=== PATIENT | female | born 1965 | race Two or more races ===

== ENCOUNTER 2019-12-28 08:59 | Outpatient (REF) | payer MEDICAID, SELFPAY | END 2019-12-28 09:00 | disposition home or self-care (01) | LOC: HO.HAP 08:59 | PROVIDERS: Visit Provider Family Medicine | DX: Z46.1 Encounter for fitting and adjustment of hearing aid (principal); I83.12 Varicose veins of left lower extremity with inflammation | CPT/HCPCS: 92593; 99213 ==

== ENCOUNTER 2020-01-10 08:35 | Outpatient (REF) | payer MEDICAID, SELFPAY ==
[2020-01-17 18:17] LABS: HPV mRNA E6/E7 rflx Not Detected (Not Detected)
== END 2020-01-10 08:36 | disposition home or self-care (01) ==
LOC: HO.LAB 08:35
PROVIDERS: PCP Family Medicine; Visit Provider Obstetrics & Gynecology
DX: Z01.419 Encounter for gynecological examination (general) (routine) without abnormal findings (principal)
CPT/HCPCS: 87624; 87625; 88142

== ENCOUNTER 2020-01-19 15:15 | Outpatient (REF) | payer MEDICAID, SELFPAY | END 2020-01-19 15:16 | disposition home or self-care (01) | LOC: HO.HAP 15:15 | PROVIDERS: PCP Family Medicine; Visit Provider Family Medicine | DX: Z46.1 Encounter for fitting and adjustment of hearing aid (principal) | CPT/HCPCS: 92700 ==

== ENCOUNTER → 2020-03-01 07:34 | Outpatient (BNVA) | payer MEDICAID, SELFPAY | PROVIDERS: PCP Family Medicine; Referring Provider Family Medicine; Visit Provider Surgery Vascular Surgery | DX: I83.12 Varicose veins of left lower extremity with inflammation (principal) | CPT/HCPCS: 37765 ==

== ENCOUNTER → 2020-03-19 11:02 | Outpatient (BNVA) | payer MEDICAID, SELFPAY | PROVIDERS: PCP Family Medicine; Visit Provider Surgery Vascular Surgery | DX: I83.12 Varicose veins of left lower extremity with inflammation (principal) | CPT/HCPCS: 99212 ==

== ENCOUNTER → 2020-03-21 08:28 | Outpatient (BNVA) | payer MEDICAID, SELFPAY | PROVIDERS: PCP Family Medicine; Referring Provider Family Medicine; Visit Provider Internal Medicine Cardiovascular Disease | DX: Z45.02 Encounter for adjustment and management of automatic implantable cardiac defibrillator (principal); I50.810 Right heart failure, unspecified; I48.0 Paroxysmal atrial fibrillation; I45.10 Unspecified right bundle-branch block; Q21.3 Tetralogy of Fallot | CPT/HCPCS: 93005; 99212 ==

== ENCOUNTER 2020-04-01 08:55 | Outpatient (REF) | payer MEDICAID, SELFPAY ==
--- NOTE | 2020-04-01 08:58 | MM_ITS ---
EXAMINATION: MM SCREENING DIGITAL BREAST TOMOSYNTHESIS, BILATERAL CLINICAL INFORMATION: Screening. Asymptomatic. Family history breast cancer, sister, age 32. The lifetime risk of breast cancer based on the Tyrer-Cuzick Model is 19%. COMPARISON: Mammography: 03/30/2019, 01/03/2018, 12/30/2016 TECHNIQUE: Digital breast tomosynthesis is performed in both the craniocaudal and mediolateral oblique views along with computer-aided detection (CAD). Synthesized 2D images are generated from the tomosynthesis. Additional left CC and left MLO views are provided. FINDINGS: The breasts are heterogeneously dense, which may obscure small masses (ACR BI-RADS breast composition Category c). There are no significant masses, abnormal calcifications, or other abnormalities. There is fine fibronodular parenchymal pattern is similar to prior studies. Pacemaker generator overlies and partly obscures left axilla on MLO view. There are some calcifications bilateral posterior medial breasts again seen. No significant changes. MM/MM tomosynthesis screening BI IMPRESSION: No mammographic evidence of malignancy. ASSESSMENT: BI-RADS 2: Benign RECOMMENDATION: Routine annual mammography screening. This patient's information was entered into a reminder system with a target due date for their next mammogram.
== END 2020-04-01 08:56 | disposition home or self-care (01) ==
LOC: HO.MAMMO 08:55
PROVIDERS: PCP Family Medicine; Visit Provider Family Medicine
DX: Z12.31 Encounter for screening mammogram for malignant neoplasm of breast (principal)
CPT/HCPCS: 77063; 77067

== ENCOUNTER → 2020-08-27 08:40 | Outpatient (BNVA) | payer MEDICAID, SELFPAY | PROVIDERS: PCP Family Medicine; Visit Provider Surgery Vascular Surgery | DX: I83.11 Varicose veins of right lower extremity with inflammation (principal) | CPT/HCPCS: 99212 ==

== ENCOUNTER → 2020-09-19 08:09 | Outpatient (BNVA) | payer MEDICAID, SELFPAY | PROVIDERS: PCP Family Medicine; Referring Provider Family Medicine; Visit Provider Internal Medicine Cardiovascular Disease | DX: Z45.02 Encounter for adjustment and management of automatic implantable cardiac defibrillator (principal); I48.0 Paroxysmal atrial fibrillation; I50.810 Right heart failure, unspecified; Z95.2 Presence of prosthetic heart valve | CPT/HCPCS: 93005; 99212 ==

== ENCOUNTER → 2020-09-27 07:23 | Outpatient (BNVA) | payer MEDICAID, SELFPAY | PROVIDERS: PCP Family Medicine; Visit Provider Surgery Vascular Surgery | DX: I83.11 Varicose veins of right lower extremity with inflammation (principal) | CPT/HCPCS: 37765 ==

== ENCOUNTER → 2020-10-17 08:52 | Outpatient (BNVA) | payer MEDICAID, SELFPAY | PROVIDERS: PCP Family Medicine; Visit Provider Surgery Vascular Surgery | DX: I83.11 Varicose veins of right lower extremity with inflammation (principal) | CPT/HCPCS: 99212 ==

== ENCOUNTER → 2020-11-19 19:17 | Outpatient (REF) | payer MEDICAID, SELFPAY | LOC: HO.SL 19:17 | PROVIDERS: PCP Family Medicine; Visit Provider Family Medicine | DX: Z13.89 Encounter for screening for other disorder (principal) ==

== ENCOUNTER → 2020-11-26 13:32 | Outpatient (REF) | payer MEDICAID, SELFPAY ==
--- NOTE | 2020-11-26 13:35 | CA_ITS ---
Transthoracic Echocardiogram Patient (Last, First, Middle): Jasmina Yi, Gender: Female Date of : 1965 Age: 55 Procedure Date: 11/26/2020 Procedure Type: Transthoracic Echocardiogram Location: OP Height: 152.4 cm Weight: 68.95 kg BSA: 1.66 m2 Heart Rate: bpm BP: 100 / 60 mmHg Thread Marker: MANUELITO Referring MD: Christoph Marin MD Distribution District Supervisor: Christoph Marin MD Symptoms: I50.810 - Right heart failure, unspecified Study Quality: Fair ECG Rhythm: Sinus Conclusions: - 1. Low normal LV systolic function with LVEF of 50-55% 2. Moderately dilated right ventricle with borderline systolic function 3. Normally functioning bioprosthetic pulmonic valve with peak gradient of 12 mm of mercury 4. Normal RV systolic pressure 5. Trivial pericardial effusion Findings Left Ventricle Normal left ventricular cavity size. There is normal left ventricular wall thickness. The left ventricular systolic function is low normal. The visually estimated ejection fraction is between 50-55%. The calculated ejection fraction is 55% by biplane method. There is no evidence of regional wall motion abnormalities. There is paradoxical septal motion consistent with post-operative status. Spectral Doppler is indicative of a normal filling pattern. Right Ventricle Moderately increased right ventricular cavity size. There is low normal right ventricular systolic function. There is an ICD wire seen in the right ventricle. RV basal diameter 4.7-4.8cm. TAPSE 1.66cm. Atria Both atria are normal in size. Aortic Valve The aortic valve was not well visualized. There is mild calcification of the aortic valve. There is no aortic valve stenosis. The peak aortic gradient is 8 mmHg.There is no aortic valve regurgitation. Mitral Valve There is mild anterior mitral leaflet thickening. There is no mitral valve regurgitation. There is no mitral valve stenosis. Pulmonic Valve A bioprosthetic pulmonic valve is present. The prosthetic pulmonic valve appears to be functioning normally. The pulmonic valve was not well visualized. Peak PV gradient is calculated at 12 mmHg. Peak gradient 12mmHg. Tricuspid Valve There is mild tricuspid valve regurgitation. The right ventricular systolic pressure is normal. The right ventricular systolic pressure is 38 mmHg. There is no evidence of pulmonary hypertension. Great Vessels All visible segments of the aorta are normal in size. The pulmonary artery was not well visualized. The aortic arch is normal in size. Venous The inferior vena cava was not well visualized. Pericardium/Pleural There is a trivial pericardial effusion. Measurements 2D Linear Measurements IVSd: 0.92 0.6-0.9/0.6-1.0 cm LVIDd: 4.15 3.9-5.3/4.2-5.9 cm LVIDd Index: 2.50 2.4-3.2/2.2-3.1 cm/m2 LVIDs: 2.90 2.0-3.6 cm LVPWd: 1.03 0.7-1.1 cm Ao Root: 2.80 2.1-3.5 cm LA Diam: 2.60 2.7-3.8/3.0-4.0 cm LAIDs Index: 1.57 1.5-2.3 cm/m2 LV Mass: 162.19 67-162/88-224 g LV Mass Index: 97.71 43-95/49-115 g/m2 LVOT Diam: 1.90 3.0+(-)1.3 cm 2D Systolic Function EF 4C: 57.00 >55% EF 2C: 50.40 >55% EF BiP: 54.60 >55% Mitral Valve MV Pk E: 0.47 MV PK A: 0.46 MV Decel Time: 243.00 E/A: 1.00 E'Lateral: 6.96 E'Medial: 3.92 E/E' Med: 12.00 E/E' Lat: 6.80 PHT: 71.00 MVA PHT: 3.10 Decel Andrew: 1.94 Aortic Valve AoV Pk Darwin: 1.44 AoV Pk Grad: 8.00 LVOT LVOT Pk Darwin: 0.81 LVOT Mn Darwin: 0.51 LVOT VTI: 0.16 LVOT Pk Grad: 3.00 LVOT Mn Grad: 1.00 LVOT Diam: 1.90 LVOT Area: 2.84 Diastolic Function MV Pk E: 0.47 MV Pk A: 0.46 E/A: 1.00 E'Medial: 3.92 E/E' Med: 12.00 E' Laterial: 6.96 E/E' Lat: 6.80 Right Ventricle TAPSE (mm): 1.66 Tricuspid Valve TR Pk Darwin: 295.00 TR Pk Grad: 35.00 RA Press: 3.00 RVSP: 38.00 Great Vessels Aorta Ao Root-2D: 2.80 2.0-3.7 cm Pulmonary Valve PV Pk Darwin: 1.76 Peak PV Grad: 12.00 Updated in Other Vendor System with Status of Final Christoph Marin MD electronically signed on 11/27/2020 11:54:08 AM with status of Final
== END ==
LOC: HO.CARD 13:32
PROVIDERS: PCP Family Medicine; Visit Provider Internal Medicine Cardiovascular Disease
DX: I50.810 Right heart failure, unspecified (principal); I48.0 Paroxysmal atrial fibrillation; R06.83 Snoring; F51.3 Sleepwalking [somnambulism]; F51.4 Sleep terrors [night terrors]; Z95.2 Presence of prosthetic heart valve
CPT/HCPCS: 93306

== ENCOUNTER → 2021-01-23 09:29 | Outpatient (BNVA) | payer MEDICAID, SELFPAY | PROVIDERS: PCP Family Medicine; Visit Provider Surgery Vascular Surgery | DX: I83.11 Varicose veins of right lower extremity with inflammation (principal) | CPT/HCPCS: 99212 ==

== ENCOUNTER 2021-03-27 08:23 | Outpatient (REF) | payer MEDICAID, SELFPAY ==
--- NOTE | ~2021-03-27 | XR_ITS ---
EXAMINATION: XR CHEST CLINICAL INFORMATION: Paroxysmal atrial fibrillation COMPARISON: None TECHNIQUE: 2 views of the chest were obtained. FINDINGS: The lungs are well-expanded and clear acute pneumonic process. The heart size is enlarged. Bilateral pulmonary vascularity is slightly increased with There are pacer electrodes in right ventricle. There are median sternotomy sutures from previous intervention. No gross bony abnormality. XR/XR chest 2V IMPRESSION: Mild cardiomegaly. Slight increased bilateral pulmonary vascularity question mild congestion
[2021-03-27 10:05] LABS: Alanine Aminotransferase 19 U/L (0-31); Albumin Level 3.6 g/dL (3.5-5.0); Alkaline Phosphatase 70 U/L (39-117); Anion Gap 10 (12-20); Aspartate Amino Transferase 28 U/L (5-31); Bilirubin Direct 0.2 mg/dL (0.0-0.5); Bilirubin Total 0.5 mg/dL (0.0-1.0); Blood Urea Nitrogen 12 mg/dL (9-16); Calcium 9.6 mg/dL (8.4-10.2); Carbon Dioxide 30 mmol/L (22-29); Chloride 106 mmol/L (96-108); Estimated Glomerular Filt Rate > 60; Glucose Random 90 mg/dL (60-115); Potassium 4.1 mmol/L (3.3-5.1); Sodium 142 mmol/L (135-145); Total Protein 7.6 g/dL (6.5-8.0)
[2021-03-27 10:25] LABS: Thyroid Stimulating Hormone < 0.01 uIU/mL (0.32-4.0)
== END 2021-03-27 08:24 | disposition home or self-care (01) ==
LOC: HO.XRAY 08:23
PROVIDERS: PCP Family Medicine; Referring Provider Family Medicine; Visit Provider Internal Medicine Cardiovascular Disease
DX: I48.0 Paroxysmal atrial fibrillation (principal); I50.810 Right heart failure, unspecified; Q24.9 Congenital malformation of heart, unspecified; Z95.2 Presence of prosthetic heart valve; Z95.810 Presence of automatic (implantable) cardiac defibrillator
CPT/HCPCS: 36415; 71046; 80048; 80076; 84443; 93005; 99212

== ENCOUNTER → 2021-04-04 09:57 | Outpatient (BNVA) | payer MEDICAID, SELFPAY | PROVIDERS: PCP Family Medicine; Visit Provider Surgery Vascular Surgery | DX: I83.11 Varicose veins of right lower extremity with inflammation (principal) | CPT/HCPCS: 37765 ==

== ENCOUNTER → 2021-04-17 08:26 | Outpatient (BNVA) | payer MEDICAID, SELFPAY | PROVIDERS: PCP Family Medicine; Visit Provider Obstetrics & Gynecology ==

== ENCOUNTER 2021-04-23 15:31 | Outpatient (REF) | payer MEDICAID, SELFPAY ==
--- NOTE | ~2021-04-23 | MM_ITS ---
EXAMINATION: MM SCREENING DIGITAL BREAST TOMOSYNTHESIS, BILATERAL CLINICAL INFORMATION: Screening. Asymptomatic. The lifetime risk of breast cancer based on the Tyrer-Cuzick Model is 21%. COMPARISON: Mammography: 04/01/2020, 03/30/2019, 01/03/2018 TECHNIQUE: Digital breast tomosynthesis is performed in both the craniocaudal and mediolateral oblique views along with computer-aided detection (CAD). Synthesized 2D images are generated from the tomosynthesis. Additional left MLO x2 views are obtained. FINDINGS: The breasts are heterogeneously dense, which may obscure small masses (ACR BI-RADS breast composition Category c). There is fine fibronodular parenchymal pattern similar to prior exams. There is no interval mass or architectural abnormality or developing density. No abnormal calcifications. There are some loosely grouped dermal calcifications posterior medial right breast. Pacemaker generator overlies and partly obscures posterior left axilla on MLO view. No significant changes. MM/MM tomosynthesis screening BI IMPRESSION: No mammographic evidence of malignancy. ASSESSMENT: BI-RADS 2: Benign RECOMMENDATION: 1. Routine annual mammography screening. 2. The lifetime risk of breast cancer based on the Tyrer-Cuzick Model is 21%. Additional annual adjunct screening with breast MRI may be of benefit in women with a risk score of 20% or greater. This patient's information was entered into a reminder system with a target due date for their next mammogram.
== END 2021-04-23 15:32 | disposition home or self-care (01) ==
LOC: HO.MAMMO 15:31
PROVIDERS: PCP Family Medicine; Visit Provider Family Medicine
DX: Z12.31 Encounter for screening mammogram for malignant neoplasm of breast (principal)
CPT/HCPCS: 77063; 77067

== ENCOUNTER 2021-05-22 10:02 | Outpatient (REF) | payer MEDICAID, SELFPAY | END 2021-05-22 10:03 | disposition home or self-care (01) | LOC: HO.HAP 10:02 | PROVIDERS: Visit Provider Family Medicine | DX: Z46.1 Encounter for fitting and adjustment of hearing aid (principal); H90.3 Sensorineural hearing loss, bilateral | CPT/HCPCS: 92592 ==

== ENCOUNTER 2021-07-04 09:25 | Outpatient (REF) | payer MEDICAID, SELFPAY ==
--- NOTE | 2021-07-04 14:00 | MHC.AU.AHA ---
Adult Audiological Evaluation Date of Visit: 07/04/21 Reason for Appointment: Audiological evaluation due to concern for decreased hearing. Jasmina has a longstanding history of hearing loss and hearing aid use. She reports that her hearing seems to gradually be getting worse. She notes that she has lost the right hearing aid, which is no longer under warranty. She is interested in pursuing new hearing aids. She notes that she's been having increased difficulty hearing on the phone and in background noise. Previous Hearing Test Results[place] [facility] [place]- Moderate to moderately-severe SNHL in the left ear. Moderately-severe to profound mixed hearing loss in the right ear. Significant decreased noted in left ear compared to audiogram from 2018. 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, HIV Allergies: Penicillin, seafood Medication List: Xarelto, amiodarone HCl, metoprolol succinate, AIRS nebulizer, cyanocobalamin, albuterol sulfate, Narcan, Voltaren, Vitamin D2, Shingrix, Proair HFA, Percocet, diclofenac sodium, Biktarvy Hearing Instrument History- Right Ear- LOST Artillery Officer: PhonSenor Sirloin Model: Lawn Love B50-SP Serial Number: [id number] Repair Warranty: 07/05/2019 Loss and Damage Warranty: 07/05/2019 Dispensed By: [facility] Date of Fittin04/22/2017 Hearing Instrument History- Left Ear: Artillery Officer: Phonak Model: Bolero B50-SP Serial Number: [id number] Warranty: 09/18/2021 Loss and Damage Warranty: USED 11/11/2018 Dispensed By: [facility] Date of Fittin07/12/2018 Otoscopy: Right Ear: Partially occluding cerumen removed without incident with lighted curette Left Ear: Unremarkable Tympanometry: Tympanometry performed due to: History of mixed hearing loss Right Ear: Normal Middle Ear System (Type A) Left Ear: Normal Middle Ear System (Type A) Hearing Evaluation: Transducer(s) Used: Insert Earphones, Bone Conduction Method: Conventional Audiometry Stimuli Used: Pure Tones Right Ear: Description of Hearing: Severe to profound mixed hearing loss from 250-8000 Hz. Left Ear: Description of Hearing: Mild sloping to moderately-severe sensorineural hearing loss from 250-8000 Hz. Speech Recognition Threshold (SRT): Method Used: Monitored Live Voice Stimuli Used: Spondee Words Right Ear: 75 dBHL Left Ear: 55 dBHL Word Discrimination: Method: Recorded Lists Word Lists Used: NU-6 Right Ear: 80% at 90 dBHL Left Ear: 88% at 80 dBHL Most Comfortable Level (MCL): Right Ear: 90 dBHL Left Ear: 80 dBHL Comparison: Compared to most recent evaluation: Slight decrease in hearing by 5-10 dBHL across the frequency range bilaterally. Recommendations: Audiological re-evaluation in one year. Updated amplification for both ears is recommended. Given the degree of Jasmina's hearing loss, she would benefit from a matching set of binaural hearing aids. Hearing aids communicate binaurally to provide improved speech understanding and background noise reduction, compared to a mis-matched set of hearing aids. Her previous hearing aids are out of date and have been discontinued by the traveling sales representative. She would also benefit from direct Bluetooth to her hearing aids as she struggles to hear on the phone. Discussed hearing aid options. She is interested in rechargeable MIGUEL A style hearing aids. Medical clearance for hearing aid use and insurance prior authorization will be requested. Hearing aids will be ordered if/when approval is received. Diagnosis: Primary Diagnosis: H90.3 Bilateral Sensorineural Hearing Loss Services Performed: Comprehensive Audiological Evaluation (CPT 99775) Tympanometry (CPT 79024) Signature: Provider: Messi Gutierrez, CCC-A
--- NOTE | 2021-07-04 14:01 | MHC.AU.HAS ---
Hearing Aid Evaluation Date of Visit: 07/04/21 Historical Information: Description of Hearing: Severe to profound mixed hearing loss in the right ear. Mild to moderately-severe SNHL in the left ear. Current personal amplification information, if applicable: 2019 Phonak Bolero B50-SP in left, 2018 Phonak Bolero B50-SP in right(LOST) Summary: Jasmina has lost her right hearing aid and has been struggling with communication more without it. Updated amplification for both ears is recommended. Given the degree of Jasmina's hearing loss, she would benefit from a matching set of binaural hearing aids. Hearing aids communicate binaurally to provide improved speech understanding and background noise reduction, compared to a mis-matched set of hearing aids. Her previous hearing aids are out of date and have been discontinued by the toggle press folder and feeder. She would also benefit from direct Bluetooth to her hearing aids as she struggles to hear on the phone. Discussed hearing aid options. She is interested in rechargeable MIGUEL A style hearing aids. Medical clearance for hearing aid use and insurance prior authorization will be requested. Hearing aids will be ordered if/when approval is received. Hearing Aid Prescription: Right ear: Timber Rider: Phonak Model: Audeo P70-R Battery Size: Rechargeable Color: P1 - Sand beige Refiner Operator: Size 1 UP Type of Mold: cShell Left ear: Timber Rider: Phonak Model: Audeo P70-R Battery Size: Rechargeable Color: P1- Sand beige Refiner Operator: Size 1 P Type of Mold: cShell Plan of Care: Earmold Impressions Taken. Prior authorization to be requested. Medical Clearance to be requested from PCP/ENT. Hearing aids will be ordered when approved is received. Hearing aid fitting will be scheduled when materials arrive. Earmold impressions in hold drawer. Primary Diagnosis: H90.3 Bilateral Sensorineural Hearing Loss Signature:Provider: Messi Gutierrez, MELANIA-A
--- NOTE | 2021-07-04 14:04 | MHC.AU.AHA ---
Adult Audiological Evaluation Date of Visit: 07/04/21 Reason for Appointment: Audiological evaluation due to concern for decreased hearing. Jasmina has a longstanding history of hearing loss and hearing aid use. She reports that her hearing seems to gradually be getting worse. She notes that she has lost the right hearing aid, which is no longer under warranty. She is interested in pursuing new hearing aids. She notes that she's been having increased difficulty hearing on the phone and in background noise. Previous Hearing Test Results: [facility] [place], 06/17/2018- Moderate to moderately-severe SNHL in the left ear. Moderately-severe to profound mixed hearing loss in the right ear. Significant decreased noted in left ear compared to audiogram from 2018. 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, HIV Allergies: Penicillin, seafood Medication List: Xarelto, amiodarone HCl, metoprolol succinate, AIRS nebulizer, cyanocobalamin, albuterol sulfate, Narcan, Voltaren, Vitamin D2, Shingrix, Proair HFA, Percocet, diclofenac sodium, Biktarvy Hearing Instrument History- Right Ear- LOST Wood Cabinetmaker: PhonSkinfix Model: [employer] B50-SP Serial Number: [id number] Repair Warranty: 07/05/2019 Loss and Damage Warranty: 07/05/2019 Dispensed By: [facility] Date of Fittin04/22/2017 Hearing Instrument History- Left Ear: Wood Cabinetmaker: Phonak Model: Bolero B50-SP Serial Number: [id number] Warranty: 09/18/2021 Loss and Damage Warranty: USED 11/11/2018 Dispensed By: [facility] Date of Fittin07/12/2018 Otoscopy: Right Ear: Partially occluding cerumen removed without incident with lighted curette Left Ear: Unremarkable Tympanometry: Tympanometry performed due to: History of mixed hearing loss Right Ear: Normal Middle Ear System (Type A) Left Ear: Normal Middle Ear System (Type A) Hearing Evaluation: Transducer(s) Used: Insert Earphones, Bone Conduction Method: Conventional Audiometry Stimuli Used: Pure Tones Right Ear: Description of Hearing: Severe to profound mixed hearing loss from 250-8000 Hz. Left Ear: Description of Hearing: Mild sloping to moderately-severe sensorineural hearing loss from 250-8000 Hz. Speech Recognition Threshold (SRT): Method Used: Monitored Live Voice Stimuli Used: Spondee Words Right Ear: 75 dBHL Left Ear: 55 dBHL Word Discrimination: Method: Recorded Lists Word Lists Used: NU-6 Right Ear: 80% at 90 dBHL Left Ear: 88% at 80 dBHL Most Comfortable Level (MCL): Right Ear: 90 dBHL Left Ear: 80 dBHL Comparison: Compared to most recent evaluation: Slight decrease in hearing by 5-10 dBHL across the frequency range bilaterally. Recommendations: Audiological re-evaluation in one year. Updated amplification for both ears is recommended. Given the degree of Jasmina's hearing loss, she would benefit from a matching set of binaural hearing aids. Hearing aids communicate binaurally to provide improved speech understanding and background noise reduction, compared to a mis-matched set of hearing aids. Her previous hearing aids are out of date and have been discontinued by the paper making machine operator. She would also benefit from direct Bluetooth to her hearing aids as she struggles to hear on the phone. Discussed hearing aid options. She is interested in rechargeable MIGUEL A style hearing aids. Medical clearance for hearing aid use and insurance prior authorization will be requested. Hearing aids will be ordered if/when approval is received. Diagnosis: Primary Diagnosis: H90.3 Bilateral Sensorineural Hearing Loss Services Performed: Comprehensive Audiological Evaluation (CPT 13683), Tympanometry (CPT 99758) Signature: Provider: Messi Gutierrez, CCC-A
--- NOTE | 2021-07-04 14:05 | MHC.AU.AHA ---
Adult Audiological Evaluation Date of Visit: 07/04/21 Reason for Appointment: Audiological evaluation due to concern for decreased hearing. Jasmina has a longstanding history of hearing loss and hearing aid use. She reports that her hearing seems to gradually be getting worse. She notes that she has lost the right hearing aid, which is no longer under warranty. She is interested in pursuing new hearing aids. She notes that she's been having increased difficulty hearing on the phone and in background noise. [place] [facility] [place] Moderate to moderately-severe SNHL in the left ear. Moderately-severe to profound mixed hearing loss in the right ear. Significant decreased noted in left ear compared to audiogram from 2018. 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, HIV Allergies: Penicillin, seafood Medication List: Xarelto, amiodarone HCl, metoprolol succinate, AIRS nebulizer, cyanocobalamin, albuterol sulfate, Narcan, Voltaren, Vitamin D2, Shingrix, Proair HFA, Percocet, diclofenac sodium, Biktarvy Hearing Instrument History- Right Ear- LOST Train Station Agent: PhonGLG Model: Selenokhod B50-SP Serial Number: [id number] Repair Warranty: 07/05/2019 Loss and Damage Warranty: 07/05/2019 Dispensed By: [facility] Date of Fittin04/22/2017 Hearing Instrument History- Left Ear: Train Station Agent: Phonak Model: Bolero B50-SP Serial Number: [id number] Warranty: 09/18/2021 Loss and Damage Warranty: USED 11/11/2018 Dispensed By: [facility] Date of Fittin07/12/2018 Otoscopy: Right Ear: Partially occluding cerumen removed without incident with lighted curette Left Ear: Unremarkable Tympanometry: Tympanometry performed due to: History of mixed hearing loss Right Ear: Normal Middle Ear System (Type A) Left Ear: Normal Middle Ear System (Type A) Hearing Evaluation: Transducer(s) Used: Insert Earphones, Bone Conduction Method: Conventional Audiometry Stimuli Used: Pure Tones Right Ear: Description of Hearing: Severe to profound mixed hearing loss from 250-8000 Hz. Left Ear: Description of Hearing: Mild sloping to moderately-severe sensorineural hearing loss from 250-8000 Hz. Speech Recognition Threshold (SRT): Method Used: Monitored Live Voice Stimuli Used: Spondee Words Right Ear: 75 dBHL Left Ear: 55 dBHL Word Discrimination: Method: Recorded Lists Word Lists Used: NU-6 Right Ear: 80% at 90 dBHL Left Ear: 88% at 80 dBHL Most Comfortable Level (MCL): Right Ear: 90 dBHL Left Ear: 80 dBHL Comparison: Compared to most recent evaluation: Slight decrease in hearing by 5-10 dBHL across the frequency range bilaterally. Recommendations: Audiological re-evaluation in one year. Updated amplification for both ears is recommended. Given the degree of Jasmina's hearing loss, she would benefit from a matching set of binaural hearing aids. Hearing aids communicate binaurally to provide improved speech understanding and background noise reduction, compared to a mis-matched set of hearing aids. Her previous hearing aids are out of date and have been discontinued by the rn coronary care unit. She would also benefit from direct Bluetooth to her hearing aids as she struggles to hear on the phone. Discussed hearing aid options. She is interested in rechargeable MIGUEL A style hearing aids. Medical clearance for hearing aid use and insurance prior authorization will be requested. Hearing aids will be ordered if/when approval is received. Diagnosis: Primary Diagnosis: H90.3 Bilateral Sensorineural Hearing Loss Services Performed: Comprehensive Audiological Evaluation (CPT 29966), Tympanometry (CPT 74662) Signature: Provider: Messi Gutierrez, CCC-A
--- NOTE | 2021-07-07 14:03 | MHC.AU.MED ---
Medical Clearance for Hearing Instrumentation Date: 07/07/21 Patient Name: Jasmina Yi Date of : 1965 Primary Care Provider: Mel Greenberg DO Referring Provider: Mel Greenberg DO We have seen your patient on 07/04/21 and have determined that they are a candidate for amplification (See accompanying report). Specifically, they would benefit from: Hearing aid use in both ears There is a statute that addresses Medical Evaluation Requirements prior to fitting a patient with a hearing aid. According to [place] statute 265 CMR:6.03(1), (a) General. Except as provided in 265 CMR 6.03(1)(b), a patient safety officer shall not sell a hearing aid unless the prospective user has presented to the patient safety officer a written statement signed by a licensed physician that states that the patient's hearing loss has been medically evaluated and the patient may be considered a candidate for a hearing aid. The medical evaluation must have taken place within the preceding six months. Please note: Due to the [place] Statute referenced above, we cannot accept a signature other than that of a licensed physician. MONITORING TECH and PA signatures cannot be accepted. I am in agreement with the above recommendation. There is no medical contraindication for hearing instrumentation. Physician Signature Date Physician Name (Printed)
== END 2021-07-04 09:26 | disposition home or self-care (01) ==
LOC: HO.SH 09:25
PROVIDERS: PCP Family Medicine; Visit Provider Family Medicine
DX: Z01.118 Encounter for examination of ears and hearing with other abnormal findings (principal); Z46.1 Encounter for fitting and adjustment of hearing aid; H90.3 Sensorineural hearing loss, bilateral
CPT/HCPCS: 92557; 92567; 92591; V5275

== ENCOUNTER 2021-07-29 21:28 | Inpatient (IN) | payer MEDICAID, SELFPAY ==
--- NOTE | ~2021-07-29 | XR_ITS ---
EXAMINATION: XR CHEST CLINICAL INFORMATION: Cough COMPARISON: 03/27/2021 TECHNIQUE: Frontal view of the chest was obtained. FINDINGS: Again seen is cardiomegaly. Pulmonary vascularity is increased with some increased interstitial density when compared to the prior consistent with CHF and mild interstitial edema. Tiny pleural effusions may be present. Some new left basilar atelectasis is seen with obscuration of hemidiaphragm. A left chest wall pacer/defibrillator is present. Patient status post median sternotomy. A TAVR valve prosthesis is present. XR/XR chest 1V IMPRESSION: Cardiomegaly with mild CHF.
[2021-07-29 21:49] VITALS: BP 119/70; BP 128/80; PULSE 62; PULSE 84; RESP 14; TEMP 36.7; O2SAT 92; O2SAT 96; BMI 27.8
--- NOTE | 2021-07-29 22:11 | ECG_ITS ---
Test Reason : CP Blood Pressure : / mmHG Vent. Rate : 059 BPM Atrial Rate : 059 BPM P-R Int : 168 ms QRS Dur : 226 ms QT Int : 530 ms P-R-T Axes : 039 -56 058 degrees QTc Int : 524 ms Sinus bradycardia Right bundle branch block Left anterior fascicular block Bifascicular block Abnormal ECG When compared with ECG of 13-AUG-2017 14:06, No significant change was found Referred By: Kandace Hearn Electronically Signed By:FLORA VANEGAS
[2021-07-29 22:43] LABS: MANUAL DIFF FLAG NO
[2021-07-29 22:52] LABS: Basophils Percent Auto 0.5 % (0-2); Eosinophils Absolute Auto 0.3 X10*3/uL (0.0-0.4); Eosinophils Percent Auto 4.7 % (0-4); Hematocrit 45.9 % (37.0-47.0); Hemoglobin 14.7 g/dl (12.0-16.0); Imm Gran Abs Auto 0.02 X10*3/uL (0.00-0.03); Imm Gran Pct Auto 0.4 % (0.0-0.4); Lymphocytes Absolute Auto 1.2 X10*3/uL (1.2-4.9); Lymphocytes Percent Auto 22.2 % (20-40); Mean Corpuscular Hemoglobin 31.3 pg (27.0-33.0); Mean Corpuscular Volume 97.7 fL (80.0-98.0); Mean Platelet Volume 12.2 fL (9.4-12.3); Monocytes Absolute Auto 0.4 X10*3/uL (0.1-1.2); Monocytes Percent Auto 7.7 % (2-11); Neutrophils Absolute Auto 3.6 x10*3/uL (2.0-8.3); Neutrophils Percent Auto 64.5 % (45-73); Platelet Count 196 X10*3/uL (160-400); Red Cell Distribution Width 14.5 % (11.0-16.0); White Blood Count 5.6 X10*3/uL (4.8-10.8)
[2021-07-29 23:01] LABS: COVID-19 Test Positive (Negative); IDNOW Serial# 55D5AD1C; IDNOW Serial# 9DB6401D; Influenza A Negative (Negative); Influenza B2 Negative (Negative)
--- NOTE | 2021-07-29 23:01 | ED.GENADULT ---
HPI - General Adult General Chief complaint: General Medical Stated complaint: chest tightness Time Seen by Provider: 07/29/21 22:11 Source: patient Mode of arrival: EMS History of Present Illness HPI narrative: 55-year-old female brought in by EMS for complaints right-sided chest discomfort/tightness with involvement of the right jaw while she was chewing her food and eating dinner. She states that this is the 1st time that this has happened and denies any associated shortness of breath, dizziness, nausea and denies experiencing any abdominal pain or urinary symptoms. Related Data Home Medications Medication Instructions Recorded Confirmed albuterol sulfate 90 mcg/actuation 1 inh INHALATION QID 12/28/19 03/27/21 aerosol inhaler (ProAir HFA) cholecalciferol (vitamin D3) 10 10 mcg PO DAILY 12/28/19 03/27/21 mcg (400 unit) capsule metoprolol succinate 25 mg 25 mg PO DAILY 12/28/19 03/27/21 tablet,extended release 24 hr mirtazapine 15 mg tablet 15 mg PO BEDTIME 12/28/19 03/27/21 oxycodone-acetaminophen 5 mg-325 1 tab PO BEDTIME PRN 03/27/21 03/27/21 mg tablet atorvastatin 20 mg tablet 20 mg PO DAILY 04/04/21 bictegravir 50 mg-emtricitabine 1 tab PO BEDTIME 04/04/21 200 mg-tenofovir alafenam 25 mg tablet (Biktarvy) diclofenac sodium 1 % topical gel 2 g TOPICAL BID 04/04/21 Previous Rx's Medication Instructions Recorded rivaroxaban 20 mg tablet (Xarelto) 20 mg PO BEDTIME 90 Days #90 tab 03/03/21 amiodarone 100 mg tablet 100 mg PO DAILY 90 Days #90 tab 07/10/21 Allergies Allergy/AdvReac Type Severity Reaction Status Date / Time Penicillins [PENICILLINS] Allergy Unknown RASH Verified 04/17/21 08:34 SEAFOOD Allergy Unknown RASH Uncoded 01/23/21 09:40 Review of Systems Review of Systems: Pertinent positives and negatives as stated in HPI 10 point review of systems otherwise negative. [facility] Past Medical History Source: nursing notes reviewed Medical History Asthma Dysplasia of cervix, low grade (MIGUEL 1) Fallot tetralogy Heart valve disorder HIV (human immunodeficiency virus infection) ICD (implantable cardioverter-defibrillator) in place Pacemaker Paroxysmal atrial fibrillation Right bundle branch block (RBBB) on electrocardiogram (ECG) Right heart failure Surgical History H/O pulmonic valve replacement History of cardioversion History of open heart surgery Hx of cardiac pacemaker Pulmonary valve replaced Family History Family History Father CVD (cardiovascular disease) Mother No problems noted. Social History Social History Alcohol intake: never Advance Directives: No Sexual orientation: Straight/Heterosexual Gender identity: Female Physical Exam ED Vital Signs: Vital Signs - 24 hr 07/29/21 21:49 07/29/21 23:27 Temperature 98.1 F 98.2 F Pulse Rate 62 57 Respiratory Rate 14 23 H Blood Pressure 119/70 118/70 Pulse Oximetry 92 94 BMI result Body Mass Index 27.8 VITAL SIGNS: Reviewed. GENERAL: Well developed, well nourished, in no acute distress. HEAD: Normocephalic/atraumatic, EYES: PERRLA, EOMI intact without pain, no nystagmus/pallor/icterus noted EARS: Ext canals without abnormality, TMs non-bulging and non-erythematous NOSE: Nares patent bilateral OROPHARYNX: no oral lesions noted, posterior pharynx clear and non-erythematous without noted tonsillar enlargement/erythema/exudates NECK: Supple, no adenopathy LUNGS: Good inspiratory effort with bibasilar rales, no tachypnea/wheeze/rhonchi SpO2<92> CARDIOVASCULAR: Regular rate and rhythm without noted murmurs, no JVD but bilateral lower extremity 1+ pitting edema ABDOMEN: Soft, non-tender, non-distended with bowel sounds. MUSCULOSKELETAL: No tenderness, deformities, or effusions noted on gross inspection. EXTREMITIES: No cyanosis, clubbing or edema. SKIN: Inspection of the skin reveals no rashes NEUROLOGIC: Alert and oriented x 4. Strength and sensation to light touch were grossly intact x 4. Course Course Course Narrative: 55-year-old female with multiple medical comorbidities who presents with being COVID positive and is noted to be in CHF exacerbation both clinically and objectively. Otherwise, investigations are negative. Patient received 60 mg of Lasix. I discussed this case with the inpatient hospitalist who accepts admission. Medical Decision Making Lab Data Result diagrams: 07/29/21 22:39 07/29/21 23:36 Labs: Lab Results 07/29/21 07/29/21 07/29/21 Range/Units 22:39 22:39 22:39 WBC 5.6 (4.8-10.8) X10*3/uL RBC 4.70 (4.20-5.50) X10*6/uL Hgb 14.7 (12.0-16.0) g/dl Hct 45.9 (37.0-47.0) % MCV 97.7 (80.0-98.0) fL MCH 31.3 (27.0-33.0) pg MCHC 32.0 (31.0-35.0) g/dl RDW 14.5 (11.0-16.0) % Plt Count 196 (160-400) X10*3/uL MPV 12.2 (9.4-12.3) fL Immature Gran % (Auto) 0.4 (0.0-0.4) % Neut % (Auto) 64.5 (45-73) % Lymph % (Auto) 22.2 (20-40) % Isabela % (Auto) 7.7 (2-11) % Eos % (Auto) 4.7 H (0-4) % Baso % (Auto) 0.5 (0-2) % Lymph # (Auto) 1.2 (1.2-4.9) X10*3/uL Isabela # (Auto) 0.4 (0.1-1.2) X10*3/uL Eos # (Auto) 0.3 (0.0-0.4) X10*3/uL Baso # (Auto) 0.0 (0.0-0.2) X10*3/uL Abs Immat Gran (auto) 0.02 (0.00-0.03) X10*3/uL Absolute Neuts (auto) 3.6 (2.0-8.3) x10*3/uL Absolute Nucleated RBC 0.000 (0.0-0.012) X10*3/uL Nucleated RBC % (auto) 0.0 (0.0-0.2) /100WBC ESR (0-20) MM/HR PT 27.3 H (9.9-13.0) SEC INR 2.4 H (0.9-1.1) Sodium (135-145) mmol/L Potassium (3.3-5.1) mmol/L Chloride (96-108) mmol/L Carbon Dioxide (22-29) mmol/L Anion Gap (12-20) BUN (9-16) mg/dL Creatinine (0.5-1.4) mg/dL Estim Creat Clear Calc Estimated GFR Random Glucose (60-115) mg/dL Calcium (8.4-10.2) mg/dL Total Bilirubin (0.0-1.0) mg/dL AST (5-31) U/L ALT (0-31) U/L Alkaline Phosphatase (39-117) U/L Troponin I High Sens 7.6 (<3.5-17.0) ng/L B-Natriuretic Peptide 375 H (<100) pg/mL Total Protein (6.5-8.0) g/dL Albumin (3.5-5.0) g/dL COVID-19 (LUBA) (Negative) COVID-19 Clin Com Influenza Type A (DALI) (Negative) Influenza Type B (DALI) (Negative) Influenza A & B Note 07/29/21 07/29/21 07/29/21 Range/Units 22:39 22:39 22:39 WBC (4.8-10.8) X10*3/uL RBC (4.20-5.50) X10*6/uL Hgb (12.0-16.0) g/dl Hct (37.0-47.0) % MCV (80.0-98.0) fL MCH (27.0-33.0) pg MCHC (31.0-35.0) g/dl RDW (11.0-16.0) % Plt Count (160-400) X10*3/uL MPV (9.4-12.3) fL Immature Gran % (Auto) (0.0-0.4) % Neut % (Auto) (45-73) % Lymph % (Auto) (20-40) % Isabela % (Auto) (2-11) % Eos % (Auto) (0-4) % Baso % (Auto) (0-2) % Lymph # (Auto) (1.2-4.9) X10*3/uL Isabela # (Auto) (0.1-1.2) X10*3/uL Eos # (Auto) (0.0-0.4) X10*3/uL Baso # (Auto) (0.0-0.2) X10*3/uL Abs Immat Gran (auto) (0.00-0.03) X10*3/uL Absolute Neuts (auto) (2.0-8.3) x10*3/uL Absolute Nucleated RBC (0.0-0.012) X10*3/uL Nucleated RBC % (auto) (0.0-0.2) /100WBC ESR 39 H (0-20) MM/HR PT (9.9-13.0) SEC INR (0.9-1.1) Sodium (135-145) mmol/L Potassium (3.3-5.1) mmol/L Chloride (96-108) mmol/L Carbon Dioxide (22-29) mmol/L Anion Gap (12-20) BUN (9-16) mg/dL Creatinine (0.5-1.4) mg/dL Estim Creat Clear Calc Estimated GFR Random Glucose (60-115) mg/dL Calcium (8.4-10.2) mg/dL Total Bilirubin (0.0-1.0) mg/dL AST (5-31) U/L ALT (0-31) U/L Alkaline Phosphatase (39-117) U/L Troponin I High Sens (<3.5-17.0) ng/L B-Natriuretic Peptide (<100) pg/mL Total Protein (6.5-8.0) g/dL Albumin (3.5-5.0) g/dL COVID-19 (LUBA) Positive A (Negative) COVID-19 Clin Com See Note Influenza Type A (DALI) Negative (Negative) Influenza Type B (DALI) Negative (Negative) Influenza A & B Note See Note 07/29/21 Range/Units 23:36 WBC (4.8-10.8) X10*3/uL RBC (4.20-5.50) X10*6/uL Hgb (12.0-16.0) g/dl Hct (37.0-47.0) % MCV (80.0-98.0) fL MCH (27.0-33.0) pg MCHC (31.0-35.0) g/dl RDW (11.0-16.0) % Plt Count (160-400) X10*3/uL MPV (9.4-12.3) fL Immature Gran % (Auto) (0.0-0.4) % Neut % (Auto) (45-73) % Lymph % (Auto) (20-40) % Isabela % (Auto) (2-11) % Eos % (Auto) (0-4) % Baso % (Auto) (0-2) % Lymph # (Auto) (1.2-4.9) X10*3/uL Isabela # (Auto) (0.1-1.2) X10*3/uL Eos # (Auto) (0.0-0.4) X10*3/uL Baso # (Auto) (0.0-0.2) X10*3/uL Abs Immat Gran (auto) (0.00-0.03) X10*3/uL Absolute Neuts (auto) (2.0-8.3) x10*3/uL Absolute Nucleated RBC (0.0-0.012) X10*3/uL Nucleated RBC % (auto) (0.0-0.2) /100WBC ESR (0-20) MM/HR PT (9.9-13.0) SEC INR (0.9-1.1) Sodium 137 (135-145) mmol/L Potassium 4.6 (3.3-5.1) mmol/L Chloride 106 (96-108) mmol/L Carbon Dioxide 24 (22-29) mmol/L Anion Gap 12 (12-20) BUN 9 (9-16) mg/dL Creatinine 0.92 (0.5-1.4) mg/dL Estim Creat Clear Calc 54.2 Estimated GFR > 60 Random Glucose 87 (60-115) mg/dL Calcium 9.0 D (8.4-10.2) mg/dL Total Bilirubin 0.4 (0.0-1.0) mg/dL AST 29 (5-31) U/L ALT 18 (0-31) U/L Alkaline Phosphatase 68 (39-117) U/L Troponin I High Sens (<3.5-17.0) ng/L B-Natriuretic Peptide (<100) pg/mL Total Protein 7.9 (6.5-8.0) g/dL Albumin 3.3 L (3.5-5.0) g/dL COVID-19 (LUBA) (Negative) COVID-19 Clin Com Influenza Type A (DALI) (Negative) Influenza Type B (DALI) (Negative) Influenza A & B Note ECG Data Attestation: I personally reviewed and interpreted this ECG as follows: Prior ECG tracings: available for review Interpretation: Sinus bradycardia, HR-59, RBBB, no STEMI, [place] is within normal 1 Critical Care Time Critical Care Time Critical Care Time: Yes Total Critical Care Time: 30 Attestation: I personally attest to this time spent taking care of the patient. Discharge Plan Discharge Clinical Impression: CHF exacerbation, ICD (implantable cardioverter-defibrillator) in place, Paroxysmal atrial fibrillation, Right bundle branch block (RBBB) on electrocardiogram (ECG), Adult congenital heart disease, COVID-19, HIV (human immunodeficiency virus infection) Patient Disposition: Admitted As Inpatient Prescriptions: No Action Xarelto 20 mg tablet 20 mg PO BEDTIME 90 Days Qty: 90 3RF amiodarone 100 mg tablet 100 mg PO DAILY 90 Days Qty: 90 1RF albuterol sulfate [ProAir HFA] 90 mcg/actuation HFA aerosol inhaler 1 inh inhalation QID 0RF mirtazapine 15 mg tablet 15 mg PO BEDTIME 0RF cholecalciferol (vitamin D3) 10 mcg (400 unit) capsule 10 mcg PO DAILY 0RF metoprolol succinate 25 mg tablet extended release 24 hr 25 mg PO DAILY 0RF oxycodone-acetaminophen 5-325 mg tablet 1 tab PO BEDTIME PRN (Reason: severe pain) 0RF Biktarvy 50-200-25 mg tablet 1 tab PO BEDTIME 0RF diclofenac sodium 1 % gel 2 g topical BID 0RF atorvastatin 20 mg tablet 20 mg PO DAILY 0RF
[2021-07-29 23:05] LABS: INTERNATIONAL NORM RATIO 2.4 (0.9-1.1); Prothrombin Time 27.3 SEC (9.9-13.0)
[2021-07-29 23:09] LABS: B Type Natriuretic Peptide 375 pg/mL (<100); Troponin-I High Sensitivity 7.6 ng/L (<3.5-17.0)
[2021-07-29 23:27] VITALS: BP 118/70; PULSE 57; RESP 23; TEMP 36.8; O2SAT 94
[2021-07-29 23:50] LABS: Erythrocyte Sedimentation Rate 39 MM/HR (0-20)
[2021-07-29 23:56] LABS: Alanine Aminotransferase 18 U/L (0-31); Albumin Level 3.3 g/dL (3.5-5.0); Alkaline Phosphatase 68 U/L (39-117); Anion Gap 12 (12-20); Aspartate Amino Transferase 29 U/L (5-31); Bilirubin Total 0.4 mg/dL (0.0-1.0); Blood Urea Nitrogen 9 mg/dL (9-16); Carbon Dioxide 24 mmol/L (22-29); Chloride 106 mmol/L (96-108); Creatinine Clr Calc Pharmacy 54.2; Estimated Glomerular Filt Rate > 60; Glucose Random 87 mg/dL (60-115); Potassium 4.6 mmol/L (3.3-5.1); Sodium 137 mmol/L (135-145); Total Protein 7.9 g/dL (6.5-8.0)
[2021-07-30] VITALS (10 sets, daily range): BP systolic 86–150; BP diastolic 49–89; PULSE 58–77; RESP 15–19; TEMP 36.1–36.9; O2SAT 92–98
[2021-07-30] MEDS: Furosemide 100 MG/10 ML VIAL 60 MG IVPUSH (01:14)
--- NOTE | 2021-07-30 03:28 | PM.IMHP ---
History of Present Illness Date of Service: 07/30/21 Chief Complaint: Chest pain 55-year-old female with a past medical history of hypertension, hyperlipidemia, CHF status post AICD, AFib on rivaroxaban, HIV on Biktarvy, depression; presented to the hospital today with a chief complaint of shortness of breath/chest pain. Patient reported that last Wednesday she was tested positive for COVID-19; she continued to have runny nose and on Wednesday she tested positive again for COVID-19. Today she developed chest pain located in the center of the chest with shortness of breath. Hence decided to come to the ER for further evaluation. Chest pain currently resolved. Denies any associated lightheadedness dizziness nausea vomiting or diaphoresis. Denies any GI symptoms. Review of all other systems is negative except mentioned above ER course: Per ER team patient's EKG was nonischemic; troponin was negative; chest x-ray showed mild CHF; COVID-19 positive. Patient was given Lasix. Admitted to the hospital for further management. [facility] Medical History Asthma Dysplasia of cervix, low grade (MIGUEL 1) Fallot tetralogy Heart valve disorder HIV (human immunodeficiency virus infection) ICD (implantable cardioverter-defibrillator) in place Pacemaker Paroxysmal atrial fibrillation Right bundle branch block (RBBB) on electrocardiogram (ECG) Right heart failure Family History Father CVD (cardiovascular disease) Mother No problems noted. Surgical History H/O pulmonic valve replacement History of cardioversion History of open heart surgery Hx of cardiac pacemaker Pulmonary valve replaced Social History Alcohol intake: never Advance Directives: No Sexual orientation: Straight/Heterosexual Gender identity: Female Meds Allergies Allergy/AdvReac Type Severity Reaction Status Date / Time Penicillins [PENICILLINS] Allergy Unknown RASH Verified 04/17/21 08:34 SEAFOOD Allergy Unknown RASH Uncoded 01/23/21 09:40 Active Medications: Current Medications Acetaminophen (Acetaminophen 325 Mg Tablet) 650 mg PO Q6H PRN PRN Reason: Pain, Mild (Pain Scale 1-3) Dexamethasone (Dexamethasone 6 Mg Tablet) 6 mg PO DAILY CINDY Furosemide (Furosemide 20 Mg/2 Ml Vial) 20 mg IVPUSH DAILY CINDY; Protocol Melatonin (Melatonin 3 Mg Tablet) 6 mg PO BEDTIME PRN PRN Reason: Insomnia Sodium Chloride (0.9 % Sodium Chloride Flush 3 Ml Syringe) 3 ml IVFLUSH QSHIFT CINDY Temazepam (Temazepam 15 Mg Capsule) 15 mg PO BEDTIME PRN PRN Reason: Insomnia Home Medications Medication Instructions Recorded Confirmed Last Taken Type albuterol sulfate 90 mcg/actuation 1 inh INHALATION QID 12/28/19 07/30/21 Unknown History aerosol inhaler (ProAir HFA) cholecalciferol (vitamin D3) 10 10 mcg PO DAILY 12/28/19 07/30/21 07/29/21 History mcg (400 unit) capsule metoprolol succinate 25 mg 25 mg PO DAILY 12/28/19 07/30/21 07/29/21 History tablet,extended release 24 hr mirtazapine 15 mg tablet 15 mg PO BEDTIME 12/28/19 07/30/21 07/28/21 History oxycodone-acetaminophen 5 mg-325 1 tab PO BEDTIME PRN 03/27/21 07/30/21 Unknown History mg tablet atorvastatin 20 mg tablet 20 mg PO DAILY 04/04/21 07/30/21 07/28/21 History bictegravir 50 mg-emtricitabine 1 tab PO BEDTIME 04/04/21 07/30/21 07/28/21 History 200 mg-tenofovir alafenam 25 mg tablet (Biktarvy) diclofenac sodium 1 % topical gel 2 g TOPICAL BID 04/04/21 07/30/21 Unknown History Physical Exam Vital Signs and Narrative: Vital Signs: Last Vital Signs Temp 98.2 F 07/29/21 23:27 Pulse 57 07/29/21 23:27 Resp 23 H 07/29/21 23:27 BP 150/89 H 07/30/21 01:15 Pulse Ox 94 07/29/21 23:27 BMI result Body Mass Index 27.8 Gen: Appears be in no acute distress HEENT: NCAT, Moist mucosa. Pulmonary: Fine crackles present CVS: Normal S1-S2 Abdomen: BS+, Soft, Nontender Extremities: Warm well perfused Neuro: Alert and awake. Results Labs CBC and Chem 7: 07/29/21 22:39 07/29/21 23:36 Labs: Laboratory Results - last 24 hr 07/29/21 07/29/21 07/29/21 22:39 22:39 22:39 MCV 97.7 MCH 31.3 MCHC 32.0 RDW 14.5 Plt Count 196 MPV 12.2 Immature Gran % (Auto) 0.4 Neut % (Auto) 64.5 Lymph % (Auto) 22.2 Dane % (Auto) 7.7 Eos % (Auto) 4.7 H Baso % (Auto) 0.5 Lymph # (Auto) 1.2 Dane # (Auto) 0.4 Eos # (Auto) 0.3 Baso # (Auto) 0.0 Abs Immat Gran (auto) 0.02 Absolute Neuts (auto) 3.6 Absolute Nucleated RBC 0.000 Nucleated RBC % (auto) 0.0 ESR PT 27.3 H INR 2.4 H Anion Gap Estim Creat Clear Calc Estimated GFR Random Glucose Calcium Total Bilirubin AST ALT Alkaline Phosphatase Troponin I High Sens 7.6 B-Natriuretic Peptide 375 H Total Protein Albumin COVID-19 (LUBA) COVID-19 Clin Com Influenza Type A (DALI) Influenza Type B (DALI) Influenza A & B Note 07/29/21 07/29/21 07/29/21 22:39 22:39 22:39 MCV MCH MCHC RDW Plt Count MPV Immature Gran % (Auto) Neut % (Auto) Lymph % (Auto) Dane % (Auto) Eos % (Auto) Baso % (Auto) Lymph # (Auto) Dane # (Auto) Eos # (Auto) Baso # (Auto) Abs Immat Gran (auto) Absolute Neuts (auto) Absolute Nucleated RBC Nucleated RBC % (auto) ESR 39 H PT INR Anion Gap Estim Creat Clear Calc Estimated GFR Random Glucose Calcium Total Bilirubin AST ALT Alkaline Phosphatase Troponin I High Sens B-Natriuretic Peptide Total Protein Albumin COVID-19 (LUBA) Positive A COVID-[employer] Clin Com See Note Influenza Type A (DALI) Negative Influenza Type B (DALI) Negative Influenza A & B Note See Note 07/29/21 23:36 MCV MCH MCHC RDW Plt Count MPV Immature Gran % (Auto) Neut % (Auto) Lymph % (Auto) Dane % (Auto) Eos % (Auto) Baso % (Auto) Lymph # (Auto) Dane # (Auto) Eos # (Auto) Baso # (Auto) Abs Immat Gran (auto) Absolute Neuts (auto) Absolute Nucleated RBC Nucleated RBC % (auto) ESR PT INR Anion Gap 12 Estim Creat Clear Calc 54.2 Estimated GFR > 60 Random Glucose 87 Calcium 9.0 D Total Bilirubin 0.4 AST 29 ALT 18 Alkaline Phosphatase 68 Troponin I High Sens B-Natriuretic Peptide Total Protein 7.9 Albumin 3.3 L COVID-19 (LUBA) COVID-19 Clin Com Influenza Type A (DALI) Influenza Type B (DALI) Influenza A & B Note Imaging Radiologist's Impressions: Impressions Chest X-Ray 07/30/21 00:40 IMPRESSION: Cardiomegaly with mild CHF. Assessment and Plan (1) CHF exacerbation: Status: Acute (2) COVID-19: Status: Acute (3) HIV (human immunodeficiency virus infection): Status: Acute (4) Paroxysmal atrial fibrillation: Status: Acute Plan 55-year-old female with a past medical history of hypertension, hyperlipidemia, CHF, AFib on rivaroxaban, HIV, depression presented to the hospital with a chief complaint of shortness of breath/chest pain. COVID-19 positive: Patient was tested positive on 07/26/2021. Currently saturating 89-91% on room air. Will keep the patient on Decadron. Chest x-ray showed mild CHF Id consult for further recommendations Chest pain: Currently resolved. EKG nonischemic. Troponin 7.9-> repeat pending Prosthetic pulmonic valve: Right heart failure syndrome CHF Status post AICD: Echocardiogram from November 2020 showed EF of 50-55%, moderately dilated RV. Daily weights and I's and O's. Patient on Lasix 20 mg IV daily Cardiology consult History of paroxysmal AFib: Continue home rivaroxaban, amiodarone. Rate controlled. History of hypertension/hyperlipidemia: Continue home metoprolol, statin History of HIV: Continue home Biktarvy DVT prophylaxis: Patient on rivaroxaban Code status: Full code Quality Stroke Does the patient have a stroke diagnosis?: No VTE Prior VTE?: No VTE Risk Level:: Medical - moderate - high VTE Device Contraindication: N/A - Device Ordered VTE Drug Contraindication: Treatment Not Indicated
[2021-07-30 04:38] LABS: MANUAL DIFF FLAG NO
[2021-07-30 04:44] LABS: Basophils Percent Auto 0.4 % (0-2); Eosinophils Absolute Auto 0.3 X10*3/uL (0.0-0.4); Eosinophils Percent Auto 4.8 % (0-4); Hematocrit 48.4 % (37.0-47.0); Hemoglobin 15.6 g/dl (12.0-16.0); Imm Gran Abs Auto 0.02 X10*3/uL (0.00-0.03); Imm Gran Pct Auto 0.3 % (0.0-0.4); Lymphocytes Absolute Auto 1.8 X10*3/uL (1.2-4.9); Lymphocytes Percent Auto 25.9 % (20-40); Mean Corpuscular HGB Conc 32.2 g/dl (31.0-35.0); Mean Corpuscular Hemoglobin 31.3 pg (27.0-33.0); Mean Platelet Volume 11.5 fL (9.4-12.3); Monocytes Absolute Auto 0.5 X10*3/uL (0.1-1.2); Monocytes Percent Auto 7.3 % (2-11); Neutrophils Absolute Auto 4.2 x10*3/uL (2.0-8.3); Neutrophils Percent Auto 61.3 % (45-73); Platelet Count 240 X10*3/uL (160-400); Red Blood Count 4.99 X10*6/uL (4.20-5.50); Red Cell Distribution Width 14.4 % (11.0-16.0); White Blood Count 6.8 X10*3/uL (4.8-10.8)
[2021-07-30 05:12] LABS: Anion Gap 12 (12-20); Blood Urea Nitrogen 9 mg/dL (9-16); Calcium 10.2 mg/dL (8.4-10.2); Carbon Dioxide 33 mmol/L (22-29); Chloride 98 mmol/L (96-108); Creatinine Clr Calc Pharmacy 50.4; Estimated Glomerular Filt Rate 58; Glucose Random 88 mg/dL (60-115); Potassium 4.1 mmol/L (3.3-5.1); Sodium 139 mmol/L (135-145)
[2021-07-30 05:17] LABS: Troponin-I High Sensitivity 11.3 ng/L (<3.5-17.0)
--- NOTE | 2021-07-30 07:00 | PC.NURSE ---
Report received from Luca PENA. Patient resting on stretcher comfortably. Patient is alert and oriented. Respirations regular and even. Skin PWD. Patient is admitted at this time for COPD exac and COVID. Will continue to monitor.
[2021-07-30] MEDS: Albuterol Sulfate 90 MCG 8 GM INHALER 1 PUFF INHALE ×4 (09:07→19:19)
[2021-07-30] MEDS: Cholecalciferol (Vitamin D3) 10 MCG TABLET PO (09:07)
[2021-07-30] MEDS: dexAMETHasone 6 MG TABLET PO (09:08)
[2021-07-30] MEDS: Metoprolol Succinate ER 25 MG TAB.ER.24H PO (09:08)
[2021-07-30] MEDS: Atorvastatin Calcium 20 MG TABLET PO (09:09)
[2021-07-30] MEDS: Amiodarone HCL 200 MG TABLET 100 MG PO (09:09)
[2021-07-30] MEDS: Furosemide 20 MG/2 ML VIAL IVPUSH (09:09)
--- NOTE | 2021-07-30 09:25 | MHC.CM.PN ---
Patient is Covid (+); CM spoke with Patient over the phone at [phone]. Patient lives in an apartment with her Partner/HCP/[employer]/Tiffanie (2 hours/day)and she uses a walker to assist with mobility. Home/resume said services is the goal for dc and CM has initiated and will follow for dc planning. Patient received Covid J&J vax and 2 Pfizer/Covid Boosters and her PCP is DR. Mel Greenberg.
--- NOTE | 2021-07-30 09:36 | P.PNIM_ITS ---
Subjective Subjective Date of Service: 07/30/21 Interval History: chest discomfort/sob Review of Systems seems chest pain improved and sob seems improving denies any cough or fevers or chills Physical Exam Vital Signs: Vital Signs: Last Vital Signs Temp 98.2 F 07/30/21 07:28 Pulse 68 07/30/21 09:11 Resp 16 07/30/21 09:11 BP 97/69 07/30/21 07:28 Pulse Ox 96 07/30/21 07:28 BMI result Body Mass Index 27.8 ?Gen: Appears be in no acute distress, sob improving HEENT:? NCAT,? Moist mucosa. Pulmonary:? Fine crackles present CVS:? S1-S2 heard Abdomen: BS+, Soft, Nontender Extremities:? Warm well perfused,trace edema Neuro:? Alert and awake. Objective Data Active Medications Acetaminophen (Acetaminophen 325 Mg Tablet) 650 mg PO Q6H PRN PRN Reason: Pain, Mild (Pain Scale 1-3) Albuterol Sulfate (Albuterol Sulfate 90 Mcg 8 Gm Inhaler) 1 puff INHALE RQID [facility] Amiodarone HCl (Amiodarone Hcl 200 Mg Tablet) 100 mg PO DAILY [facility] Last Admin: 07/30/21 09:09 Dose: 100 mg Documented by: SHRUTHI Atorvastatin Calcium (Atorvastatin Calcium 20 Mg Tablet) 20 mg PO DAILY [facility] Last Admin: 07/30/21 09:09 Dose: 20 mg Documented by: SHRUTHI Bictegravir/Emtricitabine/Tenofovir (Bictegrav/Emtricit/Tenofov Ala Tablet) 1 tab PO BEDTIME CINDY Dexamethasone (Dexamethasone 6 Mg Tablet) 6 mg PO DAILY [facility] Last Admin: 07/30/21 09:08 Dose: 6 mg Documented by: SHRUTHI Furosemide (Furosemide 20 Mg/2 Ml Vial) 20 mg IVPUSH DAILY [facility]; Protocol Last Admin: 07/30/21 09:09 Dose: 20 mg Documented by: SHRUTHI Melatonin (Melatonin 3 Mg Tablet) 6 mg PO BEDTIME PRN PRN Reason: Insomnia Metoprolol Succinate (Metoprolol Succinate Er 25 Mg Tab.Er.24h) 25 mg PO DAILY [facility]; Protocol Last Admin: 07/30/21 09:08 Dose: 25 mg Documented by: SHRUTHI Mirtazapine (Mirtazapine 15 Mg Tablet) 15 mg PO BEDTIME [facility] Rivaroxaban (Rivaroxaban 20 Mg Tablet) 20 mg PO DAILY@1800 [facility] Sodium Chloride (0.9 % Sodium Chloride Flush 3 Ml Syringe) 3 ml IVFLUSH QSHIFT [facility] Last Admin: 07/30/21 08:17 Dose: Not Given Documented by: SHRUTHI Non-Admin Reason: Med Not Available Temazepam (Temazepam 15 Mg Capsule) 15 mg PO BEDTIME PRN PRN Reason: Insomnia Vitamin D (Cholecalciferol (Vitamin D3) 10 Mcg Tablet) 10 mcg PO DAILY [facility] Last Admin: 07/30/21 09:07 Dose: 10 mcg Documented by: SHRUTHI Labs CBC & Chem 7: 07/30/21 04:09 07/30/21 04:09 Labs: Laboratory Results - last 24 hr 07/29/21 07/29/21 07/29/21 22:39 22:39 22:39 MCV 97.7 MCH 31.3 MCHC 32.0 RDW 14.5 Plt Count 196 MPV 12.2 Immature Gran % (Auto) 0.4 Neut % (Auto) 64.5 Lymph % (Auto) 22.2 Hardy % (Auto) 7.7 Eos % (Auto) 4.7 H Baso % (Auto) 0.5 Lymph # (Auto) 1.2 Hardy # (Auto) 0.4 Eos # (Auto) 0.3 Baso # (Auto) 0.0 Abs Immat Gran (auto) 0.02 Absolute Neuts (auto) 3.6 Absolute Nucleated RBC 0.000 Nucleated RBC % (auto) 0.0 ESR PT 27.3 H INR 2.4 H Anion Gap Estim Creat Clear Calc Estimated GFR Random Glucose Calcium Total Bilirubin AST ALT Alkaline Phosphatase Troponin I High Sens 7.6 B-Natriuretic Peptide 375 H Total Protein Albumin COVID-19 (LUBA) COVID-19 Clin Com Influenza Type A (DALI) Influenza Type B (DALI) Influenza A & B Note 07/29/21 07/29/21 07/29/21 22:39 22:39 22:39 MCV MCH MCHC RDW Plt Count MPV Immature Gran % (Auto) Neut % (Auto) Lymph % (Auto) Hardy % (Auto) Eos % (Auto) Baso % (Auto) Lymph # (Auto) Hardy # (Auto) Eos # (Auto) Baso # (Auto) Abs Immat Gran (auto) Absolute Neuts (auto) Absolute Nucleated RBC Nucleated RBC % (auto) ESR 39 H PT INR Anion Gap Estim Creat Clear Calc Estimated GFR Random Glucose Calcium Total Bilirubin AST ALT Alkaline Phosphatase Troponin I High Sens B-Natriuretic Peptide Total Protein Albumin COVID-19 (LUBA) Positive A COVID-19 Clin Com See Note Influenza Type A (DALI) Negative Influenza Type B (DALI) Negative Influenza A & B Note See Note 07/29/21 07/30/21 07/30/21 23:36 04:09 04:09 MCV 97.0 MCH 31.3 MCHC 32.2 RDW 14.4 Plt Count 240 MPV 11.5 Immature Gran % (Auto) 0.3 Neut % (Auto) 61.3 Lymph % (Auto) 25.9 Hardy % (Auto) 7.3 Eos % (Auto) 4.8 H Baso % (Auto) 0.4 Lymph # (Auto) 1.8 Hardy # (Auto) 0.5 Eos # (Auto) 0.3 Baso # (Auto) 0.0 Abs Immat Gran (auto) 0.02 Absolute Neuts (auto) 4.2 Absolute Nucleated RBC 0.000 Nucleated RBC % (auto) 0.0 ESR PT INR Anion Gap 12 12 Estim Creat Clear Calc 54.2 50.4 Estimated GFR > 60 58 Random Glucose 87 88 Calcium 9.0 D 10.2 D Total Bilirubin 0.4 AST 29 ALT 18 Alkaline Phosphatase 68 Troponin I High Sens B-Natriuretic Peptide Total Protein 7.9 Albumin 3.3 L COVID-19 (LUBA) COVID-19 Clin Com Influenza Type A (DALI) Influenza Type B (DALI) Influenza A & B Note 07/30/21 04:09 MCV MCH MCHC RDW Plt Count MPV Immature Gran % (Auto) Neut % (Auto) Lymph % (Auto) Hardy % (Auto) Eos % (Auto) Baso % (Auto) Lymph # (Auto) Hardy # (Auto) Eos # (Auto) Baso # (Auto) Abs Immat Gran (auto) Absolute Neuts (auto) Absolute Nucleated RBC Nucleated RBC % (auto) ESR PT INR Anion Gap Estim Creat Clear Calc Estimated GFR Random Glucose Calcium Total Bilirubin AST ALT Alkaline Phosphatase Troponin I High Sens 11.3 B-Natriuretic Peptide Total Protein Albumin COVID-19 (LUBA) COVID-19 Clin Com Influenza Type A (DALI) Influenza Type B (DALI) Influenza A & B Note Assessment and Plan (1) Acute on chronic right heart failure: Status: Acute (2) CHF exacerbation: Status: Acute (3) Precordial chest pain: Status: Acute Plan 55-year-old female with a past medical history of hypertension, hyperlipidemia, CHF, AFib on rivaroxaban, HIV, depression presented to the hospital with a chief complaint of shortness of breath/chest pain. COVID-19 positive:? Patient was tested positive on 07/26/2021. Currently saturating 89-91% on room air.? Will keep the patient on Decadron.? Chest x-ray showed mild CHF Id consult for further recommendations Chest pain:?? Currently resolved.? EKG nonischemic.? 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 Status post AICD: Echocardiogram from November 2020 showed EF of 50-55%, moderately dilated RV. Daily weights and I's and O's.? Patient on Lasix 20 mg IV daily Cardiology consult-seen the patient:seems improvin , may switch to po diuretics in am. History of paroxysmal AFib: Continue home rivaroxaban, amiodarone.? Rate controlled. History of hypertension/hyperlipidemia:? Continue home metoprolol, statin History of HIV: Continue home Biktarvy DVT prophylaxis:? Patient on rivaroxaban need for inpatient: chf ,Right heart failure syndrome, covid Quality Stroke Does the patient have a stroke diagnosis?: No VTE Prior VTE?: No VTE Risk Level:: Medical - moderate - high VTE Device Contraindication: N/A - Device Ordered VTE Drug Contraindication: Treatment Not Indicated
--- NOTE | 2021-07-30 10:05 | PC.NURSE ---
Patient continues to rest on stretcher and reports comfort. No distress noted. Will continue to monitor.
--- NOTE | 2021-07-30 10:29 | PM.CNCAR ---
History of Present Illness History of Present Illness Date of Service: 07/30/21 Chief complaint: Hypoxia Narrative: This is a cardiology consultation regarding shortness of breath and chest pain. Patient generally sees Dr. Marin in our office. Numerous cardiac comorbidities listed. 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 She has undergone pulmonic valve replacement. She has chronic right heart failure. She also has paroxysmal atrial fibrillation. Has [facility] ICD in place for secondary prevention. Current admission is because of complaints of chest pressure. She states that she felt as though she had a tightness in the chest that last for about 20 minutes or so. H and P states she was having chest pain but to me she states it was just briefly type but then went back to normal. History again describes shortness of breath but I asked her about this repeatedly and she states she did not have any significant shortness of breath and today she is feeling pretty much her normal self. She was positive for COVID infection. Because of numerous cardiac issues she has been admitted. Review of Systems Review of Systems: Yes all other systems are reviewed and are negative Constitutional: Constitutional: Reports as per HPI Eyes: Eyes: Reports as per HPI ENT: Reports as per HPI Cardiovascular: Cardiovascular: Reports as per HPI, Denies acrocyanosis, Denies cool extremities, Reports chest pain, Denies leg edema, Denies lightheadedness, Denies palpitations and Reports dyspnea Respiratory: Respiratory: Reports as per HPI, Reports no additional respiratory complaints and Reports dyspnea Gastrointestinal: Gastrointestinal: Reports as per HPI and Reports no additional gastrointestinal complaints Genitourinary: Genitourinary: Reports as per HPI Musculoskeletal: Musculoskeletal: Reports no additional musculoskeletal complaints and Reports as per HPI Integumentary/Breasts: Skin/Breast: Reports system reviewed and no additional complaints, except as docu Neurologic: Reports system reviewed and no additional complaints, except as documented and Reports as per HPI Psychiatric: Psychiatric: Reports no additional psychiatric complaints and Reports as per HPI Endocrine: Endocrine: Reports no additional endocrine complaints, Reports as per HPI and Denies palpitations Hematologic/Lymphatic: Hematologic/Lymphatic: Reports no additional hematologic/lymphatic complaints and Reports as per HPI Allergic/Immunologic: Allergic/Immunologic: Reports no additional allergic/immunologic complaints and Reports as per HPI [facility] Past Medical History Medical History (Updated 07/30/21 @ 10:40 by Georgi Turcios MD) Asthma Dysplasia of cervix, low grade (MIGUEL 1) Fallot tetralogy Heart valve disorder HIV (human immunodeficiency virus infection) ICD (implantable cardioverter-defibrillator) in place Pacemaker Paroxysmal atrial fibrillation Right bundle branch block (RBBB) on electrocardiogram (ECG) Right heart failure Family History Family History Father CVD (cardiovascular disease) Mother No problems noted. Surgical History Surgical History H/O pulmonic valve replacement History of cardioversion History of open heart surgery Hx of cardiac pacemaker Pulmonary valve replaced Social History Social History Alcohol intake: never Advance Directives: No service: No Current occupational status: disabled Sexual orientation: Straight/Heterosexual Gender identity: Female Meds Allergies Allergy/AdvReac Type Severity Reaction Status Date / Time Penicillins [PENICILLINS] Allergy Unknown RASH Verified 04/17/21 08:34 SEAFOOD Allergy Unknown RASH Uncoded 01/23/21 09:40 Active Medications: Current Medications Acetaminophen (Acetaminophen 325 Mg Tablet) 650 mg PO Q6H PRN PRN Reason: Pain, Mild (Pain Scale 1-3) Albuterol Sulfate (Albuterol Sulfate 90 Mcg 8 Gm Inhaler) 1 puff INHALE RQID [facility] Amiodarone HCl (Amiodarone Hcl 200 Mg Tablet) 100 mg PO DAILY [facility] Last Admin: 07/30/21 09:09 Dose: 100 mg Documented by: Atorvastatin Calcium (Atorvastatin Calcium 20 Mg Tablet) 20 mg PO DAILY [facility] Last Admin: 07/30/21 09:09 Dose: 20 mg Documented by: Bictegravir/Emtricitabine/Tenofovir (Bictegrav/Emtricit/Tenofov Ala Tablet) 1 tab PO BEDTIME CINDY Dexamethasone (Dexamethasone 6 Mg Tablet) 6 mg PO DAILY [facility] Last Admin: 07/30/21 09:08 Dose: 6 mg Documented by: Furosemide (Furosemide 20 Mg/2 Ml Vial) 20 mg IVPUSH DAILY [facility]; Protocol Last Admin: 07/30/21 09:09 Dose: 20 mg Documented by: Melatonin (Melatonin 3 Mg Tablet) 6 mg PO BEDTIME PRN PRN Reason: Insomnia Metoprolol Succinate (Metoprolol Succinate Er 25 Mg Tab.Er.24h) 25 mg PO DAILY [facility]; Protocol Last Admin: 07/30/21 09:08 Dose: 25 mg Documented by: Mirtazapine (Mirtazapine 15 Mg Tablet) 15 mg PO BEDTIME [facility] Non-Formulary Medication (Diclofenac Sodium) 2 gm TOPICAL BID [facility] Oxycodone HCl (Oxycodone Hcl Immed Release 5 Mg Tablet) 5 mg PO BEDTIME PRN PRN Reason: severe pain Rivaroxaban (Rivaroxaban 20 Mg Tablet) 20 mg PO DAILY@1800 [facility] Sodium Chloride (0.9 % Sodium Chloride Flush 3 Ml Syringe) 3 ml IVFLUSH QSHIFT [facility] Last Admin: 07/30/21 08:17 Dose: Not Given Documented by: Temazepam (Temazepam 15 Mg Capsule) 15 mg PO BEDTIME PRN PRN Reason: Insomnia Vitamin D (Cholecalciferol (Vitamin D3) 10 Mcg Tablet) 10 mcg PO DAILY [facility] Last Admin: 07/30/21 09:07 Dose: 10 mcg Documented by: Home Medications Medication Instructions Recorded Confirmed Last Taken Type albuterol sulfate 90 mcg/actuation 1 inh INHALATION QID 12/28/19 07/30/21 Unknown History aerosol inhaler (ProAir HFA) cholecalciferol (vitamin D3) 10 10 mcg PO DAILY 12/28/19 07/30/21 07/29/21 History mcg (400 unit) capsule metoprolol succinate 25 mg 25 mg PO DAILY 12/28/19 07/30/21 07/29/21 History tablet,extended release 24 hr mirtazapine 15 mg tablet 15 mg PO BEDTIME 12/28/19 07/30/21 07/28/21 History oxycodone-acetaminophen 5 mg-325 1 tab PO BEDTIME PRN 03/27/21 07/30/21 Unknown History mg tablet atorvastatin 20 mg tablet 20 mg PO DAILY 04/04/21 07/30/21 07/28/21 History bictegravir 50 mg-emtricitabine 1 tab PO BEDTIME 04/04/21 07/30/21 07/28/21 History 200 mg-tenofovir alafenam 25 mg tablet (Biktarvy) diclofenac sodium 1 % topical gel 2 g TOPICAL BID 04/04/21 07/30/21 Unknown History Physical Exam Vital Signs: Vital Signs: Last Vital Signs Temp 98.2 F 07/30/21 07:28 Pulse 68 07/30/21 09:11 Resp 16 07/30/21 09:11 BP 97/69 07/30/21 07:28 Pulse Ox 96 07/30/21 07:28 BMI result Body Mass Index 27.8 Const: General: comfortable and no acute distress Orientation/consciousness: patient oriented x3 HEENT: Other: Unremarkable Head: Yes normal to inspection Neck: Neck: Yes normal visual inspection Chest: Chest palpation & inspection: normal inspection of the chest Resp: Other: Few scattered crackles Cardio: Palpation: normal PMI Heart sounds: S1 normal heart sound present, S2 normal heart sound present, no gallops, Murmur heart sound present systolic early and II/ and no rubs GI: Palpation (GI): Soft to palpation Back/Spine/Pelvis: Other: unremarkable Skin: General skin exam: no rashes or lesions noted Neuro: General: patient oriented x3 Extrem: Other: No significant edema. General: Yes normal to inspection Psych: Mental Status: mental status grossly normal Objective Labs and Meds Result diagrams: 07/30/21 04:09 07/30/21 04:09 Lab results: Laboratory Results - last 24 hr 07/29/21 07/29/21 07/29/21 22:39 22:39 22:39 WBC 5.6 RBC 4.70 Hgb 14.7 Hct 45.9 MCV 97.7 MCH 31.3 MCHC 32.0 RDW 14.5 Plt Count 196 MPV 12.2 Immature Gran % (Auto) 0.4 Neut % (Auto) 64.5 Lymph % (Auto) 22.2 Coles % (Auto) 7.7 Eos % (Auto) 4.7 H Baso % (Auto) 0.5 Lymph # (Auto) 1.2 [place] # (Auto) 0.4 Eos # (Auto) 0.3 Baso # (Auto) 0.0 Abs Immat Gran (auto) 0.02 Absolute Neuts (auto) 3.6 Absolute Nucleated RBC 0.000 Nucleated RBC % (auto) 0.0 ESR PT 27.3 H INR 2.4 H Sodium Potassium Chloride Carbon Dioxide Anion Gap BUN Creatinine Estim Creat Clear Calc Estimated GFR Random Glucose Calcium Total Bilirubin AST ALT Alkaline Phosphatase Troponin I High Sens 7.6 B-Natriuretic Peptide 375 H Total Protein Albumin COVID-19 (LUBA) COVID-19 Clin Com Influenza Type A (DALI) Influenza Type B (DALI) Influenza A & B Note 07/29/21 07/29/21 07/29/21 22:39 22:39 22:39 WBC RBC Hgb Hct MCV MCH MCHC RDW Plt Count MPV Immature Gran % (Auto) Neut % (Auto) Lymph % (Auto) Coles % (Auto) Eos % (Auto) Baso % (Auto) Lymph # (Auto) [place] # (Auto) Eos # (Auto) Baso # (Auto) Abs Immat Gran (auto) Absolute Neuts (auto) Absolute Nucleated RBC Nucleated RBC % (auto) ESR 39 H PT INR Sodium Potassium Chloride Carbon Dioxide Anion Gap BUN Creatinine Estim Creat Clear Calc Estimated GFR Random Glucose Calcium Total Bilirubin AST ALT Alkaline Phosphatase Troponin I High Sens B-Natriuretic Peptide Total Protein Albumin COVID-19 (LUBA) Positive A COVID-19 Clin Com See Note Influenza Type A (DALI) Negative Influenza Type B (DALI) Negative Influenza A & B Note See Note 07/29/21 07/30/21 07/30/21 23:36 04:09 04:09 WBC 6.8 RBC 4.99 Hgb 15.6 Hct 48.4 H MCV 97.0 MCH 31.3 MCHC 32.2 RDW 14.4 Plt Count 240 MPV 11.5 Immature Gran % (Auto) 0.3 Neut % (Auto) 61.3 Lymph % (Auto) 25.9 Coles % (Auto) 7.3 Eos % (Auto) 4.8 H Baso % (Auto) 0.4 Lymph # (Auto) 1.8 [place] # (Auto) 0.5 Eos # (Auto) 0.3 Baso # (Auto) 0.0 Abs Immat Gran (auto) 0.02 Absolute Neuts (auto) 4.2 Absolute Nucleated RBC 0.000 Nucleated RBC % (auto) 0.0 ESR PT INR Sodium 137 139 Potassium 4.6 4.1 Chloride 106 98 Carbon Dioxide 24 33 H Anion Gap 12 12 BUN 9 9 Creatinine 0.92 0.99 Estim Creat Clear Calc 54.2 50.4 Estimated GFR > 60 58 Random Glucose 87 88 Calcium 9.0 D 10.2 D Total Bilirubin 0.4 AST 29 ALT 18 Alkaline Phosphatase 68 Troponin I High Sens B-Natriuretic Peptide Total Protein 7.9 Albumin 3.3 L COVID-19 (LUBA) COVID-19 Clin Com Influenza Type A (DALI) Influenza Type B (DALI) Influenza A & B Note 07/30/21 04:09 WBC RBC Hgb Hct MCV MCH MCHC RDW Plt Count MPV Immature Gran % (Auto) Neut % (Auto) Lymph % (Auto) Coles % (Auto) Eos % (Auto) Baso % (Auto) Lymph # (Auto) Coles # (Auto) Eos # (Auto) Baso # (Auto) Abs Immat Gran (auto) Absolute Neuts (auto) Absolute Nucleated RBC Nucleated RBC % (auto) ESR PT INR Sodium Potassium Chloride Carbon Dioxide Anion Gap BUN Creatinine Estim Creat Clear Calc Estimated GFR Random Glucose Calcium Total Bilirubin AST ALT Alkaline Phosphatase Troponin I High Sens 11.3 B-Natriuretic Peptide Total Protein Albumin COVID-19 (LUBA) COVID-19 Clin Com Influenza Type A (DALI) Influenza Type B (DALI) Influenza A & B Note ECG Interpretation: EKG with sinus bradycardia, 59/Min; right bundle-branch block; left anterior fascicular block. Imaging Radiologist's impression: Impressions Chest X-Ray 07/30/21 00:40 IMPRESSION: Cardiomegaly with mild CHF. Assessment and Plan (1) Precordial chest pain: Status: Acute (2) Acute on chronic right heart failure: Status: Acute (3) COVID-19: Status: Acute (4) H/O pulmonic valve replacement: Status: Acute (5) ICD (implantable cardioverter-defibrillator) in place: Status: Acute (6) Fallot tetralogy: Status: Acute Plan Pertinent data reviewed in detail. Hemoglobin is 15.6. White cells 6.8. Platelets 240. INR is 2.4. Potassium is 4.1. Creatinine 0.99. Cardiac BNP is 375. This is similar to her previous values and not too different. Slight changes noted however. High sensitivity troponins are 7.611.3, within range. COVID-19 positive. Influenza negative. Chest x-ray report have cardiomegaly and mild CHF. Clinically, she has few crackles but nothing profound. She could have mild exacerbation of congestive heart failure causing chest tightness due to active COVID infection. She has received IV Lasix as well as albuterol inhaler since admission. In another day or so, switch her back to oral diuretics. Otherwise, usual treatment for COVID but due to cardiac comorbidities higher than usual risk of complications. No changes other medications like amiodarone, Xarelto, beta-blockers which may be continued. Upon discharge, follow-up in the office will be arranged. Procedures Date of Service Date of Service: 07/30/21
--- NOTE | 2021-07-30 13:28 | PC.NURSE ---
Patient bedding and gown changed at this time. Patient ambulates unassisted to commode. Sitting upright in chair at this time as patient no longer wants to lay in bed. Respirations regular and even. Fine crackles remain in lungs bilaterally. Patient remains on COVID precautions. Admitted and awaiting inpatient bed. Will continue to monitor.
[2021-07-30] MEDS: Rivaroxaban 20 MG TABLET PO (17:58)
[2021-07-30] MEDS: 0.9 % Sodium Chloride Flush 3 ML SYRINGE IVFLUSH ×2 (17:58→19:57)
[2021-07-30] MEDS: Mirtazapine 15 MG TABLET PO (19:57)
[2021-07-30] MEDS: Bictegrav/Emtricit/Tenofov Ala TABLET 1 TAB PO (19:57)
[2021-07-31] VITALS (7 sets, daily range): BP systolic 92–135; BP diastolic 63–70; PULSE 54–80; RESP 12–20; TEMP 35.7–37.1; O2SAT 95–98
[2021-07-31] MEDS: Albuterol Sulfate 90 MCG 8 GM INHALER 1 PUFF INHALE ×3 (08:49→15:27)
--- NOTE | 2021-07-31 08:55 | HO.PM.IMPN ---
Subjective Subjective Date of Service: 07/31/21 Interval History: chest discomfort/sob Physical Exam Vital Signs: Vital Signs: Last Vital Signs Temp 97.3 F 07/31/21 07:26 Pulse 80 07/31/21 08:49 Resp 16 07/31/21 08:49 BP 116/63 07/31/21 07:26 Pulse Ox 98 07/31/21 07:26 BMI result Body Mass Index 27.8 Gen: Appears be in no acute distress, sob improving HEENT:? NCAT,? Moist mucosa. Pulmonary:? Fine crackles present CVS:? S1-S2 heard Abdomen: BS+, Soft, Nontender Extremities:? Warm well perfused,trace edema Neuro:? Alert and awake. Objective Data Active Medications Acetaminophen (Acetaminophen 325 Mg Tablet) 650 mg PO Q6H PRN PRN Reason: Pain, Mild (Pain Scale 1-3) Albuterol Sulfate (Albuterol Sulfate 90 Mcg 8 Gm Inhaler) 1 puff INHALE RQID [facility] Last Admin: 07/31/21 08:49 Dose: 1 puff Documented by: GUNNAR Amiodarone HCl (Amiodarone Hcl 200 Mg Tablet) 100 mg PO DAILY [facility] Last Admin: 07/30/21 09:09 Dose: 100 mg Documented by: SHRUTHI Atorvastatin Calcium (Atorvastatin Calcium 20 Mg Tablet) 20 mg PO DAILY [facility] Last Admin: 07/30/21 09:09 Dose: 20 mg Documented by: SHRUTHI Bictegravir/Emtricitabine/Tenofovir (Bictegrav/Emtricit/Tenofov Ala Tablet) 1 tab PO BEDTIME [facility] Last Admin: 07/30/21 19:57 Dose: 1 tab Documented by: URBANO Dexamethasone (Dexamethasone 6 Mg Tablet) 6 mg PO DAILY [facility] Last Admin: 07/30/21 09:08 Dose: 6 mg Documented by: SHRUTHI Furosemide (Furosemide 20 Mg Tablet) 20 mg PO DAILY [facility]; Protocol Melatonin (Melatonin 3 Mg Tablet) 6 mg PO BEDTIME PRN PRN Reason: Insomnia Metoprolol Succinate (Metoprolol Succinate Er 25 Mg Tab.Er.24h) 25 mg PO DAILY [facility]; Protocol Last Admin: 07/30/21 09:08 Dose: 25 mg Documented by: SHRUTHI Mirtazapine (Mirtazapine 15 Mg Tablet) 15 mg PO BEDTIME [facility] Last Admin: 07/30/21 19:57 Dose: 15 mg Documented by: URBANO Non-Formulary Medication (Diclofenac Sodium) 2 gm TOPICAL BID [facility] Oxycodone HCl (Oxycodone Hcl Immed Release 5 Mg Tablet) 5 mg PO BEDTIME PRN PRN Reason: severe pain Rivaroxaban (Rivaroxaban 20 Mg Tablet) 20 mg PO DAILY@1800 [facility] Last Admin: 07/30/21 17:59 Dose: Not Given Documented by: SHONA Non-Admin Reason: Previously Administered Sodium Chloride (0.9 % Sodium Chloride Flush 3 Ml Syringe) 3 ml IVFLUSH QSHIFT [facility] Last Admin: 07/30/21 19:57 Dose: 3 ml Documented by: URBANO Temazepam (Temazepam 15 Mg Capsule) 15 mg PO BEDTIME PRN PRN Reason: Insomnia Vitamin D (Cholecalciferol (Vitamin D3) 10 Mcg Tablet) 10 mcg PO DAILY [facility] Last Admin: 07/30/21 09:07 Dose: 10 mcg Documented by: SHRUTHI Labs CBC & Chem 7: 07/30/21 04:09 07/30/21 04:09 Assessment and Plan Plan 55-year-old female with a past medical history of hypertension, hyperlipidemia, CHF, AFib on rivaroxaban, HIV, depression presented to the hospital with a chief complaint of shortness of breath/chest pain. COVID-19 positive:? Patient was tested positive on 07/26/2021. Currently saturating 89-91% on room air.? Will keep the patient on Decadron.? Chest x-ray showed mild CHF Id consult for further recommendations Chest pain:?? Currently resolved.? EKG nonischemic.? 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 Status post AICD: Echocardiogram from November 2020 showed EF of 50-55%, moderately dilated RV. Daily weights and I's and O's.? Patient on Lasix 20 mg IV daily Cardiology consult-seen the patient:seems improvin , may switch to po diuretics in am. History of paroxysmal AFib: Continue home rivaroxaban, amiodarone.? Rate controlled. History of hypertension/hyperlipidemia:? Continue home metoprolol, statin History of HIV: Continue home Biktarvy DVT prophylaxis:? Patient on rivaroxaban need for inpatient: chf ,Right heart failure syndrome, covid Quality Stroke Does the patient have a stroke diagnosis?: No VTE Prior VTE?: No VTE Risk Level:: Medical - moderate - high VTE Device Contraindication: N/A - Device Ordered VTE Drug Contraindication: Treatment Not Indicated
[2021-07-31] MEDS: Cholecalciferol (Vitamin D3) 10 MCG TABLET PO (09:46)
[2021-07-31] MEDS: Atorvastatin Calcium 20 MG TABLET PO (09:46)
[2021-07-31] MEDS: dexAMETHasone 6 MG TABLET PO (09:46)
[2021-07-31] MEDS: 0.9 % Sodium Chloride Flush 3 ML SYRINGE IVFLUSH (09:47)
[2021-07-31] MEDS: Furosemide 20 MG TABLET PO (09:48)
[2021-07-31] MEDS: Amiodarone HCL 200 MG TABLET 100 MG PO (09:48)
--- NOTE | 2021-07-31 12:23 | P.PNCA_ITS ---
Subjective Subjective Date of Service: 07/31/21 Interval history: She states that she is doing well. No specific complaints like angina or shortness of breath or in fact anything cardiac related at all. Review of Systems Review of Systems Yes all other systems are reviewed and are negative Constitutional: Reports as per HPI Eyes: Reports as per HPI Reports as per HPI Cardiovascular: Reports as per HPI, Denies acrocyanosis, Denies cool extremities, Denies chest pain, Denies leg edema, Denies lightheadedness, Denies palpitations and Denies dyspnea Respiratory: Reports as per HPI, Reports no additional respiratory complaints and Denies dyspnea Gastrointestinal: Reports as per HPI and Reports no additional gastrointestinal complaints Musculoskeletal: Reports no additional musculoskeletal complaints and Reports as per HPI Skin/Breast: Reports system reviewed and no additional complaints, except as docu Reports system reviewed and no additional complaints, except as documented and Reports as per HPI Psychiatric: Reports no additional psychiatric complaints and Reports as per HPI Endocrine: Reports no additional endocrine complaints, Reports as per HPI and Denies palpitations Hematologic/Lymphatic: Reports no additional hematologic/lymphatic complaints and Reports as per HPI Allergic/Immunologic: Reports no additional allergic/immunologic complaints and Reports as per HPI Physical Exam Vital Signs: Last Vital Signs Temp 96.3 F L 07/31/21 11:12 Pulse 80 07/31/21 11:34 Resp 16 07/31/21 11:34 BP 92/64 07/31/21 11:12 Pulse Ox 96 07/31/21 11:12 BMI result Body Mass Index 27.8 Const General: comfortable and no acute distress Orientation/consciousness: patient oriented x3 HEENT Other: Unremarkable Head: Yes normal to inspection Neck Neck: Yes normal visual inspection Chest Chest palpation & inspection: normal inspection of the chest Resp Other: Few scattered crackles Cardio Palpation: normal PMI Heart sounds: S1 normal heart sound present, S2 normal heart sound present, no gallops, Murmur heart sound present systolic early and II/ and no rubs GI Palpation (GI): Soft to palpation Back/Spine/Pelvis Other: unremarkable Skin General skin exam: no rashes or lesions noted Neuro General: patient oriented x3 Extrem Other: No significant edema. General: Yes normal to inspection Psych Mental Status: mental status grossly normal Objective Labs and Meds Result diagrams: 07/30/21 04:09 07/30/21 04:09 Progress Note: A&P Assessment and plan (1) Precordial chest pain: Status: Acute (2) Acute on chronic right heart failure: Status: Acute (3) COVID-19: Status: Acute (4) H/O pulmonic valve replacement: Status: Acute (5) ICD (implantable cardioverter-defibrillator) in place: Status: Acute (6) Fallot tetralogy: Status: Acute Plan Overall, she has extensive cardiac comorbidities as listed above. Active COVID infection. Chest x-ray suggestive of cardiomegaly/mild CHF. Cardiac BNP is somewhat close to her usual baseline. High sensitivity troponins are generally within range. Probably some exacerbation of heart failure due to active COVID. With regard to the chest pain itself she does not have any at this time. Again could have been from COVID itself. No evidence of acute coronary syndrome based on troponins. We can stop her IV Lasix and change it to overall diuretics. Continue her beta- blockers, amiodarone, Xarelto without changes. Overall, she is higher than usual risk of complication COVID due to extensive cardiac comorbidities. However, at the current time, she does not have any active decompensation sympt oms or signs. Discussed with Dr. Thrasher. Upon discharge, we will arrange follow-up with Dr. Marin. Time Spent With Patient Time: Total time spent is greater than 50% in coordination of care (as documented) at patient's floor/unit and/or counseling patient: 37min. Progress Note: Quality Stroke Does the patient have a stroke diagnosis?: No Procedures Date of Service Date of Service: 07/31/21
--- NOTE | 2021-07-31 14:48 | PM.DS ---
DS: Providers Provider Date of Service: 07/31/21 Date of admission: 07/30/21 03:23 Primary care physician: Jessi Downs MD Consults: 07/30/21 03:23 Consult to Cardiology Routine Consulting Provider: Georgi Turcios Reason for consultation: CHF Consult to Infectious Diseases Routine Consulting Provider: Mandie Parish Reason for consultation: COVID positive DS: Diagnosis Discharge Diagnosis (1) Precordial chest pain: Status: Acute (2) Acute on chronic right heart failure: Status: Acute (3) COVID-19: Status: Acute (4) H/O pulmonic valve replacement: Status: Acute (5) ICD (implantable cardioverter-defibrillator) in place: Status: Acute (6) Fallot tetralogy: Status: Acute DS: Summary Hospital Course Hospital Course: 55-year-old female with a past medical history of hypertension, hyperlipidemia, CHF status post AICD, AFib on rivaroxaban, HIV on Biktarvy, depression; presented to the hospital today with a chief complaint of shortness of breath/chest pain.? Patient reported that last Wednesday she was tested positive for COVID-19; she continued to have runny nose and on Wednesday she tested positive again for COVID-19.? Today she developed chest pain located in the center of the chest with shortness of breath.? Hence decided to come to the ER for further evaluation.? Chest pain currently resolved.? Denies any associated lightheadedness dizziness nausea vomiting or diaphoresis.? Denies any GI symptoms.? Review of all other systems is negative except mentioned above ER course: Per ER team patient's EKG was nonischemic; troponin was negative; chest x-ray showed mild CHF; COVID-19 positive.? Patient was given Lasix.? Admitted to the hospital for further management. Hospital course: Patient was admitted for CHF exacerbation in setting of COVID positive. Patient was started on IV Lasix and seen by Cardiology: With IV Lasix patient diuresed and feel better, does not seems to be hypoxic. Switched to p.o. Lasix , follow-up outpatient with PCP. COVID positive: Patient sats are fine in the 93-96 range, discussed with ID no need of taking stay dexamethasone. Above management discussed with the patient she understand and in agreement with above plan. Time Spent with Patient Time attestation: Total time spent providing and/or coordinating discharge services: Discharge coordination time: Greater than 30 minutes Quality: Safe Use of Opioids Does Pt have an Active Cancer Diagnosis on the Problem List?: No Quality: Stroke Does the patient have a stroke diagnosis?: No Physical Exam Vital Signs: Vital Signs: Last Vital Signs Temp 96.3 F L 07/31/21 11:12 Pulse 80 07/31/21 11:34 Resp 16 07/31/21 11:34 BP 92/64 07/31/21 11:12 Pulse Ox 96 07/31/21 11:12 BMI result Body Mass Index 27.8 ?Gen: Appears be in no acute distress, sob improving HEENT:? NCAT,? Moist mucosa. Pulmonary:? Fine crackles present CVS:? S1-S2 heard. Abdomen: BS+, Soft, Nontender Extremities:? Warm well perfused,trace edema Neuro:? Alert and awake. DS: Data Additional Comments Additional comments: 07/29/21 07/29/21 07/29/21 ? 22:39 22:39 22:39 MCV ?97.7 ? ? MCH ?31.3 ? ? MCHC ?32.0 ? ? RDW ?14.5 ? ? Plt Count ?196 ? ? MPV ?12.2 ? ? Immature Gran % (Auto) ?0.4 ? ? Neut % (Auto) ?64.5 ? ? Lymph % (Auto) ?22.2 ? ? [place] % (Auto) ?7.7 ? ? Eos % (Auto) ?4.7 H ? ? Baso % (Auto) ?0.5 ? ? Lymph # (Auto) ?1.2 ? ? [place] # (Auto) ?0.4 ? ? Eos # (Auto) ?0.3 ? ? Baso # (Auto) ?0.0 ? ? Abs Immat Gran (auto) ?0.02 ? ? Absolute Neuts (auto) ?3.6 ? ? Absolute Nucleated RBC ?0.000 ? ? Nucleated RBC % (auto) ?0.0 ? ? ESR ? ? ? PT ? ?27.3 H ? INR ? ?2.4 H ? Anion Gap ? ? ? Estim Creat Clear Calc ? ? ? Estimated GFR ? ? ? Random Glucose ? ? ? Calcium ? ? ? Total Bilirubin ? ? ? AST ? ? ? ALT ? ? ? Alkaline Phosphatase ? ? ? Troponin I High Sens ? ? ?7.6 B-Natriuretic Peptide ? ? ?375 H Total Protein ? ? ? Albumin ? ? ? COVID-19 ([facility]) ? ? ? COVID-19 Clin Com ? ? ? Influenza Type A ([facility]) ? ? ? Influenza Type B (DALI) ? ? ? Influenza A & B Note ? 07/29/21 07/29/21 07/29/21 ? 22:39 22:39 22:39 MCV ? ? ? MCH ? ? ? MCHC ? ? ? RDW ? ? ? Plt Count ? ? ? MPV ? ? ? Immature Gran % (Auto) ? ? ? Neut % (Auto) ? ? ? Lymph % (Auto) ? ? ? [place] % (Auto) ? ? ? Eos % (Auto) ? ? ? Baso % (Auto) ? ? ? Lymph # (Auto) ? ? ? [place] # (Auto) ? ? ? Eos # (Auto) ? ? ? Baso # (Auto) ? ? ? Abs Immat Gran (auto) ? ? ? Absolute Neuts (auto) ? ? ? Absolute Nucleated RBC ? ? ? Nucleated RBC % (auto) ? ? ? ESR ? ? ?39 H PT ? ? ? INR ? ? ? Anion Gap ? ? ? Estim Creat Clear Calc ? ? ? Estimated GFR ? ? ? Random Glucose ? ? ? Calcium ? ? ? Total Bilirubin ? ? ? AST ? ? ? ALT ? ? ? Alkaline Phosphatase ? ? ? Troponin I High Sens ? ? ? B-Natriuretic Peptide ? ? ? Total Protein ? ? ? Albumin ? ? ? COVID-19 ([facility]) ? ?Positive A ? COVID-19 Clin Com ? ?See Note ? Influenza Type A ([facility]) ?Negative ? ? Influenza Type B ([facility]ALI) ?Negative ? ? Influenza A & B Note ?See Note ? ? ? 07/29/21 07/30/21 07/30/21 ? 23:36 04:09 04:09 MCV ? ?97.0 ? MCH ? ?31.3 ? MCHC ? ?32.2 ? RDW ? ?14.4 ? Plt Count ? ?240 ? MPV ? ?11.5 ? Immature Gran % (Auto) ? ?0.3 ? Neut % (Auto) ? ?61.3 ? Lymph % (Auto) ? ?25.9 ? [place] % (Auto) ? ?7.3 ? Eos % (Auto) ? ?4.8 H ? Baso % (Auto) ? ?0.4 ? Lymph # (Auto) ? ?1.8 ? [place] # (Auto) ? ?0.5 ? Eos # (Auto) ? ?0.3 ? Baso # (Auto) ? ?0.0 ? Abs Immat Gran (auto) ? ?0.02 ? Absolute Neuts (auto) ? ?4.2 ? Absolute Nucleated RBC ? ?0.000 ? Nucleated RBC % (auto) ? ?0.0 ? ESR ? ? ? PT ? ? ? INR ? ? ? Anion Gap ?12 ? ?12 Estim Creat Clear Calc ?54.2 ? ?50.4 Estimated GFR ?> 60 ? ?58 Random Glucose ?87 ? ?88 Calcium ?9.0? D ? ?10.2? D Total Bilirubin ?0.4 ? ? AST ?29 ? ? ALT ?18 ? ? Alkaline Phosphatase ?68 ? ? Troponin I High Sens ? ? ? B-Natriuretic Peptide ? ? ? Total Protein ?7.9 ? ? Albumin ?3.3 L ? ? COVID-19 ([facility]) ? ? ? COVID-19 Clin Com ? ? ? Influenza Type A ([facility]I) ? ? ? Influenza Type B ([facility]I) ? ? ? Influenza A & B Note ? 07/30/21 ? 04:09 MCV ? MCH ? MCHC ? RDW ? Plt Count ? MPV ? Immature Gran % (Auto) ? Neut % (Auto) ? Lymph % (Auto) ? [place] % (Auto) ? Eos % (Auto) ? Baso % (Auto) ? Lymph # (Auto) ? [place] # (Auto) ? Eos # (Auto) ? Baso # (Auto) ? Abs Immat Gran (auto) ? Absolute Neuts (auto) ? Absolute Nucleated RBC ? Nucleated RBC % (auto) ? ESR ? PT ? INR ? Anion Gap ? Estim Creat Clear Calc ? Estimated GFR ? Random Glucose ? Calcium ? Total Bilirubin ? AST ? ALT ? Alkaline Phosphatase ? Troponin I High Sens ?11.3 B-Natriuretic Peptide ? Total Protein ? XR/XR chest 1V IMPRESSION: Cardiomegaly with mild CHF. Discharge Plan Discharge Patient Disposition: Home, Self-Care Discharge Diagnosis: chf execerbation Referrals: Jessi Daniels MD [Primary Care Provider] - 1 Week Discharge Medications: New furosemide [Lasix] 20 mg tablet 20 mg PO DAILY Qty: 30 0RF Continued Xarelto 20 mg tablet 20 mg PO BEDTIME 90 Days Qty: 90 3RF amiodarone 100 mg tablet 100 mg PO DAILY 90 Days Qty: 90 1RF albuterol sulfate [ProAir HFA] 90 mcg/actuation HFA aerosol inhaler 1 inh inhalation QID 0RF mirtazapine 15 mg tablet 15 mg PO BEDTIME 0RF cholecalciferol (vitamin D3) 10 mcg (400 unit) capsule 10 mcg PO DAILY 0RF metoprolol succinate 25 mg tablet extended release 24 hr 25 mg PO DAILY 0RF oxycodone-acetaminophen 5-325 mg tablet 1 tab PO BEDTIME PRN (Reason: severe pain) 0RF Biktarvy 50-200-25 mg tablet 1 tab PO BEDTIME 0RF diclofenac sodium 1 % gel 2 g topical BID 0RF atorvastatin 20 mg tablet 20 mg PO DAILY 0RF Discharge Orders: Discharge Order (Routine); Ordered 07/31/21 Ordered By: Manav Thrasher Diet: advance to usual diet Activity on Discharge: As tolerated Stand Alone Forms: Patient Portal Discharge page Care Plan Goals: Patient was admitted for CHF exacerbation in setting of COVID positive. Patient was started on IV Lasix and seen by Cardiology: With IV Lasix patient diuresed and feel better, does not seems to be hypoxic. Switched to p.o. Lasix , follow-up outpatient with PCP. COVID positive: Patient sats are fine in the 93-96 range, discussed with ID no need of taking stay dexamethasone. Above management discussed with the patient she understand and in agreement with above plan. Health Concerns: As above. Plan of Treatment: As above. Assessment: As above.
--- NOTE | 2021-07-31 15:10 | MHC.CM.PN ---
Female 55 DX Hypoxia Discharged today to home. [employer] services thru [employer] will resume. She has arranged for transportation home.
== END 2021-07-31 16:09 | disposition home or self-care (01) | DRG 194 ==
LOC: HO.ED 07-30 00:20 → HO.EDOVER 07-30 03:46 → HO.IMC 07-30 15:37
PROVIDERS: Admitting Provider Hospitalist; Emergency Provider Student in an Organized Health Care Education/Training Program; PCP Internal Medicine; Visit Provider Internal Medicine
DX: I11.0 Hypertensive heart disease with heart failure (principal); U07.1 COVID-19; Z95.4 Presence of other heart-valve replacement; Z79.01 Long term (current) use of anticoagulants; I50.813 Acute on chronic right heart failure; I45.10 Unspecified right bundle-branch block; Z21 Asymptomatic human immunodeficiency virus [HIV] infection status; I48.0 Paroxysmal atrial fibrillation; Z87.74 Personal history of (corrected) congenital malformations of heart and circulatory system; Z95.810 Presence of automatic (implantable) cardiac defibrillator; E78.5 Hyperlipidemia, unspecified; Z88.0 Allergy status to penicillin; Z91.013 Allergy to seafood; Z79.899 Other long term (current) drug therapy
CPT/HCPCS: 36415; 71045; 80048; 80053; 83880; 84484; 85025; 85610; 85652; 87502; 87635; 93005; 94640; 96374; 99285; J1940; J8540

== ENCOUNTER 2021-08-19 09:24 | Outpatient (REF) | payer MEDICAID, SELFPAY | END 2021-08-19 09:25 | disposition home or self-care (01) | LOC: HO.HAP 09:24 | PROVIDERS: Visit Provider Family Medicine | DX: Z46.1 Encounter for fitting and adjustment of hearing aid (principal); H90.3 Sensorineural hearing loss, bilateral | CPT/HCPCS: V5011; V5020; V5160; V5261; V5264 ==

== ENCOUNTER 2021-09-05 10:00 | Outpatient (RCR) | payer MEDICAID, SELFPAY | END 2021-10-16 12:02 | disposition home or self-care (01) | LOC: HO.PT 10:00 | PROVIDERS: PCP Internal Medicine; Visit Provider Family Medicine | DX: M54.41 Lumbago with sciatica, right side (principal) | CPT/HCPCS: 97110; 97162 ==

== ENCOUNTER 2021-10-15 08:22 | Outpatient (REF) | payer MEDICAID, SELFPAY | END 2021-10-15 08:23 | disposition home or self-care (01) | LOC: HO.HAP 08:22 | PROVIDERS: Visit Provider Family Medicine | DX: Z13.89 Encounter for screening for other disorder (principal) ==

== ENCOUNTER 2021-10-27 08:35 | Outpatient (REF) | payer MEDICAID, SELFPAY ==
--- NOTE | ~2021-10-27 | XR_ITS ---
EXAMINATION: XR RIBS, BILATERAL CLINICAL INFORMATION: Pleurodynia COMPARISON: None TECHNIQUE: 3 views of the bilateral ribs were obtained. FINDINGS: The lungs are well-expanded and clear acute pneumonic process. Heart size enlarged with a solitary pacer electrode in the right ventricle. There is a caliber bowel prosthesis and median sternotomy sutures. There is a soft tissue density in the right paracardiac region likely prominent right hilar vascular structures with increased vascularity but no gross bony abnormality seen. XR/XR ribs BI min 4V w CXR1V IMPRESSION: Cardiomegaly with CHF.
[2021-10-27 09:12] LABS: Hematocrit 44.6 % (37.0-47.0); Hemoglobin 14.3 g/dl (12.0-16.0); Mean Corpuscular HGB Conc 32.1 g/dl (31.0-35.0); Mean Corpuscular Hemoglobin 32.4 pg (27.0-33.0); Mean Corpuscular Volume 100.9 fL (80.0-98.0); Mean Platelet Volume 11.1 fL (9.4-12.3); Platelet Count 202 X10*3/uL (160-400); Red Blood Count 4.42 X10*6/uL (4.20-5.50); Red Cell Distribution Width 13.8 % (11.0-16.0); White Blood Count 6.7 X10*3/uL (4.8-10.8)
[2021-10-27 09:19] LABS: Estimated Average Glucose 108 mg/dL; Hemoglobin A1c % 5.4 %
[2021-10-27 09:40] LABS: Alanine Aminotransferase 18 U/L (0-31); Albumin Level 3.7 g/dL (3.5-5.0); Alkaline Phosphatase 80 U/L (39-117); Anion Gap 13 (12-20); Aspartate Amino Transferase 25 U/L (5-31); Bilirubin Direct 0.3 mg/dL (0.0-0.5); Bilirubin Total 0.6 mg/dL (0.0-1.0); Blood Urea Nitrogen 13 mg/dL (9-16); Carbon Dioxide 30 mmol/L (22-29); Chloride 104 mmol/L (96-108); Cholesterol 206 mg/dL; Estimated Glomerular Filt Rate > 60; Glucose Random 87 mg/dL (60-115); HDL Cholesterol 45 mg/dL; LDL Cholesterol Calculated 141 mg/dl; Potassium 4.2 mmol/L (3.3-5.1); Sodium 143 mmol/L (135-145); Total Protein 8.3 g/dL (6.5-8.0); Triglycerides 102 mg/dL
[2021-10-27 10:04] LABS: Thyroid Stimulating Hormone 2.03 uIU/mL (0.32-4.0); Vitamin D 25-OH Total 17.2 ng/mL (>30)
[2021-10-27 10:13] LABS: ~HepC Num1 0.07 S/CO (0.00-0.79); ~Hepatitis C Antibody Nonreactive (Nonreactive)
[2021-10-27 10:23] LABS: Syphilis Screen Nonreactive (Nonreactive)
[2021-10-29 15:17] LABS: Absolute CD3 Count 943 cells/uL (840-3060); Absolute CD4 Count 639 cells/uL (490-1740); Absolute CD8 Count 462 cells/uL (180-1170); Absolute Lymphocytes 1514 cells/uL (850-3900); CD4 CD8 Ratio 1.39 (0.86-5.00); Percent CD3 Cells 62 % (57-85); Percent CD4 Cells 42 % (30-61); Percent CD8 Cells 30 % (12-42)
[2021-10-29 19:41] LABS: HIV RNA PCR Qn Copies NOT DETECTED copies/mL (NOT DETECTED); HIV RNA PCR Qn Log Copies NOT DETECTED (NOT DETECTED)
[2021-10-29 22:36] LABS: TS Negative Control Passed; TS Panel A 0; TS Panel B 0; TS Positive Control Passed; TSpotTB Negative (Negative)
== END 2021-10-27 08:36 | disposition home or self-care (01) ==
LOC: HO.XRAY 08:35
PROVIDERS: PCP Family Medicine; Visit Provider Family Medicine
DX: B20 Human immunodeficiency virus [HIV] disease (principal); E78.5 Hyperlipidemia, unspecified; R07.81 Pleurodynia
CPT/HCPCS: 71111; 80048; 80061; 80076; 82306; 83036; 84439; 84443; 85027; 86359; 86360; 86481; 86780; 86803; 87536

== ENCOUNTER 2021-10-28 08:48 | Outpatient (REF) | payer MEDICAID, SELFPAY ==
[2021-10-28 17:30] LABS: CT PCR NOT DETECTED (Not Detect.); NG PCR NOT DETECTED (Not Detect.)
== END 2021-10-28 08:49 | disposition home or self-care (01) ==
LOC: HO.LNP 08:48
PROVIDERS: Visit Provider Family Medicine
DX: B20 Human immunodeficiency virus [HIV] disease (principal); E78.5 Hyperlipidemia, unspecified
CPT/HCPCS: 87491; 87591

== ENCOUNTER → 2021-11-04 08:14 | Outpatient (BNVA) | payer MEDICAID, SELFPAY | PROVIDERS: PCP Family Medicine; Visit Provider Surgery Vascular Surgery | DX: I83.11 Varicose veins of right lower extremity with inflammation (principal) | CPT/HCPCS: 99212 ==

== ENCOUNTER 2021-11-07 08:26 | Outpatient (REF) | payer MEDICAID, SELFPAY | END 2021-11-07 08:27 | disposition home or self-care (01) | LOC: HO.HAP 08:26 | PROVIDERS: Visit Provider Family Medicine | DX: Z13.89 Encounter for screening for other disorder (principal) ==

== ENCOUNTER → 2021-12-11 12:26 | Outpatient (BNVA) | payer MEDICAID, SELFPAY | PROVIDERS: PCP Family Medicine; Referring Provider Family Medicine; Visit Provider Internal Medicine Cardiovascular Disease | DX: Q24.9 Congenital malformation of heart, unspecified (principal); I50.812 Chronic right heart failure | CPT/HCPCS: 93005; 99212 ==

== ENCOUNTER 2021-12-30 07:06 | Outpatient (REF) | payer MEDICAID, SELFPAY ==
--- NOTE | ~2021-12-30 | US_ITS ---
E EXAMINATION: US LOWER EXTREMITY VENOUS (REFLUX EXAM), BILATERAL CLINICAL INDICATION: This a 56-year-old female with venous insufficiency. Varicose veins. Leg swelling. 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 The left saphenous venous systems and right small saphenous venous system appeared competent. TECHNIQUE: Color flow triplex imaging and compression Doppler was performed to evaluate both the deep and the superficial systems bilaterally. To evaluate the superficial system, the examination was performed in the upright position. Color-flow Doppler ultrasound and compression ultrasound were utilized. In addition, maneuvers were utilized to demonstrate reflux. FINDINGS: 1. DEEP VENOUS ULTRASOUND OF THE RIGHT LOWER EXTREMITY: Common Femoral Vein: Compressible, normal respiratory variation and augmented flow. Femoral vein: Compressible, normal color flow and augmentation. Popliteal Vein: Compressible, normal augmentation. Deep Reflux: There is no evidence of reflux in the deep system in either the common femoral vein or the popliteal vein. There is no evidence of a Alfredo's cyst. 2. SUPERFICIAL ULTRASOUND WITH DOPPLER OF RIGHT LOWER EXTREMITY: GREAT SAPHENOUS VEIN: The right great saphenous vein is occluded throughout its course consistent with successful previous treatment. GSV REFLUX: No evidence of reflux. DUPLICATED GREAT SAPHENOUS VEIN: None SMALL SAPHENOUS VEIN: Proximal: 0 point cm Distal: 0.2 cm SSV REFLUX: No evidence of reflux. VEIN OF GIACOMINI: None Imaged. PERFORATORS: None Imaged VARICOSITIES: Multiple 0.4 cm and 0.3 cm varicose veins are seen in the right thigh and calf. There is greater than 3 seconds of reflux seen in the mid thigh varicose veins and the distal calf varicose veins. 3. DEEP VENOUS ULTRASOUND OF THE LEFT LOWER EXTREMITY: Common Femoral Vein: Compressible, normal respiratory variation and augmented flow. Femoral Vein: Compressible, normal color flow and augmentation. Popliteal Vein: Compressible, normal augmentation. Deep Reflux: There is no evidence of reflux in the deep system in either the common femoral vein or the popliteal vein. There is no evidence of a Alfredo's cyst. 4. SUPERFICIAL ULTRASOUND WITH DOPPLER OF LEFT LOWER EXTREMITY: GREAT SAPHENOUS VEIN: Saphenofemoral Junction: 0.8 cm Mid Thigh: 0.2 cm Above Knee: 0.1 cm Below Knee: 0.2 cm. There is an isolated segment of reflux measuring 984 ms. Mid Calf: 0.1 cm Ankle: 0.2 cm GSV REFLUX: There is no reflux at the saphenofemoral junction. There is isolated reflux below the knee. DUPLICATED GREAT SAPHENOUS VEIN: There is a 0.2 cm duplicated medial great saphenous vein without reflux. SMALL SAPHENOUS VEIN: Proximal: 0.1 cm Distal: 0.2 cm SSV REFLUX: No evidence of reflux. VEIN OF GIACOMINI: None Imaged. PERFORATORS: None Imaged VARICOSITIES: There is a 0.4 cm proximal calf varicose vein with greater than 2 seconds of reflux. US/US venous duplex LE BI IMPRESSION: 1. The right great saphenous vein is occluded consistent with successful previous treatment. This appears unchanged. 2. The right small saphenous vein and the left saphenous venous systems appear competent and unchanged without evidence of reflux. 3. There are bilateral varicose veins with reflux as noted.
== END 2021-12-30 07:07 | disposition home or self-care (01) ==
LOC: HO.US 07:06
PROVIDERS: Visit Provider Surgery Vascular Surgery
DX: I83.11 Varicose veins of right lower extremity with inflammation (principal); I83.12 Varicose veins of left lower extremity with inflammation
CPT/HCPCS: 93970

== ENCOUNTER → 2022-01-19 09:26 | Outpatient (BNVA) | payer MEDICAID, SELFPAY | PROVIDERS: PCP Family Medicine; Visit Provider Surgery Vascular Surgery | DX: I83.11 Varicose veins of right lower extremity with inflammation (principal); I83.12 Varicose veins of left lower extremity with inflammation | CPT/HCPCS: 99212 ==

== ENCOUNTER → 2022-01-30 09:30 | Outpatient (BNVA) | payer MEDICAID, SELFPAY | PROVIDERS: PCP Family Medicine; Visit Provider Surgery Vascular Surgery | DX: I83.11 Varicose veins of right lower extremity with inflammation (principal) | CPT/HCPCS: 37765 ==

== ENCOUNTER 2022-02-07 14:26 | Emergency (ER) | payer MEDICAID, SELFPAY ==
--- NOTE | 2022-02-07 14:29 | ED_ITS ---
HPI - Extremity Problem General Chief complaint: Skin/Abscess/Foreign Body Stated complaint: r ring finger issue Time Seen by Provider: 02/07/22 16:03 Source: patient Mode of arrival: ambulatory Limitations: no limitations Related Data Home Medications Medication Instructions Recorded Confirmed albuterol sulfate 90 mcg/actuation 1 inh inhalation QID 12/28/19 12/11/21 aerosol inhaler (ProAir HFA) cholecalciferol (vitamin D3) 10 10 mcg PO DAILY 12/28/19 12/11/21 mcg (400 unit) capsule metoprolol succinate 25 mg 25 mg PO DAILY 12/28/19 12/11/21 tablet,extended release 24 hr mirtazapine 15 mg tablet 15 mg PO BEDTIME 12/28/19 12/11/21 oxycodone-acetaminophen 5 mg-325 1 tab PO BEDTIME PRN severe pain 03/27/21 12/11/21 mg tablet atorvastatin 20 mg tablet 20 mg PO DAILY 04/04/21 12/11/21 bictegravir 50 mg-emtricitabine 1 tab PO BEDTIME 04/04/21 12/11/21 200 mg-tenofovir alafenam 25 mg tablet (Biktarvy) diclofenac sodium 1 % topical gel 2 g topical BID 04/04/21 12/11/21 rosuvastatin 5 mg tablet 5 mg PO DAILY 12/11/21 12/11/21 Previous Rx's Medication Instructions Recorded rivaroxaban 20 mg tablet (Xarelto) 20 mg PO BEDTIME 90 days #90 tabs 03/03/21 amiodarone 100 mg tablet 100 mg PO DAILY 90 days #90 tabs 07/10/21 furosemide 20 mg tablet (Lasix) 20 mg PO DAILY #30 tabs 07/31/21 doxycycline monohydrate 100 mg 100 mg PO BID 10 days #20 caps 02/07/22 capsule Allergies Allergy/AdvReac Type Severity Reaction Status Date / Time Penicillins [PENICILLINS] Allergy Unknown RASH Verified 01/30/22 10:37 SEAFOOD Allergy Unknown RASH Uncoded 11/04/21 08:57 Review of Systems Review of Systems: Yes all other systems are reviewed and are negative PMFSH Past Medical History Attestation statement: The following information was validated with the patient. Source: old records reviewed Medical History Asthma Dysplasia of cervix, low grade (MIGUEL 1) Fallot tetralogy Heart valve disorder HIV (human immunodeficiency virus infection) ICD (implantable cardioverter-defibrillator) in place Pacemaker Paroxysmal atrial fibrillation Right bundle branch block (RBBB) on electrocardiogram (ECG) Right heart failure Surgical History H/O pulmonic valve replacement H/O varicose vein stripping (04/04/21) History of cardioversion History of open heart surgery Hx of cardiac pacemaker Pulmonary valve replaced Family History Family History Father CVD (cardiovascular disease) Mother No problems noted. 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[employer]) Alcohol intake: never Patient Tobacco Use Status: Never used Tobacco Smoked in Last 30 Days: No Advance Directives: No Advance Directives Information Provided: No Patient : No service: No Current occupational status: disabled Sexual orientation: Straight/Heterosexual Gender identity: Female Physical Exam Vital Signs: Vital Signs: Last Vital Signs Temp 97.5 F 02/07/22 16:54 Pulse 57 02/07/22 16:54 Resp 18 02/07/22 16:54 BP 105/60 02/07/22 16:54 Pulse Ox 99 02/07/22 16:54 O2 Del Method 02/07/22 16:54 BMI result Body Mass Index 29.0 Course Course Course Narrative: RME: Patient is a 56-year-old female the past medical history of asthma, HIV, pacemaker, paroxysmal atrial fibrillation, tetralogy of Fallot, right heart f ailure who presents emergency department for evaluation of pain/ burning to right 4th digit. States she burned the finger a last night on hot tea. She is experiencing redness and swelling to the digit extending up the arm. Unable to remove the ring from her finger. Denies fevers, chills. PE: Ring cut from digit during examination. R 4th digit erythema, swelling, warmth, inability to flex the digit. Plan: CBC, BMP Medications Administered Discontinued Medications Generic Name Dose Route Start Last Admin Trade Name Freq PRN Reason Stop Dose Admin Diphtheria/Tetanus/Acell Pertussis 0.5 ml 02/07/22 16:09 02/07/22 16:28 Diphth,Pertus(Acell),Tet Adult 0.5 Ml Syringe IM 02/07/22 16:10 0.5 ml .ONCE ONE Administration Doxycycline Monohydrate 100 mg 02/07/22 16:09 02/07/22 16:28 Doxycycline Monohydrate 100 Mg Capsule PO 02/07/22 16:10 100 mg ONCE ONE Administration Lidocaine HCl 5 ml 02/07/22 16:09 02/07/22 16:35 Lidocaine Hcl 2 % Mpf 5 Ml Vial SUBCUT 02/07/22 16:10 5 ml ONCE ONE Administration MDM - Extremity (Nontraumatic) Lab Data Result diagrams: 02/07/22 15:33 02/07/22 15:33 Labs: Lab Results 02/07/22 02/07/22 Range/Units 15:33 15:33 WBC 5.8 (4.8-10.8) X10*3/uL RBC 4.33 (4.20-5.50) X10*6/uL Hgb 13.9 (12.0-16.0) g/dl Hct 43.0 (37.0-47.0) % MCV 99.3 H (80.0-98.0) fL MCH 32.1 (27.0-33.0) pg MCHC 32.3 (31.0-35.0) g/dl RDW 12.9 (11.0-16.0) % Plt Count 178 (160-400) X10*3/uL MPV 10.9 (9.4-12.3) fL Immature Gran % (Auto) 0.2 (0.0-0.4) % Neut % (Auto) 66.8 (45-73) % Lymph % (Auto) 20.5 (20-40) % [place] % (Auto) 9.1 (2-11) % Eos % (Auto) 2.9 (0-4) % Baso % (Auto) 0.5 (0-2) % Lymph # (Auto) 1.2 (1.2-4.9) X10*3/uL [place] # (Auto) 0.5 (0.1-1.2) X10*3/uL Eos # (Auto) 0.2 (0.0-0.4) X10*3/uL Baso # (Auto) 0.0 (0.0-0.2) X10*3/uL Abs Immat Gran (auto) 0.01 (0.00-0.03) X10*3/uL Absolute Neuts (auto) 3.9 (2.0-8.3) x10*3/uL Absolute Nucleated RBC 0.000 (0.0-0.012) X10*3/uL Nucleated RBC % (auto) 0.0 (0.0-0.2) /100WBC Sodium 142 (135-145) mmol/L Potassium 4.3 (3.3-5.1) mmol/L Chloride 104 (96-108) mmol/L Carbon Dioxide 29 (22-29) mmol/L Anion Gap 13 (12-20) BUN 12 (9-16) mg/dL Creatinine 0.80 (0.5-1.4) mg/dL Estim Creat Clear Calc 62.9 Estimated GFR > 60 Random Glucose 95 (60-115) mg/dL Calcium 8.9 (8.4-10.2) mg/dL Discharge Plan Discharge Clinical Impression: Cellulitis, Paronychia Patient Disposition: Home, Self-Care Instructions: Paronychia (ED), Cellulitis (ED), Warm Compress or Soak (ED) Additional Instructions: You were evaluated for paronychia to your right 4th finger. We incised and drained this abscess. Please continue with warm soaks to help with fluid drainage. Take doxycycline 100 mg twice a day for the next 10 days. If your redness and swelling worsens, or you have fevers, chills, or any other concerning symptoms please return to your primary care physician, urgent care or emergency department for evaluation. Prescriptions: New doxycycline monohydrate 100 mg capsule 100 mg PO BID 10 Days Qty: 20 0RF No Action Xarelto 20 mg tablet 20 mg PO BEDTIME 90 Days Qty: 90 3RF amiodarone 100 mg tablet 100 mg PO DAILY 90 Days Qty: 90 1RF furosemide [Lasix] 20 mg tablet 20 mg PO DAILY Qty: 30 0RF albuterol sulfate [ProAir HFA] 90 mcg/actuation HFA aerosol inhaler 1 inh inhalation QID mirtazapine 15 mg tablet 15 mg PO BEDTIME cholecalciferol (vitamin D3) 10 mcg (400 unit) capsule 10 mcg PO DAILY metoprolol succinate 25 mg tablet extended release 24 hr 25 mg PO DAILY oxycodone-acetaminophen 5-325 mg tablet 1 tab PO BEDTIME PRN (Reason: severe pain) rosuvastatin 5 mg tablet 5 mg PO DAILY Biktarvy 50-200-25 mg tablet 1 tab PO BEDTIME diclofenac sodium 1 % gel 2 g topical BID atorvastatin 20 mg tablet 20 mg PO DAILY Interventions: ED Discharge Assessment Last Done: 02/07/22 17:01 Discharge Date/Time: 02/07/22 17:04
[2022-02-07 14:32] VITALS: BP 127/75; PULSE 66; RESP 18; TEMP 36.6; O2SAT 95; BMI 29.0
[2022-02-07 15:37] LABS: MANUAL DIFF FLAG NO
[2022-02-07 15:38] LABS: Basophils Percent Auto 0.5 % (0-2); Eosinophils Absolute Auto 0.2 X10*3/uL (0.0-0.4); Eosinophils Percent Auto 2.9 % (0-4); Hemoglobin 13.9 g/dl (12.0-16.0); Imm Gran Abs Auto 0.01 X10*3/uL (0.00-0.03); Imm Gran Pct Auto 0.2 % (0.0-0.4); Lymphocytes Absolute Auto 1.2 X10*3/uL (1.2-4.9); Lymphocytes Percent Auto 20.5 % (20-40); Mean Corpuscular HGB Conc 32.3 g/dl (31.0-35.0); Mean Corpuscular Hemoglobin 32.1 pg (27.0-33.0); Mean Corpuscular Volume 99.3 fL (80.0-98.0); Mean Platelet Volume 10.9 fL (9.4-12.3); Monocytes Absolute Auto 0.5 X10*3/uL (0.1-1.2); Monocytes Percent Auto 9.1 % (2-11); Neutrophils Absolute Auto 3.9 x10*3/uL (2.0-8.3); Neutrophils Percent Auto 66.8 % (45-73); Platelet Count 178 X10*3/uL (160-400); Red Blood Count 4.33 X10*6/uL (4.20-5.50); Red Cell Distribution Width 12.9 % (11.0-16.0); White Blood Count 5.8 X10*3/uL (4.8-10.8)
[2022-02-07 15:56] LABS: Anion Gap 13 (12-20); Blood Urea Nitrogen 12 mg/dL (9-16); Calcium 8.9 mg/dL (8.4-10.2); Carbon Dioxide 29 mmol/L (22-29); Chloride 104 mmol/L (96-108); Creatinine Clr Calc Pharmacy 62.9; Estimated Glomerular Filt Rate > 60; Glucose Random 95 mg/dL (60-115); Potassium 4.3 mmol/L (3.3-5.1); Sodium 142 mmol/L (135-145)
--- NOTE | 2022-02-07 16:22 | ED_ITS ---
HPI - Skin/Abscess/Foreign Bdy General Chief complaint: Skin/Abscess/Foreign Body Stated complaint: r ring finger issue Time Seen by Provider: 02/07/22 16:03 Source: patient Mode of arrival: ambulatory Limitations: no limitations History of Present Illness HPI narrative: 56-year-old female presents for evaluation for right ring finger pain and swelling. Patient burned her finger on some hot tea approximately 2 days ago, stated that the swelling and redness has increased and now has a red line going up her hand. The ring was cut off of her finger in triage. She does not report fevers or chills, or loss of sensation to the extremity. MD complaint: abscess/boil Onset (ago): day(s) (2) Tetanus up to date: no Location: R hand (Fourth finger) Severity: moderate Severity scale (1-10): 7 Quality: aching and constant Pain Consistency: constant Relieving factors: none Exacerbating factors: palpation and movement Context: other (Burn) Treatments prior to arrival: attempted to drain pus at home Related Data Home Medications Medication Instructions Recorded Confirmed albuterol sulfate 90 mcg/actuation 1 inh inhalation QID 12/28/19 12/11/21 aerosol inhaler (ProAir HFA) cholecalciferol (vitamin D3) 10 10 mcg PO DAILY 12/28/19 12/11/21 mcg (400 unit) capsule metoprolol succinate 25 mg 25 mg PO DAILY 12/28/19 12/11/21 tablet,extended release 24 hr mirtazapine 15 mg tablet 15 mg PO BEDTIME 12/28/19 12/11/21 oxycodone-acetaminophen 5 mg-325 1 tab PO BEDTIME PRN severe pain 03/27/21 12/11/21 mg tablet atorvastatin 20 mg tablet 20 mg PO DAILY 04/04/21 12/11/21 bictegravir 50 mg-emtricitabine 1 tab PO BEDTIME 04/04/21 12/11/21 200 mg-tenofovir alafenam 25 mg tablet (Biktarvy) diclofenac sodium 1 % topical gel 2 g topical BID 04/04/21 12/11/21 rosuvastatin 5 mg tablet 5 mg PO DAILY 12/11/21 12/11/21 Previous Rx's Medication Instructions Recorded rivaroxaban 20 mg tablet (Xarelto) 20 mg PO BEDTIME 90 days #90 tabs 03/03/21 amiodarone 100 mg tablet 100 mg PO DAILY 90 days #90 tabs 07/10/21 furosemide 20 mg tablet (Lasix) 20 mg PO DAILY #30 tabs 07/31/21 doxycycline monohydrate 100 mg 100 mg PO BID 10 days #20 caps 02/07/22 capsule Allergies Allergy/AdvReac Type Severity Reaction Status Date / Time Penicillins [PENICILLINS] Allergy Unknown RASH Verified 01/30/22 10:37 SEAFOOD Allergy Unknown RASH Uncoded 11/04/21 08:57 Review of Systems Review of Systems: Constitutional: No Fever, No Chills ENT/Mouth: No Ear Pain, No Hoarseness, No sore throat Eyes: No Eye Pain, No Swelling, No Redness, No Foreign Body Cardiovascular: No Chest Pain, No SOB Respiratory: No Cough, No Dyspnea Gastrointestinal: No Nausea, No Vomiting, No Diarrhea, No abdominal Pain Genitourinary: No Dysuria, No Hematuria Musculoskeletal: positive right 4th finger joint pain, No Myalgias, No Joint Swelling Skin: Redness to right 4th finger tip, No Skin lacerations, No rash Neuro: No Weakness, No Numbness, No Paresthesias, No Loss of Consciousness, No Dizziness, No Headache Psych: No Anxiety/Panic, No Depression Heme/Lymph: no easy bruising, no Lymphadenopathy Endocrine: No Polyuria, No Polydipsia Yes all other systems are reviewed and are negative [facility] Past Medical History Attestation statement: The following information was validated with the patient. Source: old records reviewed Medical History Asthma Dysplasia of cervix, low grade (MIGUEL 1) Fallot tetralogy Heart valve disorder HIV (human immunodeficiency virus infection) ICD (implantable cardioverter-defibrillator) in place Pacemaker Paroxysmal atrial fibrillation Right bundle branch block (RBBB) on electrocardiogram (ECG) Right heart failure Surgical History H/O pulmonic valve replacement H/O varicose vein stripping (04/04/21) History of cardioversion History of open heart surgery Hx of cardiac pacemaker Pulmonary valve replaced Family History Family History Father CVD (cardiovascular disease) Mother No problems noted. Social History Social History Household Members: Other Housing: Apartment Do you presently have visiting nurse or other home services: Yes ([employer] with [employer]) Alcohol intake: never Patient Tobacco Use Status: Never used Tobacco Smoked in Last 30 Days: No Advance Directives: No Advance Directives Information Provided: No Patient : No service: No Current occupational status: disabled Sexual orientation: Straight/Heterosexual Gender identity: Female Physical Exam Vital Signs: Vital Signs: Last Vital Signs Temp 97.5 F 02/07/22 16:54 Pulse 57 02/07/22 16:54 Resp 18 02/07/22 16:54 BP 105/60 02/07/22 16:54 Pulse Ox 99 02/07/22 16:54 O2 Del Method 02/07/22 16:54 BMI result Body Mass Index 29.0 Appearance: Alert. Oriented X3. No acute distress. Eyes: Pupils equal, round and reactive to light. ENT: Pharynx normal. Neck: Normal inspection. Neck supple. CVS: Normal heart rate and rhythm. Pulses normal. Respiratory: No respiratory distress. Breath sounds normal. Abdomen: Soft and nontender. Skin: Paronychia with cellulitis to the right 4th D IP, Skin warm and dry. Normal skin color. Normal skin turgor. Extremities: No lower extremity edema. Gait well-balanced well coordinated. Neuro: No motor deficit. No sensory deficit. Cranial nerves 2-12 intact. Course Course Course Narrative: 56-year-old female presents to the emergency department for evaluation of paronychia and cellulitis to right 4th finger tip and the DIP joint. She does have some phlebitis radiating from that digit to the mid dorsal aspect of the hand. Ring on that finger was removed in triage. Patient is allergic to penicillin with hives, will give doxycycline and I&D the paronychia. I did describe the I&D in detail to the patient who verbalized understanding of and agrees with plan. Will update Tdap vaccine at this time. Patient does have full range of motion to the digit, with brisk capillary refill and is neurovascularly intact. 16:38 patient tolerated procedure well. Proximal 1 mL purulent drainage from the radial aspect of the distal digit incision site. Understands that she must continue to take her antibiotics as directed. Patient verbalized understanding of and agrees to plan of care discharge home. Verbalized understanding of signs and symptoms indicating need for emergent intervention. Medications Administered Discontinued Medications Generic Name Dose Route Start Last Admin Trade Name Pooja PRN Reason Stop Dose Admin Diphtheria/Tetanus/Acell Pertussis 0.5 ml 02/07/22 16:09 02/07/22 16:28 Diphth,Pertus(Acell),Tet Adult 0.5 Ml Syringe IM 02/07/22 16:10 0.5 ml .ONCE ONE Administration Doxycycline Monohydrate 100 mg 02/07/22 16:09 02/07/22 16:28 Doxycycline Monohydrate 100 Mg Capsule PO 02/07/22 16:10 100 mg ONCE ONE Administration Lidocaine HCl 5 ml 02/07/22 16:09 02/07/22 16:35 Lidocaine Hcl 2 % Mpf 5 Ml Vial SUBCUT 02/07/22 16:10 5 ml ONCE ONE Administration Lidocaine 2% 3 ml digital block right 4th finger MDM - Skin/Abscess/Foreign Bdy Differential Diagnosis Differential diagnosis: Likely abscess of skin or subcutaneous tissue Medical Records Attestation: I reviewed the patient's medical records. Lab Data Attestation: I reviewed the patient's lab results. Result diagrams: 02/07/22 15:33 02/07/22 15:33 Labs: Lab Results 02/07/22 02/07/22 Range/Units 15:33 15:33 WBC 5.8 (4.8-10.8) X10*3/uL RBC 4.33 (4.20-5.50) X10*6/uL Hgb 13.9 (12.0-16.0) g/dl Hct 43.0 (37.0-47.0) % MCV 99.3 H (80.0-98.0) fL MCH 32.1 (27.0-33.0) pg MCHC 32.3 (31.0-35.0) g/dl RDW 12.9 (11.0-16.0) % Plt Count 178 (160-400) X10*3/uL MPV 10.9 (9.4-12.3) fL Immature Gran % (Auto) 0.2 (0.0-0.4) % Neut % (Auto) 66.8 (45-73) % Lymph % (Auto) 20.5 (20-40) % [place] % (Auto) 9.1 (2-11) % Eos % (Auto) 2.9 (0-4) % Baso % (Auto) 0.5 (0-2) % Lymph # (Auto) 1.2 (1.2-4.9) X10*3/uL [place] # (Auto) 0.5 (0.1-1.2) X10*3/uL Eos # (Auto) 0.2 (0.0-0.4) X10*3/uL Baso # (Auto) 0.0 (0.0-0.2) X10*3/uL Abs Immat Gran (auto) 0.01 (0.00-0.03) X10*3/uL Absolute Neuts (auto) 3.9 (2.0-8.3) x10*3/uL Absolute Nucleated RBC 0.000 (0.0-0.012) X10*3/uL Nucleated RBC % (auto) 0.0 (0.0-0.2) /100WBC Sodium 142 (135-145) mmol/L Potassium 4.3 (3.3-5.1) mmol/L Chloride 104 (96-108) mmol/L Carbon Dioxide 29 (22-29) mmol/L Anion Gap 13 (12-20) BUN 12 (9-16) mg/dL Creatinine 0.80 (0.5-1.4) mg/dL Estim Creat Clear Calc 62.9 Estimated GFR > 60 Random Glucose 95 (60-115) mg/dL Calcium 8.9 (8.4-10.2) mg/dL Procedures Abscess I/D Site: hand Side (if applicable): right Local Anesthetic: lidocaine 2% Amount of anesthesia used (mL): 3 Technique: incised with blade Amount of fluid expressed (mL): 1 Sent for culture/gram staining?: No Irrigation: No Packing used?: none Discharge Plan Discharge Clinical Impression: Cellulitis, Paronychia Patient Disposition: Home, Self-Care Instructions: Paronychia (ED), Cellulitis (ED), Warm Compress or Soak (ED) Additional Instructions: You were evaluated for paronychia to your right 4th finger. We incised and drained this abscess. Please continue with warm soaks to help with fluid drainage. Take doxycycline 100 mg twice a day for the next 10 days. If your redness and swelling worsens, or you have fevers, chills, or any other concerning symptoms please return to your primary care physician, urgent care or emergency department for evaluation. Prescriptions: New doxycycline monohydrate 100 mg capsule 100 mg PO BID 10 Days Qty: 20 0RF No Action Xarelto 20 mg tablet 20 mg PO BEDTIME 90 Days Qty: 90 3RF amiodarone 100 mg tablet 100 mg PO DAILY 90 Days Qty: 90 1RF furosemide [Lasix] 20 mg tablet 20 mg PO DAILY Qty: 30 0RF albuterol sulfate [ProAir HFA] 90 mcg/actuation HFA aerosol inhaler 1 inh inhalation QID mirtazapine 15 mg tablet 15 mg PO BEDTIME cholecalciferol (vitamin D3) 10 mcg (400 unit) capsule 10 mcg PO DAILY metoprolol succinate 25 mg tablet extended release 24 hr 25 mg PO DAILY oxycodone-acetaminophen 5-325 mg tablet 1 tab PO BEDTIME PRN (Reason: severe pain) rosuvastatin 5 mg tablet 5 mg PO DAILY Biktarvy 50-200-25 mg tablet 1 tab PO BEDTIME diclofenac sodium 1 % gel 2 g topical BID atorvastatin 20 mg tablet 20 mg PO DAILY Interventions: ED Discharge Assessment Last Done: 02/07/22 17:01 Discharge Date/Time: 02/07/22 17:04
[2022-02-07] MEDS: Diphth,Pertus(ACell),Tet Adult 0.5 ML SYRINGE IM (16:28)
[2022-02-07] MEDS: Doxycycline Monohydrate 100 MG CAPSULE PO (16:28)
[2022-02-07] MEDS: Lidocaine HCl 2 % MPF 5 ML VIAL SUBCUT (16:35)
--- NOTE | 2022-02-07 16:46 | PC.NURSE ---
patient a/ox4 . breathing even and unlabored , lungs clear throughout . heart rate regular at 72 beats per minute . right ring finger red swollen warm to touch . patient reports cooking with it and feeling like she burned it yesterday . Provider at bedside to medicate and sussy finger and drain , patient tolerated well . Applied bacitracin to finger post procedure and covered with non stick and wrapped with cling . Patient medicated with antibiotic as ordered . patient aware of plan of care .
[2022-02-07 16:54] VITALS: BP 105/60; PULSE 57; RESP 18; TEMP 36.4; O2SAT 99
--- NOTE | 2022-02-07 16:59 | PC.NURSE ---
patient a/ox4 . VSS . went over discharge instructions as ordered by provider . patient to follow up with primary care . patient has no questions at this time .
== END 2022-02-07 17:04 | disposition home or self-care (01) ==
PROVIDERS: Nurse Practitioner Family; Emergency Provider Emergency Medicine; PCP Family Medicine
DX: L03.011 Cellulitis of right finger (principal); M79.644 Pain in right finger(s)
CPT/HCPCS: 10060; 36415; 80048; 85025; 90471; 90715; 99284

== ENCOUNTER → 2022-03-10 09:01 | Outpatient (BNVA) | payer MEDICAID, SELFPAY | PROVIDERS: PCP Family Medicine; Visit Provider Surgery Vascular Surgery | DX: I83.11 Varicose veins of right lower extremity with inflammation (principal); I83.12 Varicose veins of left lower extremity with inflammation; Z98.890 Other specified postprocedural states | CPT/HCPCS: 99212 ==

== ENCOUNTER 2022-05-18 12:16 | Outpatient (REF) | payer MEDICAID, SELFPAY ==
--- NOTE | ~2022-05-18 | MM_ITS ---
EXAMINATION: MM SCREENING DIGITAL BREAST TOMOSYNTHESIS, BILATERAL CLINICAL INFORMATION: Screening. Asymptomatic. The lifetime risk of breast cancer based on the Tyrer-Cuzick Model is 9%. COMPARISON: Mammography: 04/23/2021, 04/01/2020, 03/30/2019 TECHNIQUE: Digital breast tomosynthesis is performed in both the craniocaudal and mediolateral oblique views along with computer-aided detection (CAD). Synthesized 2D images are generated from the tomosynthesis. Additional left CC view is provided. FINDINGS: The breasts are heterogeneously dense, which may obscure small masses (ACR BI-RADS breast composition Category c). There are no significant masses, abnormal calcifications, or other abnormalities. There is a fine fibronodular parenchymal pattern similar to prior studies. No developing density or architectural abnormality. Pacemaker generator overlies and partly obscures left axilla on the MLO view. There are no significant changes from prior exams. MM/MM tomosynthesis screening BI IMPRESSION: No mammographic evidence of malignancy. ASSESSMENT: BI-RADS 2: Benign RECOMMENDATION: Routine annual mammography screening. This patient's information was entered into a reminder system with a target due date for their next mammogram.
== END 2022-05-18 12:17 | disposition home or self-care (01) ==
LOC: HO.MAMMO 12:16
PROVIDERS: Visit Provider Family Medicine
DX: Z12.31 Encounter for screening mammogram for malignant neoplasm of breast (principal)
CPT/HCPCS: 77063; 77067

== ENCOUNTER → 2022-06-11 08:34 | Outpatient (BNVA) | payer MEDICAID, SELFPAY | PROVIDERS: PCP Family Medicine; Referring Provider Family Medicine; Visit Provider Internal Medicine Cardiovascular Disease | DX: Z45.02 Encounter for adjustment and management of automatic implantable cardiac defibrillator (principal); I50.812 Chronic right heart failure; I48.0 Paroxysmal atrial fibrillation; Q21.3 Tetralogy of Fallot; Z95.2 Presence of prosthetic heart valve | CPT/HCPCS: 93005; 99212 ==

== ENCOUNTER → 2022-07-08 12:38 | Outpatient (BNVA) | payer MEDICAID, SELFPAY | PROVIDERS: PCP Family Medicine; Visit Provider Obstetrics & Gynecology ==

== ENCOUNTER → 2022-07-30 12:59 | Outpatient (BNVA) | payer MEDICAID, SELFPAY | PROVIDERS: PCP Family Medicine; Visit Provider Surgery Vascular Surgery | DX: I83.11 Varicose veins of right lower extremity with inflammation (principal) | CPT/HCPCS: 99212 ==

== ENCOUNTER 2022-09-25 08:27 | Outpatient (AMB) | payer MEDICAID, SELFPAY ==
--- NOTE | 2022-09-25 08:28 | MHC.OFFVIS ---
Intake Intake Visit Reasons: Right Micro Intake Note: Patient is here for a Right Leg Micro Allergies Penicillins [PENICILLINS] Allergy (Unknown, Verified 09/25/22 08:28) RASH SEAFOOD Allergy (Unknown, Uncoded 07/08/22 12:48) RASH [facility] Medical History Asthma Dysplasia of cervix, low grade (MIGUEL 1) Fallot tetralogy Heart valve disorder HIV (human immunodeficiency virus infection) ICD (implantable cardioverter-defibrillator) in place Pacemaker Paroxysmal atrial fibrillation Right bundle branch block (RBBB) on electrocardiogram (ECG) Right heart failure Surgical History H/O pulmonic valve replacement H/O varicose vein stripping (04/04/21) History of cardioversion History of open heart surgery Hx of cardiac pacemaker Pulmonary valve replaced Family History Father CVD (cardiovascular disease) Mother No problems noted. Social History Household Members: Other Housing: Apartment Do you presently have visiting nurse or other home services: Yes ([employer] with [employer]) Alcohol intake: current Alcohol intake frequency: holidays/special occasions only Patient Tobacco Use Status: Never used Tobacco service: No Current occupational status: disabled Sexual orientation: Straight/Heterosexual Gender identity: Female Female Reproductive History Menstrual Age of Menarche: 10 Office Procedures Vascular Office Procedure Details Details: Diagnosis: Right Leg varicose veins with inflammation Procedure: Right leg Microphlebectomy Anesthesia: Local Infiltration 10 cc, Tumescent: 0 cc. Varicose veins were marked in the standing position on the right leg and the patient was then placed in the supine position. The right lower extremity was prepared and draped to allow knee flexion in the sterile field. The patient had large superficial varicose veins with significant symptoms of pain. It was therefore determined to perform microphlebectomies of the clusters of varicose veins. The patient had bulging varicose veins which were previously marked in the standing position. A small stab incision was made longitudinally directly overlying the varicose vein in the calf and the varicose vein was grasped with a hemostat aided by a vein hook. It was then dissected as far proximally and distally as possible and avulsed. A total of 12 stab incisions were made and the procedure of stab phlebectomies was repeated 12 times. Hemostasis was checked and stab incision sites were closed with steri-strips and sterile dressing was given with gauze and krilex wrap followed by an cristian bandage. There were no complications and blood loss was minimal. Post-Op instructions were given and a follow-up appointment was recommended. [id number] - Phleb Veins, Extrem - up to 20 All charges added?: Procedure code (CPT) selection complete Coding Level of Care Code Procedure Only Diagnoses CPT Codes Details - Vascular 5: 48138 - Phleb Veins, Extrem - up to 20 ([id number])
== END 2022-09-25 11:01 | disposition home or self-care (01) ==
PROVIDERS: PCP Family Medicine; Visit Provider Surgery Vascular Surgery
DX: I83.11 Varicose veins of right lower extremity with inflammation (principal)
CPT/HCPCS: 37765

== ENCOUNTER → 2022-09-25 08:27 | Outpatient (BNVA) | payer MEDICAID, SELFPAY | PROVIDERS: Visit Provider Surgery Vascular Surgery | DX: I83.11 Varicose veins of right lower extremity with inflammation (principal) | CPT/HCPCS: 37765 ==

== ENCOUNTER 2022-10-14 10:26 | Inpatient (IN) | payer MEDICAID, SELFPAY ==
[2022-10-14] VITALS (8 sets, daily range): BP systolic 112–130; BP diastolic 45–70; PULSE 40–59; RESP 18–25; TEMP 36.1–36.2; O2SAT 85–98; BMI 27.7; BMI 25.7
--- NOTE | ~2022-10-14 | XR_ITS ---
EXAMINATION: XR CHEST CLINICAL INFORMATION: Shortness of breath. COMPARISON: Chest and rib radiographs dated 10/27/2021. TECHNIQUE: Frontal view of the chest was obtained. FINDINGS: There are increased pulmonary vascular markings. The heart is enlarged. The mediastinal structures are unchanged. Multilevel sternotomy wires are intact. A left-sided pacemaker device appears in good position. XR/XR chest 1V IMPRESSION: Cardiomegaly and pulmonary vascular congestion with similar appearance. CHF represents interval worsening from the previous study.
--- NOTE | 2022-10-14 10:49 | PC.NURSE ---
Alert and oriented. Arrived via ems from routine Dr`s apt. Patient states has had some sob x 1 week. At MD`s office patient found to be bradycardic with pulse in 30`s-40`s. EMS gave atropine x 1 with little effect. Upon arrival placed on pads, HR 43. Patient asymptomatic, denies chest pain, headache. No edema noted. Denies cough or fevers. 20g in left forearm with NS running.
--- NOTE | 2022-10-14 10:52 | ECG_ITS ---
Test Reason : SOB /BRADYCARDIA Blood Pressure : / mmHG Vent. Rate : 047 BPM Atrial Rate : 040 BPM P-R Int : 000 ms QRS Dur : 160 ms QT Int : 568 ms P-R-T Axes : 000 143 -43 degrees QTc Int : 502 ms Ventricular-paced rhythm Abnormal ECG No previous ECGs available Referred By: Mike Roche Electronically Signed By:FLORA VANEGAS
--- NOTE | 2022-10-14 10:54 | ED.GENADULT ---
HPI - General Adult General Chief complaint: General Medical Stated complaint: LOW HEART RATE Time Seen by Provider: 10/14/22 10:38 Source: patient and EMS Mode of arrival: EMS Limitations: no limitations History of Present Illness HPI narrative: 57-year-old female with past medical history significant for HTN, hyperlipidemia, CHF, AICD, AFib, HIV came in by ambulance from PCP office for concern of bradycardia, patient was at her PCP office for routine checkup found to be bradycardic, patient has been coughing with difficulty breathing for the past 2-3 days patient with known history of asthma. Patient was given atropine by EMS with a transit rays of the heart rate. Patient take amiodarone 100 mg tablet daily and metoprolol 25 mg daily to control blood pressure. Related Data Home Medications Medication Instructions Recorded Confirmed albuterol sulfate 90 mcg/actuation 1 inh inhalation QID 12/28/19 10/14/22 aerosol inhaler (ProAir HFA) metoprolol succinate 25 mg 25 mg PO DAILY 12/28/19 10/14/22 tablet,extended release 24 hr oxycodone-acetaminophen 5 mg-325 1 tab PO BEDTIME PRN severe pain 03/27/21 10/14/22 mg tablet bictegravir 50 mg-emtricitabine 1 tab PO BEDTIME 04/04/21 10/14/22 200 mg-tenofovir alafenam 25 mg tablet (Biktarvy) diclofenac sodium 1 % topical gel 2 g topical BID 04/04/21 10/14/22 rosuvastatin 5 mg tablet 5 mg PO DAILY 12/11/21 10/14/22 ergocalciferol (vitamin D2) 1,250 1,250 mcg PO QWEEK 10/14/22 10/14/22 mcg (50,000 unit) capsule sacubitril 24 mg-valsartan 26 mg 1 tab PO BID 10/14/22 10/14/22 tablet (Entresto) Previous Rx's Medication Instructions Recorded amiodarone 100 mg tablet 100 mg PO DAILY 90 days #90 tabs 07/10/21 furosemide 20 mg tablet (Lasix) 20 mg PO DAILY #30 tabs 07/31/21 blood pressure monitor (Blood #1 ea 06/11/22 Pressure Kit) underpads 2.6 X 2.9 feet #36 ea 06/11/22 ([employer] Bed Mats) rivaroxaban 20 mg tablet (Xarelto) 20 mg PO BEDTIME 90 days #90 tabs 08/11/22 spironolactone 25 mg tablet 12.5 mg PO DAILY #30 tabs 09/30/22 (Aldactone) Allergies Allergy/AdvReac Type Severity Reaction Status Date / Time Penicillins [PENICILLINS] Allergy Unknown RASH Verified 09/25/22 08:28 SEAFOOD Allergy Unknown RASH Uncoded 07/08/22 12:48 Review of Systems Review of Systems: All other systems are reviewed and are negative Constitutional: Reports as per HPI and Reports no additional constitutional complaints Eyes: Reports as per HPI and Reports no additional eye complaints Reports system reviewed and no additional complaints, except as documented Cardiovascular: Reports as per HPI and Reports no additional cardiovascular complaints Respiratory: Reports as per HPI and Reports no additional respiratory complaints Gastrointestinal: Reports as per HPI and Reports no additional gastrointestinal complaints Genitourinary: Reports no additional female genitourinary complaints Musculoskeletal: Reports no additional musculoskeletal complaints Skin/Breast: Reports system reviewed and no additional complaints, except as docu Psychiatric: Reports no additional psychiatric complaints Endocrine: Reports no additional endocrine complaints Hematologic/Lymphatic: Reports no additional hematologic/lymphatic complaints Allergic/Immunologic: Reports no additional allergic/immunologic complaints Reports system reviewed and no additional complaints, except as documented and Reports Abnormal speech present [facility] Past Medical History Medical History Asthma Dysplasia of cervix, low grade (MIGUEL 1) Fallot tetralogy Heart valve disorder HIV (human immunodeficiency virus infection) ICD (implantable cardioverter-defibrillator) in place Pacemaker Paroxysmal atrial fibrillation Right bundle branch block (RBBB) on electrocardiogram (ECG) Right heart failure Surgical History H/O pulmonic valve replacement H/O varicose vein stripping (04/04/21) History of cardioversion History of open heart surgery Hx of cardiac pacemaker Pulmonary valve replaced Family History Family History Father CVD (cardiovascular disease) Mother No problems noted. 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[employer]) Alcohol intake: current Alcohol intake frequency: holidays/special occasions only Patient Tobacco Use Status: Never used Tobacco Smoked in Last 30 Days: No Use of substances other than those prescribed or required for medical reasons: No Advance Directives: No service: No Current occupational status: disabled Sexual orientation: Straight/Heterosexual Gender identity: Female Physical Exam ED Vital Signs: Vital Signs - 24 hr 10/14/22 10:44 10/14/22 11:09 10/14/22 12:06 Pulse Rate 44 L 40 L 40 L Respiratory Rate 18 24 H 25 H Blood Pressure 130/45 L 126/52 L Pulse Oximetry 90 L Oxygen Delivery Method Room Air Nasal Cannula Oxygen Flow Rate 2 10/14/22 13:35 Pulse Rate 40 L Respiratory Rate 24 H Blood Pressure 117/56 L Pulse Oximetry 97 Oxygen Delivery Method Nasal Cannula Oxygen Flow Rate 2 BMI result Body Mass Index 27.7 Vital signs have been reviewed as appeared to be correct. Blood pressure normal. Heart rate normal. Respiration rate normal. Temperature normal. Oxygen saturation normal. Appearance: Alert. Oriented X3. No acute distress. Head: Normal external exam. Normocephalic. Atraumatic. No Beauchamp signs noted. No raccoon eyes noted Eyes: PERRLA. EOMI. Conjunctiva and sclera normal. Eyelids normal. ENT: TM's Normal. Pharynx normal. Uvula midline. Moist mucous membranes. No trismus noted. No drooling noted. No muffled voice noted. Neck: Normal inspection. Neck supple. FROM. No adenopathy. Thyroid Normal. No meningeal signs. No neck mass noted. CVS: Normal heart rate and rhythm. Heart sound normal. No murmurs noted. Pulses normal throughout. Respiratory: No respiratory distress. Painless inspiration. Decreased breathing sounds bilaterally with expiratory wheezing and prolonged expiration.. Chest nontender. No accessory muscle usage noted or decreased air movement noted. Abdomen: Soft and nontender. Bowel sounds normal in all 4 quadrants. No distention noted. No organomegaly noted. No visible injury noted. Back: No CVA tenderness. Full range of motion noted. Skin: Skin warm and dry. Normal skin color. Normal skin turgor. No rashes/lesions/lacerations noted. Extremities: No lower extremity edema. Extremities exhibit normal range of motion. Extremities nontender. Neuro: Oriented X 3. Cranial nerve exam: II-XII are grossly intact No motor deficit. No sensory deficit. Reflexes normal. Course Course Course Narrative: 57-year-old female history of CHF/COPD, s/p AICD came in from PCP office for concern of bradycardia patient has been with heart rate of 47, complaining of shortness of breath for a week, patient feels better after received Lasix/bronchodilator in the emergency department. Will admit for further monitoring. Case was discussed with Dr. Turcios. Medications Administered Discontinued Medications Generic Name Dose Route Start Last Admin Trade Name Freq PRN Reason Stop Dose Admin Albuterol Sulfate 5 mg 10/14/22 10:55 10/14/22 11:08 Albuterol Sulfate (0.083%) 2.5 Mg/3 Ml Vial.Neb INHALE 10/14/22 10:56 5 mg ONCE ONE Administration Albuterol/Ipratropium 3 ml 10/14/22 10:55 10/14/22 11:08 Albuterol/Iprat 2.5/0.5mg 3 Ml Ampul.Neb INHALE 10/14/22 10:56 3 ml ONCE ONE Administration Furosemide 20 mg 10/14/22 12:32 10/14/22 12:55 Furosemide 20 Mg/2 Ml Vial IVPUSH 10/14/22 12:33 20 mg ONCE ONE Administration Protocol Medical Decision Making Differential Diagnosis Differential Diagnoses: The differential diagnosis associated with the presentation includes (CHF, COPD exacerbation, ACS, electrolyte abnormality, severe anemia, AICD malfunction.) Admission/Observation Consideration of admission/observation: Escalation of care including admission/observation considered Consult Healthcare Provider Management of the patient was discussed with: Hospitalist and Sales Warehouse Driver (Dr. Turcios) Lab Data MDM Lab Attestation statement: I reviewed the patient's lab results. 10/14/22 11:31 10/14/22 11:31 Labs: Lab Results 10/14/22 10/14/22 10/14/22 Range/Units 11:31 11:31 11:31 WBC 9.3 (4.8-10.8) X10*3/uL RBC 3.85 L (4.20-5.50) X10*6/uL Hgb 12.3 (12.0-16.0) g/dl Hct 38.8 (37.0-47.0) % MCV 100.8 H (80.0-98.0) fL MCH 31.9 (27.0-33.0) pg MCHC 31.7 (31.0-35.0) g/dl RDW 13.3 (11.0-16.0) % Plt Count 237 D (160-400) X10*3/uL MPV 10.7 (9.4-12.3) fL Immature Gran % (Auto) 0.3 (0.0-0.4) % Neut % (Auto) 68.9 (45-73) % Lymph % (Auto) 20.1 (20-40) % [place] % (Auto) 8.7 (2-11) % Eos % (Auto) 1.7 (0-4) % Baso % (Auto) 0.3 (0-2) % Lymph # (Auto) 1.9 (1.2-4.9) X10*3/uL [place] # (Auto) 0.8 (0.1-1.2) X10*3/uL Eos # (Auto) 0.2 (0.0-0.4) X10*3/uL Baso # (Auto) 0.0 (0.0-0.2) X10*3/uL Abs Immat Gran (auto) 0.03 (0.00-0.03) X10*3/uL Absolute Neuts (auto) 6.4 (2.0-8.3) x10*3/uL Absolute Nucleated RBC 0.000 (0.0-0.012) X10*3/uL Nucleated RBC % (auto) 0.0 (0.0-0.2) /100WBC Sodium 141 (135-145) mmol/L Potassium 4.3 (3.3-5.1) mmol/L Chloride 108 (96-108) mmol/L Carbon Dioxide 23 (22-29) mmol/L Anion Gap 14 (12-20) BUN 8 L (9-16) mg/dL Creatinine 0.84 (0.5-1.4) mg/dL Estim Creat Clear Calc 60.4 Estimated GFR > 60 Random Glucose 80 (60-115) mg/dL Calcium 9.1 (8.4-10.2) mg/dL Magnesium 2.0 (1.6-2.6) mg/dL Total Bilirubin 0.5 (0.0-1.0) mg/dL Direct Bilirubin 0.2 (0.0-0.5) mg/dL AST 18 (5-31) U/L ALT 12 (0-31) U/L Alkaline Phosphatase 71 (39-117) U/L Troponin I High Sens 9.5 (<3.5-17.0) ng/L B-Natriuretic Peptide (<100) pg/mL Total Protein 8.0 (6.5-8.0) g/dL Albumin 3.1 L (3.5-5.0) g/dL Lipase 6 L (8-78) U/L Urine Color Urine Appearance Urine pH (5.0-9.0) Ur Specific [place] (1.005-1.025) Urine Protein (Neg-Trace) mg/dL Urine Glucose (UA) (Negative) mg/dL Urine Ketones (Negative) mg/dL Urine Blood (Negative) Urine Nitrite (Negative) Ur Leukocyte Esterase (Negative) Influenza Type A (PCR) (Negative) Influenza Type B (PCR) (Negative) RSV RNA Qual (PCR) (Negative) SARS-CoV-2 RNA (RT-PCR) (Negative) 10/14/22 10/14/22 10/14/22 Range/Units 11:31 11:31 13:12 WBC (4.8-10.8) X10*3/uL RBC (4.20-5.50) X10*6/uL Hgb (12.0-16.0) g/dl Hct (37.0-47.0) % MCV (80.0-98.0) fL MCH (27.0-33.0) pg MCHC (31.0-35.0) g/dl RDW (11.0-16.0) % Plt Count (160-400) X10*3/uL MPV (9.4-12.3) fL Immature Gran % (Auto) (0.0-0.4) % Neut % (Auto) (45-73) % Lymph % (Auto) (20-40) % [place] % (Auto) (2-11) % Eos % (Auto) (0-4) % Baso % (Auto) (0-2) % Lymph # (Auto) (1.2-4.9) X10*3/uL [place] # (Auto) (0.1-1.2) X10*3/uL Eos # (Auto) (0.0-0.4) X10*3/uL Baso # (Auto) (0.0-0.2) X10*3/uL Abs Immat Gran (auto) (0.00-0.03) X10*3/uL Absolute Neuts (auto) (2.0-8.3) x10*3/uL Absolute Nucleated RBC (0.0-0.012) X10*3/uL Nucleated RBC % (auto) (0.0-0.2) /100WBC Sodium (135-145) mmol/L Potassium (3.3-5.1) mmol/L Chloride (96-108) mmol/L Carbon Dioxide (22-29) mmol/L Anion Gap (12-20) BUN (9-16) mg/dL Creatinine (0.5-1.4) mg/dL Estim Creat Clear Calc Estimated GFR Random Glucose (60-115) mg/dL Calcium (8.4-10.2) mg/dL Magnesium (1.6-2.6) mg/dL Total Bilirubin (0.0-1.0) mg/dL Direct Bilirubin (0.0-0.5) mg/dL AST (5-31) U/L ALT (0-31) U/L Alkaline Phosphatase (39-117) U/L Troponin I High Sens (<3.5-17.0) ng/L B-Natriuretic Peptide 690 H (<100) pg/mL Total Protein (6.5-8.0) g/dL Albumin (3.5-5.0) g/dL Lipase (8-78) U/L Urine Color Yellow Urine Appearance Clear Urine pH 6.0 (5.0-9.0) Ur Specific [place] <= 1.005 (1.005-1.025) Urine Protein Negative (Neg-Trace) mg/dL Urine Glucose (UA) Negative (Negative) mg/dL Urine Ketones Negative (Negative) mg/dL Urine Blood Negative (Negative) Urine Nitrite Negative (Negative) Ur Leukocyte Esterase Negative (Negative) Influenza Type A (PCR) NEGATIVE (Negative) Influenza Type B (PCR) NEGATIVE (Negative) RSV RNA Qual (PCR) NEGATIVE (Negative) SARS-CoV-2 RNA (RT-PCR) NEGATIVE (Negative) Independent Interpretation I performed an independent interpretation of an: EKG (Ventricular paced at 47 beats per minute.) and Plain X-Ray (Chest: Cardiomegaly and pulmonary vascular congestion.) Radiology Impression Discussion of test interpretation with radiology: I have reviewed the radiologist's reading. Critical Care Time Critical Care Time Critical Care Time: Yes Total Critical Care Time: 60 Attestation: I spent 60 minutes providing critical care service to the patient, this including time spent at the bedside to evaluate the patient, reassess the patient, monitoring vital signs, review labs, and radiographic studies, counseling the patient/family, discussing the case with consultants, disposition the patient. Discharge Plan Discharge Clinical Impression: Bradycardia, CHF (congestive heart failure), Acute exacerbation of chronic obstructive pulmonary disease (COPD) Patient Disposition: Admitted As Inpatient
[2022-10-14] MEDS: Albuterol Sulfate (0.083%) 2.5 MG/3 ML VIAL.NEB 5 MG INHALE (11:08)
[2022-10-14] MEDS: Albuterol/Iprat 2.5/0.5MG 3 ML AMPUL.NEB INHALE (11:08)
--- NOTE | 2022-10-14 11:28 | PC.NURSE ---
88% on RA. Placed on 2 liters NC- sating 99% at this time
[2022-10-14 11:38] LABS: MANUAL DIFF FLAG NO
[2022-10-14 11:43] LABS: Basophils Percent Auto 0.3 % (0-2); Eosinophils Absolute Auto 0.2 X10*3/uL (0.0-0.4); Eosinophils Percent Auto 1.7 % (0-4); Hematocrit 38.8 % (37.0-47.0); Hemoglobin 12.3 g/dl (12.0-16.0); Imm Gran Abs Auto 0.03 X10*3/uL (0.00-0.03); Imm Gran Pct Auto 0.3 % (0.0-0.4); Lymphocytes Absolute Auto 1.9 X10*3/uL (1.2-4.9); Lymphocytes Percent Auto 20.1 % (20-40); Mean Corpuscular HGB Conc 31.7 g/dl (31.0-35.0); Mean Corpuscular Hemoglobin 31.9 pg (27.0-33.0); Mean Corpuscular Volume 100.8 fL (80.0-98.0); Mean Platelet Volume 10.7 fL (9.4-12.3); Monocytes Absolute Auto 0.8 X10*3/uL (0.1-1.2); Monocytes Percent Auto 8.7 % (2-11); Neutrophils Absolute Auto 6.4 x10*3/uL (2.0-8.3); Neutrophils Percent Auto 68.9 % (45-73); Platelet Count 237 X10*3/uL (160-400); Red Blood Count 3.85 X10*6/uL (4.20-5.50); Red Cell Distribution Width 13.3 % (11.0-16.0); White Blood Count 9.3 X10*3/uL (4.8-10.8)
[2022-10-14 11:59] LABS: Alanine Aminotransferase 12 U/L (0-31); Albumin Level 3.1 g/dL (3.5-5.0); Alkaline Phosphatase 71 U/L (39-117); Anion Gap 14 (12-20); Aspartate Amino Transferase 18 U/L (5-31); Bilirubin Direct 0.2 mg/dL (0.0-0.5); Bilirubin Total 0.5 mg/dL (0.0-1.0); Blood Urea Nitrogen 8 mg/dL (9-16); Calcium 9.1 mg/dL (8.4-10.2); Carbon Dioxide 23 mmol/L (22-29); Chloride 108 mmol/L (96-108); Creatinine Clr Calc Pharmacy 60.4; Estimated Glomerular Filt Rate > 60; Glucose Random 80 mg/dL (60-115); Lipase 6 U/L (8-78); Potassium 4.3 mmol/L (3.3-5.1); Sodium 141 mmol/L (135-145)
[2022-10-14 12:03] LABS: B Type Natriuretic Peptide 690 pg/mL (<100)
[2022-10-14 12:05] LABS: Troponin-I High Sensitivity 9.5 ng/L (<3.5-17.0)
[2022-10-14 12:15] LABS: Influenza A PCR NEGATIVE (Negative); Influenza B PCR NEGATIVE (Negative); Resp Syncy Virus RNA Qual PCR NEGATIVE (Negative); SARS COV2 PCR INHOUSE NEGATIVE (Negative)
[2022-10-14] MEDS: Furosemide 20 MG/2 ML VIAL IVPUSH ×2 (12:55→22:25)
--- NOTE | 2022-10-14 12:57 | PC.NURSE ---
Alert and oriented, family at bedside. HR 53, no sob at rest. IV lasik given per order
--- NOTE | 2022-10-14 13:02 | PHA.MEDREC ---
Pharmacy Consult ? Medication Reconciliation Pharmacy has completed the medication reconciliation. Patient had list from [facility]
--- NOTE | 2022-10-14 13:42 | PC.NURSE ---
oob frequently to urinate, patient reports feeling like she is having an easier time breathing
[2022-10-14 13:48] LABS: Appearance Urine Clear; Color Urine Yellow; Glucose Urine UA Negative (Negative); Leukocyte Esterase Urine Negative (Negative); Nitrite Urine Negative (Negative); Specific Gravity - Urine <= 1.005 (1.005-1.025); Urine Blood Negative (Negative); Urine Ketones Negative (Negative); Urine Protein Negative (Neg-Trace)
--- NOTE | 2022-10-14 14:08 | P.HPHOSP_ITS ---
History of Present Illness Date of Service: 10/14/22 Chief Complaint: sob 57F PMH tetrology of Fallot s/p repair, chronic systolic chf, s/p ICD, paroxysmal afib, HIV, presented with sob. Patient states her sob began about 2 weeks ptp, associated with exertion, relieved at rest, went to PCPs and found to have sandi in the 40s with cough, given atropine by EMS and brought to ED. in ED heart rate remains at 40, (pacer set to 40). cxr with increased pulm vascular markings, bnp 690, desat to high 80s on room air. Review of Systems Review of Systems: Yes all other systems are reviewed and are negative [facility] Medical History Asthma Dysplasia of cervix, low grade (MIGUEL 1) Fallot tetralogy Heart valve disorder HIV (human immunodeficiency virus infection) ICD (implantable cardioverter-defibrillator) in place Pacemaker Paroxysmal atrial fibrillation Right bundle branch block (RBBB) on electrocardiogram (ECG) Right heart failure Family History Father CVD (cardiovascular disease) Mother No problems noted. 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[employer]) Alcohol intake: current Alcohol intake frequency: holidays/special occasions only Patient Tobacco Use Status: Never used Tobacco Smoked in Last 30 Days: No Use of substances other than those prescribed or required for medical reasons: No Advance Directives: No service: No Current occupational status: disabled Sexual orientation: Straight/Heterosexual Gender identity: Female Meds Allergies Allergy/AdvReac Type Severity Reaction Status Date / Time Penicillins [PENICILLINS] Allergy Unknown RASH Verified 09/25/22 08:28 SEAFOOD Allergy Unknown RASH Uncoded 07/08/22 12:48 Active Medications: Current Medications Albuterol Sulfate (Albuterol Sulfate 90 Mcg 8 Gm Inhaler) 1 puff INHALE QID [facility] Atorvastatin Calcium (Atorvastatin Calcium 20 Mg Tablet) 20 mg PO DAILY [facility] Bictegravir/Emtricitabine/Tenofovir (Bictegrav/Emtricit/Tenofov Ala Tablet) 1 tab PO BEDTIME [facility] Ergocalciferol (Ergocalciferol (Vitamin D2) 1,250 Mcg Capsule) 1,250 mcg PO Q7D [facility] Pharmacy Consult (Consult Rx Perform Med Rec) 1 each MISCELLANE ONCE PRN PRN Reason: Consult order Rivaroxaban (Rivaroxaban 20 Mg Tablet) 20 mg PO BEDTIME [facility] Sacubitril/Valsartan (Sacubitril/Valsartan 24/26 1 Tab Tablet) 1 tab PO BID [facility]; Protocol Spironolactone (Spironolactone 25 Mg Tablet) 12.5 mg PO DAILY [facility]; Protocol Home Medications Medication Instructions Recorded Confirmed Last Taken Type albuterol sulfate 90 mcg/actuation 1 inh inhalation QID 12/28/19 10/14/22 Unknown History aerosol inhaler (ProAir HFA) metoprolol succinate 25 mg 25 mg PO DAILY 12/28/19 10/14/22 07/29/21 History tablet,extended release 24 hr oxycodone-acetaminophen 5 mg-325 1 tab PO BEDTIME PRN severe pain 03/27/21 10/14/22 Unknown History mg tablet bictegravir 50 mg-emtricitabine 1 tab PO BEDTIME 04/04/21 10/14/22 07/28/21 History 200 mg-tenofovir alafenam 25 mg tablet (Biktarvy) diclofenac sodium 1 % topical gel 2 g topical BID 04/04/21 10/14/22 Unknown Hi story rosuvastatin 5 mg tablet 5 mg PO DAILY 12/11/21 10/14/22 Unknown History ergocalciferol (vitamin D2) 1,250 1,250 mcg PO QWEEK 10/14/22 10/14/22 Unknown History mcg (50,000 unit) capsule sacubitril 24 mg-valsartan 26 mg 1 tab PO BID 10/14/22 10/14/22 Unknown History tablet (Entresto) Physical Exam Vital Signs and Narrative: Vital Signs: Last Vital Signs Pulse 40 L 10/14/22 13:35 Resp 24 H 10/14/22 13:35 BP 117/56 L 10/14/22 13:35 Pulse Ox 97 10/14/22 13:35 O2 Del Method Nasal Cannula 10/14/22 13:35 O2 Flow Rate 2 10/14/22 13:35 BMI result Body Mass Index 27.7 General: AO X 3, no acute distress Resp: CTA bilateral, no accessory muscles used CVS: S1,S2,slow regular rate GI: soft, non tender, non distended Neuro: motor grossly intact, alert Psych: appropriate affect, appropriate insight Results Labs 10/14/22 11:31 10/14/22 11:31 Labs: Laboratory Results - last 24 hr 10/14/22 10/14/22 10/14/22 11:31 11:31 11:31 MCV 100.8 H MCH 31.9 MCHC 31.7 RDW 13.3 Plt Count 237 D MPV 10.7 Immature Gran % (Auto) 0.3 Neut % (Auto) 68.9 Lymph % (Auto) 20.1 [place] % (Auto) 8.7 Eos % (Auto) 1.7 Baso % (Auto) 0.3 Lymph # (Auto) 1.9 [place] # (Auto) 0.8 Eos # (Auto) 0.2 Baso # (Auto) 0.0 Abs Immat Gran (auto) 0.03 Absolute Neuts (auto) 6.4 Absolute Nucleated RBC 0.000 Nucleated RBC % (auto) 0.0 Anion Gap 14 Estim Creat Clear Calc 60.4 Estimated GFR > 60 Random Glucose 80 Calcium 9.1 Magnesium 2.0 Total Bilirubin 0.5 Direct Bilirubin 0.2 AST 18 ALT 12 Alkaline Phosphatase 71 B-Natriuretic Peptide 690 H Total Protein 8.0 Albumin 3.1 L Lipase 6 L Urine Color Urine Appearance Urine pH Ur Specific [place] Urine Protein Urine Glucose (UA) Urine Ketones Urine Blood Urine Nitrite Ur Leukocyte Esterase Influenza Type A (PCR) Influenza Type B (PCR) RSV RNA Qual (PCR) SARS-CoV-2 RNA (RT-PCR) 10/14/22 10/14/22 11:31 13:12 MCV MCH MCHC RDW Plt Count MPV Immature Gran % (Auto) Neut % (Auto) Lymph % (Auto) [place] % (Auto) Eos % (Auto) Baso % (Auto) Lymph # (Auto) [place] # (Auto) Eos # (Auto) Baso # (Auto) Abs Immat Gran (auto) Absolute Neuts (auto) Absolute Nucleated RBC Nucleated RBC % (auto) Anion Gap Estim Creat Clear Calc Estimated GFR Random Glucose Calcium Magnesium Total Bilirubin Direct Bilirubin AST ALT Alkaline Phosphatase B-Natriuretic Peptide Total Protein Albumin Lipase Urine Color Yellow Urine Appearance Clear Urine pH 6.0 Ur Specific [place] <= 1.005 Urine Protein Negative Urine Glucose (UA) Negative Urine Ketones Negative Urine Blood Negative Urine Nitrite Negative Ur Leukocyte Esterase Negative Influenza Type A (PCR) NEGATIVE Influenza Type B (PCR) NEGATIVE RSV RNA Qual (PCR) NEGATIVE SARS-CoV-2 RNA (RT-PCR) NEGATIVE Imaging Radiologist's Impressions: Impressions Chest X-Ray 10/14/22 12:22 IMPRESSION: Cardiomegaly and pulmonary vascular congestion with similar appearance. CHF represents interval worsening from the previous study. Assessment and Plan (1) Bradycardia: Status: Acute Plan 57F PMH tetrology of Fallot s/p repair, chronic systolic chf, s/p ICD, paroxysmal afib, HIV, presented with sob and bradycardia acute hypoxic respiratory failure due to acute on chronic systolic chf and symptomatic bradycardia iv lasix, cardio eval conitnue entresto, will hold metoprolol, amio paroxysmal afib holding rate controlling meds, continue xarelto hiv biktarvy dvt prophylaxis - on xarelto full code patient with significant chf causing hypoxia, needs iv diuresis and weaning of o2, therefore, expected to need atleast 2 midnights inpatient. Time Spent With Patient Time: Total time managing care of this patient today ____ minutes. Quality Stroke Does the patient have a stroke diagnosis?: No VTE Prior VTE?: No VTE Risk Level:: Medical - moderate - high VTE Device Contraindication: Treatment Not Indicated VTE Drug Contraindication: N/A - Med Ordered
[2022-10-14] MEDS: Ergocalciferol (Vitamin D2) 1,250 MCG CAPSULE 1250 MCG PO (15:52)
[2022-10-14] MEDS: 0.9 % Sodium Chloride Flush 3 ML SYRINGE IVFLUSH ×2 (15:53→22:27)
--- NOTE | 2022-10-14 15:53 | PC.NURSE ---
Per MD patient no longer requires pads, Sinus sandi on monitor. VSS. patient aware she will be transfered to [facility].
--- NOTE | 2022-10-14 15:59 | PC.NURSE ---
Report called to accepting unit, transport notified
[2022-10-14] MEDS: Sacubitril/Valsartan 24/26 1 TAB TABLET PO (22:25)
[2022-10-14] MEDS: Bictegrav/Emtricit/Tenofov Ala TABLET 1 TAB PO (22:25)
[2022-10-15 04:00] VITALS: BP 116/56; PULSE 62; RESP 20; TEMP 35.9; O2SAT 95
[2022-10-15 07:37] LABS: Hemoglobin 13.5 g/dl (12.0-16.0); Mean Corpuscular HGB Conc 32.1 g/dl (31.0-35.0); Mean Corpuscular Hemoglobin 31.8 pg (27.0-33.0); Mean Corpuscular Volume 99.1 fL (80.0-98.0); Mean Platelet Volume 11.1 fL (9.4-12.3); Platelet Count 254 X10*3/uL (160-400); Red Blood Count 4.24 X10*6/uL (4.20-5.50); Red Cell Distribution Width 12.9 % (11.0-16.0); White Blood Count 10.2 X10*3/uL (4.8-10.8)
[2022-10-15 07:38] VITALS: BP 91/65; PULSE 60; RESP 20; TEMP 36.4; O2SAT 100
[2022-10-15 07:55] LABS: Anion Gap 18 (12-20); Blood Urea Nitrogen 12 mg/dL (9-16); Calcium 9.6 mg/dL (8.4-10.2); Carbon Dioxide 27 mmol/L (22-29); Chloride 100 mmol/L (96-108); Creatinine Clr Calc Pharmacy 57.5; Estimated Glomerular Filt Rate > 60; Glucose Fasting 99 mg/dL (60-99); Potassium 3.7 mmol/L (3.3-5.1); Sodium 141 mmol/L (135-145)
--- NOTE | 2022-10-15 08:58 | MHC.CM.PN ---
CM met with Patient at bedside. 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 Patient receives 2 hours/day of [employer] services and home/resume said services is the goal. CM has initiated and will follow for dc planning. Patient's PCP is Dr. Greenberg.
[2022-10-15] MEDS: Atorvastatin Calcium 20 MG TABLET PO (09:09)
[2022-10-15] MEDS: Sacubitril/Valsartan 24/26 1 TAB TABLET PO (09:09)
[2022-10-15] MEDS: Spironolactone 25 MG TABLET 12.5 MG PO (09:10)
[2022-10-15] MEDS: 0.9 % Sodium Chloride Flush 3 ML SYRINGE IVFLUSH (09:16)
[2022-10-15] MEDS: Furosemide 20 MG/2 ML VIAL IVPUSH (09:18)
--- NOTE | 2022-10-15 09:33 | PM.CNCAR ---
History of Present Illness History of Present Illness Date of Service: 10/15/22 Chief complaint: CHF, sandi Narrative: This is a cardiology consultation regarding congestive heart failure. Fairly complicated history of congenital heart disease followed in our clinic by Dr. Marin. 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 Then had pulmonary regurgitation or ventricular arrhythmias as well as atrial flutter. It seems that she also has a history of pulmonary valve replacement. Chronic right heart dysfunction. Single-chamber ICD in place. Current admission is for symptoms of feeling short of breath over the last few days. Review of Systems Review of Systems: Yes all other systems are reviewed and are negative Constitutional: Constitutional: Reports as per HPI and Reports no additional constitutional complaints Eyes: Eyes: Reports as per HPI and Denies no additional eye complaints ENT: Denies system reviewed and no additional complaints, except as documented and Reports as per HPI Cardiovascular: Cardiovascular: Reports as per HPI, Reports no additional cardiovascular complaints, Denies acrocyanosis, Denies cool extremities, Denies chest pain, Denies leg edema, Denies lightheadedness, Denies palpitations and Denies dyspnea Respiratory: Respiratory: Reports as per HPI, Denies no additional respiratory complaints and Denies dyspnea Gastrointestinal: Gastrointestinal: Reports as per HPI and Denies no additional gastrointestinal complaints Genitourinary: Genitourinary: Reports as per HPI Musculoskeletal: Musculoskeletal: Reports no additional musculoskeletal complaints and Reports as per HPI Integumentary/Breasts: Skin/Breast: Reports system reviewed and no additional complaints, except as docu Neurologic: Reports system reviewed and no additional complaints, except as documented and Reports as per HPI Psychiatric: Psychiatric: Reports no additional psychiatric complaints and Reports as per HPI Endocrine: Endocrine: Reports no additional endocrine complaints, Reports as per HPI and Denies palpitations Hematologic/Lymphatic: Hematologic/Lymphatic: Reports no additional hematologic/lymphatic complaints and Reports as per HPI Allergic/Immunologic: Allergic/Immunologic: Reports no additional allergic/immunologic complaints and Reports as per HPI [facility] Past Medical History Medical History Asthma Dysplasia of cervix, low grade (MIGUEL 1) Fallot tetralogy Heart valve disorder HIV (human immunodeficiency virus infection) ICD (implantable cardioverter-defibrillator) in place Pacemaker Paroxysmal atrial fibrillation Right bundle branch block (RBBB) on electrocardiogram (ECG) Right heart failure Family History Family History Father CVD (cardiovascular disease) Mother No problems noted. Surgical History Surgical History H/O pulmonic valve replacement H/O varicose vein stripping (04/04/21) History of cardioversion History of open heart surgery Hx of cardiac pacemaker Pulmonary valve replaced Social History Social History Household Members: Significant Other Housing: Other Do you presently have visiting nurse or other home services: No Alcohol intake: current Alcohol intake frequency: holidays/special occasions only Patient Tobacco Use Status: Never used Tobacco service: No Current occupational status: disabled Sexual orientation: Straight/Heterosexual Gender identity: Female Meds Allergies Allergy/AdvReac Type Severity Reaction Status Date / Time Penicillins [PENICILLINS] Allergy Unknown RASH Verified 09/25/22 08:28 SEAFOOD Allergy Unknown RASH Uncoded 07/08/22 12:48 Active Medications: Current Medications Acetaminophen (Acetaminophen 325 Mg Tablet) 325 mg PO BEDTIME PRN PRN Reason: SEVERE PAIN Albuterol Sulfate (Albuterol Sulfate 90 Mcg 8 Gm Inhaler) 1 puff INHALE QID [facility] Last Admin: 10/15/22 07:51 Dose: Not Given Atorvastatin Calcium (Atorvastatin Calcium 20 Mg Tablet) 20 mg PO DAILY [facility] Last Admin: 10/15/22 09:09 Dose: 20 mg Bictegravir/Emtricitabine/Tenofovir (Bictegrav/Emtricit/Tenofov Ala Tablet) 1 tab PO BEDTIME [facility] Last Admin: 10/14/22 22:25 Dose: 1 tab Ergocalciferol (Ergocalciferol (Vitamin D2) 1,250 Mcg Capsule) 1,250 mcg PO Q7D [facility] Last Admin: 10/14/22 15:52 Dose: 1,250 mcg Furosemide (Furosemide 20 Mg/2 Ml Vial) 20 mg IVPUSH BID [facility]; Protocol Last Admin: 10/15/22 09:18 Dose: 20 mg Oxycodone HCl (Oxycodone Hcl Immed Release 5 Mg Tablet) 5 mg PO BEDTIME PRN PRN Reason: SEVERE PAIN Pharmacy Consult (Consult Rx Perform Med Rec) 1 each MISCELLANE ONCE PRN PRN Reason: Consult order Rivaroxaban (Rivaroxaban 20 Mg Tablet) 20 mg PO BEDTIME [facility] Last Admin: 10/14/22 22:26 Dose: Not Given Sacubitril/Valsartan (Sacubitril/Valsartan 1 Tab Tablet) 1 tab PO BID [facility]; Protocol Last Admin: 10/15/22 09:09 Dose: 1 tab Sodium Chloride (0.9 % Sodium Chloride Flush 3 Ml Syringe) 3 ml IVFLUSH QSHIFT [facility] Last Admin: 10/15/22 09:16 Dose: 3 ml Spironolactone (Spironolactone 25 Mg Tablet) 12.5 mg PO DAILY [facility]; Protocol Last Admin: 10/15/22 09:10 Dose: 12.5 mg Home Medications Medication Instructions Recorded Confirmed Last Taken Type albuterol sulfate 90 mcg/actuation 1 inh inhalation QID 12/28/19 10/14/22 Unknown History aerosol inhaler (ProAir HFA) metoprolol succinate 25 mg 25 mg PO DAILY 12/28/19 10/14/22 07/29/21 History tablet,extended release 24 hr oxycodone-acetaminophen 5 mg-325 1 tab PO BEDTIME PRN severe pain 03/27/21 10/14/22 Unknown History mg tablet bictegravir 50 mg-emtricitabine 1 tab PO BEDTIME 04/04/21 10/14/22 07/28/21 History 200 mg-tenofovir alafenam 25 mg tablet (Biktarvy) diclofenac sodium 1 % topical gel 2 g topical BID 04/04/21 10/14/22 Unknown History rosuvastatin 5 mg tablet 5 mg PO DAILY 12/11/21 10/14/22 Unknown History ergocalciferol (vitamin D2) 1,250 1,250 mcg PO QWEEK 10/14/22 10/14/22 Unknown History mcg (50,000 unit) capsule sacubitril 24 mg-valsartan 26 mg 1 tab PO BID 10/14/22 10/14/22 Unknown History tablet (Entresto) Physical Exam Vital Signs: Vital Signs: Last Vital Signs Temp 97.5 F 10/15/22 07:38 Pulse 60 10/15/22 07:38 Resp 20 10/15/22 07:38 BP 91/65 10/15/22 07:38 Pulse Ox 100 10/15/22 07:38 O2 Del Method Nasal Cannula 10/15/22 07:38 O2 Flow Rate 2 10/15/22 07:38 BMI result Body Mass Index 25.7 Const: General: comfortable and no acute distress Orientation/consciousness: patient oriented x3 HEENT: Other: Unremarkable Head: Yes normal to inspection Neck: Neck: Yes normal visual inspection Chest: Chest palpation & inspection: normal inspection of the chest Resp: Auscultation: clear to auscultation bilaterally Cardio: Palpation: normal PMI Heart sounds: S1 normal heart sound present, S2 normal heart sound present, no gallops, Murmur heart sound present systolic II/ and no rubs GI: Palpation (GI): Soft to palpation Back/Spine/Pelvis: Other: unremarkable Skin: General skin exam: no rashes or lesions noted Neuro: General: patient oriented x3 Extrem: General: Yes normal to inspection Psych: Mental Status: mental status grossly normal Objective Labs and Meds 10/15/22 07:16 10/15/22 07:17 Lab results: Laboratory Results - last 24 hr 10/14/22 10/14/22 10/14/22 11:31 11:31 11:31 WBC 9.3 RBC 3.85 L Hgb 12.3 Hct 38.8 MCV 100.8 H MCH 31.9 MCHC 31.7 RDW 13.3 Plt Count 237 D MPV 10.7 Immature Gran % (Auto) 0.3 Neut % (Auto) 68.9 Lymph % (Auto) 20.1 [place] % (Auto) 8.7 Eos % (Auto) 1.7 Baso % (Auto) 0.3 Lymph # (Auto) 1.9 [place] # (Auto) 0.8 Eos # (Auto) 0.2 Baso # (Auto) 0.0 Abs Immat Gran (auto) 0.03 Absolute Neuts (auto) 6.4 Absolute Nucleated RBC 0.000 Nucleated RBC % (auto) 0.0 Sodium 141 Potassium 4.3 Chloride 108 Carbon Dioxide 23 Anion Gap 14 BUN 8 L Creatinine 0.84 Estim Creat Clear Calc 60.4 Estimated GFR > 60 Random Glucose 80 Fasting Glucose Calcium 9.1 Magnesium 2.0 Total Bilirubin 0.5 Direct Bilirubin 0.2 AST 18 ALT 12 Alkaline Phosphatase 71 Troponin I High Sens 9.5 B-Natriuretic Peptide Total Protein 8.0 Albumin 3.1 L Lipase 6 L Urine Color Urine Appearance Urine pH Ur Specific [place] Urine Protein Urine Glucose (UA) Urine Ketones Urine Blood Urine Nitrite Ur Leukocyte Esterase Influenza Type A (PCR) Influenza Type B (PCR) RSV RNA Qual (PCR) SARS-CoV-2 RNA (RT-PCR) 10/14/22 10/14/22 10/14/22 11:31 11:31 13:12 WBC RBC Hgb Hct MCV MCH MCHC RDW Plt Count MPV Immature Gran % (Auto) Neut % (Auto) Lymph % (Auto) [place] % (Auto) Eos % (Auto) Baso % (Auto) Lymph # (Auto) [place] # (Auto) Eos # (Auto) Baso # (Auto) Abs Immat Gran (auto) Absolute Neuts (auto) Absolute Nucleated RBC Nucleated RBC % (auto) Sodium Potassium Chloride Carbon Dioxide Anion Gap BUN Creatinine Estim Creat Clear Calc Estimated GFR Random Glucose Fasting Glucose Calcium Magnesium Total Bilirubin Direct Bilirubin AST ALT Alkaline Phosphatase Troponin I High Sens B-Natriuretic Peptide 690 H Total Protein Albumin Lipase Urine Color Yellow Urine Appearance Clear Urine pH 6.0 Ur Specific [place] <= 1.005 Urine Protein Negative Urine Glucose (UA) Negative Urine Ketones Negative Urine Blood Negative Urine Nitrite Negative Ur Leukocyte Esterase Negative Influenza Type A (PCR) NEGATIVE Influenza Type B (PCR) NEGATIVE RSV RNA Qual (PCR) NEGATIVE SARS-CoV-2 RNA (RT-PCR) NEGATIVE 10/15/22 10/15/22 07:16 07:17 WBC 10.2 RBC 4.24 Hgb 13.5 Hct 42.0 MCV 99.1 H MCH 31.8 MCHC 32.1 RDW 12.9 Plt Count 254 MPV 11.1 Immature Gran % (Auto) Neut % (Auto) Lymph % (Auto) [place] % (Auto) Eos % (Auto) Baso % (Auto) Lymph # (Auto) [place] # (Auto) Eos # (Auto) Baso # (Auto) Abs Immat Gran (auto) Absolute Neuts (auto) Absolute Nucleated RBC 0.000 Nucleated RBC % (auto) 0.0 Sodium 141 Potassium 3.7 Chloride 100 Carbon Dioxide 27 Anion Gap 18 BUN 12 Creatinine 0.85 Estim Creat Clear Calc 57.5 Estimated GFR > 60 Random Glucose Fasting Glucose 99 Calcium 9.6 Magnesium Total Bilirubin Direct Bilirubin AST ALT Alkaline Phosphatase Troponin I High Sens B-Natriuretic Peptide Total Protein Albumin Lipase Urine Color Urine Appearance Urine pH Ur Specific [place] Urine Protein Urine Glucose (UA) Urine Ketones Urine Blood Urine Nitrite Ur Leukocyte Esterase Influenza Type A (PCR) Influenza Type B (PCR) RSV RNA Qual (PCR) SARS-CoV-2 RNA (RT-PCR) ECG Interpretation: EKG with likely ventricular paced rhythm at 47/Min. PVC. Imaging Radiologist's impression: Impressions Chest X-Ray 10/14/22 12:22 IMPRESSION: Cardiomegaly and pulmonary vascular congestion with similar appearance. CHF represents interval worsening from the previous study. Assessment and Plan (1) Acute on chronic right heart failure: Status: Acute (2) Fallot tetralogy: Status: Acute (3) H/O pulmonic valve replacement: Status: Acute (4) Paroxysmal atrial fibrillation: Status: Acute (5) ICD (implantable cardioverter-defibrillator) in place: Status: Acute Plan Cardiac BNP 690. Previous cardiac BNP from last year 375. High sensitivity troponin 9.5. Chest x-ray with cardiomegaly/pulmonary vascular congestion. ICD interrogated. Battery life is 3.7 years. VVI/40 per. Normal lead parameters. No shocks delivered. No VT episodes overall. Since 2020, ventricular pacing is 2.2%. Recent pacing data not available. Possibly higher. EKGs as well as telemetry strips discussed with electrophysiology, Dr. Ma at [facility]. She intermittently goes into ventricular pacing but overall difficult to say what the atrial rhythm is. Could either be atrial fibrillation but could also be sinus arrest. After discussion with him, it is felt that she can be kept under current regimen for beta-blockers/amiodarone due to VT history. He will review to see if atrial lead is feasible or not due to her congenital heart disease anatomy. Otherwise, after adequate diuresis, we can plan discharge. Will arrange follow-up. Time Spent With Patient Time: Total time managing care of this patient today ____ minutes. Procedures Date of Service Date of Service: 10/15/22
--- NOTE | 2022-10-15 11:16 | PM.DS ---
DS: Providers Provider Date of Service: 10/15/22 Date of admission: 10/14/22 14:07 Primary care physician: Mel Greenberg DO Consults: 10/14/22 14:02 Consult to Cardiology Routine Consulting Provider: [facility] Reason for consultation: chf Has provider been notified: Yes DS: Diagnosis Discharge Diagnosis (1) Acute on chronic right heart failure: Status: Acute (2) Fallot tetralogy: Status: Acute (3) H/O pulmonic valve replacement: Status: Acute (4) Paroxysmal atrial fibrillation: Status: Acute (5) ICD (implantable cardioverter-defibrillator) in place: Status: Acute DS: Summary Hospital Course Hospital Course: from initial hpi: 57F PMH tetrology of Fallot s/p repair, chronic systolic chf, s/p ICD, paroxysmal afib, HIV, presented with sob. Patient states her sob began about 2 weeks ptp, associated with exertion, relieved at rest, went to PCPs and found to have sandi in the 40s with cough, given atropine by EMS and brought to ED. in ED heart rate remains at 40, (pacer set to 40). cxr with increased pulm vascular markings, bnp 690, desat to high 80s on room air. hospital course: Patient was admitted for acute hypoxic respiratory failure due to acute on chronic systolic CHF and symptomatic bradycardia. History with IV Lasix diuresed well and able to be weaned off O2. Was seen by Cardiology who recommended continue Entresto, continuing metoprolol on amiodarone. Patient does have a ICD due to history of ventricular tachycardia and a background of congenital heart disease with tetralogy of Fallot. She will follow up outpatient with EP. For paroxysmal atrial fibrillation she was continued on Xarelto. For HIV she was continue Biktarvy. Time Spent with Patient Time attestation: Total time managing care of this patient today ____ minutes. Discharge coordination time: Greater than 30 minutes Quality: Safe Use of Opioids Does Pt have an Active Cancer Diagnosis on the Problem List?: No Quality: Stroke Does the patient have a stroke diagnosis?: No Physical Exam Vital Signs: Vital Signs: Last Vital Signs Temp 97.5 F 10/15/22 07:38 Pulse 60 10/15/22 07:38 Resp 20 10/15/22 07:38 BP 91/65 10/15/22 07:38 Pulse Ox 100 10/15/22 07:38 O2 Del Method Nasal Cannula 10/15/22 07:38 O2 Flow Rate 2 10/15/22 07:38 BMI result Body Mass Index 25.7 General: AO X 3, no acute distress Resp: CTA bilateral, no accessory muscles used CVS: S1,S2,sandi GI: soft, non tender, non distended Neuro: motor grossly intact, alert Psych: appropriate affect, appropriate insight DS: Data Data Completed and Pending Labs on day of discharge: Laboratory Results - last 24 hr 10/14/22 10/14/22 10/14/22 11:31 11:31 11:31 WBC 9.3 RBC 3.85 L Hgb 12.3 Hct 38.8 MCV 100.8 H MCH 31.9 MCHC 31.7 RDW 13.3 Plt Count 237 D MPV 10.7 Immature Gran % (Auto) 0.3 Neut % (Auto) 68.9 Lymph % (Auto) 20.1 [place] % (Auto) 8.7 Eos % (Auto) 1.7 Baso % (Auto) 0.3 Lymph # (Auto) 1.9 [place] # (Auto) 0.8 Eos # (Auto) 0.2 Baso # (Auto) 0.0 Abs Immat Gran (auto) 0.03 Absolute Neuts (auto) 6.4 Absolute Nucleated RBC 0.000 Nucleated RBC % (auto) 0.0 Sodium 141 Potassium 4.3 Chloride 108 Carbon Dioxide 23 Anion Gap 14 BUN 8 L Creatinine 0.84 Estim Creat Clear Calc 60.4 Estimated GFR > 60 Random Glucose 80 Fasting Glucose Calcium 9.1 Magnesium 2.0 Total Bilirubin 0.5 Direct Bilirubin 0.2 AST 18 ALT 12 Alkaline Phosphatase 71 Troponin I High Sens 9.5 B-Natriuretic Peptide Total Protein 8.0 Albumin 3.1 L Lipase 6 L Urine Color Urine Appearance Urine pH Ur Specific [place] Urine Protein Urine Glucose (UA) Urine Ketones Urine Blood Urine Nitrite Ur Leukocyte Esterase Influenza Type A (PCR) Influenza Type B (PCR) RSV RNA Qual (PCR) SARS-CoV-2 RNA (RT-PCR) 10/14/22 10/14/22 10/14/22 11:31 11:31 13:12 WBC RBC Hgb Hct MCV MCH MCHC RDW Plt Count MPV Immature Gran % (Auto) Neut % (Auto) Lymph % (Auto) [place] % (Auto) Eos % (Auto) Baso % (Auto) Lymph # (Auto) [place] # (Auto) Eos # (Auto) Baso # (Auto) Abs Immat Gran (auto) Absolute Neuts (auto) Absolute Nucleated RBC Nucleated RBC % (auto) Sodium Potassium Chloride Carbon Dioxide Anion Gap BUN Creatinine Estim Creat Clear Calc Estimated GFR Random Glucose Fasting Glucose Calcium Magnesium Total Bilirubin Direct Bilirubin AST ALT Alkaline Phosphatase Troponin I High Sens B-Natriuretic Peptide 690 H Total Protein Albumin Lipase Urine Color Yellow Urine Appearance Clear Urine pH 6.0 Ur Specific [place] <= 1.005 Urine Protein Negative Urine Glucose (UA) Negative Urine Ketones Negative Urine Blood Negative Urine Nitrite Negative Ur Leukocyte Esterase Negative Influenza Type A (PCR) NEGATIVE Influenza Type B (PCR) NEGATIVE RSV RNA Qual (PCR) NEGATIVE SARS-CoV-2 RNA (RT-PCR) NEGATIVE 10/15/22 10/15/22 07:16 07:17 WBC 10.2 RBC 4.24 Hgb 13.5 Hct 42.0 MCV 99.1 H MCH 31.8 MCHC 32.1 RDW 12.9 Plt Count 254 MPV 11.1 Immature Gran % (Auto) Neut % (Auto) Lymph % (Auto) [place] % (Auto) Eos % (Auto) Baso % (Auto) Lymph # (Auto) [place] # (Auto) Eos # (Auto) Baso # (Auto) Abs Immat Gran (auto) Absolute Neuts (auto) Absolute Nucleated RBC 0.000 Nucleated RBC % (auto) 0.0 Sodium 141 Potassium 3.7 Chloride 100 Carbon Dioxide 27 Anion Gap 18 BUN 12 Creatinine 0.85 Estim Creat Clear Calc 57.5 Estimated GFR > 60 Random Glucose Fasting Glucose 99 Calcium 9.6 Magnesium Total Bilirubin Direct Bilirubin AST ALT Alkaline Phosphatase Troponin I High Sens B-Natriuretic Peptide Total Protein Albumin Lipase Urine Color Urine Appearance Urine pH Ur Specific [place] Urine Protein Urine Glucose (UA) Urine Ketones Urine Blood Urine Nitrite Ur Leukocyte Esterase Influenza Type A (PCR) Influenza Type B (PCR) RSV RNA Qual (PCR) SARS-CoV-2 RNA (RT-PCR) Discharge Plan Discharge Anticipated Discharge Date/Time: 10/15/22 11:14 Patient Disposition: Home, Self-Care Discharge Diagnosis: sandi, chf Referrals: Mel Greenberg DO [Primary Care Provider] - 1 Week Discharge Medications: New furosemide [Lasix] 20 mg tablet 20 mg PO DAILY PRN (Reason: weight gain) Qty: 30 0RF Continued amiodarone 100 mg tablet 100 mg PO DAILY 90 Days Qty: 90 1RF Xarelto 20 mg tablet 20 mg PO BEDTIME 90 Days Qty: 90 3RF spironolactone [Aldactone] 25 mg tablet 12.5 mg PO DAILY Qty: 30 1RF furosemide [Lasix] 20 mg tablet 20 mg PO DAILY Qty: 30 0RF ergocalciferol (vitamin D2) 1,250 mcg (50,000 unit) Capsule 1,250 mcg PO QWEEK Entresto 24-26 mg tablet 1 tab PO BID albuterol sulfate [ProAir HFA] 90 mcg/actuation HFA aerosol inhaler 1 inh inhalation QID metoprolol succinate 25 mg tablet extended release 24 hr 25 mg PO DAILY oxycodone-acetaminophen 5-325 mg tablet 1 tab PO BEDTIME PRN (Reason: severe pain) rosuvastatin 5 mg tablet 5 mg PO DAILY Biktarvy 50-200-25 mg tablet 1 tab PO BEDTIME diclofenac sodium 1 % gel 2 g topical BID (DME) blood pressure monitor [Blood Pressure Kit] Kit See Rx Instructions .Route Qty: 1 0RF Rx Instructions: As directed (DME) Goodnites Bed Mats 2.6 X 2.9 feet pad See Rx Instructions .Route Qty: 36 0RF Rx Instructions: As directed Discharge Orders: Discharge Order (Routine); Ordered 10/15/22 Ordered By: Arnoldo Coy Diet: Advance to usual diet Activity on Discharge: As tolerated Stand Alone Forms: Patient Portal Discharge page Care Plan Goals: manage sandi, chf Health Concerns: sandi, chf Plan of Treatment: continue meds, follow up with EP outpatient, lasix as needed Assessment: see above
--- NOTE | 2022-10-15 11:19 | MHC.CM.PN ---
Patient has been medically cleared for dc to home today, no skilled services ordered.
[2022-10-15 11:20] VITALS: BP 102/65; PULSE 63; RESP 20; TEMP 36.5; O2SAT 96
[2022-10-15] MEDS: Albuterol Sulfate 90 MCG 8 GM INHALER 1 PUFF INHALE (12:13)
[2022-10-15 12:15] VITALS: PULSE 51; RESP 18; O2SAT 95
== END 2022-10-15 14:00 | disposition home or self-care (01) | DRG 194 ==
LOC: HO.ED 14:00 → HO.EDOVER 14:10 → HO.IMC 15:32
PROVIDERS: Admitting Provider Internal Medicine; Emergency Provider Emergency Medicine; PCP Family Medicine; Visit Provider Internal Medicine
DX: I50.813 Acute on chronic right heart failure (principal); J96.01 Acute respiratory failure with hypoxia; I50.23 Acute on chronic systolic (congestive) heart failure; J44.1 Chronic obstructive pulmonary disease with (acute) exacerbation; Z21 Asymptomatic human immunodeficiency virus [HIV] infection status; R00.1 Bradycardia, unspecified; I48.0 Paroxysmal atrial fibrillation; Z95.810 Presence of automatic (implantable) cardiac defibrillator; Z87.74 Personal history of (corrected) congenital malformations of heart and circulatory system; Z20.822 Contact with and (suspected) exposure to COVID-19; Z95.2 Presence of prosthetic heart valve; Z79.01 Long term (current) use of anticoagulants; Z79.899 Other long term (current) drug therapy
CPT/HCPCS: 0241U; 36415; 71045; 80048; 80076; 81003; 83690; 83735; 83880; 84484; 85025; 85027; 93005; 94640; 99285; J1940

== ENCOUNTER → 2022-10-14 14:07 | Outpatient (BNV) | payer MEDICAID, SELFPAY | PROVIDERS: Admitting Provider Internal Medicine; Emergency Provider Emergency Medicine; PCP Family Medicine; Visit Provider Internal Medicine | DX: I50.813 Acute on chronic right heart failure (principal); Q21.3 Tetralogy of Fallot; Z95.2 Presence of prosthetic heart valve; I48.0 Paroxysmal atrial fibrillation; Z95.810 Presence of automatic (implantable) cardiac defibrillator | CPT/HCPCS: 99223; 99239 ==

== ENCOUNTER → 2022-10-14 14:07 | Outpatient (BNV) | payer MEDICAID, SELFPAY | PROVIDERS: Admitting Provider Internal Medicine; Emergency Provider Emergency Medicine; PCP Family Medicine; Visit Provider Internal Medicine | DX: R94.31 Abnormal electrocardiogram [ECG] [EKG] (principal) | CPT/HCPCS: 93010; 99222 ==

== ENCOUNTER 2022-11-05 08:53 | Outpatient (AMB) | payer MEDICAID, SELFPAY ==
--- NOTE | 2022-11-05 08:55 | MHC.OFFVIS ---
Intake Intake Visit Reasons: Follow Up Micro Intake Note: follow up Right LE Micro 09/25/22 w/ Hx of Right LE Micros 01/30/22 and 04/04/21, also has Hx of Left LE Micro 03/01/2020. Pt states that Right LE looks good Accompanied by: Self / Same As Patient Allergies Penicillins [PENICILLINS] Allergy (Unknown, Verified 11/05/22 08:59) RASH SEAFOOD Allergy (Unknown, Uncoded 11/05/22 08:59) RASH HPI Follow Up Micro HPI Details Very pleasant 57-year-old female presents for right lower extremity microphlebectomy. She reports improvement of right lower extremity. In general no significant complaints right now. She states that the swelling and discomfort have decreased. She is now for routine postprocedure follow-up. [facility]LY [facility] Medical History Asthma Dysplasia of cervix, low grade (MIGUEL 1) Fallot tetralogy Heart valve disorder HIV (human immunodeficiency virus infection) ICD (implantable cardioverter-defibrillator) in place Pacemaker Paroxysmal atrial fibrillation Right bundle branch block (RBBB) on electrocardiogram (ECG) Right heart failure Surgical History H/O pulmonic valve replacement H/O varicose vein stripping (04/04/21) History of cardioversion History of open heart surgery Hx of cardiac pacemaker Pulmonary valve replaced Family History Father CVD (cardiovascular disease) Mother No problems noted. Social History Household Members: Significant Other Housing: Other Do you presently have visiting nurse or other home services: No Alcohol intake: current Alcohol intake frequency: holidays/special occasions only Patient Tobacco Use Status: Never used Tobacco service: No Current occupational status: disabled Sexual orientation: Straight/Heterosexual Gender identity: Female Female Reproductive History Menstrual Age of Menarche: 10 Review of Systems Const All systems reviewed & are unremarkable except as noted in HPI and below Reports no additional complaints ENT Reports Normal hearing present Card Denies chest pain, Denies chest pain at rest, Denies chest pain with activity and Denies pedal edema Resp Denies cough GI Denies abdominal pain Musc Denies abnormal gait, Denies muscle cramps and Denies radiating pain into limb Skin/Breast Denies skin ulcer and Denies wounds Neuro Reports Normal hearing present and Denies abnormal gait Psych Reports no additional complaints Physical Exam Const General: cooperative, healthy appearing and comfortable Orientation/consciousness: oriented to person, oriented to place and oriented to time HEENT Head: Yes normal to inspection Neck Neck: Yes normal visual inspection Carotids: no bruits Chest Chest palpation & inspection: normal inspection of the chest Resp Effort & Inspection: normal respiratory effort and able to speak in complete sentences Auscultation: clear to auscultation bilaterally, no crackles, no rales, no rhonchi and no wheezes Cardio Rate: regular rate Rhythm: regular rhythm Heart sounds: S1 normal heart sound present and S2 normal heart sound present Bruits: no carotid bruits Peripheral pulses: Peripheral pulses 2+ throughout GI Inspection: Yes normal to inspection Skin Wounds: no wounds Hair: normal Neuro General: oriented to person, oriented to place and oriented to time Cranial nerves: Yes CN's II-XII intact bilaterally and Yes Normal hearing present Cognition (Neuro): normal cognition Motor exam (neuro): 5/5 motor strength present throughout Extrem Other: venous exam: No significant superficial varicosities or spider telangiectasias, minimal edema General: No clubbing, No cyanosis and No edema Psych Appearance: grossly normal Mental Status: mental status grossly normal Speech and movement: Normal speech and movement present Assessment & Plan Assessment & Plan (1) Varicose veins of right lower extremity with inflammation: Comment: 04/04/2021 - right leg microphlebectomy 01/30/2022 - right leg microphlebectomy 09/25/2022 - right leg microphlebectomy Code(s): I83.11 - Varicose veins of right lower extremity with inflammation Plan: The patient has done extremely well with all venous treatments. Patient's may often experience postprocedure phlebitic episodes and I have discussed with the patient use of warm compresses and NSAIDS if tolerated for pain discomfort. In addition, I have discussed continued conservative measures including use of compression, leg elevation, and exercise. The patient was also given an information sheet regarding appropriate use of compression stockings and future purchases. Thank you for allowing us to care for your patient with venous disease. (2) Varicose veins of left lower extremity with inflammation: Comment: 03/01/2020 - left leg microphlebectomy Code(s): I83.12 - Varicose veins of left lower extremity with inflammation Coding Level of Care Code Est Pt Level 3 (07978) Diagnoses Varicose veins of right lower extremity with inflammation I83.11 Varicose veins of left lower extremity with inflammation I83.12
== END 2022-11-05 09:42 | disposition home or self-care (01) ==
PROVIDERS: PCP Family Medicine; Visit Provider Surgery Vascular Surgery
DX: I83.11 Varicose veins of right lower extremity with inflammation (principal); I83.12 Varicose veins of left lower extremity with inflammation
CPT/HCPCS: 99213

== ENCOUNTER → 2022-11-05 08:53 | Outpatient (BNVA) | payer MEDICAID, SELFPAY | PROVIDERS: PCP Family Medicine; Visit Provider Surgery Vascular Surgery | DX: I44.2 Atrioventricular block, complete (principal); I50.9 Heart failure, unspecified; I48.0 Paroxysmal atrial fibrillation; I83.11 Varicose veins of right lower extremity with inflammation; I83.12 Varicose veins of left lower extremity with inflammation; Z87.74 Personal history of (corrected) congenital malformations of heart and circulatory system; Z95.2 Presence of prosthetic heart valve; Z79.01 Long term (current) use of anticoagulants; Z45.02 Encounter for adjustment and management of automatic implantable cardiac defibrillator | CPT/HCPCS: 93005; 99212 ==

== ENCOUNTER 2022-11-05 12:48 | Outpatient (AMB) | payer MEDICAID, SELFPAY ==
[2022-11-05 13:10] VITALS: BP 104/62; PULSE 40; BMI 25.4
--- NOTE | 2022-11-05 13:10 | MHC.OFFVIS ---
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: No Allergies Penicillins [PENICILLINS] Allergy (Unknown, Verified 11/05/22 08:59) RASH SEAFOOD Allergy (Unknown, Uncoded 11/05/22 08:59) RASH Medication List - Last Reconciled 11/05/22 by Christoph Marin MD albuterol sulfate 90 mcg/actuation (ProAir HFA) 1 inh inhalation QID albuterol sulfate mg inhalation Q4H PRN amiodarone 100 mg PO DAILY 90 days ebeatbysq-qgugwnyg-vgrooka ala 50-200-25 mg (Biktarvy) 1 tab PO BEDTIME blood pressure monitor (Blood Pressure Kit) As directed diclofenac sodium 1% 2 grams topical BID ergocalciferol (vitamin D2) 1,250 mcg PO QWEEK furosemide (Lasix) 20 mg PO DAILY furosemide (Lasix) 20 mg PO DAILY PRN metoprolol succinate ER 25 mg PO DAILY oxycodone-acetaminophen 5-325 mg 1 tab PO BEDTIME PRN rivaroxaban (Xarelto) 20 mg PO BEDTIME 90 days rosuvastatin 5 mg PO DAILY sacubitril-valsartan 24-26 mg (Entresto) 1 tab PO BID spironolactone (Aldactone) 12.5 mg (1/2 x 25 mg) PO DAILY underpads (Goodnites Bed Mats) As directed HPI HPI Comments History of Present Illness Details Jasmina comes for follow-up. Recently she was referred to the emergency room because of heart rate was slow but she says she was also having exertional shortness of breath. Since then she was started on Lasix therapy should. She was noted to be bradycardiac although no interventions were performed. She comes for follow-up today and remains bradycardia with heart rate in the 40s. EKG shows normal sinus rhythm with complete heart block with ventricular pacing. Patient since she is feeling better since starting Lasix which she denies any worsening weight gain, leg edema, abdominal distension. No orthopnea, PND. No lightheadedness, syncope. She remains active. No bleeding issues or neurologic events [facility] Medical History Asthma Dysplasia of cervix, low grade (MIGUEL 1) Fallot tetralogy Heart valve disorder HIV (human immunodeficiency virus infection) ICD (implantable cardioverter-defibrillator) in place Pacemaker Paroxysmal atrial fibrillation Right bundle branch block (RBBB) on electrocardiogram (ECG) Right heart failure Surgical History H/O pulmonic valve replacement H/O varicose vein stripping (04/04/21) History of cardioversion History of open heart surgery Hx of cardiac pacemaker Pulmonary valve replaced Family History Father CVD (cardiovascular disease) Mother No problems noted. Social History Household Members: Significant Other Housing: Other Do you presently have visiting nurse or other home services: No Alcohol intake: current Alcohol intake frequency: holidays/special occasions only Patient Tobacco Use Status: Never used Tobacco service: No Current occupational status: disabled Sexual orientation: Straight/Heterosexual Gender identity: Female Female Reproductive History Menstrual Age of Menarche: 10 Review of Systems Const Denies chills, Denies fatigue, Denies fever(s), Denies frequent falls, Denies weakness, Denies weight gain and Denies weight loss ENT Denies dizziness Card Denies chest pain, Denies leg edema, Denies lightheadedness, Denies palpitations, Denies dyspnea, Denies dyspnea on exertion, Denies orthopnea and Denies other (loss of consciousness) Resp Denies cough, Denies dyspnea and Denies dyspnea on exertion GI Denies hematochezia and Denies change in stool character Musc Denies abnormal gait, Denies muscle weakness, Denies numbness, Denies radiating pain into limb and Denies tingling Neuro Denies abnormal gait, Denies dizziness, Denies frequent falls, Denies numbness, Denies tingling and Denies weakness Endo Denies fatigue and Denies palpitations Physical Exam Vital Signs: Last Vital Signs Pulse 40 L 11/05/22 13:10 BP 104/62 11/05/22 13:10 BMI result Body Mass Index 25.4 Const General: cooperative, comfortable, no acute distress, alert and awake Nutritional Appearance: overweight Orientation/consciousness: patient oriented x3 Limitations: no limitations Neck Neck: Yes trachea midline, Yes supple and Yes no JVD Resp Effort & Inspection: normal respiratory effort Auscultation: clear to auscultation bilaterally Cardio Jugular venous distension: no JVD Palpation: normal PMI Rate: bradycardic Rhythm: regular rhythm Heart sounds: S1 normal heart sound present, S2 normal heart sound present and Murmur heart sound present systolic early and at the left sternal border GI Auscultation: normal bowel sounds Skin General skin exam: no rashes or lesions noted Neuro General: patient oriented x3 and no focal motor deficits Extrem General: Yes no clubbing, cyanosis or edema Psych Appearance: grossly normal Office Procedures Cardiac Device Check Cardiac Device Check Details: Single-chamber [place]ani ICD in place reprogrammed from VVI 40 beats per minute to VVIR 60 beats per minute. Ventricular pacing thresholds are excellent and stable. Ventricular sensing is adequate. Pacing and shock lead impedance is stable. Battery life is excellent 14618-HQ Cardiac Device Check, single lead implantable defibrillator Procedure code (CPT) selection complete EKG Details: EKG shows normal sinus rhythm with complete heart block with ventricular pacing at 40 beats per minute [id number], Complete Assessment & Plan Assessment & Plan (1) Complete heart block: Code(s): I44.2 - Atrioventricular block, complete Plan: Patient recent bradycardia, from EKG today's atrophy due to complete heart block with underlying normal sinus rhythm with AV dissociation with ventricular pacing. At current time we increased her pacing rate to 60 beats per minute to provide adequate support. Discussed with electrophysiology to schedule for upgrade of the device to dual-chamber device. Given her prior multiple cardiac condition it is highly likely she has developed progressive AV conduction disorder which is not unlikely. (2) CHF (congestive heart failure): Code(s): I50.9 - Heart failure, unspecified Plan: Congestive heart failure in the past related to significant pulmonary regurgitation with predominant right heart failure syndrome with recurrent symptoms recently most likely due to development of bradycardia. She is currently euvolemic on low-dose diuretic therapy. Continue the same. Plan for upgrading her single-chamber ICD to dual-chamber ICD to provide AV synchrony. Will follow-up with ultrasound in the near future to assess LV function. (3) Fallot tetralogy: Comment: Status post repair at age 1 and 2. Being [place] [facility] [place]s): Q21.3 - Tetralogy of Fallot Plan: Prior history of tetralogy of Fallot with complete repair with multiple secondary complications including syncope requiring ICD placement. Subsequently developing atrial flutter fibrillation suppressed on amiodarone therapy, currently on full oral anticoagulation see below. Has done well with rhythm control approach will continue pursue rhythm control approach. Also developed significant pulmonary regurgitation status post transcatheter pulmonic valve replacement and has done well since then. Now developing progressive AV block. Follow-up echocardiogram near future. Continue to follow with [facility]. (4) H/O pulmonic valve replacement: Comment: 06/2017 Code(s): Z95.2 - Presence of prosthetic heart valve Plan: Prior history of transcatheter pulmonic valve replacement for severe pulmonary regurgitation right heart failure syndrome. Since then has done well. Continue current oral anticoagulation therapy. Continue SBE prophylaxis as per ACC/[place] guidelines. (5) Paroxysmal atrial fibrillation: Code(s): I48.0 - Paroxysmal atrial fibrillation Plan: Paroxysmal atrial fibrillation/flutter. Has done well with rhythm control approach. Currently on low-dose amiodarone therapy will be continued. Continue full oral anticoagulation with Xarelto. Annual check for amiodarone toxicity to pursued. (6) ICD (implantable cardioverter-defibrillator) in place: Comment: Single-chamber [employer] Tani ICD in place for secondary prevention Code(s): Z95.810 - Presence of automatic (implantable) cardiac defibrillator Plan: Single-chamber ICD in place for secondary prevention for syncope. Currently doing well. Will upgrade to device to dual-chamber device due to complete heart block. This was discussed with her. She is agreeable. Follow up in the clinic in 2 months time, sooner p.r.n.. Greater than 40 minutes was spent in managing her complex care Coding Level of Care Code Est Pt Level 5 (93471) Diagnoses Complete heart block I44.2 CHF (congestive heart failure) I50.9 Fallot tetralogy Q21.3 H/O pulmonic valve replacement Z95.2 Paroxysmal atrial fibrillation I48.0 ICD (implantable cardioverter-defibrillator) in place Z95.810 CPT Codes Cardiac Device Check - Cardiac Device 4: [id number] Cardiac Device Check, single lead implantable defibrillator ([id number]) EKG - CPT: 99969-[id number], Complete ([id number])
== END 2022-11-05 13:45 | disposition home or self-care (01) ==
PROVIDERS: PCP Family Medicine; Referring Provider Family Medicine; Visit Provider Internal Medicine Cardiovascular Disease
DX: I44.2 Atrioventricular block, complete (principal); I50.9 Heart failure, unspecified; Q21.3 Tetralogy of Fallot; Z95.2 Presence of prosthetic heart valve; I48.0 Paroxysmal atrial fibrillation; Z95.810 Presence of automatic (implantable) cardiac defibrillator
CPT/HCPCS: 93282; 99215

== ENCOUNTER → 2023-01-05 15:03 | Outpatient (REF) | payer MEDICAID, SELFPAY ==
--- NOTE | 2023-01-05 15:05 | CA_ITS ---
Transthoracic Echocardiogram Patient (Last, First, Middle): Jasmina Yi, Gender: Female Date of : 1965 Age: 57 Procedure Date: 01/05/2023 Procedure Type: Transthoracic Echocardiogram Location: OP Height: 149.86 cm Weight: 56.25 kg BSA: 1.50 m2 Heart Rate: bpm BP: 110 / 70 mmHg Cardiac Cath Technician: ALEJANDRA Referring MD: Christoph Marin MD Sports Clerk: Christoph Marin MD Symptoms: I50.812 - Chronic right heart failure Study Quality: Fair, contrast ECG Rhythm: Ventriculary paced rhythm Conclusions: - 1. Low normal LV ejection fraction 50-55% 2. Mildly dilated right ventricle 3. Normally function pulmonic bioprosthetic well with mean gradient of 17 mmHg which is slightly elevated compared to prior study 4. Mildly elevated right ventricular systolic pressure 5. Trivial pericardial effusion Findings Procedure Information Contrast agent, definity, is being given per protocol without apparent complications. Left Ventricle Normal left ventricular cavity size. There is normal left ventricular wall thickness. The left ventricular systolic function is low normal. The visually estimated ejection fraction is between 50-55%. There is paradoxical septal motion consistent with a right ventricular pacemaker and a flattened septum in diastole ( D shaped left ventricle) consistent with right ventricular volume overload. Spectral Doppler is indicative of a normal filling pattern. Right Ventricle Mildly increased right ventricular cavity size. There is an ICD wire seen in the right ventricle. Atria The left atrium is normal in size. Interatrial shunt cannot be excluded. The right atrium is likely dilated. Aortic Valve Normal aortic valve structure and function. There is no aortic valve stenosis. There is no aortic valve regurgitation. Mitral Valve There is mild anterior and posterior mitral leaflet thickening. There is trace mitral valve regurgitation. There is no mitral valve stenosis. Pulmonic Valve Prosthetic pulmonary valve was not well visualized. A bioprosthetic pulmonic valve is present. The prosthetic pulmonic valve appears to be functioning normally. Peak gradient across the valve is 17 mmHg, which is acceptable for bioprosthetic valve Tricuspid Valve Normal tricuspid valve structure. There is mild tricuspid valve regurgitation. Normal right atrial pressure. Mild pulmonary hypertension is present. Great Vessels All visible segments of the aorta are normal in size. The pulmonary artery was not well visualized. Pericardium/Pleural There is a trivial loculated pericardial effusion overlying the left ventricle. Prior Study Comparison Changes noted compared to prior study dated: 11/26/2020. RV size appears to be smaller on this study. RV systolic pressure is elevated Measurements 2D Linear Measurements IVSd: 1.05 0.6-0.9/0.6-1.0 cm LVIDd: 4.43 3.9-5.3/4.2-5.9 cm LVIDd Index: 2.95 2.4-3.2/2.2-3.1 cm/m2 LVIDs: 3.44 2.0-3.6 cm LVPWd: 0.90 0.7-1.1 cm LA Diam: 2.50 2.7-3.8/3.0-4.0 cm LAIDs Index: 1.67 1.5-2.3 cm/m2 LV Mass: 179.41 67-162/88-224 g LV Mass Index: 119.61 43-95/49-115 g/m2 LVOT Diam: 2.00 3.0+(-)1.3 cm 2D Systolic Function EF 4C: 47.80 >55% EF 2C: 55.90 >55% EF BiP: 53.30 >55% Mitral Valve MV Pk E: 0.94 MV PK A: 0.39 MV Decel Time: 196.00 E/A: 2.40 E'Lateral: 7.50 E'Medial: 3.83 E/E' Med: 24.60 E/E' Lat: 12.60 PHT: 57.00 MVA PHT: 3.86 Decel [place]: 4.80 Aortic Valve AoV Pk Darwin: 1.33 AoV Mn Darwin: 0.88 AoV VTI: 0.26 AoV Pk Grad: 7.00 Aov Mn Grad: 4.00 VALDO Cont.VTI: 2.57 LVOT LVOT Pk Darwin: 1.13 LVOT Mn Darwin: 0.71 LVOT VTI: 0.22 LVOT Pk Grad: 5.00 LVOT Mn Grad: 2.00 LVOT Diam: 2.00 LVOT Area: 3.14 Diastolic Function MV Pk E: 0.94 MV Pk A: 0.39 E/A: 2.40 E'Medial: 3.83 E/E' Med: 24.60 E' Laterial: 7.50 E/E' Lat: 12.60 Right Ventricle TAPSE (mm): 20.40 TVS' Darwin: 6.75 Tricuspid Valve TR Pk Darwin: 3.23 TR Pk Grad: 42.00 RA Press: 3.00 RVSP: 45.00 Great Vessels Aorta Sinus of Valsalva: 3.22 2.0-3.[address] [place]: 2.21 1.7-3.4 cm Ao Asc: 3.30 2.1-3.4 cm Pulmonary Valve PV Pk Darwin: 2.06 PV Min Darwin: 1.37 Peak PV Grad: 17.00 PV Mn Grad: 9.00 Shunting QP:QS: 1.30 Updated in Other Vendor System with Status of Final Christoph Marin MD electronically signed on 01/06/2023 12:01:40 PM with status of Final
== END ==
LOC: HO.CARD 15:03
PROVIDERS: PCP Family Medicine; Visit Provider Internal Medicine Cardiovascular Disease
DX: I50.812 Chronic right heart failure (principal); I44.2 Atrioventricular block, complete; Q21.3 Tetralogy of Fallot
CPT/HCPCS: 93306; Q9957

== ENCOUNTER → 2023-01-05 15:05 | Outpatient (BNV) | payer MEDICAID, SELFPAY | PROVIDERS: PCP Family Medicine; Visit Provider Internal Medicine Cardiovascular Disease | DX: I36.1 Nonrheumatic tricuspid (valve) insufficiency (principal); I34.89 Other nonrheumatic mitral valve disorders | CPT/HCPCS: 93306 ==

== ENCOUNTER 2023-01-12 14:26 | Outpatient (AMB) | payer MEDICAID, SELFPAY ==
--- NOTE | 2023-01-12 14:31 | MHC.OFFVIS ---
Intake Vital Signs 01/12/23 14:43 Height 5 ft Weight 132 lb 4.438 oz BMI 25.8 BP 118/70 Blood Pressure Location Lt brachial Position Sitting Pulse 96 Intake Visit Reasons: 2 mth fu after echo and appt [facility] Intake Note: 2 month follow-up was DC [facility] on Wednesday for generator change feeling ok Fund Development Manager Required: No Allergies Penicillins [PENICILLINS] Allergy (Unknown, Verified 11/05/22 08:59) RASH SEAFOOD Allergy (Unknown, Uncoded 11/05/22 08:59) RASH Medication List - Last Reconciled 01/12/23 by Christoph Marin MD albuterol sulfate 90 mcg/actuation (ProAir HFA) 1 inh inhalation QID albuterol sulfate mg inhalation Q4H PRN amiodarone 100 mg PO DAILY 90 days vyonjvqsl-foksmmiz-driutjs ala 50-200-25 mg (Biktarvy) 1 tab PO BEDTIME blood pressure monitor (Blood Pressure Kit) As directed diclofenac sodium 1% 2 grams topical BID ergocalciferol (vitamin D2) 1,250 mcg PO QWEEK furosemide (Lasix) 20 mg PO DAILY furosemide (Lasix) 20 mg PO DAILY PRN metoprolol succinate ER 25 mg PO DAILY oxycodone-acetaminophen 5-325 mg 1 tab PO BEDTIME PRN rivaroxaban (Xarelto) 20 mg PO BEDTIME 90 days rosuvastatin 5 mg PO DAILY sacubitril-valsartan 24-26 mg (Entresto) 1 tab PO BID spironolactone (Aldactone) 12.5 mg (1/2 x 25 mg) PO DAILY underpads (Goodnites Bed Mats) As directed HPI HPI Comments History of Present Illness Details Jasmina comes for follow-up. About 3 days ago she underwent upgrade to her defibrillator to a dual-chamber ICD with left bundle-branch block pacing to achieve cardiac resynchronization along with atrial lead. She says she has been feeling better over the last couple of days with more energy. Denies any heart failure symptoms. Denies any lightheadedness, syncope, palpitation irregular heartbeat, ICD discharge. No significant bleeding issues or neurologic events. Recent echocardiogram shows normally functioning bioprosthetic pulmonic valve with mean gradient of 17 mmHg. [facility] Medical History (Updated 01/14/23 @ 08:30 by Christoph Marin MD) Dual ICD (implantable cardioverter-defibrillator) in place Complete heart block Acute on chronic right heart failure ICD (implantable cardioverter-defibrillator) in place Dysplasia of cervix, low grade (MIGUEL 1) Right bundle branch block (RBBB) on electrocardiogram (ECG) Paroxysmal atrial fibrillation Right heart failure Fallot tetralogy Heart valve disorder Pacemaker HIV (human immunodeficiency virus infection) Asthma Surgical History H/O varicose vein stripping (04/04/21) Pulmonary valve replaced History of cardioversion H/O pulmonic valve replacement Hx of cardiac pacemaker History of open heart surgery Family History Father CVD (cardiovascular disease) Mother No problems noted. Social History Household Members: Significant Other Housing: Other Do you presently have visiting nurse or other home services: No Alcohol intake: current Alcohol intake frequency: holidays/special occasions only Patient Tobacco Use Status: Never used Tobacco service: No Current occupational status: disabled Sexual orientation: Straight/Heterosexual Gender identity: Female Female Reproductive History Menstrual Age of Menarche: 10 Review of Systems Const Denies chills, Denies fatigue, Denies fever(s), Denies frequent falls, Denies weakness, Denies weight gain and Denies weight loss ENT Denies dizziness Card Denies chest pain, Denies leg edema, Denies lightheadedness, Denies palpitations, Denies dyspnea, Denies dyspnea on exertion, Denies orthopnea and Denies other (loss of consciousness) Resp Denies cough, Denies dyspnea and Denies dyspnea on exertion GI Denies hematochezia and Denies change in stool character Musc Denies abnormal gait, Denies muscle weakness, Denies numbness, Denies radiating pain into limb and Denies tingling Neuro Denies abnormal gait, Denies dizziness, Denies frequent falls, Denies numbness, Denies tingling and Denies weakness Endo Denies fatigue and Denies palpitations Physical Exam Vital Signs: Last Vital Signs Pulse 96 01/12/23 14:43 BP 118/70 01/12/23 14:43 BMI result Body Mass Index 25.8 Const General: cooperative, comfortable, no acute distress, alert and awake Nutritional Appearance: overweight Orientation/consciousness: patient oriented x3 Limitations: no limitations Neck Neck: Yes trachea midline, Yes supple and Yes no JVD Chest Chest palpation & inspection: other (Do a side is benign with no significant hematoma or bruising) Resp Effort & Inspection: normal respiratory effort Auscultation: clear to auscultation bilaterally Cardio Jugular venous distension: no JVD Palpation: normal PMI Rate: bradycardic Rhythm: regular rhythm Heart sounds: S1 normal heart sound present, S2 normal heart sound present and Murmur heart sound present systolic early and at the left sternal border GI Auscultation: normal bowel sounds Skin General skin exam: no rashes or lesions noted Neuro General: patient oriented x3 and no focal motor deficits Extrem General: Yes no clubbing, cyanosis or edema Psych Appearance: grossly normal Assessment & Plan Assessment & Plan (1) Chronic right heart failure: Code(s): I50.812 - Chronic right heart failure Plan: Patient with prior right-sided heart failure with both LV systolic dysfunction mildly as well as right heart failure related to pulmonary regurgitation and prior to her congenital heart disease in atrial flutter fibrillation. Clinically doing well at this point time with no signs or symptoms of heart failure. Continue to maintain rhythm. Continue monitor and continue current diuretic dose. Daily weight monitoring avoidance of salt loading was discussed. Maintain activity level as tolerated. LV systolic function is low end of normal on current neurohormonal modulation with Entresto, spironolactone as well as metoprolol therapy. Continue the same (2) Adult congenital heart disease: Code(s): Q24.9 - Congenital malformation of heart, unspecified Plan: Patient with prior tetralogy of Fallot with multiple complication including atrial arrhythmias, ventricular arrhythmias requiring ICD, right heart failure with pulmonic valve replacement. Clinically still being follow-up better congenital heart disease at [facility]. Advised to continue the same. SBE prophylaxis as per ACC/aha guidelines. Will continue monitor by echocardiogram on annual basis. (3) H/O pulmonic valve replacement: Comment: 06/2017 Code(s): Z95.2 - Presence of prosthetic heart valve Plan: Prior history of transcutaneous pulmonic valve replacement. Mean gradient of 17 mm Hg which is slightly elevated for pulmonic valve. Will continue monitor clinically. Continue risk factor modification. Continue full oral anticoagulation as prescribed. SBE prophylaxis as per ACC/aha guidelines. (4) Dual ICD (implantable cardioverter-defibrillator) in place: Comment: Upgraded to dual-chamber ICD D with left bundle-branch placing, December 2022 for complete heart block Code(s): Z95.810 - Presence of automatic (implantable) cardiac defibrillator Plan: Now dual-chamber ICD with left bundle-branch pacing just recently implanted. Will follow remotely as well as follow up in the clinic in 6 weeks time. Advised to follow-up with him plantar to wound check. LBBB pacing to improve cardiac resynchronization patient will be dependent on her device for ventricular pacing. (5) Paroxysmal atrial fibrillation: Code(s): I48.0 - Paroxysmal atrial fibrillation Plan: Paroxysmal atrial fibrillation which is currently suppressed on low-dose amiodarone therapy. Has done very well with the same. Continue full oral anticoagulation, currently on Xarelto 20 mg daily. Quarterly renal function test should be pursued. Avoidance of stimulants was discussed. Will follow up in the clinic in 6 weeks time, sooner p.r.n.. Thank you for allowing me to partake in her care Coding Level of Care Code Est Pt Level 4 (41872) Diagnoses Chronic right heart failure I50.812 Adult congenital heart disease Q24.9 H/O pulmonic valve replacement Z95.2 Dual ICD (implantable cardioverter-defibrillator) in place Z95.810 Paroxysmal atrial fibrillation I48.0
[2023-01-12 14:43] VITALS: BP 118/70; PULSE 96; BMI 25.8
== END 2023-01-12 15:09 | disposition home or self-care (01) ==
LOC: HO.HCS 14:26
PROVIDERS: PCP Family Medicine; Visit Provider Internal Medicine Cardiovascular Disease
DX: I50.812 Chronic right heart failure (principal); Q24.9 Congenital malformation of heart, unspecified; Z95.2 Presence of prosthetic heart valve; Z95.810 Presence of automatic (implantable) cardiac defibrillator; I48.0 Paroxysmal atrial fibrillation
CPT/HCPCS: 99214

== ENCOUNTER → 2023-01-12 14:26 | Outpatient (BNVA) | payer MEDICAID, SELFPAY | PROVIDERS: PCP Family Medicine; Visit Provider Internal Medicine Cardiovascular Disease | DX: I50.812 Chronic right heart failure (principal); I48.0 Paroxysmal atrial fibrillation; Q24.9 Congenital malformation of heart, unspecified; Z95.810 Presence of automatic (implantable) cardiac defibrillator; Z95.2 Presence of prosthetic heart valve | CPT/HCPCS: 99212 ==

== ENCOUNTER 2023-03-09 10:55 | Outpatient (REF) | payer MEDICAID, SELFPAY ==
--- NOTE | ~2023-03-09 | XR_ITS ---
EXAMINATION: XR CHEST CLINICAL INFORMATION: Acute cough COMPARISON: None available. TECHNIQUE: 2 views of the chest were obtained. FINDINGS: The lungs are well-expanded and clear of acute process. Heart size is enlarged. Pulmonary vascularity is normal. There are pacer electrodes in right atrium and right ventricle. There is aortic valve stent in place XR/XR chest 2V IMPRESSION: Mild cardiomegaly. No acute process seen.
== END 2023-03-09 10:56 | disposition home or self-care (01) ==
LOC: HO.XRAY 10:55
PROVIDERS: PCP Family Medicine; Visit Provider Internal Medicine
DX: R05.1 Acute cough (principal)
CPT/HCPCS: 71046

== ENCOUNTER 2023-03-18 12:33 | Outpatient (REF) | payer MEDICAID, SELFPAY ==
[2023-03-22 14:03] LABS: RPR Rapid Plasma Reagin NON-REACTIVE (NON-REACTIVE)
== END 2023-03-18 12:34 | disposition home or self-care (01) ==
LOC: HO.HHCL 12:33
PROVIDERS: Visit Provider Family Medicine
DX: B20 Human immunodeficiency virus [HIV] disease (principal)
CPT/HCPCS: 36415; 80048; 80061; 80076; 82306; 83036; 84439; 84443; 85027; 86359; 86360; 86481; 86592; 86706; 86803; 87340; 87536

== ENCOUNTER 2023-03-19 11:46 | Outpatient (REF) | payer MEDICAID, SELFPAY | END 2023-03-19 11:47 | disposition home or self-care (01) | LOC: HO.HHCL 11:46 | PROVIDERS: Visit Provider Family Medicine | DX: B20 Human immunodeficiency virus [HIV] disease (principal) | CPT/HCPCS: 0353U ==

== ENCOUNTER 2023-05-17 09:45 | Outpatient (AMB) | payer MEDICAID, SELFPAY ==
--- NOTE | 2023-05-17 09:48 | A.OFFVIS_ITS ---
Intake Vital Signs 05/17/23 09:55 Height 5 ft Weight 133 lb 13.129 oz BMI 26.1 BP 132/72 Blood Pressure Location Lt brachial Position Sitting Pulse 74 Pulse Source Monitor Intake Visit Reasons: 6 wk device ck per NS Intake Note: 6 week device ck for Pace maker with EKG Allergies Penicillins [PENICILLINS] Allergy (Unknown, Verified 05/17/23 10:03) RASH SEAFOOD Allergy (Unknown, Uncoded 11/05/22 08:59) RASH Medication List - Last Reconciled 05/17/23 by Christoph Marin MD albuterol sulfate 90 mcg/actuation (ProAir HFA) 1 inh inhalation QID albuterol sulfate mg inhalation Q4H PRN amiodarone 100 mg PO DAILY 90 days ypmxwmgub-zbwmufqw-xrnjvbd ala 50-200-25 mg (Biktarvy) 1 tab PO BEDTIME blood pressure monitor (Blood Pressure Kit) As directed diclofenac sodium 1% 2 grams topical BID ergocalciferol (vitamin D2) 1,250 mcg PO QWEEK furosemide (Lasix) 20 mg PO DAILY furosemide (Lasix) 20 mg PO DAILY PRN metoprolol succinate ER 25 mg PO DAILY oxycodone-acetaminophen 5-325 mg 1 tab PO BEDTIME PRN rivaroxaban (Xarelto) 20 mg PO BEDTIME 90 days rosuvastatin 5 mg PO DAILY sacubitril-valsartan 24-26 mg (Entresto) 1 tab PO BID spironolactone (Aldactone) 12.5 mg (1/2 x 25 mg) PO DAILY underpads (Goodnites Bed Mats) As directed HPI HPI Comments History of Present Illness Details Jasmina comes for follow-up. She has been feeling very well. She feels lightheaded. She has not had any heart failure symptoms. No trouble breathing. No prolonged palpitations, irregular heartbeat. She fell 2 days ago says she felt dizzy. She has not monitoring her blood pressure at home. Blood pressure here today looks relatively stable. She takes all her medications. No bleeding issues or neurologic events. No prolonged palpitations irregular heartbeat. [facility] Medical History (Updated 05/17/23 @ 10:27 by Christoph Marin MD) Biventricular ICD (implantable cardioverter-defibrillator) in place CHF exacerbation Right bundle branch block (RBBB) on electrocardiogram (ECG) Right heart failure Complete heart block Acute on chronic right heart failure ICD (implantable cardioverter-defibrillator) in place Dysplasia of cervix, low grade (MIGUEL 1) Paroxysmal atrial fibrillation Fallot tetralogy Heart valve disorder Pacemaker HIV (human immunodeficiency virus infection) Asthma Surgical History H/O varicose vein stripping (04/04/21) Pulmonary valve replaced History of cardioversion H/O pulmonic valve replacement Hx of cardiac pacemaker History of open heart surgery Family History Father CVD (cardiovascular disease) Mother No problems noted. Social History Household Members: Significant Other Housing: Other Do you presently have visiting nurse or other home services: No Alcohol intake: current Alcohol intake frequency: holidays/special occasions only Patient Tobacco Use Status: Never used Tobacco service: No Current occupational status: disabled Sexual orientation: Straight/Heterosexual Gender identity: Female Female Reproductive History Menstrual Age of Menarche: 10 Review of Systems Const Denies chills, Denies fatigue, Denies fever(s), Denies frequent falls, Denies weakness, Denies weight gain and Denies weight loss ENT Denies dizziness Card Denies chest pain, Denies leg edema, Denies lightheadedness, Denies palpitations, Denies dyspnea, Denies dyspnea on exertion, Denies orthopnea and Denies other (loss of consciousness) Resp Denies cough, Denies dyspnea and Denies dyspnea on exertion GI Denies hematochezia and Denies change in stool character Musc Denies abnormal gait, Denies muscle weakness, Denies numbness, Denies radiating pain into limb and Denies tingling Neuro Denies abnormal gait, Denies dizziness, Denies frequent falls, Denies numbness, Denies tingling and Denies weakness Endo Denies fatigue and Denies palpitations Physical Exam Vital Signs: Last Vital Signs Pulse 74 05/17/23 09:55 BP 132/72 05/17/23 09:55 BMI result Body Mass Index 26.1 Const General: cooperative, comfortable, no acute distress, alert and awake Nutritional Appearance: overweight Orientation/consciousness: patient oriented x3 Limitations: no limitations Neck Neck: Yes trachea midline, Yes supple and Yes no JVD Chest Chest palpation & inspection: other (Do a side is benign with no significant hematoma or bruising) Resp Effort & Inspection: normal respiratory effort Auscultation: clear to auscultation bilaterally Cardio Jugular venous distension: no JVD Palpation: normal PMI Rate: bradycardic Rhythm: regular rhythm Heart sounds: S1 normal heart sound present, S2 normal heart sound present and Murmur heart sound present systolic early and at the left sternal border GI Auscultation: normal bowel sounds Skin General skin exam: no rashes or lesions noted Neuro General: patient oriented x3 and no focal motor deficits Extrem General: Yes no clubbing, cyanosis or edema Psych Appearance: grossly normal Office Procedures Cardiac Device Check Cardiac Device Check Details: Biventricular [employer] ICD in place. Programmed in DDDR at 60 beats per minute. Atrial sensing is on the low side suggestive atrial myopathy. RV sensing could not be checked. Atrial pacing thresholds are adequate and in our capture mode. RV pacing thresholds at 1.25 volts at 0.2 milliseconds, readjusted to provide adequate safety. LV pacing thresholds excellent and reprogrammed to enhance battery life. Pacing and shock lead impedance is stable. No arrhythmias detected. Bi V pacing almost 100% of the time. Battery life is at 5.1 year's 49440-OL Cardiac Device Check, multi lead implantable defibrillator Procedure code (CPT) selection complete EKG Details: EKG shows atrial sensing with ventricular pacing 94716-[id number], Complete Assessment & Plan Assessment & Plan (1) Biventricular ICD (implantable cardioverter-defibrillator) in place: Comment: [facility] [place] biventricular ICD in place for complete heart block and cardiomyopathy, December 2022 Code(s): Z95.810 - Presence of automatic (implantable) cardiac defibrillator Plan: Biventricular ICD in place status for complete heart block and requirement for RV pacing with heart failure syndrome and LV systolic dysfunction. LVEF is 50- 55% stable. Clinically heart failure syndrome has resolved. She is doing well in his NYHA class 1 at this point time. She is having symptoms of orthostatic lightheadedness probably from over diuresis and low oral fluid intake. Advised to increase fluid intake. I have advised her to use Lasix on a p.r.n. basis. See below. Will continue to monitor remotely every month for heart failure every 3 months for device check. (2) CHF (congestive heart failure): Code(s): I50.9 - Heart failure, unspecified Plan: Congestive heart failure with LV systolic dysfunction now improved and now with FIRE PATROL D. Her LV ejection fraction 50-55% will follow-up echocardiogram in 1 year's time. Continue current neurohormonal modulation with Entresto, spironolactone as well as metoprolol therapy. She has no signs or symptoms of heart failure and she is currently NYHA class 1. Advised daily weight monitoring avoidance of salt loading. Will switch her Lasix to p.r.n. basis. Need for Lasix therapy with clinical symptoms were discussed. She understands. Advised to increase her fluid intake. (3) Fallot tetralogy: Comment: Status post repair at age 1 and 2. Being [place]. [place] [facility] Code(s): Q21.3 - Tetralogy of Fallot Plan: Prior history of tetralogy of Fallot repaired at a young age. She currently follows with adult Cong[facility] at [facility]. Has remained stable but has had lot of secondary complication including very prolonged right bundle-branch block, right ventricular enlargement with right heart failure, syncope, atrial fibrillation, pulmonary regurgitation requiring transcatheter pulmonic valve replacement. She is doing well at this point time. Will follow echocardiogram in 6 months time. (4) H/O pulmonic valve replacement: Comment: 06/2017 Code(s): Z95.2 - Presence of prosthetic heart valve Plan: History of transcatheter pulmonary valve replacement for right heart failure syndrome with RV enlargement with pulmonary regurgitation. Has done extremely well from right ventricular perspective with pulmonic valve replacement. Continue to monitor by echocardiogram. Her mean gradient was within acceptable limits. SBE prophylaxis as per ACC/aha guidelines. (5) Paroxysmal atrial fibrillation: Code(s): I48.0 - Paroxysmal atrial fibrillation Plan: Paroxysmal atrial fibrillation which has remained suppressed on low-dose amiodarone therapy. She is done well with rhythm control approach will continue pursue rhythm control approach. Continue amiodarone therapy. Annual check for toxicity should be pursued. Continue current Xarelto dose at 20 mg daily. Semi annual renal function test should be pursued. Follow up in the clinic in 6 months time. Greater than 30 minutes was spent in managing complex care. Medications: Discontinued furosemide (Lasix) Discontinued Reason: Doctor's Order 20 mg PO DAILY 30 tabs 0RF Coding Level of Care Code Est Pt Level 5 (42791) Diagnoses Biventricular ICD (implantable cardioverter-defibrillator) in place Z95.810 CHF (congestive heart failure) I50.9 Fallot tetralogy Q21.3 H/O pulmonic valve replacement Z95.2 Paroxysmal atrial fibrillation I48.0 CPT Codes Cardiac Device Check - Cardiac Device 6: [id number] Cardiac Device Check, multi lead implantable defibrillator ([id number]) EKG - CPT: 96543-[id number], Complete ([id number])
[2023-05-17 09:55] VITALS: BP 132/72; PULSE 74; BMI 26.1
== END 2023-05-17 10:23 | disposition home or self-care (01) ==
PROVIDERS: PCP Family Medicine; Referring Provider Family Medicine; Visit Provider Internal Medicine Cardiovascular Disease
DX: I50.9 Heart failure, unspecified (principal); Q21.3 Tetralogy of Fallot; Z95.2 Presence of prosthetic heart valve; I48.0 Paroxysmal atrial fibrillation; Z95.810 Presence of automatic (implantable) cardiac defibrillator
CPT/HCPCS: 93284; 99214

== ENCOUNTER → 2023-05-17 09:45 | Outpatient (BNVA) | payer MEDICAID, SELFPAY | PROVIDERS: PCP Family Medicine; Visit Provider Internal Medicine Cardiovascular Disease | DX: Z45.02 Encounter for adjustment and management of automatic implantable cardiac defibrillator (principal); I50.9 Heart failure, unspecified; I48.0 Paroxysmal atrial fibrillation; Q21.3 Tetralogy of Fallot; Z95.2 Presence of prosthetic heart valve | CPT/HCPCS: 93005; 99212 ==

== ENCOUNTER 2023-05-24 12:27 | Outpatient (REF) | payer MEDICAID, SELFPAY ==
--- NOTE | ~2023-05-24 | MM_ITS ---
EXAMINATION: MM SCREENING DIGITAL BREAST TOMOSYNTHESIS, BILATERAL CLINICAL INFORMATION: Screening. Asymptomatic. COMPARISON: Mammography: This study is compared with prior exams dating back to 2018. TECHNIQUE: Digital breast tomosynthesis is performed in both the craniocaudal and mediolateral oblique views along with computer-aided detection (CAD). Synthesized 2D images are generated from the tomosynthesis. FINDINGS: There are scattered areas of fibroglandular density (ACR BI-RADS breast composition Category b). There are no significant masses, abnormal calcifications, or other abnormalities. There is a pacemaker present in the superior aspect of the left breast. MM/MM tomosynthesis screening BI IMPRESSION: No mammographic evidence of malignancy. ASSESSMENT: BI-RADS BI-RADS 1 - Negative RECOMMENDATION: Routine annual mammography screening. 1 year F/U This examination should not preclude the clinical evaluation of a suspicious palpable abnormality. This patient's information was entered into a reminder system with a target due date for their next mammogram.
== END 2023-05-24 12:28 | disposition home or self-care (01) ==
LOC: HO.MAMMO 12:27
PROVIDERS: PCP Family Medicine; Visit Provider Family Medicine
DX: Z12.31 Encounter for screening mammogram for malignant neoplasm of breast (principal)
CPT/HCPCS: 77063; 77067

== ENCOUNTER → 2023-05-24 12:30 | Outpatient (BNV) | payer MEDICAID, SELFPAY | PROVIDERS: PCP Family Medicine; Visit Provider Radiology Diagnostic Radiology | DX: Z12.31 Encounter for screening mammogram for malignant neoplasm of breast (principal) | CPT/HCPCS: 77063; 77067 ==

== ENCOUNTER 2023-07-19 08:31 | Outpatient (AMB) | payer MEDICAID, SELFPAY ==
[2023-07-19 08:48] VITALS: BP 102/60; BMI 26.4
--- NOTE | 2023-07-19 08:48 | A.OFFVIS_ITS ---
Vital Signs 07/19/23 08:48 Height 5 ft Weight 135 lb BMI 26.4 BP 102/60 Intake Visit Reasons: Annual/DO NOT RS Intake Note: no concerns Pediatric Social Worker Required: No Information Interpreted: non-clinical & clinical Electrolysis Operator: Electrolysis Operator Present (Pari Jackson ABRAHAM) Accompanied by: Self / Same As Patient Allergies Penicillins [PENICILLINS] Allergy (Unknown, Verified 07/19/23 08:55) RASH SEAFOOD Allergy (Unknown, Uncoded 07/19/23 08:55) RASH Post menopausal: Yes HPI Comments Details: Presenting for annual exam. No complaints. Last Pap/HPV was negative in 01/01 Last Mammogram was BI-RADS 1 in 06/05 Last Colonoscopy was in 10/27, the recommendation was to repeat in 10 years [facility] Medical History Biventricular ICD (implantable cardioverter-defibrillator) in place CHF exacerbation Right bundle branch block (RBBB) on electrocardiogram (ECG) Right heart failure Complete heart block Acute on chronic right heart failure ICD (implantable cardioverter-defibrillator) in place Dysplasia of cervix, low grade (MIGUEL 1) Paroxysmal atrial fibrillation Fallot tetralogy Heart valve disorder Pacemaker HIV (human immunodeficiency virus infection) Asthma Surgical History H/O varicose vein stripping (04/04/21) Pulmonary valve replaced History of cardioversion H/O pulmonic valve replacement Hx of cardiac pacemaker History of open heart surgery Family History Father CVD (cardiovascular disease) Mother No problems noted. Social History Household Members Other:: female partner Housing: Apartment Do you presently have visiting nurse or other home services: No Alcohol intake: current Alcohol intake frequency: holidays/special occasions only Patient Tobacco Use Status: Never used Tobacco service: No Current occupational status: disabled Sexually active: Yes Sexual orientation: Lesbian/Guerrier/Homosexual Gender identity: Female Female Reproductive History Menstrual Age of Menarche: 10 Total pregnancies: 0 Date of last pap smear: 01/11/20 Date of Mammogram: 05/24/23 Review of Systems Const All systems reviewed & are unremarkable except as noted in HPI and below Card Reports as per HPI Resp Reports as per HPI GI Reports as per HPI and Reports no additional complaints Reports as per HPI Physical Exam Vital Signs: Last Vital Signs BP 102/60 07/19/23 08:48 BMI result Body Mass Index 26.4 Const General: cooperative, healthy appearing and comfortable Chest Chest palpation & inspection: normal inspection of the chest and normal palpation of entire chest wall Breast/axilla inspection: normal inspection of the breasts and normal inspection of the axillae Breast/axilla palpation: normal palpation of the breasts, normal palpation of the axillae and no axillary lymphadenopathy Resp Effort & Inspection: normal respiratory effort Auscultation: clear to auscultation bilaterally Percussion: percussion normal Cardio Palpation: normal PMI Rate: regular rate Rhythm: regular rhythm Heart sounds: no murmurs and no rubs Peripheral pulses: Peripheral pulses 2+ throughout GI Inspection: Yes normal to inspection Palpation (GI): Soft to palpation, nontender, no guarding, not rigid and No hepatosplenomegaly present Percussion: Yes normal to percussion Auscultation: normal bowel sounds Rectal Exam - Female: deferred General: Yes bladder normal to palpation External Female Exam: No lesion Speculum Exam - Vagina: normal appearance of the vagina, normal palpation, normal vaginal discharge and not erythematous Speculum Exam - Cervix: normal appearance of the cervix and normal palpation Bimanual exam- vagina & uterus: normal bimanual exam, normal palpation, uterine size normal, bladder normal to palpation, consistency normal and normal palpation Bimanual Exam- Adnexa, other: normal adnexae, no masses and no tenderness Assessment & Plan Assessment & Plan (1) Well woman exam: Code(s): Z01.419 - Encounter for gynecological examination (general) (routine) without abnormal findings Category: Medical Plan: Co testing not indicated this year. Counseled the patient about the recommended dietary allowance of 1200 mg of Calcium & 600 IU of vitamin D. Instructions given to patient to schedule next screening Mammogram in 06/06. The patient was instructed to perform monthly self-breast exams and schedule an nual exam in a year. All questions answered and the patient verbalized understanding. Coding Level of Care Code Est Pt Prev Care 40-64y(22460) Diagnoses Well woman exam Z01.419
== END 2023-07-19 09:31 | disposition home or self-care (01) ==
PROVIDERS: PCP Family Medicine; Referring Provider Family Medicine; Visit Provider Obstetrics & Gynecology
DX: Z01.419 Encounter for gynecological examination (general) (routine) without abnormal findings (principal)
CPT/HCPCS: 99396

== ENCOUNTER → 2023-07-19 08:31 | Outpatient (BNVA) | payer MEDICAID, SELFPAY | PROVIDERS: PCP Family Medicine; Visit Provider Obstetrics & Gynecology | DX: Z01.419 Encounter for gynecological examination (general) (routine) without abnormal findings (principal) | CPT/HCPCS: 99396 ==

== ENCOUNTER 2023-08-17 12:03 | Outpatient (REF) | payer MEDICAID, SELFPAY ==
--- NOTE | ~2023-08-17 | XR_ITS ---
EXAMINATION: XR SHOULDER, RIGHT CLINICAL INFORMATION: Right shoulder pain. Decreased range of motion. Status post fall. COMPARISON: None available. TECHNIQUE: AP external rotation, Grashey, scapular Y, and axillary views of the right shoulder. FINDINGS: Mild glenohumeral osteoarthritis with marginal osteophytes and subchondral cystic change. AC joint appears relatively well-preserved. No fracture or malalignment. Soft tissues are unremarkable. XR/XR shoulder RT min 2V IMPRESSION: Mild glenohumeral osteoarthritis. No acute osseous findings.
== END 2023-08-17 12:04 | disposition home or self-care (01) ==
LOC: HO.HHCX 12:03
PROVIDERS: Visit Provider Family Medicine
DX: M25.511 Pain in right shoulder (principal)
CPT/HCPCS: 73030

== ENCOUNTER 2023-09-06 12:13 | Outpatient (REF) | payer MEDICAID, SELFPAY ==
--- NOTE | ~2023-09-06 | XR_ITS ---
EXAMINATION: XR RIBS, LEFT CLINICAL INFORMATION: Pain and tenderness over left anterior and lateral ribs after fall 9 days ago COMPARISON: Chest radiograph 03/09/2023 TECHNIQUE: Single view chest and 4 views of the left ribs were obtained. FINDINGS: The heart is enlarged with a 3-lead left chest wall pacemaker present and a TAVR seen. Status post median sternotomy. There is central pulmonary vascular congestion but no gross CHF. No rib fractures are seen. There is a mild biconvex thoracolumbar scoliosis. XR/XR ribs LT min 3V w CXR1V IMPRESSION: 1. No rib fractures are seen. 2. Cardiomegaly with central pulmonary vascular congestion.
== END 2023-09-06 12:14 | disposition home or self-care (01) ==
LOC: HO.HHCX 12:13
PROVIDERS: Visit Provider Emergency Medicine
DX: R05.1 Acute cough (principal); R07.89 Other chest pain
CPT/HCPCS: 71101

== ENCOUNTER 2023-10-07 08:32 | Outpatient (AMB) | payer MEDICAID, SELFPAY ==
[2023-10-07 08:34] VITALS: BP 118/66; PULSE 60; BMI 25.2
--- NOTE | 2023-10-07 08:34 | A.OFFVIS_ITS ---
Vital Signs 10/07/23 08:34 Height 5 ft Weight 129 lb 3.054 oz BMI 25.2 BP 118/66 Blood Pressure Location Rt brachial Position Sitting Pulse 60 Pulse Source Monitor Intake Visit Reasons: follow-up [facility] [place] Lathe Operator Required: No Allergies Penicillins [PENICILLINS] Allergy (Unknown, Verified 10/07/23 08:37) RASH SEAFOOD Allergy (Unknown, Uncoded 10/07/23 08:37) RASH Medication List - Last Reconciled 10/07/23 by OSMIN Alvarez albuterol sulfate 90 mcg/actuation (ProAir HFA) 1 inh inhalation QID albuterol sulfate mg inhalation Q4H PRN amiodarone 100 mg PO DAILY 90 days [id number]-ohmvqlzz-xhmshvi ala 50-200-25 mg (Biktarvy) 1 tab PO BEDTIME blood pressure monitor (Blood Pressure Kit) As directed diclofenac sodium 1% 2 grams topical BID ergocalciferol (vitamin D2) 1,250 mcg PO QWEEK metoprolol succinate ER 25 mg PO DAILY oxycodone-acetaminophen 5-325 mg 1 tab PO BEDTIME PRN rivaroxaban (Xarelto) 20 mg PO BEDTIME 90 days rosuvastatin 5 mg PO DAILY sacubitril-valsartan 24-26 mg (Entresto) 1 tab PO BID spironolactone (Aldactone) 12.5 mg (1/2 x 25 mg) PO DAILY underpads (Goodnites Bed Mats) As directed HPI HPI follow-up [facility] [place]: Details: Jasmina is a 58-year-old female with past medical history of tetralogy of Fallot status post repair as a child, paroxysmal atrial fibrillation, ventricular ectopy status post ICD with recent atrial lead and Bi V ICD upgrade, history of bioprosthetic pulmonic valve replacement, Congestive heart failure, HIV who was recently admitted to [facility] following a syncopal event. Her blood pressure was on the low side and spironolactone was stopped. Echocardiogram at [facility] showed EF 25-30%, bioprosthetic pulmonic valve functioning normally. Today she reports that she has been feeling well since her [facility] evaluation. She has not had any recurrent syncopal events. She states that day she was doing housework then felt dizzy and lost consciousness. She has not had any issues with chest discomfort at rest or with activity. She denies shortness of breath, PND, orthopnea or edema. No heart palpitations, presyncope, other falls. Reports good activity tolerance. Takes meds as directed. Tells me she does not have a remote monitor for her ICD. [facility] Medical History Biventricular ICD (implantable cardioverter-defibrillator) in place CHF exacerbation Right bundle branch block (RBBB) on electrocardiogram (ECG) Right heart failure Complete heart block Acute on chronic right heart failure ICD (implantable cardioverter-defibrillator) in place Dysplasia of cervix, low grade (MIGUEL 1) Paroxysmal atrial fibrillation Fallot tetralogy Heart valve disorder Pacemaker HIV (human immunodeficiency virus infection) Asthma Surgical History H/O varicose vein stripping (04/04/21) Pulmonary valve replaced History of cardioversion H/O pulmonic valve replacement Hx of cardiac pacemaker History of open heart surgery Family History Father CVD (cardiovascular disease) Mother No problems noted. Social History Household Members Other:: female partner Housing: Apartment Do you presently have visiting nurse or other home services: No Alcohol intake: current Alcohol intake frequency: holidays/special occasions only Patient Tobacco Use Status: Never used Tobacco service: No Current occupational status: disabled Sexual orientation: Lesbian/Guerrier/Homosexual Gender identity: Female Female Reproductive History Menstrual Age of Menarche: 10 Review of Systems Const All systems reviewed & are unremarkable except as noted in HPI and below ENT Denies dizziness Card Denies chest pain, Denies chest pain at rest, Denies chest pain with activity, Denies rapid heart rate, Denies pedal edema, Denies edema, Denies leg edema, Denies lightheadedness, Denies palpitations, Denies dyspnea, Denies dyspnea on exertion and Denies orthopnea Resp Denies cough, Denies dyspnea and Denies dyspnea on exertion GI Denies hematochezia and Denies change in stool character Musc Denies abnormal gait, Denies limited range of motion, Denies muscle cramps, Denies muscle weakness, Denies numbness, Denies radiating pain into limb, Denies stiffness and Denies tingling Neuro Denies abnormal gait, Denies dizziness, Denies numbness and Denies tingling Endo Denies palpitations Physical Exam Vital Signs: Last Vital Signs Pulse 60 10/07/23 08:34 BP 118/66 10/07/23 08:34 BMI result Body Mass Index 25.2 Const General: cooperative, healthy appearing, comfortable and no acute distress Orientation/consciousness: patient oriented x3 Neck Neck: Yes normal visual inspection and Yes no JVD Resp Effort & Inspection: normal respiratory effort Auscultation: clear to auscultation bilaterally, no crackles, no rales, no rhonchi and no wheezes Cardio Jugular venous distension: no JVD Rate: regular rate Rhythm: regular rhythm Heart sounds: S1 normal heart sound present, S2 normal heart sound present, no murmurs and no rubs Neuro General: patient oriented x3 Extrem General: Yes normal to inspection, No no pedal edema and No calf tenderness Psych Appearance: grossly normal Mental Status: mental status grossly normal Speech and movement: Normal speech and movement present Office Procedures Cardiac Device Check Cardiac Device Check Details: [facility] Bi V ICD interrogation shows battery 4.7 years, atrial threshold 1.5 volts at 0.5 milliseconds, RV and LV threshold not performed. DDDR mode, low rate 60, a paced 65%, Bi V paced greater than 99%, no sustained VT, no therapies, one episode of 12 beat NSVT 10/02/23. [id number] Cardiac Device Check, multi lead implantable defibrillator Procedure code (CPT) selection complete EKG Details: Today, read by me, atrial and ventricular paced rhythm, rate 60 [id number], Complete Assessment & Plan Assessment & Plan (1) Syncope: Code(s): R55 - Syncope and collapse Category: Medical Plan: [facility] evaluation 08/29/2023 following a syncopal event at home. She tells me she was doing housework, got lightheaded and fainted. She has not had episodes like this in the past. They did find her blood pressure to be on the low side and spironolactone was then stopped. She ruled out for ACS. Device interrogation showed no alerts. An echocardiogram done while there showed EF 25-30%, grade 3 diastolic dysfunction, bioprosthetic pulmonic valve functioning normally with mean gradient 8 mmHg. Since that time she has had no recurrent episodes. Blood pressure normal range today, 118/66. Instructed to maintain good hydration. (2) Biventricular ICD (implantable cardioverter-defibrillator) in place: Comment: [facility] biventricular ICD in place for complete heart block and cardiomyopathy, December 2022 Code(s): Z95.810 - Presence of automatic (implantable) cardiac defibrillator Category: Medical Plan: [facility] Biventricular ICD in place and functioning normally on interrogation today. Bi V pacing greater than 99%. One episode of brief NSVT recently. No therapies. He has no clinical signs of heart failure on examination. NYHA class 1. She says she does not have a remote monitor at her bedside. Will arrange for a new monitor to be sent to her. Next office interrogation due in 6 months. (3) CHF (congestive heart failure): Code(s): I50.9 - Heart failure, unspecified Category: Medical Plan: Congestive heart failure with LV systolic dysfunction had improved with [employer] D. Prior known EF was 50-55%. Recent echocardiogram done at [facility] is now showing EF 25-30%. Clinically she has no change in symptoms. Continue metoprolol, Entresto for neurohormonal modulation. Spironolactone was recently stopped as she had a syncopal event, likely related to orthostatic hypotension. She has no signs or symptoms of heart failure. She is not requiring diuretic therapy at this time. Signs and symptoms of heart failure reviewed with her in detail. Will check a limited echo prior to her next visit. (4) Fallot tetralogy: Comment: Status post repair at age 1 and 2. Being followed in conjunction with Dr. Gee at [facility] Code(s): Q21.3 - Tetralogy of Fallot Category: Medical Plan: Prior history of tetralogy of Fallot repaired at a young age. She currently follows with adult [facility]. Has remained stable but has had lot of secondary complication including very prolonged right bundle-branch block, right ventricular enlargement with right heart failure, syncope, atrial fibrillation, pulmonary regurgitation requiring transcatheter pulmonic valve replacement. She is doing well at this point time. Full echocardiogram done at [facility] and scanned in our system. (5) H/O pulmonic valve replacement: Comment: 06/2017 Code(s): Z95.2 - Presence of prosthetic heart valve Category: Surgical Plan: History of transcatheter pulmonary valve replacement for right heart failure syndrome with RV enlargement with pulmonary regurgitation. Has done very well from right ventricular perspective with pulmonic valve replacement. [facility] echocardiogram 08/29/2023 showed bioprosthetic pulmonic valve functioning normally with peak gradient 17 mmHg and mean gradient 8 mmHg. Continue to monitor by echocardiogram. SBE prophylaxis as per ACC/aha guidelines. (6) Paroxysmal atrial fibrillation: Code(s): I48.0 - Paroxysmal atrial fibrillation Category: Medical Plan: Paroxysmal atrial fibrillation which has remained suppressed on low-dose amiodarone therapy. She is done well with rhythm control. Labs done on 03/18/2023 showed TSH 0.65 AST 25 and ALT 25, creatinine 0.88. Last chest x-ray 03/09/2023 shows no acute findings. Continue amiodarone. therapy. Continue current Xarelto dose at 20 mg daily. . (7) Cardiomyopathy: Code(s): I42.9 - Cardiomyopathy, unspecified Category: Medical Plan: Newly reduced EF as above. Will be checking a pharmacological nuclear stress test to assess for any ischemia. She has no anginal sounding symptoms. Plan Time spent on chart review, documentation, interview and assessment Orders: Orders CA lexiscan stress w carlos a Today I42.9 - Cardiomyopathy, unspecified, Z95.810 - Presence of automatic (implantable) cardiac defibrillator NM cardiolite stress test Today I42.9 - Cardiomyopathy, unspecified, Z95.810 - Presence of automatic (implantable) cardiac defibrillator CA Echo Limited 11/11/23 I42.9 - Cardiomyopathy, unspecified Coding Level of Care Code Est Pt Level 4 (47132) Diagnoses Syncope R55 Biventricular ICD (implantable cardioverter-defibrillator) in place Z95.810 CHF (congestive heart failure) I50.9 Fallot tetralogy Q21.3 H/O pulmonic valve replacement Z95.2 Paroxysmal atrial fibrillation I48.0 Cardiomyopathy I42.9 CPT Codes Cardiac Device Check - Cardiac Device 6: [id number] Cardiac Device Check, multi lead implantable defibrillator ([id number]) EKG - CPT: 65573-[id number], Complete ([id number]) Time Spent (min) 36
== END 2023-10-07 09:18 | disposition home or self-care (01) ==
PROVIDERS: PCP Family Medicine; Visit Provider Nurse Practitioner Family
DX: R55 Syncope and collapse (principal); Z95.810 Presence of automatic (implantable) cardiac defibrillator; I50.9 Heart failure, unspecified; Q21.3 Tetralogy of Fallot; Z95.2 Presence of prosthetic heart valve; I48.0 Paroxysmal atrial fibrillation; I42.9 Cardiomyopathy, unspecified
CPT/HCPCS: 93010; 93284; 99214

== ENCOUNTER → 2023-10-07 08:32 | Outpatient (BNVA) | payer MEDICAID, SELFPAY | PROVIDERS: PCP Family Medicine; Visit Provider Nurse Practitioner Family | DX: R55 Syncope and collapse (principal); Q21.3 Tetralogy of Fallot; I48.0 Paroxysmal atrial fibrillation; I42.9 Cardiomyopathy, unspecified; I11.0 Hypertensive heart disease with heart failure; I50.9 Heart failure, unspecified; Z95.2 Presence of prosthetic heart valve; Z95.810 Presence of automatic (implantable) cardiac defibrillator | CPT/HCPCS: 93005; 99212 ==

== ENCOUNTER 2023-10-12 14:40 | Outpatient (REF) | payer MEDICAID, SELFPAY ==
[2023-10-12 16:51] LABS: MANUAL DIFF FLAG NO
[2023-10-12 17:00] LABS: Basophils Percent Auto 0.4 % (0-2); Eosinophils Absolute Auto 0.2 X10*3/uL (0.0-0.4); Eosinophils Percent Auto 2.6 % (0-4); Hematocrit 41.9 % (37.0-47.0); Hemoglobin 13.5 g/dl (12.0-16.0); Imm Gran Abs Auto 0.02 X10*3/uL (0.00-0.03); Imm Gran Pct Auto 0.3 % (0.0-0.4); Lymphocytes Absolute Auto 1.3 X10*3/uL (1.2-4.9); Lymphocytes Percent Auto 16.9 % (20-40); Mean Corpuscular HGB Conc 32.2 g/dl (31.0-35.0); Mean Corpuscular Hemoglobin 31.8 pg (27.0-33.0); Mean Corpuscular Volume 98.8 fL (80.0-98.0); Mean Platelet Volume 11.6 fL (9.4-12.3); Monocytes Absolute Auto 0.9 X10*3/uL (0.1-1.2); Monocytes Percent Auto 11.2 % (2-11); Neutrophils Absolute Auto 5.3 x10*3/uL (2.0-8.3); Neutrophils Percent Auto 68.6 % (45-73); Platelet Count 239 X10*3/uL (160-400); Red Blood Count 4.24 X10*6/uL (4.20-5.50); White Blood Count 7.7 X10*3/uL (4.8-10.8)
[2023-10-12 17:22] LABS: Alanine Aminotransferase 12 U/L (0-31); Albumin Level 3.5 g/dL (3.5-5.0); Alkaline Phosphatase 79 U/L (39-117); Anion Gap 10 (12-20); Aspartate Amino Transferase 24 U/L (5-31); Bilirubin Total 0.4 mg/dL (0.0-1.0); Blood Urea Nitrogen 11 mg/dL (9-16); Calcium 9.6 mg/dL (8.4-10.2); Carbon Dioxide 33 mmol/L (22-29); Chloride 102 mmol/L (96-108); Estimated Glomerular Filt Rate > 60; Glucose Random 85 mg/dL (60-115); Potassium 3.8 mmol/L (3.3-5.1); Sodium 141 mmol/L (135-145); Total Protein 8.1 g/dL (6.5-8.0)
[2023-10-15 15:13] LABS: HIV RNA PCR Qn Copies 89 copies/mL (NOT DETECTED); HIV RNA PCR Qn Log Copies 1.95 (NOT DETECTED)
== END 2023-10-12 14:41 | disposition home or self-care (01) ==
LOC: HO.HHCL 14:40
PROVIDERS: Visit Provider Internal Medicine
DX: B20 Human immunodeficiency virus [HIV] disease (principal)
CPT/HCPCS: 36415; 80053; 85025; 86359; 86360; 87536

== ENCOUNTER 2023-10-19 09:27 | Outpatient (AMB) | payer MEDICAID, SELFPAY ==
[2023-10-19 09:26] VITALS: BMI 25.2
--- NOTE | 2023-10-19 09:26 | A.OFFVIS_ITS ---
Vital Signs 10/19/23 09:26 Height 5 ft Weight 129 lb BMI 25.2 Intake Visit Reasons: R LE VV with pain Intake Note: PRN Right LE VV causing pain on the thigh and calf, Hx of Right Micro s 09/25/22, 01/30/22, 04/04/21 & Left LE Micro 03/01/2020 Accompanied by: Self / Same As Patient Allergies Penicillins [PENICILLINS] Allergy (Unknown, Verified 10/19/23 09:30) RASH SEAFOOD Allergy (Unknown, Uncoded 10/19/23 09:30) RASH HPI HPI R LE VV with pain: Details: Very pleasant 58-year-old female presents for follow-up of her right lower extremity. She has had prior right lower extremity venous interventions and has noted new cluster of varicosities that have progressed on her right thigh and calf. She states that the pain and discomfort over these areas have increased. She has been fairly compliant with her compression which no longer provides relief. She now presents for follow-up for venous disease. [facility] Medical History Biventricular ICD (implantable cardioverter-defibrillator) in place CHF exacerbation Right bundle branch block (RBBB) on electrocardiogram (ECG) Right heart failure Complete heart block Acute on chronic right heart failure ICD (implantable cardioverter-defibrillator) in place Dysplasia of cervix, low grade (MIGUEL 1) Paroxysmal atrial fibrillation Fallot tetralogy Heart valve disorder Pacemaker HIV (human immunodeficiency virus infection) Asthma Surgical History H/O varicose vein stripping (04/04/21) Pulmonary valve replaced History of cardioversion H/O pulmonic valve replacement Hx of cardiac pacemaker History of open heart surgery Family History Father CVD (cardiovascular disease) Mother No problems noted. Social History Household Members Other:: female partner Housing: Apartment Do you presently have visiting nurse or other home services: No Alcohol intake: current Alcohol intake frequency: holidays/special occasions only Patient Tobacco Use Status: Never used Tobacco service: No Current occupational status: disabled Sexual orientation: Lesbian/Guerrier/Homosexual Gender identity: Female Female Reproductive History Menstrual Age of Menarche: 10 Review of Systems Const Reports as per HPI ENT Reports no additional complaints Card Denies chest pain, Denies chest pain at rest and Denies chest pain with activity Resp Denies chest congestion and Denies cough GI Reports no additional complaints Musc Details: pain over varicosities, aching of lower extremities, swelling, cramping, heaviness and tiredness, itching Denies abnormal gait Skin/Breast Reports pruritus and Denies wounds Neuro Reports no additional complaints and Denies abnormal gait Psych Denies no additional complaints Physical Exam Vital Signs: BMI result Body Mass Index 25.2 Const General: cooperative, healthy appearing and comfortable Orientation/consciousness: oriented to person, oriented to place and oriented to time Neck Carotids: no bruits Chest Chest palpation & inspection: normal inspection of the chest and normal palpation of entire chest wall Resp Effort & Inspection: normal respiratory effort and able to speak in complete sentences Cardio Rate: regular rate Heart sounds: S1 normal heart sound present and S2 normal heart sound present Peripheral pulses: Peripheral pulses 2+ throughout GI Inspection: Yes normal to inspection Skin Other: +2 edema, large rope-like varicosities greater than 4 mm right thigh and calf CEAP Classification C4 - skin color changes Ep - Etiology Primary As - superficial veins P - reflux General skin exam: dry skin Neuro General: oriented to person, oriented to place and oriented to time Extrem Right lower extremity: full ROM, normal capillary refill and edema Left lower extremity: full ROM, normal capillary refill and edema Psych Mental Status: mental status grossly normal Assessment & Plan Assessment & Plan (1) Varicose veins of right lower extremity with inflammation: Comment: 04/04/2021 - right leg microphlebectomy 01/30/2022 - right leg microphlebectomy 09/25/2022 - right leg microphlebectomy Code(s): I83.11 - Varicose veins of right lower extremity with inflammation Category: Medical Plan: In short patient has recurrent right lower extremity venous disease. She continues to develop these recurrent clusters. Unclear what the etiology of this is. I did take the liberty of ordering repeat right lower extremity venous insufficiency testing. The patient will follow up with us after testing. In addition we did discuss conservative measures including compression elevation and exercise. Thank you for allowing us to assist in her care. Orders: Orders US venous duplex LE RT 1 Week I83.11 - Varicose veins of right lower extremity with inflammation Coding Level of Care Code Est Pt Level 4 (94868) Diagnoses Varicose veins of right lower extremity with inflammation I83.11
== END 2023-10-19 09:53 | disposition home or self-care (01) ==
PROVIDERS: PCP Family Medicine; Visit Provider Surgery Vascular Surgery
DX: I83.11 Varicose veins of right lower extremity with inflammation (principal)
CPT/HCPCS: 99213

== ENCOUNTER → 2023-10-19 09:27 | Outpatient (BNVA) | payer MEDICAID, SELFPAY | PROVIDERS: PCP Family Medicine; Visit Provider Surgery Vascular Surgery | DX: I83.11 Varicose veins of right lower extremity with inflammation (principal) | CPT/HCPCS: 99212 ==

== ENCOUNTER → 2023-11-09 08:26 | Outpatient (REF) | payer MEDICAID, SELFPAY ==
--- NOTE | ~2023-11-09 | NM_ITS ---
Lexiscan Myocardial perfusion study Indication: Congestive heart failure Technique: The patient was brought in for a Lexiscan perfusion study on 11/09/2023 and was injected 0.4 mg of Lexiscan intravenously. Within a minute of this injection 25 mCi of sestamibi was given intravenously. Images were obtained using the SPECT gamma camera interlaced with the gating device. Images were obtained in supine position. Resting perfusion study was performed on 11/11/2023. Patient was administered 25 mCi of sestamibi intravenously at rest. Images were then obtained in supine position. Total DLP 69 mGy-cm. Images were processed with the software and compared side to side in short axis, horizontal long axis and vertical long axis views. Findings: Raw aquisition reviewed. The stress perfusion study showed mildly diminished tracer uptake in the apical part of inferior wall. There is improvement with CT attenuation correction and hence could indicate diaphragmatic attenuation artifact. The gated study shows normal LV systolic function with calculated LVEF of 60%. LV cavity is normal in size. The gated study shows normal wall thickening and contraction of segments. Resting study shows mildly diminished tracer uptake in the apical inferior wall. There is improvement with CT attenuation correction suggesting diaphragmatic attenuation artifact. Gating at rest reveals normal wall motion with ejection fraction at 56%. The findings are consistent with mild, fixed apical inferior defect suspected to be from diaphragmatic attenuation artifact. NH/NH cardiolite stress test Impression: 1. Myocardial perfusion imaging study shows probably normal myocardial perfusion. 2. Gated LVEF is 60% during stress and 56% during rest. 3. Transient ischemic dilatation not present. EKG component of the test reported separately. Electronically signed by: Georgi Turcios MD 11/11/2023 03:52 PM EDT
--- NOTE | 2023-11-09 08:29 | CA_ITS ---
Acquisition Time: 2023-11-09 09:02:23 Total Exercise Time: 00:02:00 Test Indications: RBBB, AFIB Medications: SEE H Protocol: LEXISCAN Max HR: 102 BPM 63% of Pred: 160 BPM Max BP: 122/072 mmHG Max Work Load: 1.0 METS Pharmacological stress test with Lexiscan injection while sitting and kicking her legs, without anginal symptoms, without arrhythmias, with normotensive response to injection, with nondiagnoisitic EKGs. Aminophylline 75mg IVP given to reverse Lexiscan. Nuclear images pending. Test reviewed with Dr. Marin Referred By: Katy Wade Overread By: Nesha Lopez
== END ==
LOC: HO.CARD 08:26
PROVIDERS: PCP Family Medicine; Visit Provider Nurse Practitioner Family
DX: I42.9 Cardiomyopathy, unspecified (principal); Z95.810 Presence of automatic (implantable) cardiac defibrillator
CPT/HCPCS: 78452; 93017; A9500; J0280; J2785

== ENCOUNTER → 2023-11-09 08:29 | Outpatient (BNV) | payer MEDICAID, SELFPAY | PROVIDERS: PCP Family Medicine; Visit Provider Nurse Practitioner | DX: I48.91 Unspecified atrial fibrillation (principal) | CPT/HCPCS: 78452; 93016; 93018 ==

== ENCOUNTER 2023-11-17 09:29 | Outpatient (REF) | payer MEDICAID, SELFPAY ==
--- NOTE | ~2023-11-17 | US_ITS ---
EXAMINATION: US VENOUS ULTRASOUND WITH DOPPLER LOWER EXTREMITY, RIGHT CLINICAL INFORMATION: Right lower extremity varicose veins; history of varicose vein stripping. COMPARISON: Venous ultrasound dated 12/30/2021. TECHNIQUE: Ultrasound of the deep veins is performed from the hip to the calf with compression sonography and color and pulse Doppler assessment. Spectral analysis with color-flow imaging is performed. FINDINGS: RIGHT SIDE: GREATER SAPHENOUS VEIN: The right saphenofemoral junction is not seen secondary to prior stripping procedure. The mid thigh segment is not seen secondary to prior stripping procedure. The above-knee segment is not seen secondary to prior stripping procedure. The below-knee segment diameter 0.6 cm. There is no reflux The mid calf segment diameter is 0.3 cm. The reflux time is 1920 ms. The ankle segment diameter 0.3 cm. The reflux time is 1810 ms. LESSER SAPHENOUS VEIN: The right saphenopopliteal junction diameter is 0.2 cm. There is no reflux. The right mid calf diameter is 0.2 cm. There is no reflux. The right distal calf diameter is 0.2 cm. There is no reflux. RIGHT DEEP VENOUS SYSTEM: There is no deep venous thrombosis or reflux on the right. US/US venous duplex LE RT IMPRESSION: 1. There has been a prior right greater saphenous vein stripping procedure. A reconstituted right greater saphenous vein is seen within the proximal calf, showing hemodynamically significant reflux as above. 2. There is no hemodynamically significant reflux of the right lesser saphenous vein. 3. There is no hemodynamically significant reflux of the right deep venous system. Electronically signed by: Moo Anderson MD 11/18/2023 11:20 PM EDT
== END 2023-11-17 09:30 | disposition home or self-care (01) ==
LOC: HO.US 09:29
PROVIDERS: PCP Family Medicine; Visit Provider Surgery Vascular Surgery
DX: I83.11 Varicose veins of right lower extremity with inflammation (principal)
CPT/HCPCS: 93971

== ENCOUNTER 2023-11-23 09:01 | Outpatient (AMB) | payer MEDICAID, SELFPAY ==
[2023-11-23 09:16] VITALS: BP 108/60; PULSE 63; BMI 24.1
--- NOTE | 2023-11-23 09:16 | A.OFFVIS_ITS ---
Vital Signs 11/23/23 09:16 Height 5 ft Weight 123 lb 7.342 oz BMI 24.1 BP 108/60 Blood Pressure Location Lt brachial Position Sitting Pulse 63 Intake Visit Reasons: 6 mth f/up Intake Note: 6 month follow-up with [facility] [employer] Required: No Allergies Penicillins [PENICILLINS] Allergy (Unknown, Verified 10/19/23 09:30) RASH SEAFOOD Allergy (Unknown, Uncoded 10/19/23 09:30) RASH Medication List - Last Reconciled 11/23/23 by Christoph Marin MD albuterol sulfate 90 mcg/actuation (ProAir HFA) 1 inh inhalation QID albuterol sulfate mg inhalation Q4H PRN amiodarone 100 mg PO DAILY 90 days bhtqmqtjm-zulyzadj-iidgahk ala 50-200-25 mg (Biktarvy) 1 tab PO BEDTIME blood pressure monitor (Blood Pressure Kit) As directed diclofenac sodium 1% 2 grams topical BID ergocalciferol (vitamin D2) 1,250 mcg PO QWEEK metoprolol succinate ER 25 mg PO DAILY oxycodone-acetaminophen 5-325 mg 1 tab PO BEDTIME PRN rivaroxaban (Xarelto) 20 mg PO BEDTIME 90 days rosuvastatin 5 mg PO DAILY sacubitril-valsartan 24-26 mg (Entresto) 1 tab PO BID underpads (Goodnites Bed Mats) As directed HPI Comments Details: Nohemi comes for follow-up. Overall she has been doing well from cardiac perspective. She has not had any worsening cardiac symptoms. She says she has been gradually losing weight although her appetite is preserved. She denies any heart failure symptoms. Denies any exertional chest pain. Recently underwent myocardial perfusion imaging which was within normal limits. Gated LVEF on that study was about 60%. She had an echocardiogram last year which showed LVEF of 50-55%. She was slightly elevated gradient across the bioprosthetic pulmonic valve at 17 mm Hg. She denies any fever or chills. Denies any prolonged palpitation irregular heartbeat. No lightheadedness, syncope. Taking all her medications. [facility] Medical History Biventricular ICD (implantable cardioverter-defibrillator) in place CHF exacerbation Right bundle branch block (RBBB) on electrocardiogram (ECG) Right heart failure Complete heart block Acute on chronic right heart failure ICD (implantable cardioverter-defibrillator) in place Dysplasia of cervix, low grade (MIGUEL 1) Paroxysmal atrial fibrillation Fallot tetralogy Heart valve disorder Pacemaker HIV (human immunodeficiency virus infection) Asthma Surgical History H/O varicose vein stripping (04/04/21) Pulmonary valve replaced History of cardioversion H/O pulmonic valve replacement Hx of cardiac pacemaker History of open heart surgery Family History Father CVD (cardiovascular disease) Mother No problems noted. Social History Household Members Other:: female partner Housing: Apartment Do you presently have visiting nurse or other home services: No Alcohol intake: current Alcohol intake frequency: holidays/special occasions only Patient Tobacco Use Status: Never used Tobacco service: No Current occupational status: disabled Sexual orientation: Lesbian/Guerrier/Homosexual Gender identity: Female Female Reproductive History Menstrual Age of Menarche: 10 Review of Systems Const Denies chills, Denies fatigue, Denies fever(s), Denies frequent falls, Denies weakness, Denies weight gain and Denies weight loss ENT Denies dizziness Card Denies chest pain, Denies leg edema, Denies lightheadedness, Denies palpitations, Denies dyspnea, Denies dyspnea on exertion, Denies orthopnea and Denies other (loss of consciousness) Resp Denies cough, Denies dyspnea and Denies dyspnea on exertion GI Denies hematochezia and Denies change in stool character Musc Denies abnormal gait, Denies muscle weakness, Denies numbness, Denies radiating pain into limb and Denies tingling Neuro Denies abnormal gait, Denies dizziness, Denies frequent falls, Denies numbness, Denies tingling and Denies weakness Endo Denies fatigue and Denies palpitations Physical Exam Vital Signs: Last Vital Signs Pulse 63 11/23/23 09:16 BP 108/60 11/23/23 09:16 BMI result Body Mass Index 24.1 Const General: cooperative, healthy appearing, comfortable and no acute distress Nutritional Appearance: thin Orientation/consciousness: patient oriented x3 Neck Neck: Yes normal visual inspection and Yes no JVD Resp Effort & Inspection: normal respiratory effort Auscultation: clear to auscultation bilaterally, no crackles, no rales, no rhonchi and no wheezes Cardio Jugular venous distension: no JVD Rate: regular rate Rhythm: regular rhythm Heart sounds: S1 normal heart sound present, S2 normal heart sound present, Murmur heart sound present systolic early and no rubs Neuro General: patient oriented x3 Extrem General: Yes normal to inspection, No no pedal edema and No calf tenderness Psych Appearance: grossly normal Mental Status: mental status grossly normal Speech and movement: Normal speech and movement present Office Procedures Cardiac Device Check Cardiac Device Check Details: [facility] biventricular ICD in place. Programmed in DDDR at 60 beats per minute. Atrial sensitivity is adequate. Atrial capture thresholds are elevated but in our capture mode. Not unexpected given her right atrial pathology. RV pacing thresholds are slightly elevated with adequate safety margin. LV pacing thresholds are stable. Pacing and shock lead impedance is stable. Battery life is at about 4.7 years. No arrhythmias detected. Bi V pacing almost 100% of the time. 54587-PG Cardiac Device Check, multi lead implantable defibrillator Procedure code (CPT) selection complete EKG Details: EKG shows atrially sensed ventricularly paced rhythm 44508-[id number], Complete Assessment & Plan Assessment & Plan (1) Adult congenital heart disease: Code(s): Q24.9 - Congenital malformation of heart, unspecified Category: Medical Plan: Patient with history of tetralogy of Fallot with complete repair with consequent multiple complications related to it including syncope requiring an ICD placement which was subsequently upgraded to biventricular ICD, see below. Patient also has history of atrial arrhythmias including atrial flutter atrial fibrillation has remained suppressed and has been on oral anticoagulation therapy. Also had developed right-sided heart failure secondary to significant pulmonary regurgitation which has then underwent a pulmonic valve replacement see below. Overall has remained stable. Continue SBE prophylaxis as per ACC/aha guidelines. Continue maintain activity as tolerated. Continue to follow with adult [facility] on annual basis as planned. (2) CHF (congestive heart failure): Code(s): I50.9 - Heart failure, unspecified Category: Medical Plan: Patient had dual heart failure initially developed right-sided heart failure syndrome secondary to significant pulmonary regurgitation and RV dysfunction. Which improved after placement of percutaneous bioprosthetic pulmonic valve which has worked well. This led to resolution of her right heart failure syndrome however subsequently developed LV systolic dysfunction of unclear etiology with complete heart block. Underwent a biventricular ICD and neurohormonal modulation with Entresto and metoprolol therapy. She also underwent a biventricular ICD placement which has led to improvement in LV ejection fraction to 50-55%. She could not tolerate spironolactone due to hyperkalemia. Clinically euvolemic and well compensated with good functionality. Currently not on any loop diuretics. Advised to continue monitor for signs and symptoms of heart failure. She understands and agrees. (3) Biventricular ICD (implantable cardioverter-defibrillator) in place: Comment: [facility] biventricular ICD in place for complete heart block and cardiomyopathy, December 2022 Code(s): Z95.810 - Presence of automatic (implantable) cardiac defibrillator Category: Medical Plan: Biventricular ICD in place for complete heart block in December 2022. Since then she has had improvement in her LV systolic function. Will continue monitor remotely for heart failure as well as for pacer function. Her right atrial thresholds elevated due to right atrial pathology. Also be pacing thresholds are slightly elevated. Will continue monitor. Follow up in the clinic in 6 months time. (4) H/O pulmonic valve replacement: Comment: 06/2017 Code(s): Z95.2 - Presence of prosthetic heart valve Category: Surgical Plan: History of bioprosthetic pulmonic valve replacement secondary to significant pulmonary regurgitation done few years ago. Had done very well with that. Slightly increased gradient across the pulmonic valve. Will continue monitor by echocardiogram on annual basis. SBE prophylaxis as per ACC/aha guidelines. (5) Paroxysmal atrial fibrillation: Code(s): I48.0 - Paroxysmal atrial fibrillation Category: Medical Plan: Paroxysmal atrial fibrillation which has remained suppressed and has done very well because of that. She has done well with rhythm control approach will continue pursue the same. Continue low-dose amiodarone therapy. Annual check for amiodarone toxicity should be pursued. Currently on full oral anticoagulation Xarelto. Semi annual renal function test should be pursued. Will follow up in the clinic in 6 months time. Greater than 40 minutes was spent in managing his complex care. Coding Level of Care Code Est Pt Level 5 (80808) Diagnoses Adult congenital heart disease Q24.9 CHF (congestive heart failure) I50.9 Biventricular ICD (implantable cardioverter-defibrillator) in place Z95.810 H/O pulmonic valve replacement Z95.2 Paroxysmal atrial fibrillation I48.0 CPT Codes Cardiac Device Check - Cardiac Device 6: [id number] Cardiac Device Check, multi lead implantable defibrillator ([id number]) EKG - CPT: 44221-[id number], Complete ([id number])
== END 2023-11-23 09:44 | disposition home or self-care (01) ==
PROVIDERS: PCP Family Medicine; Referring Provider Family Medicine; Visit Provider Internal Medicine Cardiovascular Disease
DX: I50.9 Heart failure, unspecified (principal); Q21.3 Tetralogy of Fallot; Z87.74 Personal history of (corrected) congenital malformations of heart and circulatory system; Z95.810 Presence of automatic (implantable) cardiac defibrillator; Z95.2 Presence of prosthetic heart valve; I48.0 Paroxysmal atrial fibrillation
CPT/HCPCS: 93284; 99215

== ENCOUNTER → 2023-11-23 09:01 | Outpatient (BNVA) | payer MEDICAID, SELFPAY | PROVIDERS: PCP Family Medicine; Visit Provider Internal Medicine Cardiovascular Disease | DX: Q21.3 Tetralogy of Fallot (principal); I11.0 Hypertensive heart disease with heart failure; I50.9 Heart failure, unspecified; I48.0 Paroxysmal atrial fibrillation; Z95.2 Presence of prosthetic heart valve; Z45.02 Encounter for adjustment and management of automatic implantable cardiac defibrillator | CPT/HCPCS: 99212 ==

== ENCOUNTER 2023-12-16 09:31 | Outpatient (AMB) | payer MEDICAID, SELFPAY ==
--- NOTE | 2023-12-16 09:36 | MHC.OFFVIS ---
Intake Visit Reasons: follow up s/p US 11/17/23 Intake Note: Patient presents for follow up 11/16 . Patient states she is here for her right leg pain , says she is here to talk about getting a surgery. Allergies Penicillins [PENICILLINS] Allergy (Unknown, Verified 12/16/23 09:39) RASH SEAFOOD Allergy (Unknown, Uncoded 10/19/23 09:30) RASH HPI HPI follow up s/p US 11/17/23: Details: Very pleasant 58-year-old female presents for follow-up with right lower extremity venous insufficiency. She has some varicosities in the right calf which have been a source of pain and discomfort for her. She now presents for routine follow-up with venous insufficiency testing. [facility] Medical History Biventricular ICD (implantable cardioverter-defibrillator) in place CHF exacerbation Right bundle branch block (RBBB) on electrocardiogram (ECG) Right heart failure Complete heart block Acute on chronic right heart failure ICD (implantable cardioverter-defibrillator) in place Dysplasia of cervix, low grade (MIGUEL 1) Paroxysmal atrial fibrillation Fallot tetralogy Heart valve disorder Pacemaker HIV (human immunodeficiency virus infection) Asthma Surgical History H/O varicose vein stripping (04/04/21) Pulmonary valve replaced History of cardioversion H/O pulmonic valve replacement Hx of cardiac pacemaker History of open heart surgery Family History Father CVD (cardiovascular disease) Mother No problems noted. Social History Household Members Other:: female partner Housing: Apartment Do you presently have visiting nurse or other home services: No Alcohol intake: current Alcohol intake frequency: holidays/special occasions only Patient Tobacco Use Status: Never used Tobacco service: No Current occupational status: disabled Sexual orientation: Lesbian/Guerrier/Homosexual Gender identity: Female Female Reproductive History Menstrual Age of Menarche: 10 Review of Systems Const Reports as per HPI ENT Reports no additional complaints Card Denies chest pain, Denies chest pain at rest and Denies chest pain with activity Resp Denies chest congestion and Denies cough GI Reports no additional complaints Musc Details: pain over varicosities, aching of lower extremities, swelling, cramping, heaviness and tiredness, itching Denies abnormal gait Skin/Breast Reports pruritus and Denies wounds Neuro Reports no additional complaints and Denies abnormal gait Psych Denies no additional complaints Physical Exam Const General: cooperative, healthy appearing and comfortable Orientation/consciousness: oriented to person, oriented to place and oriented to time Neck Carotids: no bruits Chest Chest palpation & inspection: normal inspection of the chest and normal palpation of entire chest wall Resp Effort & Inspection: normal respiratory effort and able to speak in complete sentences Cardio Rate: regular rate Heart sounds: S1 normal heart sound present and S2 normal heart sound present Peripheral pulses: Peripheral pulses 2+ throughout GI Inspection: Yes normal to inspection Skin Other: +2 edema, large rope-like varicosities greater than 4 mm right calf CEAP Classification C4 - skin color changes Ep - Etiology Primary As - superficial veins P - reflux General skin exam: dry skin Neuro General: oriented to person, oriented to place and oriented to time Extrem Right lower extremity: full ROM, normal capillary refill and edema Left lower extremity: full ROM, normal capillary refill and edema Psych Mental Status: mental status grossly normal Results Reviewed Results Reviewed: Brief summary of venous insufficiency testing is as follows: right great saphenous vein: Only focally positive at right calf but vein is of small caliber right small saphenous vein: negative right accessory vein: none present Please note there is no evidence of any venous aneurysms or significant tortuosity Assessment & Plan Assessment & Plan (1) Varicose veins of right lower extremity with inflammation: Comment: 04/04/2021 - right leg microphlebectomy 01/30/2022 - right leg microphlebectomy 09/25/2022 - right leg microphlebectomy Code(s): I83.11 - Varicose veins of right lower extremity with inflammation Category: Medical Plan: This patient has recurrent varicosities in the right calf. They continue to be a source of discomfort for the patient. The patient has tried conservative treatment with compression, leg elevation and exercise program for over 3 months time. They have been compliant with all treatment. This has provided minimal relief for the patient. I do not anticipate this course of treatment will alter the underlying etiology. The patient has been scheduled for lower extremity venous treatment inclusive of --- right leg microphlebectomy. Risks, benefits, and complications of this procedure has been discussed in detail with the patient including but not limited to bleeding, infection, and the development of a DVT. The patient has demonstrated a clear understanding and has consented. We will schedule the patient as soon as possible. Thank you for allowing us to participate in this patient's care. If there are any questions or concerns please do not hesitate to contact us. Coding Level of Care Code Est Pt Level 4 (26705) Diagnoses Varicose veins of right lower extremity with inflammation I83.11
== END 2023-12-16 10:03 | disposition home or self-care (01) ==
PROVIDERS: PCP Family Medicine; Visit Provider Surgery Vascular Surgery
DX: I83.11 Varicose veins of right lower extremity with inflammation (principal)
CPT/HCPCS: 99214

== ENCOUNTER → 2023-12-16 09:31 | Outpatient (BNVA) | payer MEDICAID, SELFPAY | PROVIDERS: PCP Family Medicine; Visit Provider Surgery Vascular Surgery | DX: I83.11 Varicose veins of right lower extremity with inflammation (principal) | CPT/HCPCS: 99212 ==

== ENCOUNTER 2023-12-30 10:39 | Inpatient (IN) | payer MEDICAID, SELFPAY ==
[2023-12-30] VITALS (9 sets, daily range): BP systolic 100–141; BP diastolic 51–79; PULSE 60–76; RESP 16–19; TEMP 36.3–36.8; O2SAT 93–100; BMI 25.9
--- NOTE | ~2023-12-30 | XR_ITS ---
EXAMINATION: XR CHEST CLINICAL INFORMATION: Dyspnea COMPARISON: Chest and RIBS 09/06/2023. Chest radiograph 03/09/2023 TECHNIQUE: Frontal view of the chest was obtained. FINDINGS: The cardiac silhouette is enlarged. Patient status post median sternotomy. A 3-lead pacemaker is present in the left chest wall. A TAVR is present. There is central pulmonary vascular congestion and interstitial prominence. Some right basilar airspace disease is seen. The left lung base is obscured by the pacer pack. Tiny pleural effusions may be present but no large effusions are seen. XR/XR chest 1V IMPRESSION: Cardiomegaly with pulmonary vascular congestion and interstitial edema. Right basilar airspace disease. Electronically signed by: Alan Branch MD 12/30/2023 01:28 PM EDT
--- NOTE | 2023-12-30 10:59 | ECG_ITS ---
Test Reason : dyspnea Blood Pressure : / mmHG Vent. Rate : 063 BPM Atrial Rate : 063 BPM P-R Int : 000 ms QRS Dur : 188 ms QT Int : 492 ms P-R-T Axes : 000 -84 103 degrees QTc Int : 503 ms Ventricular-paced rhythm Intermittent atrial pacing Abnormal ECG When compared with ECG of 14-OCT-2022 11:54, Vent. rate has increased BY 16 BPM Referred By: Whitney Jaimes Electronically Signed By:FLORA VANEGAS
--- NOTE | 2023-12-30 11:06 | ED_ITS ---
HPI - SOB/Dyspnea General Chief Complaint: Dyspnea Stated Complaint: SORETHROAT/COUGH,LOW O2 SAT,96% 2LPM,FROM WALK IN Time Seen by Provider: 12/30/23 10:58 Source: patient and EMS Mode of arrival: EMS Limitations: no limitations History of Present Illness ED Provider: JODY HPI Narrative: 58 yo female with PMH of COPD, tet fallot, cardiomyopathy s/p biventricular ICD EF 50%, HIV, PAF on xarelto, HLD here with c/o 2 days of orthopnea sleeping in recliner, cough, sore throat feeling short of breath. She does have mucous production. No CP. She is compliant with all medications. She notes no weight gain and states her leg edema is chronic. She denies travel, sick contacts, fevers. She was at [facility] and found to be 81% on RA - improved to 94% with neb and 2L NC. MD elicited complaint: shortness of breath and cough Pertinent past history: COPD and congestive heart failure Onset (ago): day(s) (2) Context: recent illness Timing: improved Severity: moderate Exacerbating factors: lying flat, exertion and coughing Relieving factors: oxygen, rest, bronchodilators and upright position Known history of: COPD and congestive heart failure Associated symptoms: cough, wheezing and sputum production Treatment prior to arrival: oxygen and bronchodilator Related Data Home Medications ?Medication ?Instructions ?Recorded ?Confirmed albuterol sulfate 90 mcg/actuation 1 inh inhalation QID 12/28/19 11/23/23 aerosol inhaler (ProAir HFA) metoprolol succinate 25 mg 25 mg PO DAILY 12/28/19 11/23/23 tablet,extended release 24 hr oxycodone-acetaminophen 5 mg-325 1 tab PO BEDTIME PRN severe pain 03/27/21 11/23/23 mg tablet bictegravir 50 mg-emtricitabine 1 tab PO BEDTIME 04/04/21 11/23/23 200 mg-tenofovir alafenam 25 mg tablet (Biktarvy) diclofenac sodium 1 % topical gel 2 g topical BID 04/04/21 11/23/23 rosuvastatin 5 mg tablet 5 mg PO DAILY 12/11/21 11/23/23 ergocalciferol (vitamin D2) 1,250 1,250 mcg PO QWEEK 10/14/22 11/23/23 mcg (50,000 unit) capsule sacubitril 24 mg-valsartan 26 mg 1 tab PO BID 10/14/22 11/23/23 tablet (Entresto) albuterol sulfate 2.5 mg/3 mL mg inhalation Q4H PRN wheezing 11/05/22 11/23/23 (0.083 %) solution for nebulization Previous Rx's ?Medication ?Instructions ?Recorded amiodarone 100 mg tablet 100 mg PO DAILY 90 days #90 tabs 07/10/21 blood pressure monitor (Blood #1 ea 06/11/22 Pressure Kit) underpads 2.6 X 2.9 feet #36 ea 06/11/22 (Goodnites Bed Mats) rivaroxaban 20 mg tablet (Xarelto) 20 mg PO BEDTIME 90 days #90 tabs 08/13/23 Allergies Allergy/AdvReac Type Severity Reaction Status Date / Time Penicillins [PENICILLINS] Allergy Unknown RASH Verified 12/30/23 10:49 SEAFOOD Allergy Unknown RASH Uncoded 12/30/23 10:49 Review of Systems 2 Review of Systems: Constitutional : No Fever, No Chills ENT/Mouth : No Hoarseness, pos sore throat, pos Rhinorrhea Eyes: No Redness, No Discharge, No Vision Changes Cardiovascular : No Chest Pain, positive SOB, positive Dyspnea on Exertion, pos Edema, pos orthopnea Respiratory : positive Cough, pos Sputum, positive Wheezing, Gastrointestinal : No Nausea, No Vomiting, No Diarrhea, No abdominal Pain Genitourinary : No Dysuria, No Hematuria Musculoskeletal : No joint pain, No Myalgias Skin : No rash Neuro : No Weakness, No Numbness, No Headache Psych : No anxiety, depression Heme/Lymph: No Bruising, No Bleeding Endocrine : No Polyuria, No Polydipsia All other systems reviewed and are negative [facility] Past Medical History Attestation statement: The following information was validated with the patient. Source: old records reviewed Medical History Biventricular ICD (implantable cardioverter-defibrillator) in place CHF exacerbation Right bundle branch block (RBBB) on electrocardiogram (ECG) Right heart failure Complete heart block Acute on chronic right heart failure ICD (implantable cardioverter-defibrillator) in place Dysplasia of cervix, low grade (MIGUEL 1) Paroxysmal atrial fibrillation Fallot tetralogy Heart valve disorder Pacemaker HIV (human immunodeficiency virus infection) Asthma Surgical History H/O varicose vein stripping (04/04/21) Pulmonary valve replaced History of cardioversion H/O pulmonic valve replacement Hx of cardiac pacemaker History of open heart surgery Family History Family History Father CVD (cardiovascular disease) Mother No problems noted. Social History Social History Household Members Other:: female partner Housing: Apartment Do you presently have visiting nurse or other home services: No Alcohol intake: never Patient Tobacco Use Status: Never used Tobacco Smoked in Last 30 Days: No Use of substances other than those prescribed or required for medical reasons: No Advance Directives: No Advance Directives Information Provided: Yes service: No Current occupational status: disabled Sexual orientation: Lesbian/Guerrier/Homosexual Gender identity: Female Physical Exam 2 Vital Signs: Vital Signs: Last Vital Signs Temp 98.2 F 12/30/23 10:48 Pulse 61 12/30/23 11:58 Resp 18 12/30/23 11:58 BP 141/79 H 12/30/23 11:58 Pulse Ox 93 12/30/23 11:58 O2 Del Method Nasal Cannula 12/30/23 11:58 O2 Flow Rate 1 12/30/23 11:58 BMI result Body Mass Index 25.9 Appearance: Alert. Oriented X3. No acute distress. Eyes: Pupils equal, round and reactive to light. ENT: Pharynx normal. Neck: Normal inspection. Neck supple. CVS: Normal heart rate and rhythm. Pulses normal. Respiratory: No respiratory distress. Breath sounds diminished in both bases with rales faint end exp wheezes noted in both upper lobes Abdomen: Soft and nontender. Skin: Skin warm and dry. Normal skin color. Normal skin turgor. Extremities: 1+ bilateral symmetric lower extremity edema. No calf ttp Neuro: Oriented X 3. No motor deficit. No sensory deficit. Medications Administered Discontinued Medications Generic Name Dose Route Start Last Admin Trade Name Freq PRN Reason Stop Dose Admin Ceftriaxone Sodium 1 gm 12/30/23 10:58 12/30/23 11:40 Ceftriaxone Sodium 1 Gm Vial IVPUSH 12/30/23 10:59 1 gm ONCE ONE Administration Albuterol Sulfate 2.5 mg/ 0 mg 12/30/23 11:23 12/30/23 11:25 Albuterol/Ipratropium 3 ml INHALE 12/30/23 11:24 1 dose ONCE ONE Administration Furosemide 40 mg 12/30/23 11:47 12/30/23 11:56 Furosemide 40 Mg/4 Ml Vial IVPUSH 12/30/23 11:48 40 mg STAT STA Administration Protocol Methylprednisolone Sodium Succinate 60 mg 12/30/23 10:58 12/30/23 11:40 Methylprednisolone Sod Succ 125 Mg/2 Ml Vial IVPUSH 12/30/23 10:59 60 mg ONCE ONE Administration Medical Decision Making Medical Decision Making MDM Narrative: 58 yo female with PMH of COPD, tet fallot, cardiomyopathy s/p biventricular ICD, HIV, PAF on xarelto, HLD here with c/o dyspnea, cough, URI symptoms but also edema and orthopnea at this time will obtain basic labs, start on nebs, IV solumedrol, IV ceftriaxone. She is compliant with all medications doubt VTE, no chest pain doubt ACS. She does not use O2 at home so O2 requirement is new at this time Differential Diagnosis Differential Diagnoses: The differential diagnosis associated with the presentation includes CHF, bronchitis, pneumonia, asthma Admission/Observation Consideration of admission/observation: Escalation of care including admission/observation considered admit given CHF exacerbation Consult Healthcare Provider Management of the patient was discussed with: Hospitalist (will admit) Lab Data [facility] Lab Attestation statement: I reviewed the patient's lab results. 12/30/23 11:15 12/30/23 11:15 Labs: Lab Results 12/30/23 12/30/23 12/30/23 Range/Units 11:15 11:17 11:23 WBC 7.9 (4.8-10.8) X10*3/uL RBC 4.45 (4.20-5.50) X10*6/uL Hgb 13.3 (12.0-16.0) g/dl Hct 43.0 (37.0-47.0) % MCV 96.6 (80.0-98.0) fL MCH 29.9 (27.0-33.0) pg MCHC 30.9 L (31.0-35.0) g/dl RDW 14.8 (11.0-16.0) % Plt Count 216 (160-400) X10*3/uL MPV 11.1 (9.4-12.3) fL Immature Gran % (Auto) Cancelled Neut % (Auto) Cancelled Lymph % (Auto) Cancelled Bartholomew % (Auto) Cancelled Eos % (Auto) Cancelled Baso % (Auto) Cancelled Lymph # (Auto) Cancelled Bartholomew # (Auto) Cancelled Eos # (Auto) Cancelled Baso # (Auto) Cancelled Abs Immat Gran (auto) Cancelled Absolute Neuts (auto) Cancelled Absolute Nucleated RBC 0.000 (0.0-0.012) X10*3/uL Nucleated RBC % (auto) 0.0 (0.0-0.2) /100WBC Neutrophils % (Manual) 78 H (45-73) % Band Neutrophils % 1 L (3-5) % Lymphocytes % (Manual) 9 L (20-40) % Monocytes % (Manual) 11 (2-11) % Eosinophils % (Manual) 1 (0-4) % Abs Neuts (Manual) 6.2 (2.0-8.3) X10*3/uL Lymphocytes # (Manual) 0.7 L (1.2-4.9) X10*3/uL Monocytes # (Manual) 0.9 (0.1-1.2) X10*3/uL Eosinophils # (Manual) 0.1 (0.0-0.4) X10*3/uL Platelet Estimate NORMAL (NORMAL) Plt Morphology Comment NORMAL RBC Morphology NORMAL VBG pH 7.35 (7.32-7.43) VBG pCO2 61 mmHg VBG pO2 35 mmHg VBG HCO3 34 H (22-26) mmol/L VBG O2 Saturation 43.0 % VBG Base Excess 6.5 mmol/L Sodium 139 (135-145) mmol/L Potassium 4.2 (3.3-5.1) mmol/L Chloride 102 (96-108) mmol/L Carbon Dioxide 33 H (22-29) mmol/L Anion Gap 8 L (12-20) BUN 8 L (9-16) mg/dL Creatinine 0.84 (0.5-1.4) mg/dL Estim Creat Clear Calc 57.7 Estimated GFR > 60 Random Glucose 97 (60-115) mg/dL Lactic Acid 1.3 (0.5-2.0) mmol/L Calcium 9.7 (8.4-10.2) mg/dL Magnesium 1.8 (1.6-2.6) mg/dL Total Bilirubin 0.7 (0.0-1.0) mg/dL Direct Bilirubin 0.3 (0.0-0.5) mg/dL AST 26 (5-31) U/L ALT 20 (0-31) U/L Alkaline Phosphatase 80 (39-117) U/L Troponin I High Sens 6.8 (<3.5-17.0) ng/L C-Reactive Protein 1.60 H (< or = 0.50) mg/dL B-Natriuretic Peptide 1009 H (<100) pg/mL Total Protein 8.2 H (6.5-8.0) g/dL Albumin 3.5 (3.5-5.0) g/dL Procalcitonin 0.05 ng/mL Urine Color Urine Appearance Urine pH (5.0-9.0) Ur Specific [place] (1.005-1.025) Urine Protein (Neg-Trace) mg/dL Urine Glucose (UA) (Negative) mg/dL Urine Ketones (Negative) mg/dL Urine Blood (Negative) Urine Nitrite (Negative) Ur Leukocyte Esterase (Negative) Urine RBC (0-2) /HPF Urine WBC (0-5) /HPF Ur Squamous Epith Cells (0-2) /HPF Urine Bacteria (None Seen) Hyaline Casts (0-2) /LPF Influenza Type A (PCR) NEGATIVE (Negative) Influenza Type B (PCR) NEGATIVE (Negative) RSV RNA Qual (PCR) NEGATIVE (Negative) SARS-CoV-2 RNA (RT-PCR) NEGATIVE (Negative) 12/30/23 Range/Units 11:45 WBC (4.8-10.8) X10*3/uL RBC (4.20-5.50) X10*6/uL Hgb (12.0-16.0) g/dl Hct (37.0-47.0) % MCV (80.0-98.0) fL MCH (27.0-33.0) pg MCHC (31.0-35.0) g/dl RDW (11.0-16.0) % Plt Count (160-400) X10*3/uL MPV (9.4-12.3) fL Immature Gran % (Auto) Neut % (Auto) Lymph % (Auto) Bartholomew % (Auto) Eos % (Auto) Baso % (Auto) Lymph # (Auto) Bartholomew # (Auto) Eos # (Auto) Baso # (Auto) Abs Immat Gran (auto) Absolute Neuts (auto) Absolute Nucleated RBC (0.0-0.012) X10*3/uL Nucleated RBC % (auto) (0.0-0.2) /100WBC Neutrophils % (Manual) (45-73) % Band Neutrophils % (3-5) % Lymphocytes % (Manual) (20-40) % Monocytes % (Manual) (2-11) % Eosinophils % (Manual) (0-4) % Abs Neuts (Manual) (2.0-8.3) X10*3/uL Lymphocytes # (Manual) (1.2-4.9) X10*3/uL Monocytes # (Manual) (0.1-1.2) X10*3/uL Eosinophils # (Manual) (0.0-0.4) X10*3/uL Platelet Estimate (NORMAL) Plt Morphology Comment RBC Morphology VBG pH (7.32-7.43) VBG pCO2 mmHg VBG pO2 mmHg VBG HCO3 (22-26) mmol/L VBG O2 Saturation % VBG Base Excess mmol/L Sodium (135-145) mmol/L Potassium (3.3-5.1) mmol/L Chloride (96-108) mmol/L Carbon Dioxide (22-29) mmol/L Anion Gap (12-20) BUN (9-16) mg/dL Creatinine (0.5-1.4) mg/dL Estim Creat Clear Calc Estimated GFR Random Glucose (60-115) mg/dL Lactic Acid (0.5-2.0) mmol/L Calcium (8.4-10.2) mg/dL Magnesium (1.6-2.6) mg/dL Total Bilirubin (0.0-1.0) mg/dL Direct Bilirubin (0.0-0.5) mg/dL AST (5-31) U/L ALT (0-31) U/L Alkaline Phosphatase (39-117) U/L Troponin I High Sens (<3.5-17.0) ng/L C-Reactive Protein (< or = 0.50) mg/dL B-Natriuretic Peptide (<100) pg/mL Total Protein (6.5-8.0) g/dL Albumin (3.5-5.0) g/dL Procalcitonin ng/mL Urine Color Yellow Urine Appearance Clear Urine pH 7.0 (5.0-9.0) Ur Specific [place] <= 1.005 (1.005-1.025) Urine Protein Negative (Neg-Trace) mg/dL Urine Glucose (UA) Negative (Negative) mg/dL Urine Ketones Negative (Negative) mg/dL Urine Blood Negative (Negative) Urine Nitrite Negative (Negative) Ur Leukocyte Esterase Trace H (Negative) Urine RBC 0-2 (0-2) /HPF Urine WBC 0-5 (0-5) /HPF Ur Squamous Epith Cells 0-2 (0-2) /HPF Urine Bacteria None Seen (None Seen) Hyaline Casts 0-2 (0-2) /LPF Influenza Type A (PCR) (Negative) Influenza Type B (PCR) (Negative) RSV RNA Qual (PCR) (Negative) SARS-CoV-2 RNA (RT-PCR) (Negative) Independent Interpretation I performed an independent interpretation of an: EKG and Plain X-Ray (edema) Interpretation: Rate: 63 Rhythm: av paced [place]: left Normal P waves. Normal [place]. wide QRS complex. ST T wave : inverted t waves V1-V2, aVL, no JOHNNA qTC: 503 prior studies: paced no acute ischemia The study has been interpreted contemporaneously by me. . Radiology Impression Discussion of test interpretation with radiology: I have reviewed the radiologist's reading. External Record Review External record reviewed: Inpatient record Discharge Plan Discharge Clinical Impression: CHF (congestive heart failure), COPD (chronic obstructive pulmonary disease), Hypoxia Patient Disposition: Admitted As Inpatient Prescriptions: No Action amiodarone 100 mg tablet 100 mg PO DAILY 90 Days Qty: 90 1RF Xarelto 20 mg tablet 20 mg PO BEDTIME 90 Days Qty: 90 11RF ergocalciferol (vitamin D2) 1,250 mcg (50,000 unit) Capsule 1,250 mcg PO QWEEK Entresto 24-26 mg tablet 1 tab PO BID albuterol sulfate [ProAir HFA] 90 mcg/actuation HFA aerosol inhaler 1 inh inhalation QID metoprolol succinate 25 mg tablet extended release 24 hr 25 mg PO DAILY oxycodone-acetaminophen 5-325 mg tablet 1 tab PO BEDTIME PRN (Reason: severe pain) rosuvastatin 5 mg tablet 5 mg PO DAILY Biktarvy 50-200-25 mg tablet 1 tab PO BEDTIME diclofenac sodium 1 % gel 2 g topical BID (DME) blood pressure monitor [Blood Pressure Kit] Kit See Rx Instructions .Route Qty: 1 0RF Rx Instructions: As directed (DME) Goodnites Bed Mats 2.6 X 2.9 feet pad See Rx Instructions .Route Qty: 36 0RF Rx Instructions: As directed albuterol sulfate 2.5 mg /3 mL (0.083 %) solution for nebulization inhalation Q4H PRN (Reason: wheezing) Print Language: Azeri
[2023-12-30 11:25] LABS: Hemoglobin 13.3 g/dl (12.0-16.0); Mean Corpuscular HGB Conc 30.9 g/dl (31.0-35.0); Mean Corpuscular Hemoglobin 29.9 pg (27.0-33.0); Mean Corpuscular Volume 96.6 fL (80.0-98.0); Mean Platelet Volume 11.1 fL (9.4-12.3); Platelet Count 216 X10*3/uL (160-400); Red Blood Count 4.45 X10*6/uL (4.20-5.50); Red Cell Distribution Width 14.8 % (11.0-16.0)
[2023-12-30] MEDS: Albuterol Sulfate 2.5 MG, Albuterol/Iprat 2.5/0.5MG 3 ML 3 ML INHALE (11:25)
[2023-12-30 11:26] LABS: WBC ABN SCTR FOR CBC 1
[2023-12-30 11:28] LABS: VBG Base Excess 6.5 mmol/L; VBG HCO3 34 mmol/L (22-26); VBG pCO2 61 mmHg; VBG pH 7.35 (7.32-7.43); VBG pO2 35 mmHg
[2023-12-30 11:28] LABS: Venous Blood Gas Refer to POC result
[2023-12-30 11:34] LABS: Lactic Acid 1.3 mmol/L (0.5-2.0)
[2023-12-30] MEDS: methylPREDNISolone Sod Succ 125 MG/2 ML VIAL 60 MG IVPUSH (11:40)
[2023-12-30] MEDS: cefTRIAXone sodium 1 GM VIAL IVPUSH (11:40)
[2023-12-30 11:44] LABS: B Type Natriuretic Peptide 1009 pg/mL (<100)
[2023-12-30 11:46] LABS: Alanine Aminotransferase 20 U/L (0-31); Albumin Level 3.5 g/dL (3.5-5.0); Alkaline Phosphatase 80 U/L (39-117); Anion Gap 8 (12-20); Aspartate Amino Transferase 26 U/L (5-31); Bilirubin Direct 0.3 mg/dL (0.0-0.5); Bilirubin Total 0.7 mg/dL (0.0-1.0); Blood Urea Nitrogen 8 mg/dL (9-16); Calcium 9.7 mg/dL (8.4-10.2); Carbon Dioxide 33 mmol/L (22-29); Chloride 102 mmol/L (96-108); Creatinine Clr Calc Pharmacy 57.7; Estimated Glomerular Filt Rate > 60; Glucose Random 97 mg/dL (60-115); Magnesium 1.8 mg/dL (1.6-2.6); Potassium 4.2 mmol/L (3.3-5.1); Sodium 139 mmol/L (135-145); Total Protein 8.2 g/dL (6.5-8.0)
[2023-12-30 11:48] LABS: Troponin-I High Sensitivity 6.8 ng/L (<3.5-17.0)
[2023-12-30 11:53] LABS: Band Neutrophils Percent 1 % (3-5); Eosinophils Percent Manual 1 % (0-4); Lymphocytes Percent Manual 9 % (20-40); Monocytes Percent Manual 11 % (2-11); Neutrophils Percent Manual 78 % (45-73)
[2023-12-30 11:54] LABS: Appearance Urine Clear; Color Urine Yellow; Glucose Urine UA Negative (Negative); Leukocyte Esterase Urine Trace (Negative); Nitrite Urine Negative (Negative); Specific Gravity - Urine <= 1.005 (1.005-1.025); UMIC TRIGGER UACC YES; Urine Blood Negative (Negative); Urine Ketones Negative (Negative); Urine Protein Negative (Neg-Trace)
[2023-12-30 11:54] LABS: Eosinophils Absolute Manual 0.1 X10*3/uL (0.0-0.4); Lymphocytes Absolute Manual 0.7 X10*3/uL (1.2-4.9); Monocytes Absolute Manual 0.9 X10*3/uL (0.1-1.2); Neutrophils Absolute Manual 6.2 X10*3/uL (2.0-8.3); Platelet Estimate NORMAL (NORMAL); Platelet Morphology Comment NORMAL; RBC Morphology NORMAL; White Blood Count 7.9 X10*3/uL (4.8-10.8)
[2023-12-30] MEDS: Furosemide 40 MG/4 ML VIAL IVPUSH ×2 (11:56→18:32)
[2023-12-30 12:02] LABS: Procalcitonin 0.05 ng/mL
[2023-12-30 12:15] LABS: Influenza A PCR NEGATIVE (Negative); Influenza B PCR NEGATIVE (Negative); Resp Syncy Virus RNA Qual PCR NEGATIVE (Negative); SARS COV2 PCR INHOUSE NEGATIVE (Negative)
[2023-12-30 12:21] LABS: Bacteria Urine None Seen (None Seen); Hyaline Casts Urine 0-2 /LPF (0-2); RBC Urine 0-2 /HPF (0-2); Squamous Epithelial Cell Urine 0-2 /HPF (0-2); WBC Urine 0-5 /HPF (0-5)
--- NOTE | 2023-12-30 14:08 | P.HPHOSP_ITS ---
History of Present Illness Date of Service: 12/30/23 Attending physician on admission: Raysa Santiago Chief Complaint: SOB Pt is a 58-year-old female with a PMH significant for?tetralogy of Fallot s/p repair, HFpEF, s/p ICD, paroxysmal AFib on Xarelto, HIV, HLD, and asthma who presents to the ED with?SOB, cough, and HALL x2-3 days. Patient reports she has been experiencing SOB and HALL with walking for the past few days. Has also been having cough occasionally productive of whitish sputum. Has chronic lower leg edema, though is uncertain if it has increased. Patient initially presented to walk-in clinic where she was noted to be hypoxic at 81% on RA, and patient was sent to the ED for further evaluation. Denies fever, chills. No nausea or vomiting. Denies chest pain/pressure, palpitations. No abdominal pain. Medication claim history indicates patient was last prescribed Lasix 40 mg daily on 12/13/2023, but patient reports she only takes Lasix occasionally as needed. Last took medication sometime last week. Reports a history of asthma, but denies COPD. Is a lifelong nonsmoker and not on home O2. In the ED pt was mildly hypertensive 141/70 and desatting into the 80s. Labs were significant for BNP 1009 (elevated from 690 on 10/14/2022), otherwise grossly unremarkable and baseline for patient. No leukocytosis. Stable H&H. Procalcitonin WNL at 0.05. No significant electrolyte abnormalities. Renal and hepatic function baseline. UA not consistent with UTI. Tested negative for flu, RSV, COVID. CXR showed cardiomegaly with pulmonary vascular congestion and interstitial edema and with right basilar airspace disease. EKG demonstrated AV dual paced rhythm without evidence of significant ST elevations or depressions. Pt was treated with DuoNeb, Solu-Medrol ceftriaxone, and furosemide. Pt will be admitted to the hospital for treatment further evaluation of acute hypoxic respiratory failure in the setting of acute decompensated HFpEF exacerbation. [facility] Medical History Biventricular ICD (implantable cardioverter-defibrillator) in place CHF exacerbation Right bundle branch block (RBBB) on electrocardiogram (ECG) Right heart failure Complete heart block Acute on chronic right heart failure ICD (implantable cardioverter-defibrillator) in place Dysplasia of cervix, low grade (MIGUEL 1) Paroxysmal atrial fibrillation Fallot tetralogy Heart valve disorder Pacemaker HIV (human immunodeficiency virus infection) Asthma Family History Father CVD (cardiovascular disease) Mother No problems noted. Surgical History H/O varicose vein stripping (04/04/21) Pulmonary valve replaced History of cardioversion H/O pulmonic valve replacement Hx of cardiac pacemaker History of open heart surgery Social History Household Members Other:: female partner Housing: Apartment Do you presently have visiting nurse or other home services: No Alcohol intake: never Patient Tobacco Use Status: Never used Tobacco Smoked in Last 30 Days: No Use of substances other than those prescribed or required for medical reasons: No Advance Directives: No Advance Directives Information Provided: Yes service: No Current occupational status: disabled Sexual orientation: Lesbian/Guerrier/Homosexual Gender identity: Female Meds Allergies Allergy/AdvReac Type Severity Reaction Status Date / Time Penicillins [PENICILLINS] Allergy Unknown RASH Verified 12/30/23 10:49 SEAFOOD Allergy Unknown RASH Uncoded 12/30/23 10:49 Home Medications ?Medication ?Instructions ?Recorded ?Confirmed ?Last Taken ?Type metoprolol succinate 25 mg 25 mg PO DAILY 12/28/19 12/30/23 12/29/23 History tablet,extended release 24 hr oxycodone-acetaminophen 5 mg-325 1 tab PO BEDTIME PRN severe pain 03/27/21 12/30/23 Unknown History mg tablet diclofenac sodium 1 % topical gel 2 g topical BID 04/04/21 12/30/23 12/29/23 History albuterol sulfate 2.5 mg/3 mL 2.5 mg inhalation Q4H PRN wheezing 11/05/22 12/30/23 Unknown History (0.083 %) solution for nebulization albuterol sulfate 90 mcg/actuation 2 puff inhalation Q4-6H PRN 12/30/23 12/30/23 Unknown History aerosol inhaler (Ventolin HFA) Shortness Of Breath Or Wheezing baclofen 10 mg tablet 10 mg PO BID PRN muscle spasm 12/30/23 12/30/23 Unknown History baclofen 10 mg tablet 10 mg PO DAILY muscle spasm 12/30/23 12/30/23 12/29/23 History bictegravir 50 mg-emtricitabine 1 tab PO BEDTIME 12/30/23 12/30/23 12/29/23 History 200 mg-tenofovir alafenam 25 mg tablet (Biktarvy) ergocalciferol (vitamin D2) 1,250 1,250 mcg PO WE 12/30/23 12/30/23 12/22/23 History mcg (50,000 unit) capsule fluticasone furoate 100 1 inh inhalation DAILY 12/30/23 12/30/23 12/29/23 History mcg/actuation blister powder for inhalation (Arnuity Ellipta) lidocaine 5 % topical patch 1 patch topical DAILY PRN Pain 12/30/23 12/30/23 Unknown History spironolactone 25 mg tablet 12.5 mg PO DAILY 12/30/23 12/30/23 12/29/23 History Physical Exam 2 Vital Signs and Narrative: Vital Signs: Last Vital Signs Temp 98.2 F 12/30/23 10:48 Pulse 61 12/30/23 11:58 Resp 18 12/30/23 11:58 BP 141/79 H 12/30/23 11:58 Pulse Ox 93 12/30/23 11:58 O2 Del Method Nasal Cannula 12/30/23 11:58 O2 Flow Rate 1 12/30/23 11:58 BMI result Body Mass Index 25.9 General: AOx3, no acute distress Resp: Bibasilar crackles. No wheezing. CVS: S1, S2, RRR. +JVD GI: +BS, NT, no distention Skin: Warm, dry Neuro: Cranial nerves II-XII grossly intact bilaterally. Motor grossly intact bilaterally Extremities: Bilateral trace-1+ pitting edema Psych: Appropriate affect Results Labs 12/30/23 11:15 12/30/23 11:15 Labs: Laboratory Results - last 24 hr 12/30/23 12/30/23 12/30/23 11:15 11:17 11:23 MCV 96.6 MCH 29.9 MCHC 30.9 L RDW 14.8 Plt Count 216 MPV 11.1 Immature Gran % (Auto) Cancelled Neut % (Auto) Cancelled Lymph % (Auto) Cancelled O'Brien % (Auto) Cancelled Eos % (Auto) Cancelled Baso % (Auto) Cancelled Lymph # (Auto) Cancelled O'Brien # (Auto) Cancelled Eos # (Auto) Cancelled Baso # (Auto) Cancelled Abs Immat Gran (auto) Cancelled Absolute Neuts (auto) Cancelled Absolute Nucleated RBC 0.000 Nucleated RBC % (auto) 0.0 Neutrophils % (Manual) 78 H Band Neutrophils % 1 L Lymphocytes % (Manual) 9 L Monocytes % (Manual) 11 Eosinophils % (Manual) 1 Abs Neuts (Manual) 6.2 Lymphocytes # (Manual) 0.7 L Monocytes # (Manual) 0.9 Eosinophils # (Manual) 0.1 Platelet Estimate NORMAL Plt Morphology Comment NORMAL RBC Morphology NORMAL VBG pH 7.35 VBG pCO2 61 VBG pO2 35 VBG HCO3 34 H VBG O2 Saturation 43.0 VBG Base Excess 6.5 Anion Gap 8 L Estim Creat Clear Calc 57.7 Estimated GFR > 60 Random Glucose 97 Lactic Acid 1.3 Calcium 9.7 Magnesium 1.8 Total Bilirubin 0.7 Direct Bilirubin 0.3 AST 26 ALT 20 Alkaline Phosphatase 80 Troponin I High Sens 6.8 C-Reactive Protein 1.60 H B-Natriuretic Peptide 1009 H Total Protein 8.2 H Albumin 3.5 Procalcitonin 0.05 Urine Color Urine Appearance Urine pH Ur Specific [place] Urine Protein Urine Glucose (UA) Urine Ketones Urine Blood Urine Nitrite Ur Leukocyte Esterase Urine RBC Urine WBC Ur Squamous Epith Cells Urine Bacteria Hyaline Casts Influenza Type A (PCR) NEGATIVE Influenza Type B (PCR) NEGATIVE RSV RNA Qual (PCR) NEGATIVE SARS-CoV-2 RNA (RT-PCR) NEGATIVE 12/30/23 11:45 MCV MCH MCHC RDW Plt Count MPV Immature Gran % (Auto) Neut % (Auto) Lymph % (Auto) O'Brien % (Auto) Eos % (Auto) Baso % (Auto) Lymph # (Auto) O'Brien # (Auto) Eos # (Auto) Baso # (Auto) Abs Immat Gran (auto) Absolute Neuts (auto) Absolute Nucleated RBC Nucleated RBC % (auto) Neutrophils % (Manual) Band Neutrophils % Lymphocytes % (Manual) Monocytes % (Manual) Eosinophils % (Manual) Abs Neuts (Manual) Lymphocytes # (Manual) Monocytes # (Manual) Eosinophils # (Manual) Platelet Estimate Plt Morphology Comment RBC Morphology VBG pH VBG pCO2 VBG pO2 VBG HCO3 VBG O2 Saturation VBG Base Excess Anion Gap Estim Creat Clear Calc Estimated GFR Random Glucose Lactic Acid Calcium Magnesium Total Bilirubin Direct Bilirubin AST ALT Alkaline Phosphatase Troponin I High Sens C-Reactive Protein B-Natriuretic Peptide Total Protein Albumin Procalcitonin Urine Color Yellow Urine Appearance Clear Urine pH 7.0 Ur Specific [place] <= 1.005 Urine Protein Negative Urine Glucose (UA) Negative Urine Ketones Negative Urine Blood Negative Urine Nitrite Negative Ur Leukocyte Esterase Trace H Urine RBC 0-2 Urine WBC 0-5 Ur Squamous Epith Cells 0-2 Urine Bacteria None Seen Hyaline Casts 0-2 Influenza Type A (PCR) Influenza Type B (PCR) RSV RNA Qual (PCR) SARS-CoV-2 RNA (RT-PCR) Imaging Radiologist's Impressions: Impressions Chest X-Ray 12/30/23 10:59 IMPRESSION: Cardiomegaly with pulmonary vascular congestion and interstitial edema. Right basilar airspace disease. Electronically signed by: Alan Branch MD 12/30/2023 01:28 PM EDT RP Assessment and Plan (1) Hypoxia: Status: Acute (2) CHF (congestive heart failure): Qualifiers: Heart failure chronicity: acute on chronic Heart failure type: u nspecified Qualified Code(s): I50.9 - Heart failure, unspecified Status: Acute Plan Pt is a 58-year-old female with a PMH significant for?tetralogy of Fallot s/p repair, HFpEF, s/p ICD, paroxysmal AFib on Xarelto, HIV, HLD, and asthma who presents to the ED with?SOB, cough, and HALL x2-3 days. Pt will be admitted to the hospital for treatment further evaluation of acute hypoxic respiratory failure in the setting of acute decompensated HFpEF exacerbation. Acute hypoxic respiratory failure in the setting of HFpEF Patient with SOB, HALL, cough x2-3 days, elevated BNP, CXR with pulmonary edema, +JVD, desatting to 80s on RA Likely secondary to medication noncompliance: only takes home Lasix occasionally Will treat with furosemide 40 mg IV b.i.d. Continue spironolactone Monitor lytes, I/O, BMP Low-salt diet Echocardiogram Monitor on telemetry Paroxysmal AFib Continue amiodarone, metoprolol, and Xarelto HIV Continue Biktarvy Asthma Not in acute exacerbation Continue home inhalers Full Code Attending:?Dr. Santiago DVT Prophylaxis: On Xarelto Pt will require a hospitalization of at least two nights for treatment of?acute hypoxic respiratory failure in setting of CHF exacerbation. Given patient's hypoxia and extensive pulmonary edema, she will require hospital care administration of IV diuretics, supplemental oxygen, and close monitoring of electrolytes and renal function. Quality Stroke Does the patient have a stroke diagnosis?: No VTE Prior VTE?: No VTE Risk Level:: Medical - moderate - high VTE Device Contraindication: Treatment Not Indicated VTE Drug Contraindication: N/A - Med Ordered
--- NOTE | 2023-12-30 14:13 | PHA.MEDREC ---
Addendum entered by Tom Dutta RP 12/30/23 14:28: MED REC CHECKED BY [facility] Original Note: Pharmacy Consult ? Medication Reconciliation Pharmacy has completed the medication reconciliation. Spoke to patient to confirm med list. patient stated she is no longer on Entresto ,Furosemide 40 mg and Rosuvastatin 20 mg. patent confirm Vitamin D2 1,250 mcg is every Wednesday, last dose was 12/22/23.
[2023-12-30] MEDS: 0.9 % Sodium Chloride Flush 3 ML SYRINGE IVFLUSH ×2 (17:14→21:42)
--- NOTE | 2023-12-30 17:58 | PC.NURSE ---
Alert and oriented, denies pain or discomfort , reports breathing better, currently sating 97% on 2 liters 02, ambulates to bathroom independently
[2023-12-30] MEDS: Fluticasone Propionate 100 MCG BLST.W.DEV 1 PUFF INHALE (20:14)
[2023-12-30] MEDS: Rivaroxaban 20 MG TABLET PO (21:42)
[2023-12-30] MEDS: Bictegrav/Emtricit/Tenofov Ala TABLET 1 TAB PO (21:42)
[2023-12-31] VITALS (12 sets, daily range): BP systolic 90–110; BP diastolic 49–70; PULSE 60–93; RESP 18–20; TEMP 36–36.4; O2SAT 92–100; BMI 23.7
[2023-12-31 06:41] LABS: Anion Gap 13 (12-20); Blood Urea Nitrogen 12 mg/dL (9-16); Calcium 9.4 mg/dL (8.4-10.2); Carbon Dioxide 33 mmol/L (22-29); Chloride 97 mmol/L (96-108); Creatinine Clr Calc Pharmacy 55.4; Estimated Glomerular Filt Rate > 60; Glucose Random 104 mg/dL (60-115); Magnesium 1.8 mg/dL (1.6-2.6); Potassium 3.6 mmol/L (3.3-5.1); Sodium 139 mmol/L (135-145)
--- NOTE | 2023-12-31 07:00 | CA_ITS ---
Transthoracic Echocardiogram Patient (Last, First, Middle): Jasmina Yi, Gender: Female Date of : 1965 Age: 58 Procedure Date: 12/31/2023 Procedure Type: Transthoracic Echocardiogram Location: [facility] [place] Height: 154.94 cm Weight: 59.88 kg BSA: 1.58 m2 Heart Rate: 62 bpm BP: 108 / 62 mmHg Turntable Engineer: Referring MD: Pedro Pablo CARR Symptoms: Acute CHF exacerbation Study Quality: Adequate ECG Rhythm: Sinus Conclusions: - The left ventricular systolic function is mildly decreased. The calculated ejection fraction is 47% by biplane method. - Evidence suggests grade III (severe) diastolic dysfunction. - Severely increased right ventricular cavity size. - A bioprosthetic pulmonic valve is present. The prosthetic pulmonic valve appears to be functioning normally. Findings Procedure Information Contrast agent, definity, is being given per protocol without apparent complications. Left Ventricle Normal left ventricular cavity size. There is mildly increased left ventricular wall thickness. The left ventricular systolic function is mildly decreased. The calculated ejection fraction is 47% by biplane method. There is no evidence of regional wall motion abnormalities. Evidence suggests grade III (severe) diastolic dysfunction. Right Ventricle Severely increased right ventricular cavity size. There is mild to moderately decreased right ventricular systolic function. There is an ICD wire seen in the right ventricle. Atria The left atrium is mildly dilated. The right atrium is normal in size. Aortic Valve The aortic valve was not well visualized. There is no aortic valve stenosis. There is no aortic valve regurgitation. Mitral Valve The mitral valve appears normal. There is no mitral valve regurgitation. There is no mitral valve stenosis. Pulmonic Valve A bioprosthetic pulmonic valve is present. The prosthetic pulmonic valve appears to be functioning normally. Mean gradient 8mmHg. Tricuspid Valve There is mild tricuspid valve regurgitation. There is no evidence of pulmonary hypertension. Great Vessels The aortic annulus and sinuses of valsalva are normal in size. Venous The inferior vena cava is normal in size and collapses less than 50% with inspiration. Pericardium/Pleural There is a small pericardial effusion. Prior Study Comparison No significant change compared to prior study dated: 01/05/2023. Measurements 2D Linear Measurements IVSd: 1.07 0.6-0.9/0.6-1.0 cm LVIDd: 4.00 3.9-5.3/4.2-5.9 cm LVIDd Index: 2.53 2.4-3.2/2.2-3.1 cm/m2 LVIDs: 3.05 2.0-3.6 cm LVPWd: 1.03 0.7-1.1 cm Ao Root: 3.10 2.1-3.5 cm LA Diam: 3.40 2.7-3.8/3.0-4.0 cm LAIDs Index: 2.15 1.5-2.3 cm/m2 LV Mass: 169.50 67-162/88-224 g LV Mass Index: 107.28 43-95/49-115 g/m2 LVOT Diam: 2.40 3.0+(-)1.3 cm 2D Systolic Function EF 4C: 37.90 >55% EF 2C: 51.50 >55% EF BiP: 46.60 >55% Mitral Valve MV Pk E: 0.74 MV PK A: 0.27 MV Decel Time: 176.00 E/A: 2.70 E'Lateral: 7.62 E'Medial: 3.05 E/E' Med: 24.30 E/E' Lat: 9.70 PHT: 52.00 MVA PHT: 4.23 Decel George: 4.21 Aortic Valve AoV Pk Darwin: 1.30 AoV Mn Darwin: 0.86 AoV VTI: 0.25 AoV Pk Grad: 7.00 Aov Mn Grad: 4.00 VALDO Cont.VTI: 2.62 LVOT LVOT Pk Darwin: 0.75 LVOT Mn Darwin: 0.49 LVOT VTI: 0.15 LVOT Pk Grad: 2.00 LVOT Mn Grad: 1.00 LVOT Diam: 2.40 LVOT Area: 4.52 Diastolic Function MV Pk E: 0.74 MV Pk A: 0.27 E/A: 2.70 E'Medial: 3.05 E/E' Med: 24.30 E' Laterial: 7.62 E/E' Lat: 9.70 Tricuspid Valve TR Pk Darwin: 2.52 TR Pk Grad: 25.00 Great Vessels Aorta Ao Root-2D: 3.10 2.0-3.7 cm Pulmonary Valve PV Pk Darwin: 1.94 PV Min Darwin: 1.29 Peak PV Grad: 15.00 PV Mn Grad: 8.00 Updated in Other Vendor System with Status of Final Georgi Turcios MD electronically signed on 01/01/2024 11:25:08 AM with status of Final
[2023-12-31] MEDS: Fluticasone Propionate 100 MCG BLST.W.DEV 1 PUFF INHALE ×2 (08:06→19:03)
[2023-12-31] MEDS: 0.9 % Sodium Chloride Flush 3 ML SYRINGE IVFLUSH ×2 (09:27→21:01)
[2023-12-31] MEDS: Furosemide 40 MG/4 ML VIAL IVPUSH (09:27)
[2023-12-31] MEDS: Metoprolol Succinate ER 25 MG TAB.ER.24H PO (09:27)
[2023-12-31] MEDS: Spironolactone 25 MG TABLET 12.5 MG PO (09:27)
[2023-12-31] MEDS: Amiodarone HCL 200 MG TABLET 100 MG PO (09:28)
[2023-12-31] MEDS: Baclofen 10 MG TABLET PO (09:28)
--- NOTE | 2023-12-31 11:04 | HO.PM.IMPN ---
Subjective Subjective Date of Service: 12/31/23 Interval History: seen and evaluated this morning Feels better overnight still on O2 supplement no other events overnight Review of Systems Review of Systems: Yes all other systems are reviewed and are negative Physical Exam Vital Signs: Vital Signs: Last Vital Signs Temp 97.2 F 12/31/23 08:00 Pulse 70 12/31/23 09:27 Resp 20 12/31/23 08:07 BP 110/61 12/31/23 09:27 Pulse Ox 99 12/31/23 08:00 O2 Del Method Nasal Cannula 12/31/23 08:00 O2 Flow Rate 2 12/31/23 08:00 BMI result Body Mass Index 23.7 Const: Other: Constitutional : Awake, interactive, not in distress Neck : Normal inspection, Supple Cardiovascular : RRR, no JVP, +1 bilateral lower extremity edema Respiratory : good bilateral air entry, basal fine crackles, wheezes or rhonchi Gastrointestinal: soft, lax, Normal bowel sounds, Non tender Skin : Warm, Dry Neurological : Alert & oriented x3, No focal deficit Objective Data Active Medications Acetaminophen (Acetaminophen 325 Mg Tablet) 650 mg PO Q6H PRN PRN Reason: Pain, Mild (Pain Scale 1-3), fever or headache Albuterol Sulfate (Albuterol Sulfate (0.083%) 2.5 Mg/3 Ml Vial.Neb) 2.5 mg INHALE Q4H PRN PRN Reason: wheezing Albuterol Sulfate (Albuterol Sulfate 90 Mcg 8 Gm Inhaler) 2 puff INHALE Q4H PRN PRN Reason: Shortness Of Breath Or Wheezin Amiodarone HCl (Amiodarone Hcl 200 Mg Tablet) 100 mg PO DAILY [facility] Last Admin: 12/31/23 09:28 Dose: 100 mg Documented By: MARTHA Baclofen (Baclofen 10 Mg Tablet) 10 mg PO BID PRN PRN Reason: muscle spasm Baclofen (Baclofen 10 Mg Tablet) 10 mg PO DAILY [facility] Last Admin: 12/31/23 09:28 Dose: 10 mg Documented By: MARTHA Benzonatate (Benzonatate 100 Mg Capsule) 100 mg PO TID PRN PRN Reason: Cough Bictegravir/Emtricitabine/Tenofovir (Bictegrav/Emtricit/Tenofov Ala Tablet) 1 tab PO BEDTIME [facility] Last Admin: 12/30/23 21:42 Dose: 1 tab Documented By: ISRRAEL Calcium Carbonate (Calcium Carbonate 750 Mg Tab.Chew) 750 mg PO Q4H PRN PRN Reason: Heartburn Ergocalciferol (Ergocalciferol (Vitamin D2) 1,250 Mcg Capsule) 1,250 mcg PO [facility] Fluticasone Propionate (Fluticasone Propionate 100 Mcg Blst.W.Dev) 1 puff INHALE RBID [facility] Last Admin: 12/31/23 08:06 Dose: 1 puff Documented By: NOLAN Furosemide (Furosemide 40 Mg/4 Ml Vial) 40 mg IVPUSH BID@0900,1800 [facility]; Protocol Last Admin: 12/31/23 09:27 Dose: 40 mg Documented By: MARTHA Magnesium Hydroxide (Milk Of Magnesia 30 Ml Oral.Susp) 30 ml PO DAILY PRN PRN Reason: Constipation Melatonin (Melatonin 3 Mg Tablet) 6 mg PO BEDTIME PRN PRN Reason: Insomnia Metoprolol Succinate (Metoprolol Succinate Er 25 Mg Tab.Er.24h) 25 mg PO DAILY [facility]; Protocol Last Admin: 12/31/23 09:27 Dose: 25 mg Documented By: MARTHA Ondansetron HCl (Ondansetron Hcl 4 Mg/2 Ml Vial) 4 mg IVPUSH Q8H PRN PRN Reason: Nausea and Vomiting Oxycodone HCl (Oxycodone Hcl Immed Release 5 Mg Tablet) 1 mg PO BEDTIME PRN PRN Reason: Pain, Severe (Pain Scale 7-10) Rivaroxaban (Rivaroxaban 20 Mg Tablet) 20 mg PO BEDTIME [facility] Last Admin: 12/30/23 21:42 Dose: 20 mg Documented By: ISRRAEL Sodium Chloride (0.9 % Sodium Chloride Flush 3 Ml Syringe) 3 ml IVFLUSH QSHIFT [facility] Last Admin: 12/31/23 09:27 Dose: 3 ml Documented By: MARTHA Spironolactone (Spironolactone 25 Mg Tablet) 12.5 mg PO DAILY [facility]; Protocol Last Admin: 12/31/23 09:27 Dose: 12.5 mg Documented By: MARTHA Labs 12/30/23 11:15 12/31/23 06:17 Labs: Laboratory Results - last 24 hr 12/30/23 12/30/23 12/30/23 11:15 11:17 11:23 MCV 96.6 MCH 29.9 MCHC 30.9 L RDW 14.8 Plt Count 216 MPV 11.1 Immature Gran % (Auto) Cancelled Neut % (Auto) Cancelled Lymph % (Auto) Cancelled Ralls % (Auto) Cancelled Eos % (Auto) Cancelled Baso % (Auto) Cancelled Lymph # (Auto) Cancelled Ralls # (Auto) Cancelled Eos # (Auto) Cancelled Baso # (Auto) Cancelled Abs Immat Gran (auto) Cancelled Absolute Neuts (auto) Cancelled Absolute Nucleated RBC 0.000 Nucleated RBC % (auto) 0.0 Neutrophils % (Manual) 78 H Band Neutrophils % 1 L Lymphocytes % (Manual) 9 L Monocytes % (Manual) 11 Eosinophils % (Manual) 1 Abs Neuts (Manual) 6.2 Lymphocytes # (Manual) 0.7 L Monocytes # (Manual) 0.9 Eosinophils # (Manual) 0.1 Platelet Estimate NORMAL Plt Morphology Comment NORMAL RBC Morphology NORMAL VBG pH 7.35 VBG pCO2 61 VBG pO2 35 VBG HCO3 34 H VBG O2 Saturation 43.0 VBG Base Excess 6.5 Anion Gap 8 L Estim Creat Clear Calc 57.7 Estimated GFR > 60 Random Glucose 97 Lactic Acid 1.3 Calcium 9.7 Magnesium 1.8 Total Bilirubin 0.7 Direct Bilirubin 0.3 AST 26 ALT 20 Alkaline Phosphatase 80 Troponin I High Sens 6.8 C-Reactive Protein 1.60 H B-Natriuretic Peptide 1009 H Total Protein 8.2 H Albumin 3.5 Procalcitonin 0.05 Urine Color Urine Appearance Urine pH Ur Specific [place] Urine Protein Urine Glucose (UA) Urine Ketones Urine Blood Urine Nitrite Ur Leukocyte Esterase Urine RBC Urine WBC Ur Squamous Epith Cells Urine Bacteria Hyaline Casts Influenza Type A (PCR) NEGATIVE Influenza Type B (PCR) NEGATIVE RSV RNA Qual (PCR) NEGATIVE SARS-CoV-2 RNA (RT-PCR) NEGATIVE 12/30/23 12/31/23 11:45 06:17 MCV MCH MCHC RDW Plt Count MPV Immature Gran % (Auto) Neut % (Auto) Lymph % (Auto) Ralls % (Auto) Eos % (Auto) Baso % (Auto) Lymph # (Auto) Ralls # (Auto) Eos # (Auto) Baso # (Auto) Abs Immat Gran (auto) Absolute Neuts (auto) Absolute Nucleated RBC Nucleated RBC % (auto) Neutrophils % (Manual) Band Neutrophils % Lymphocytes % (Manual) Monocytes % (Manual) Eosinophils % (Manual) Abs Neuts (Manual) Lymphocytes # (Manual) Monocytes # (Manual) Eosinophils # (Manual) Platelet Estimate Plt Morphology Comment RBC Morphology VBG pH VBG pCO2 VBG pO2 VBG HCO3 VBG O2 Saturation VBG Base Excess Anion Gap 13 Estim Creat Clear Calc 55.4 Estimated GFR > 60 Random Glucose 104 Lactic Acid Calcium 9.4 Magnesium 1.8 Total Bilirubin Direct Bilirubin AST ALT Alkaline Phosphatase Troponin I High Sens C-Reactive Protein B-Natriuretic Peptide Total Protein Albumin Procalcitonin Urine Color Yellow Urine Appearance Clear Urine pH 7.0 Ur Specific Clark <= 1.005 Urine Protein Negative Urine Glucose (UA) Negative Urine Ketones Negative Urine Blood Negative Urine Nitrite Negative Ur Leukocyte Esterase Trace H Urine RBC 0-2 Urine WBC 0-5 Ur Squamous Epith Cells 0-2 Urine Bacteria None Seen Hyaline Casts 0-2 Influenza Type A (PCR) Influenza Type B (PCR) RSV RNA Qual (PCR) SARS-CoV-2 RNA (RT-PCR) Assessment and Plan (1) Hypoxia: Status: Acute (2) CHF (congestive heart failure): Status: Acute Plan Pt is a 58-year-old female with a PMH significant for?tetralogy of Fallot s/p repair, HFpEF, s/p ICD, paroxysmal AFib on Xarelto, HIV, HLD, and asthma who presents to the ED with?SOB, cough, and HALL x2-3 days. Pt will be admitted to the hospital for treatment further evaluation of acute hypoxic respiratory failure in the setting of acute decompensated HFpEF exacerbation. Acute hypoxic respiratory failure in the setting of acute on chronic HFpEF secondary to medication noncompliance: only takes home Lasix occasionally continue furosemide 40 mg IV b.i.d. Continue spironolactone Monitor lytes, I/O, BMP Low-salt diet Echo Wean O2 down as tolerated Paroxysmal AFib Continue amiodarone, metoprolol, and Xarelto HIV Continue Biktarvy Asthma Not in acute exacerbation Continue home inhalers Full Code DVT Prophylaxis: On Xarelto Pt will require a hospitalization overnight for treatment of?acute hypoxic respiratory failure in setting of CHF exacerbation. Given patient's hypoxia and extensive pulmonary edema, she will require hospital care administration of IV diuretics, supplemental oxygen, and close monitoring of electrolytes and renal function. Quality Stroke Does the patient have a stroke diagnosis?: No VTE Prior VTE?: No VTE Risk Level:: Medical - moderate - high VTE Device Contraindication: Treatment Not Indicated VTE Drug Contraindication: N/A - Med Ordered
--- NOTE | 2023-12-31 11:13 | MHC.CM.PN ---
Pt lives at home with her girlfriend/[employer]. Pt uses a cane and a walker. Pts uncle will transport her home at discharge. New HCP completed with pt, now on file. PCP: Dr. Mel Greenberg
[2023-12-31] MEDS: Rivaroxaban 20 MG TABLET PO (17:16)
[2023-12-31] MEDS: Bictegrav/Emtricit/Tenofov Ala TABLET 1 TAB PO (21:01)
[2024-01-01] VITALS (8 sets, daily range): BP systolic 110–115; BP diastolic 64–68; PULSE 64–94; RESP 15–20; TEMP 36.1–36.3; O2SAT 84–96; BMI 24.1
[2024-01-01 07:32] LABS: Anion Gap 10 (12-20); Blood Urea Nitrogen 11 mg/dL (9-16); Calcium 9.1 mg/dL (8.4-10.2); Carbon Dioxide 36 mmol/L (22-29); Chloride 96 mmol/L (96-108); Creatinine Clr Calc Pharmacy 56.5; Estimated Glomerular Filt Rate > 60; Glucose Random 90 mg/dL (60-115); Potassium 3.7 mmol/L (3.3-5.1); Sodium 138 mmol/L (135-145)
[2024-01-01 07:36] LABS: B Type Natriuretic Peptide 255 pg/mL (<100)
[2024-01-01] MEDS: Fluticasone Propionate 100 MCG BLST.W.DEV 1 PUFF INHALE (07:59)
[2024-01-01] MEDS: Baclofen 10 MG TABLET PO (10:05)
[2024-01-01] MEDS: Amiodarone HCL 200 MG TABLET 100 MG PO (10:05)
[2024-01-01] MEDS: Metoprolol Succinate ER 25 MG TAB.ER.24H PO (10:05)
[2024-01-01] MEDS: Spironolactone 25 MG TABLET 12.5 MG PO (10:05)
[2024-01-01] MEDS: 0.9 % Sodium Chloride Flush 3 ML SYRINGE IVFLUSH (10:06)
[2024-01-01] MEDS: Furosemide 40 MG/4 ML VIAL IVPUSH (10:06)
--- NOTE | 2024-01-01 11:24 | W.MHC.F2F ---
Service Date Service Date: 01/01/24 Encounter Date of encounter: 01/01/24 Reasons for Services Signs and symptoms assessed: [place] O2 Reason for halfway: medication management (Patient not taking Lasix as supposed to) and teach disease management (wean O2 down as tolerated ) Homebound: Leaving the home is medically contraindicated at this time without the asist of a device and/or another person due th the listed conditions above and below. Reason homebound: unable to drive Certification: Based on the above findings, I certify that this patient is confined to the home and needs intermittent halfway care, physical therapy and/or speech therapy, or continues to need occupational therapy. The patient is under my care, and I have initiated the establishment of the plan of care. The patient will be followed by a physician who will periodically review the plan of care. Time Spent With Patient Time: Total time managing care of this patient today ____ minutes.
--- NOTE | 2024-01-01 11:26 | PM.DS ---
DS: Providers Provider Date of Service: 01/01/24 Date of admission: 12/30/23 14:51 Date of discharge: 01/01/24 Primary care physician: Mel Greenberg DO DS: Diagnosis Discharge Diagnosis (1) Hypoxia: Status: Acute (2) CHF (congestive heart failure): Status: Acute DS: Summary Hospital Course Hospital Course: Admission note HPI Pt is a 58-year-old female with a PMH significant for?tetralogy of Fallot s/p repair, HFpEF, s/p ICD, paroxysmal AFib on Xarelto, HIV, HLD, and asthma who presents to the ED with?SOB, cough, and HALL x2-3 days. Patient reports she has been experiencing SOB and HALL with walking for the past few days. Has also been having cough occasionally productive of whitish sputum. Has chronic lower leg edema, though is uncertain if it has increased. Patient initially presented to walk-in clinic where she was noted to be hypoxic at 81% on RA, and patient was sent to the ED for further evaluation. Denies fever, chills. No nausea or vomiting. Denies chest pain/pressure, palpitations. No abdominal pain. Medication claim history indicates patient was last prescribed Lasix 40 mg daily on 12/13/2023, but patient reports she only takes Lasix occasionally as needed. Last took medication sometime last week. Reports a history of asthma, but denies COPD. Is a lifelong nonsmoker and not on home O2. In the ED pt was mildly hypertensive 141/70 and desatting into the 80s. Labs were significant for BNP 1009 (elevated from 690 on 10/14/2022), otherwise grossly unremarkable and baseline for patient. No leukocytosis. Stable H&H. Procalcitonin WNL at 0.05. No significant electrolyte abnormalities. Renal and hepatic function baseline. UA not consistent with UTI. Tested negative for flu, RSV, COVID. CXR showed cardiomegaly with pulmonary vascular congestion and interstitial edema and with right basilar airspace disease. EKG demonstrated AV dual paced rhythm without evidence of significant ST elevations or depressions. Pt was treated with DuoNeb, Solu-Medrol ceftriaxone, and furosemide. Pt will be admitted to the hospital for treatment further evaluation of acute hypoxic respiratory failure in the setting of acute decompensated HFpEF exacerbation. Hospital course The patient was admitted to the hospital for treatment of Acute hypoxic respiratory failure in the setting of acute on chronic HFpEF secondary to medication noncompliance: only takes home Lasix occasionally. She was treated with Furosemide 40 mg IV b.i.d. along with home dose Spironolactone weaning down O2 as tolerated as an ECHO was done showing low normal EF with mildly dilated RV and functionial pulmonic Bioprosthetic. To continue with Low-salt diet and home dose Lasix of 40 mg daily. She was evaluated for Home O2 and will need 2-3L with ambulation but maintains O2 around early 90s on RA. To be discharged home on home O2 and to be followed by [facility] for new [facility]2 and make sure she is taking her medications as supposed to. For Paroxysmal AFib she continued amiodarone, metoprolol, and Xarelto. Discharge plan Take Lasix 40 mg daily Low sodium diet Use nebulizer as needed Wean O2 down as tolerated Time Attestation Discharge Coordination Time (in mins): 38 Quality: Safe Use of Opioids Does Pt have an Active Cancer Diagnosis on the Problem List?: No Quality: Stroke Does the patient have a stroke diagnosis?: No Physical Exam Vital Signs: Vital Signs: Last Vital Signs Temp 97.4 F 01/01/24 07:47 Pulse 65 01/01/24 10:05 Resp 20 01/01/24 08:01 BP 115/68 01/01/24 10:06 Pulse Ox 92 01/01/24 07:47 O2 Del Method Nasal Cannula 01/01/24 07:47 O2 Flow Rate 2 01/01/24 07:47 BMI result Body Mass Index 24.1 Const: Other: Constitutional : Awake, interactive, not in distress Neck : Normal inspection, Supple Cardiovascular : RRR, no JVP, trace bilateral lower extremity edema Respiratory : good bilateral air entry, no significant basal crackles, wheezes or rhonchi Gastrointestinal: soft, lax, Normal bowel sounds, Non tender Skin : Warm, Dry Neurological : Alert & oriented x3, No focal deficit DS: Data Data Completed and Pending Labs on day of discharge: Laboratory Results - last 24 hr 01/01/24 07:06 Sodium 138 Potassium 3.7 Chloride 96 Carbon Dioxide 36 H Anion Gap 10 L BUN 11 Creatinine 0.83 Estim Creat Clear Calc 56.5 Estimated GFR > 60 Random Glucose 90 Calcium 9.1 B-Natriuretic Peptide 255 H Preliminary micro results at discharge 12/30/23 11:28 Blood Culture - Preliminary Blood - Venous No growth after 24 hours. 12/30/23 11:14 Blood Culture - Preliminary Blood - Venous No growth after 24 hours. Imaging Chest x-ray: Radiologist's impression: ITS Impressions Chest X-Ray 12/30/23 10:59 IMPRESSION: Cardiomegaly with pulmonary vascular congestion and interstitial edema. Right basilar airspace disease. Electronically signed by: Alan Branch MD 12/30/2023 01:28 PM EDT RP Discharge Plan Discharge Anticipated Discharge Date/Time: 01/01/24 11:16 Patient Disposition: Home Health Service Discharge Diagnosis: Heart failure exacerbation Referrals: Mel Greenberg DO [Primary Care Provider] - 1 Week Discharge Medications: New furosemide 40 mg tablet 40 mg PO QAM Qty: 90 0RF Continued amiodarone 100 mg tablet 100 mg PO DAILY 90 Days Qty: 90 1RF Xarelto 20 mg tablet 20 mg PO BEDTIME 90 Days Qty: 90 11RF baclofen 10 mg tablet 10 mg PO BID PRN (Reason: muscle spasm) lidocaine 5 % adhesive patch,medicated 1 patch topical DAILY PRN (Reason: Pain) albuterol sulfate [Ventolin HFA] 90 mcg/actuation HFA aerosol inhaler 2 puff INHALATION Q4-6H PRN (Reason: Shortness Of Breath Or Wheezing) spironolactone 25 mg tablet 12.5 mg PO DAILY ergocalciferol (vitamin D2) 1,250 mcg (50,000 unit) capsule 1,250 mcg PO WE Arnuity Ellipta 100 mcg/actuation blister with device 1 inh INHALATION DAILY Biktarvy 50-200-25 mg tablet 1 tab PO BEDTIME baclofen 10 mg tablet 10 mg PO DAILY metoprolol succinate 25 mg tablet extended release 24 hr 25 mg PO DAILY oxycodone-acetaminophen 5-325 mg tablet 1 tab PO BEDTIME PRN (Reason: severe pain) diclofenac sodium 1 % gel 2 g topical BID (DME) blood pressure monitor [Blood Pressure Kit] Kit See Rx Instructions .Route Qty: 1 0RF Rx Instructions: As directed (DME) Goodnites Bed Mats 2.6 X 2.9 feet pad See Rx Instructions .Route Qty: 36 0RF Rx Instructions: As directed albuterol sulfate 2.5 mg /3 mL (0.083 %) solution for nebulization 2.5 mg inhalation Q4H PRN (Reason: wheezing) Discharge Orders: Discharge Order (Routine); Ordered 01/01/24 Ordered By: Raysa Santiago Diet: Low salt diet Activity on Discharge: As tolerated Stand Alone Forms: Patient Portal Discharge page Print Language: Maori Care Plan Goals: Take Lasix 40 mg daily Low sodium diet Use nebulizer as needed Wean O2 down as tolerated Health Concerns: HEart failure Plan of Treatment: Home Oxygen Lasix therapy Assessment: as above
--- NOTE | 2024-01-01 13:22 | MHC.CM.PN ---
Pt has been medically cleared for DC, she will go home via private transport and have home care services from [facility].
--- NOTE | 2024-01-06 15:04 | P.CDIM_ITS ---
PROVIDER RESPONSE TEXT: To clarify, the appropriate diagnosis supported by the clinical indicators: Mild intermittent: without exacrbation QUERY TEXT: PHYSICIAN'S DOCUMENTATION REQUEST Date of Query: 12/31/2023 01:31 PM EDT Patient Name: Jasmina Yi Admit Date: 12/30/2023 Dear Raysa Santiago MD, A review of the medical record indicates additional documentation may be needed. Please review below and update the documentation accordingly. The diagnosis of asthma was documented in the record on 12/31/23. Additional clinical indicators from the record include: Asthma Not in acute exacerbation Continue home inhalers Based on the above, please clarify in the Progress Notes further specificity regarding the type and a cuity of the asthma: Mild intermittent Please specify if with or without acute exacerbation or status asthmaticus Mild persistent Please specify if with or without acute exacerbation or status asthmaticus Moderate persistent Please specify if with or without acute exacerbation or status asthmaticus Severe persistent Please specify if with or without acute exacerbation or status asthmaticus Exercise induced Please specify if with or without acute exacerbation or status asthmaticus Chronic obstructive asthma and indicate if with acute lower respiratory infection Please specify if with or without acute exacerbation or status asthmaticus Asthma with underlying COPD and indicate if with acute lower respiratory infection Please specify if with or without acute exacerbation or status asthmaticus Other (explain) Clinically unable to determine (explain) Thank you, Silvana Pena RN Use of terms such as suspected, likely, concern for, or probable (associated with a specific diagnosi s that is being evaluated, monitored, or treated as if it exists) are acceptable and can be coded in the inpatient se tting, when documented at the time of discharge. Please use your independent medical judgment in providing your response. THIS QUERY IS PART OF THE PERMANENT MEDICAL RECORD
== END 2024-01-01 13:30 | disposition home health service (06) | DRG 194 ==
LOC: HO.ED 13:17 → HO.EDOVER 15:00 → HO.IMC 16:06
PROVIDERS: Admitting Provider Student in an Organized Health Care Education/Training Program; Emergency Provider Emergency Medicine; PCP Family Medicine; Visit Provider Student in an Organized Health Care Education/Training Program
DX: I50.33 Acute on chronic diastolic (congestive) heart failure (principal); J96.01 Acute respiratory failure with hypoxia; J45.20 Mild intermittent asthma, uncomplicated; T50.1X6A Underdosing of loop [high-ceiling] diuretics, initial encounter; Z20.822 Contact with and (suspected) exposure to COVID-19; Z21 Asymptomatic human immunodeficiency virus [HIV] infection status; Z87.74 Personal history of (corrected) congenital malformations of heart and circulatory system; Z95.810 Presence of automatic (implantable) cardiac defibrillator; Z79.899 Other long term (current) drug therapy
CPT/HCPCS: 0241U; 36415; 71045; 80048; 80076; 81001; 82803; 83605; 83735; 83880; 84145; 84484; 85007; 85027; 86140; 87040; 93005; 93306; 94640; 99285; J0696; J1940; J2919; Q9957

== ENCOUNTER → 2023-12-30 10:59 | Outpatient (BNV) | payer MEDICAID, SELFPAY | PROVIDERS: Admitting Provider Student in an Organized Health Care Education/Training Program; Emergency Provider Emergency Medicine; PCP Family Medicine; Visit Provider Internal Medicine | DX: R94.31 Abnormal electrocardiogram [ECG] [EKG] (principal) | CPT/HCPCS: 93010 ==

== ENCOUNTER 2023-12-30 14:51 | Outpatient (BNV) | payer MEDICAID, SELFPAY | END 2023-12-31 07:00 | PROVIDERS: Admitting Provider Student in an Organized Health Care Education/Training Program; Emergency Provider Emergency Medicine; PCP Family Medicine; Visit Provider Internal Medicine | DX: I50.33 Acute on chronic diastolic (congestive) heart failure (principal); Z95.3 Presence of xenogenic heart valve; I36.1 Nonrheumatic tricuspid (valve) insufficiency | CPT/HCPCS: 93306 ==

== ENCOUNTER → 2023-12-30 14:51 | Outpatient (BNV) | payer MEDICAID, SELFPAY | PROVIDERS: Admitting Provider Student in an Organized Health Care Education/Training Program; Emergency Provider Emergency Medicine; PCP Family Medicine; Visit Provider Student in an Organized Health Care Education/Training Program | DX: J96.01 Acute respiratory failure with hypoxia (principal); I50.32 Chronic diastolic (congestive) heart failure; Z87.74 Personal history of (corrected) congenital malformations of heart and circulatory system | CPT/HCPCS: 99223; 99232; 99239; G0180 ==

== ENCOUNTER 2024-01-07 10:59 | Outpatient (REF) | payer MEDICAID, SELFPAY ==
[2024-01-07 14:19] LABS: Blood Urea Nitrogen 13 mg/dL (9-16); Calcium 9.9 mg/dL (8.4-10.2); Estimated Glomerular Filt Rate > 60; Glucose Random 87 mg/dL (60-115)
[2024-01-07 14:36] LABS: Anion Gap 9 (12-20); Carbon Dioxide 34 mmol/L (22-29); Chloride 98 mmol/L (96-108); Potassium 4.3 mmol/L (3.3-5.1); Sodium 137 mmol/L (135-145)
== END 2024-01-07 11:00 | disposition home or self-care (01) ==
LOC: HO.HHCL 10:59
PROVIDERS: Visit Provider Internal Medicine Geriatric Medicine
DX: I50.812 Chronic right heart failure (principal)
CPT/HCPCS: 36415; 80048

== ENCOUNTER 2024-01-21 07:08 | Outpatient (AMB) | payer MEDICAID, SELFPAY ==
--- NOTE | 2024-01-21 07:33 | MHC.OFFVIS ---
Intake Visit Reasons: Right Micro Accompanied by: Self / Same As Patient Allergies Penicillins [PENICILLINS] Allergy (Unknown, Verified 01/21/24 07:33) RASH SEAFOOD Allergy (Unknown, Uncoded 01/21/24 07:33) RASH [facility] Medical History Hypoxia COPD (chronic obstructive pulmonary disease) CHF (congestive heart failure) Biventricular ICD (implantable cardioverter-defibrillator) in place CHF exacerbation Right bundle branch block (RBBB) on electrocardiogram (ECG) Right heart failure Complete heart block Acute on chronic right heart failure ICD (implantable cardioverter-defibrillator) in place Dysplasia of cervix, low grade (MIGUEL 1) Paroxysmal atrial fibrillation Fallot tetralogy Heart valve disorder Pacemaker HIV (human immunodeficiency virus infection) Asthma Surgical History H/O varicose vein stripping (04/04/21) Pulmonary valve replaced History of cardioversion H/O pulmonic valve replacement Hx of cardiac pacemaker History of open heart surgery Family History Father CVD (cardiovascular disease) Mother No problems noted. Social History Household Members: Significant Other Household Members Other:: female partner Housing: Apartment Do you presently have visiting nurse or other home services: No Alcohol intake: never Patient Tobacco Use Status: Never used Tobacco service: No Current occupational status: disabled Sexual orientation: Lesbian/Guerrier/Homosexual Gender identity: Female Female Reproductive History Menstrual Age of Menarche: 10 Office Procedures Vascular Office Procedure Details Details: Diagnosis: Right Leg varicose veins with inflammation Procedure: Right leg Microphlebectomy Anesthesia: Local Infiltration 50 cc, Tumescent: 0 cc. Varicose veins were marked in the standing position on the right leg and the patient was then placed in the supine position. The right lower extremity was prepared and draped to allow knee flexion in the sterile field. The patient had large superficial varicose veins with significant symptoms of pain. It was therefore determined to perform microphlebectomies of the clusters of varicose veins. The patient had bulging varicose veins which were previously marked in the standing position. A small stab incision was made longitudinally directly overlying the varicose vein in the calf and the varicose vein was grasped with a hemostat aided by a vein hook. It was then dissected as far proximally and distally as possible and avulsed. A total of 21 stab incisions were made and the procedure of stab phlebectomies was repeated 21 times. Hemostasis was checked and stab incision sites were closed with steri-strips and sterile dressing was given with gauze and krilex wrap followed by an cristian bandage. There were no complications and blood loss was minimal. Post-Op instructions were given and a follow-up appointment was recommended. 18146 - Stab Phlebectomy >20 All charges added?: Procedure code (CPT) selection complete Assessment & Plan Assessment & Plan (1) Varicose veins of right lower extremity with inflammation: Comment: 04/04/2021 - right leg microphlebectomy 01/30/2022 - right leg microphlebectomy 09/25/2022 - right leg microphlebectomy 01/21/2024 - right leg microphlebectomy Code(s): I83.11 - Varicose veins of right lower extremity with inflammation Category: Medical Plan: See op note Coding Level of Care Code Procedure Only Diagnoses Varicose veins of right lower extremity with inflammation I83.11 CPT Codes Details - Vascular 6: 84142 - Stab Phlebectomy >20 ([id number])
== END 2024-01-21 09:02 | disposition home or self-care (01) ==
LOC: HO.HVS 07:09
PROVIDERS: PCP Family Medicine; Visit Provider Surgery Vascular Surgery
DX: I83.11 Varicose veins of right lower extremity with inflammation (principal)
CPT/HCPCS: 37766

== ENCOUNTER → 2024-01-21 07:08 | Outpatient (BNVA) | payer MEDICAID, SELFPAY | PROVIDERS: PCP Family Medicine; Visit Provider Surgery Vascular Surgery | DX: I83.11 Varicose veins of right lower extremity with inflammation (principal) | CPT/HCPCS: 37766; J2003 ==

== ENCOUNTER 2024-02-24 09:29 | Outpatient (AMB) | payer MEDICAID, SELFPAY ==
--- NOTE | 2024-02-24 09:34 | MHC.OFFVIS ---
Intake Visit Reasons: overdue 2 wk follow up Right Micro 01/21/24 Intake Note: follow up Right Micro 01/21/24, pt states she still has black and blue on her leg Accompanied by: Self / Same As Patient Allergies Penicillins [PENICILLINS] Allergy (Unknown, Verified 02/24/24 09:37) RASH SEAFOOD Allergy (Unknown, Uncoded 02/24/24 09:37) RASH HPI HPI overdue 2 wk follow up Right Micro 01/21/24: Details: Very pleasant 58-year-old female presents for follow-up status post right leg microphlebectomy. Overall reports doing fairly well. She does have 1 location on the right pretibial surface that is phlebitic. It has been a source of pain and discomfort for her. Other than that she has been doing fairly well. She now presents for routine follow-up. [facility] Medical History Hypoxia COPD (chronic obstructive pulmonary disease) CHF (congestive heart failure) Biventricular ICD (implantable cardioverter-defibrillator) in place CHF exacerbation Right bundle branch block (RBBB) on electrocardiogram (ECG) Right heart failure Complete heart block Acute on chronic right heart failure ICD (implantable cardioverter-defibrillator) in place Dysplasia of cervix, low grade (MIGUEL 1) Paroxysmal atrial fibrillation Fallot tetralogy Heart valve disorder Pacemaker HIV (human immunodeficiency virus infection) Asthma Surgical History H/O varicose vein stripping (04/04/21) Pulmonary valve replaced History of cardioversion H/O pulmonic valve replacement Hx of cardiac pacemaker History of open heart surgery Family History Father CVD (cardiovascular disease) Mother No problems noted. Social History Household Members: Significant Other Household Members Other:: female partner Housing: Apartment Do you presently have visiting nurse or other home services: No Alcohol intake: never Patient Tobacco Use Status: Never used Tobacco service: No Current occupational status: disabled Sexual orientation: Lesbian/Guerrier/Homosexual Gender identity: Female Female Reproductive History Menstrual Age of Menarche: 10 Review of Systems Const Reports as per HPI ENT Reports no additional complaints Card Denies chest pain, Denies chest pain at rest and Denies chest pain with activity Resp Denies chest congestion and Denies cough GI Reports no additional complaints Musc Details: pain over varicosities, aching of lower extremities, swelling, cramping, heaviness and tiredness, itching Denies abnormal gait Skin/Breast Reports pruritus and Denies wounds Neuro Reports no additional complaints and Denies abnormal gait Psych Denies no additional complaints Physical Exam Const General: cooperative, healthy appearing and comfortable Orientation/consciousness: oriented to person, oriented to place and oriented to time Neck Carotids: no bruits Chest Chest palpation & inspection: normal inspection of the chest and normal palpation of entire chest wall Resp Effort & Inspection: normal respiratory effort and able to speak in complete sentences Cardio Rate: regular rate Heart sounds: S1 normal heart sound present and S2 normal heart sound present Peripheral pulses: Peripheral pulses 2+ throughout GI Inspection: Yes normal to inspection Skin Other: + 1 edema, right pretibial surface phlebitic areas CEAP Classification C4 - skin color changes Ep - Etiology Primary As - superficial veins P - reflux General skin exam: dry skin Neuro General: oriented to person, oriented to place and oriented to time Extrem Right lower extremity: full ROM, normal capillary refill and edema Left lower extremity: full ROM, normal capillary refill and edema Psych Mental Status: mental status grossly normal Assessment & Plan Assessment & Plan (1) Varicose veins of right lower extremity with inflammation: Comment: 04/04/2021 - right leg microphlebectomy 01/30/2022 - right leg microphlebectomy 09/25/2022 - right leg microphlebectomy 01/21/2024 - right leg microphlebectomy Code(s): I83.11 - Varicose veins of right lower extremity with inflammation Category: Medical Plan: The patient has done extremely well with her right leg microphlebectomy but has developed some phlebitis.. She did experience postprocedure phlebitic episodes and I have discussed with the patient use of warm compresses and NSAIDS if tolerated for pain discomfort. In addition, I have discussed continued conservative measures including use of compression, leg elevation, and exercise. She will follow up with us in approximately 4 weeks time to ensure that the leg does continue to improve. Should there be any interval changes happy to see her back sooner. Thank you for allowing us to assist in her care. Coding Level of Care Code Est Pt Level 4 (01425) Diagnoses Varicose veins of right lower extremity with inflammation I83.11
== END 2024-02-24 10:09 | disposition home or self-care (01) ==
PROVIDERS: PCP Family Medicine; Visit Provider Surgery Vascular Surgery
DX: I83.11 Varicose veins of right lower extremity with inflammation (principal)
CPT/HCPCS: 99214

== ENCOUNTER → 2024-02-24 09:29 | Outpatient (BNVA) | payer MEDICAID, SELFPAY | PROVIDERS: PCP Family Medicine; Visit Provider Surgery Vascular Surgery | DX: I83.11 Varicose veins of right lower extremity with inflammation (principal) | CPT/HCPCS: 99212 ==

== ENCOUNTER 2024-02-25 10:33 | Outpatient (REF) | payer MEDICAID, SELFPAY ==
[2024-02-25 13:17] LABS: MANUAL DIFF FLAG NO
[2024-02-25 13:45] LABS: Creatinine Urine 9.86 mg/dL; Microalbumin Urine < 5.0 mg/L
[2024-02-25 13:49] LABS: Alanine Aminotransferase 31 U/L (0-31); Albumin Level 3.6 g/dL (3.5-5.0); Alkaline Phosphatase 83 U/L (39-117); Anion Gap 9 (12-20); Aspartate Amino Transferase 48 U/L (5-31); Bilirubin Direct 0.2 mg/dL (0.0-0.5); Bilirubin Total 0.5 mg/dL (0.0-1.0); Blood Urea Nitrogen 15 mg/dL (9-16); Calcium 9.7 mg/dL (8.4-10.2); Carbon Dioxide 33 mmol/L (22-29); Chloride 102 mmol/L (96-108); Cholesterol 234 mg/dL (<200); Estimated Glomerular Filt Rate > 60; Glucose Random 90 mg/dL (60-115); HDL Cholesterol 43 mg/dL (>40); LDL Cholesterol Calculated 165 mg/dL (<100); Sodium 140 mmol/L (135-145); Total Protein 8.6 g/dL (6.5-8.0); Triglycerides 131 mg/dL (<150)
[2024-02-25 14:05] LABS: Basophils Percent Auto 0.4 % (0-2); Eosinophils Absolute Auto 0.2 X10*3/uL (0.0-0.4); Eosinophils Percent Auto 3.1 % (0-4); Free T4 (Free Thyroxine) 1.29 ng/dL (0.71-1.85); Hematocrit 41.5 % (37.0-47.0); Hemoglobin 13.5 g/dl (12.0-16.0); Imm Gran Abs Auto 0.02 X10*3/uL (0.00-0.03); Imm Gran Pct Auto 0.3 % (0.0-0.4); Lymphocytes Absolute Auto 1.2 X10*3/uL (1.2-4.9); Lymphocytes Percent Auto 18.2 % (20-40); Mean Corpuscular HGB Conc 32.5 g/dl (31.0-35.0); Mean Corpuscular Hemoglobin 30.7 pg (27.0-33.0); Mean Corpuscular Volume 94.3 fL (80.0-98.0); Mean Platelet Volume 11.5 fL (9.4-12.3); Monocytes Absolute Auto 0.6 X10*3/uL (0.1-1.2); Monocytes Percent Auto 8.7 % (2-11); Neutrophils Absolute Auto 4.6 x10*3/uL (2.0-8.3); Neutrophils Percent Auto 69.3 % (45-73); Platelet Count 223 X10*3/uL (160-400); Red Cell Distribution Width 17.7 % (11.0-16.0); Thyroid Stimulating Hormone 2.31 uIU/mL (0.32-4.0); Vitamin D 25-OH Total 36.9 ng/mL (>30); White Blood Count 6.7 X10*3/uL (4.8-10.8)
[2024-02-25 14:06] LABS: Estimated Average Glucose 120 mg/dL; Hemoglobin A1c % 5.8 % (<6.0); Total Hemoglobin (HGBA1C) 5248.3033 umol/L
[2024-02-25 18:44] LABS: CT PCR NOT DETECTED (Not Detect.); NG PCR NOT DETECTED (Not Detect.)
[2024-02-26 08:41] LABS: ~HepC Num1 0.18 S/CO (0.00-0.79); ~Hepatitis C Antibody Nonreactive (Nonreactive)
[2024-02-27 07:08] LABS: HIV RNA PCR Qn Copies 184 copies/mL (NOT DETECTED); HIV RNA PCR Qn Log Copies 2.26 (NOT DETECTED)
[2024-02-28 11:29] LABS: TS Negative Control Passed; TS Panel A 0; TS Panel B 0; TS Positive Control Passed; TSpotTB Negative (Negative)
[2024-02-28 16:30] LABS: RPR Rapid Plasma Reagin NON-REACTIVE (NON-REACTIVE)
[2024-03-02 00:44] LABS: Absolute CD4 Count 514 cells/uL (490-1740); Absolute CD8 Count 358 cells/uL (180-1170); Absolute Lymphocytes 1114 cells/uL (850-3900); CD4 CD8 Ratio 1.43 (0.86-5.00); Percent CD4 Cells 46 % (30-61); Percent CD8 Cells 32 % (12-42)
== END 2024-02-25 10:34 | disposition home or self-care (01) ==
LOC: HO.HHCL 10:33
PROVIDERS: Visit Provider Family Medicine
DX: Z00.00 Encounter for general adult medical examination without abnormal findings (principal); E78.49 Other hyperlipidemia; I48.0 Paroxysmal atrial fibrillation; I50.812 Chronic right heart failure; Z99.81 Dependence on supplemental oxygen; Z21 Asymptomatic human immunodeficiency virus [HIV] infection status; J45.30 Mild persistent asthma, uncomplicated; R32 Unspecified urinary incontinence; M54.41 Lumbago with sciatica, right side; G89.29 Other chronic pain
CPT/HCPCS: 80048; 80061; 80076; 82306; 82570; 83036; 84439; 84443; 85025; 85027; 86360; 86481; 86592; 86803; 87491; 87536; 87591

== ENCOUNTER 2024-03-30 08:23 | Outpatient (REF) | payer MEDICAID, SELFPAY | END 2024-03-30 08:24 | disposition home or self-care (01) | LOC: HO.SH 08:23 | PROVIDERS: Visit Provider General Practice | DX: Z01.118 Encounter for examination of ears and hearing with other abnormal findings (principal); H90.A22 Sensorineural hearing loss, unilateral, left ear, with restricted hearing on the contralateral side; H90.A31 Mixed conductive and sensorineural hearing loss, unilateral, right ear with restricted hearing on the contralateral side | CPT/HCPCS: 92557; 92567 ==

== ENCOUNTER 2024-03-31 14:09 | Outpatient (AMB) | payer MEDICAID, SELFPAY ==
[2024-03-31 14:14] VITALS: BP 94/58; PULSE 63; O2SAT 98; BMI 24.8
--- NOTE | 2024-03-31 14:14 | MHC.OFFVIS ---
Vital Signs 03/31/24 14:14 Height 5 ft Weight 127 lb BMI 24.8 BP 94/58 L Blood Pressure Location Rt brachial Position Sitting Pulse 63 Pulse Source Doppler Pulse Oximetry (%) 98 Oxygen Delivery Method Nasal Cannula Oxygen Flow Rate 2 Intake Visit Reasons: hypoxia Allergies Penicillins [PENICILLINS] Allergy (Unknown, Verified 03/31/24 14:17) RASH SEAFOOD Allergy (Unknown, Uncoded 02/24/24 09:37) RASH HPI HPI hypoxia: Details: 58-year-old lady, nonsmoker, with HIV, congenital heart disease/tetralogy of Fallot, status post repair, underlying bioprosthetic pulmonic valve, AFib on amiodarone, and biventricular ICD with recent admission for congestive heart failure discharged on supplemental oxygen, also asthma controlled on Arnuity and albuterol MDI presents for further assessment of his supplemental oxygen and asthma. Patient stated her asthma symptoms have been well controlled. Patient is interested in another oxygen evaluation. She denies family history of lung disease. [facility] Medical History (Updated 03/31/24 @ 15:49 by John Cabrera MD) Hypoxia CHF (congestive heart failure) Biventricular ICD (implantable cardioverter-defibrillator) in place CHF exacerbation Right bundle branch block (RBBB) on electrocardiogram (ECG) Right heart failure Complete heart block Acute on chronic right heart failure ICD (implantable cardioverter-defibrillator) in place Dysplasia of cervix, low grade (MIGUEL 1) Paroxysmal atrial fibrillation Fallot tetralogy Heart valve disorder Pacemaker HIV (human immunodeficiency virus infection) Asthma Surgical History H/O varicose vein stripping (04/04/21) Pulmonary valve replaced History of cardioversion H/O pulmonic valve replacement Hx of cardiac pacemaker History of open heart surgery Family History Father CVD (cardiovascular disease) Mother No problems noted. Social History Household Members: Significant Other Household Members Other:: female partner Housing: Apartment Do you presently have visiting nurse or other home services: No Alcohol intake: never Patient Tobacco Use Status: Never used Tobacco service: No Current occupational status: disabled Sexual orientation: Lesbian/Guerrier/Homosexual Gender identity: Female Female Reproductive History Menstrual Age of Menarche: 10 Review of Systems Const Denies daytime sleepiness, Denies excessive sweating, Denies fatigue, Denies fever(s), Denies lethargy, Denies malaise, Denies night sweats, Denies snoring and Denies weight loss Eyes Denies blurry vision and Denies itchy eyes ENT Denies nasal congestion, Denies post nasal drip, Denies sinus pain, Denies sinus pressure and Denies other ( Thrush) Card Denies chest pain, Denies pedal edema, Denies dyspnea, Denies orthopnea and Denies paroxysmal nocturnal dyspnea Resp Denies cough, Denies hemoptysis, Denies excessive phlegm production, Denies dyspnea, Denies snoring and Denies wheezing GI Denies abdominal pain and Denies heartburn Musc Denies myalgias, Denies arthralgias and Denies joint swelling Skin/Breast Denies rash Neuro Denies memory loss and Denies seizure-like activity Psych Denies abnormal sleep pattern, Denies anxiety and Denies memory loss Endo Denies excessive sweating, Denies fatigue and Denies heat intolerance Ryley/Lymph Denies easy bruising Aller/Immun Denies itchy eyes, Denies seasonal rhinorrhea and Denies wheezing Physical Exam Vital Signs: Last Vital Signs Pulse 63 03/31/24 14:14 BP 94/58 L 03/31/24 14:14 Pulse Ox 98 03/31/24 14:14 Oxygen Delivery Method Nasal Cannula 03/31/24 14:14 Oxygen Flow Rate 2 03/31/24 14:14 BMI result Body Mass Index 24.8 Const General: no acute distress and alert Nutritional Appearance: not obese Orientation/consciousness: Other orientation findings ( oriented) HEENT Head: Yes atraumatic Eyes General: appearance normal, both eyes and all related structures Sclerae: sclerae normal EOM: EOMs intact bilaterally Neck Neck: Yes supple Lymphatic: no lymphadenopathy noted Resp Effort & Inspection: normal respiratory effort and no use of accessory muscles Auscultation: clear to auscultation bilaterally Cardio Rate: regular rate Rhythm: regular rhythm Heart sounds: no gallops, no murmurs and no rubs Skin General skin exam: other ( warm) Extrem General: No clubbing, No cyanosis and No edema Office Procedures 6 Minute Walk Time:: 02:45 SPO2 % at rest: 93 Pulse at rest: 76 SPO2 % during excercise: 85 Pulse during excercise: 83 SPO2 % after excercise: 94 Pulse after excercise: 93 Distance in yards walked: 240 Kristie Score: 0 Performance Observations:: Jasmina walked on level ground without assistance, she walked on room air for 2 minutes before her SPO2 decreased to 85%. O2 started at 2 lpm and with a brief rest her SPO2 recovered to 93%. She maintained her SPO2 91-94% on 2 lpm continuous O2. [id number] - 6 Minute Walk Assessment & Plan Assessment & Plan (1) Supplemental oxygen dependent: Code(s): Z99.81 - Dependence on supplemental oxygen Category: Medical Plan: 6 minute walk test/supplemental oxygen evaluation performed. Patient continues to require supplemental oxygen with want to 2 L continuous flow needed for normal oximetry with exertion. Updated order placed with [employer]. (2) Asthma: Code(s): J45.909 - Unspecified asthma, uncomplicated Category: Medical Plan: Underlying asthma well controlled on current regimen of Arnuity and albuterol MDI/nebs. Continue current regimen. Orders: Orders AMB 6 minute walk Today J44.1 - Chronic obstructive pulmonary disease with (acute) exacerbation Coding Level of Care Code New Pt Level 4 (92346) Diagnoses Supplemental oxygen dependent Z99.81 Asthma J45.909 CPT Codes Coding ([id number])
[2024-03-31 15:14] VITALS: PULSE 76; O2SAT 93
== END 2024-03-31 14:48 | disposition home or self-care (01) ==
PROVIDERS: PCP Family Medicine; Visit Provider Internal Medicine Pulmonary Disease
DX: Z99.81 Dependence on supplemental oxygen (principal); J45.909 Unspecified asthma, uncomplicated
CPT/HCPCS: 94618; 99204

== ENCOUNTER → 2024-03-31 14:09 | Outpatient (BNVA) | payer MEDICAID, SELFPAY | PROVIDERS: PCP Family Medicine; Visit Provider Internal Medicine Pulmonary Disease | DX: J45.909 Unspecified asthma, uncomplicated (principal); Z99.81 Dependence on supplemental oxygen | CPT/HCPCS: 94618; 99202 ==

== ENCOUNTER 2024-04-19 09:26 | Outpatient (REF) | payer MEDICAID, SELFPAY ==
--- NOTE | ~2024-04-19 | MM_ITS ---
EXAMINATION: DXA BONE DENSITY AXIAL HISTORY: Estrogen deficiency TECHNIQUE: The Rounds Dual energy absorptiometry (DEXA) of the lumbar spine, total left hip, and femoral neck was performed. COMPARISON: There are no prior studies for comparison. FINDINGS: The bone mineral density of the lumbar spine is 1.055 with a T-score of -1.0, and a Z-score of 0.4. The bone mineral density of the left total hip is 0.826 with a T-score of -1.4, and a Z-score of -0.3. The bone mineral density of the left femoral neck is 0.773 with a T-score of -1.9, and a Z-score of -0.5. FRACTURE RISK: The FRAX index suggests a risk of major osteoporotic fracture of 5.3%, and of hip fracture 0.6%. MM/XR DEXA axial skeleton IMPRESSION: Based on bone mineral density, and according to World Health Organization (WHO) criteria, the diagnosis is consistent with osteopenia. All bone density values are in grams per centimeter squared (g/cm2). Statistically, 68% of repeat scans fall within 1 SD (+/- 0.010 g/cm2 for AP spine L1-L4) and 1 SD (+/- 0.012 g/cm2 for femur total) FRAX is a trademark of the [employer]'s [place] [facility] Metabolic Bone Disease, a World Health Organization (WHO) Collaborating Center. Electronically signed by: Zach Mendiola MD 04/20/2024 07:50 AM EST
== END 2024-04-19 09:27 | disposition home or self-care (01) ==
LOC: HO.MAMMO 09:26
PROVIDERS: PCP Family Medicine; Visit Provider Internal Medicine
DX: Z13.820 Encounter for screening for osteoporosis (principal); B20 Human immunodeficiency virus [HIV] disease; Z79.818 Long term (current) use of other agents affecting estrogen receptors and estrogen levels; Z78.0 Asymptomatic menopausal state
CPT/HCPCS: 77080

== ENCOUNTER → 2024-04-19 10:00 | Outpatient (BNV) | payer MEDICAID, SELFPAY | PROVIDERS: PCP Family Medicine; Visit Provider Radiology Diagnostic Radiology | DX: E28.39 Other primary ovarian failure (principal) | CPT/HCPCS: 77085 ==

== ENCOUNTER 2024-05-24 15:23 | Outpatient (REF) | payer MEDICAID, SELFPAY ==
--- NOTE | 2024-05-24 15:40 | PFT_ITS ---
Flows: FEV1: 40 % of predicted at 0.84 L FVC: 37 % of predicted at 0.96 L FEV1/FVC: 88 % Bronchodilator response: Absent Volumes: Total lung capacity: 41 % of predicted at 1.76 L Residual volume: 60 % of predicted at 0.88 L Slow vital capacity: 31 % of predicted at 0.89 L Expiratory reserve volume: 12 % of predicted at 0.08 L Diffusion capacity: Moderately decreased. Impression: Patient is not able to generate sufficient air flow for accurate testing, all values are approximate. Overall severe restrictive ventilatory defect with no bronchodilator response combined with decreased diffusion capacity that suggests underlying pulmonary parenchymal disease. Clinical correlation is advised. MTDD
[2024-05-24 16:16] VITALS: PULSE 65
== END 2024-05-24 15:24 | disposition home or self-care (01) ==
LOC: HO.RESP 15:23
PROVIDERS: PCP Family Medicine; Visit Provider Family Medicine
DX: Z99.81 Dependence on supplemental oxygen (principal)
CPT/HCPCS: 94010; 94640; 94727; 94729

== ENCOUNTER → 2024-05-24 15:40 | Outpatient (BNV) | payer MEDICAID, SELFPAY | PROVIDERS: PCP Family Medicine; Visit Provider Internal Medicine Pulmonary Disease | DX: J45.909 Unspecified asthma, uncomplicated (principal); Z99.81 Dependence on supplemental oxygen | CPT/HCPCS: 94060; 94727; 94729 ==

== ENCOUNTER 2024-05-24 16:36 | Outpatient (REF) | payer MEDICAID, SELFPAY ==
[2024-05-24 16:58] LABS: Oxycodone Screen Urine Not Detected (Not Detect)
== END 2024-05-24 16:37 | disposition home or self-care (01) ==
LOC: HO.HHCLNP 16:36
PROVIDERS: Visit Provider Family Medicine
DX: M54.41 Lumbago with sciatica, right side (principal); G89.29 Other chronic pain; Z79.891 Long term (current) use of opiate analgesic
CPT/HCPCS: 80307

== ENCOUNTER 2024-06-09 09:25 | Outpatient (REF) | payer MEDICAID, SELFPAY ==
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
== END 2024-06-09 09:26 | disposition home or self-care (01) ==
LOC: HO.HAP 09:25
PROVIDERS: Visit Provider Family Medicine
DX: Z46.1 Encounter for fitting and adjustment of hearing aid (principal); H90.42 Sensorineural hearing loss, unilateral, left ear, with unrestricted hearing on the contralateral side; H90.A31 Mixed conductive and sensorineural hearing loss, unilateral, right ear with restricted hearing on the contralateral side
CPT/HCPCS: 92593

== ENCOUNTER 2024-06-26 08:31 | Outpatient (REF) | payer MEDICAID, SELFPAY ==
--- NOTE | ~2024-06-26 | XR_ITS ---
CLINICAL HISTORY: Left anterior knee pain s p fall 4 days ago 4 views left knee Comparison: None Findings: No fractures or dislocations No joint effusion No significant arthritic change. A small bone spur is present in the superior pole of the patella. No radiopaque foreign body Impression: Normal left knee. No acute skeletal abnormality. This document has been electronically signed by: Isaiah Reinoso MD on 06/26/2024 21:15:47
== END 2024-06-26 08:32 | disposition home or self-care (01) ==
LOC: HO.XRAY 08:31
PROVIDERS: PCP Family Medicine; Visit Provider Family Medicine
DX: M25.562 Pain in left knee (principal)
CPT/HCPCS: 73564

== ENCOUNTER → 2024-06-26 08:36 | Outpatient (BNV) | payer MEDICAID, SELFPAY | PROVIDERS: PCP Family Medicine; Visit Provider Radiology Diagnostic Radiology | DX: M25.562 Pain in left knee (principal); W19.XXXA Unspecified fall, initial encounter | CPT/HCPCS: 73564 ==

== ENCOUNTER 2024-07-07 14:27 | Outpatient (REF) | payer MEDICAID, SELFPAY | END 2024-07-07 14:28 | disposition home or self-care (01) | LOC: HO.MAMMO 14:27 | PROVIDERS: PCP Family Medicine; Visit Provider Family Medicine | DX: Z12.31 Encounter for screening mammogram for malignant neoplasm of breast (principal) | CPT/HCPCS: 77063; 77067 ==

== ENCOUNTER → 2024-07-07 15:15 | Outpatient (BNV) | payer MEDICAID, SELFPAY | PROVIDERS: PCP Family Medicine; Visit Provider Internal Medicine | DX: Z12.31 Encounter for screening mammogram for malignant neoplasm of breast (principal) | CPT/HCPCS: 77063; 77067 ==

== ENCOUNTER 2024-07-27 08:28 | Outpatient (REF) | payer MEDICAID, SELFPAY ==
--- NOTE | 2024-07-27 15:51 | MHC.AU.HA3 ---
Hearing Instrument Follow-Up- Binaural Date of Visit: 07/27/24 Right Ear: Make, Model, Color, Serial Number: [id number] Field Software Engineer Repair Warranty: 11/08/2024 Field Software Engineer Loss and Damage Warranty: 11/08/2024 [facility] Service Plan: 08/19/22 Battery Size: Rechargeable Heel Wheeler/Slim Tube: Size 1 UP Earmold/Dome/CShell/SlimTip:cShell #[id number] warranty 01/29/2022 Type of Wax Guard: CeruStop Dispensed By: [facility] Date of Fittin08/19/2021 Left Ear: Make, Model, Color, Serial Number: Bonita Ramírezo [id number] Kaylie Zelaya S#[id number] Field Software Engineer Repair Warranty: 11/08/2024 Field Software Engineer Loss and Damage Warranty: Used [facility] Service Plan: 08/19/22 Battery Size: Rechargeable Heel Wheeler/Slim Tube: Size 1 P Earmold/Dome/CShell/SlimTip: cShell #[id number] warranty 10/31/2024 Type of Wax Guard: CeruStop Dispensed By: [facility] Date of Fittin08/19/2021 Follow-Up Summary: Jasmina picked up her L+D replacement left hearing aid with new c-shell as well as repaired right hearing aid and c-shell. Connected to software and ran feedback comsec manager. Jasmina reports good subjective comfort and benefit. The c-shell wires looked a bit long but they are not different than what was previously fit for her. Jasmina reported the hearing aids felt secure. She reports not having worn the hearing aids for 1.5 years. Jasmina confirmed that she does still have her cable assembler at home but needed a new cord which was provided today. Reminded of charging procedures, maintenance, practiced insertion and removal. Scheduled additional follow up to check in after having a couple weeks of wear. Recommendations: Recommendations: Return as scheduled. Diagnosis Code(s): Primary Diagnosis: H90.A31 Mixed HL, Unilateral Right Ear, W/Restricted Contralateral Secondary Diagnosis: H90.A22 SNHL, Unilateral, Left Ear, W/Restricted Contralateral Hearing Signature: Provider: Jacoby Chong, [facility]
== END 2024-07-27 08:29 | disposition home or self-care (01) ==
LOC: HO.HAP 08:28
PROVIDERS: Visit Provider Family Medicine
DX: Z46.1 Encounter for fitting and adjustment of hearing aid (principal); H90.A31 Mixed conductive and sensorineural hearing loss, unilateral, right ear with restricted hearing on the contralateral side; H90.A22 Sensorineural hearing loss, unilateral, left ear, with restricted hearing on the contralateral side
CPT/HCPCS: V5011; V5264

== ENCOUNTER 2024-07-27 12:30 | Outpatient (AMB) | payer MEDICAID, SELFPAY ==
--- NOTE | 2024-07-27 12:52 | MHC.OFFVIS ---
Vital Signs 07/27/24 12:54 Height 5 ft Weight 125 lb BMI 24.4 BP 111/62 Blood Pressure Location Lt brachial Position Sitting Pulse 65 Pulse Source Pulse Oximeter Pulse Oximetry (%) 93 Oxygen Delivery Method Room Air Intake Visit Reasons: hypoxia Allergies Penicillins [PENICILLINS] Allergy (Unknown, Verified 03/31/24 14:17) RASH SEAFOOD Allergy (Unknown, Uncoded 02/24/24 09:37) RASH HPI HPI hypoxia: Details: 58-year-old lady, nonsmoker, with HIV, congenital heart disease/tetralogy of Fallot, status post repair, underlying bioprosthetic pulmonic valve, AFib on amiodarone, and biventricular ICD with recent admission for congestive heart failure discharged on supplemental oxygen, also asthma controlled on Arnuity and albuterol MDI. Patient states that her asthma symptoms are well controlled on her current regimen. She does not want to use supplemental oxygen. And she had it removed. [facility] Medical History (Updated 03/31/24 @ 15:49 by John Cabrera MD) Hypoxia CHF (congestive heart failure) Biventricular ICD (implantable cardioverter-defibrillator) in place CHF exacerbation Right bundle branch block (RBBB) on electrocardiogram (ECG) Right heart failure Complete heart block Acute on chronic right heart failure ICD (implantable cardioverter-defibrillator) in place Dysplasia of cervix, low grade (MIGUEL 1) Paroxysmal atrial fibrillation Fallot tetralogy Heart valve disorder Pacemaker HIV (human immunodeficiency virus infection) Asthma Surgical History H/O varicose vein stripping (04/04/21) Pulmonary valve replaced History of cardioversion H/O pulmonic valve replacement Hx of cardiac pacemaker History of open heart surgery Family History Father CVD (cardiovascular disease) Mother No problems noted. Social History Household Members: Significant Other Household Members Other:: female partner Housing: Apartment Do you presently have visiting nurse or other home services: No Alcohol intake: never Patient Tobacco Use Status: Never used Tobacco service: No Current occupational status: disabled Sexual orientation: Lesbian/Guerrier/Homosexual Gender identity: Female Female Reproductive History Menstrual Age of Menarche: 10 Review of Systems Const Denies daytime sleepiness, Denies excessive sweating, Denies fatigue, Denies fever(s), Denies lethargy, Denies malaise, Denies night sweats, Denies snoring and Denies weight loss Eyes Denies blurry vision and Denies itchy eyes ENT Denies nasal congestion, Denies post nasal drip, Denies sinus pain, Denies sinus pressure and Denies other ( Thrush) Card Denies chest pain, Denies pedal edema, Denies dyspnea, Denies orthopnea and Denies paroxysmal nocturnal dyspnea Resp Denies cough, Denies hemoptysis, Denies excessive phlegm production, Denies dyspnea, Denies snoring and Denies wheezing GI Denies abdominal pain and Denies heartburn Musc Denies myalgias, Denies arthralgias and Denies joint swelling Skin/Breast Denies rash Neuro Denies memory loss and Denies seizure-like activity Psych Denies abnormal sleep pattern, Denies anxiety and Denies memory loss Endo Denies excessive sweating, Denies fatigue and Denies heat intolerance Ryley/Lymph Denies easy bruising Aller/Immun Denies itchy eyes, Denies seasonal rhinorrhea and Denies wheezing Physical Exam Vital Signs: Last Vital Signs Pulse 65 07/27/24 12:54 BP 111/62 07/27/24 12:54 Pulse Ox 93 07/27/24 12:54 Oxygen Delivery Method Room Air 07/27/24 12:54 BMI result Body Mass Index 24.4 Const General: no acute distress and alert Nutritional Appearance: not obese Orientation/consciousness: Other orientation findings ( oriented) HEENT Head: Yes atraumatic Eyes General: appearance normal, both eyes and all related structures Sclerae: sclerae normal EOM: EOMs intact bilaterally Neck Neck: Yes supple Lymphatic: no lymphadenopathy noted Resp Effort & Inspection: normal respiratory effort and no use of accessory muscles Auscultation: clear to auscultation bilaterally Cardio Rate: regular rate Rhythm: regular rhythm Heart sounds: no gallops, no murmurs and no rubs Skin General skin exam: other ( warm) Extrem General: No clubbing, No cyanosis and No edema Office Procedures 6 Minute Walk Time:: 13:15 SPO2 % at rest: 94 Pulse at rest: 72 SPO2 % during excercise: 85 Pulse during excercise: 74 SPO2 % after excercise: 96 Pulse after excercise: 94 Distance in yards walked: 200 Kristie Score: 0 Performance Observations:: Jasmina walked on level ground unassisted. She walked on room air for 80 yards before her SPO2 decreased to 85%, O2 started at 1 lpm and with a brief rest her SPO2 recovered to 94%. She maintained her SPO2 94-96% on 1 lpm continuous O2. [id number] - 6 Minute Walk Assessment & Plan Assessment & Plan (1) Asthma: Code(s): J45.909 - Unspecified asthma, uncomplicated Category: Medical Plan: Well controlled on current regimen of Arnuity, albuterol MDI/nebs. Continue current regimen. (2) Supplemental oxygen dependent: Code(s): Z99.81 - Dependence on supplemental oxygen Category: Medical Plan: 6 minute walk test performed, patient continues to require 1 L supplemental oxygen to maintain normal oximetry with exertion. Patient is refusing supplemental oxygen. Orders: Orders AMB 6 minute walk Today J45.909 - Unspecified asthma, uncomplicated Coding Level of Care Code Est Pt Level 4 (26510) Diagnoses Asthma J45.909 Supplemental oxygen dependent Z99.81 CPT Codes Coding ([id number])
[2024-07-27 12:54] VITALS: BP 111/62; PULSE 65; O2SAT 93; BMI 24.4
[2024-07-27 13:34] VITALS: PULSE 72; O2SAT 94
== END 2024-07-27 13:20 | disposition home or self-care (01) ==
LOC: HO.HPS 12:31
PROVIDERS: PCP Family Medicine; Visit Provider Internal Medicine Pulmonary Disease
DX: J45.909 Unspecified asthma, uncomplicated (principal); Z99.81 Dependence on supplemental oxygen
CPT/HCPCS: 94618; 99214

== ENCOUNTER → 2024-07-27 12:30 | Outpatient (BNVA) | payer MEDICAID, SELFPAY | PROVIDERS: PCP Family Medicine; Visit Provider Internal Medicine Pulmonary Disease | DX: J45.909 Unspecified asthma, uncomplicated (principal); Z99.81 Dependence on supplemental oxygen | CPT/HCPCS: 94618; 99212 ==

== ENCOUNTER 2024-09-18 09:09 | Outpatient (REF) | payer MEDICAID, SELFPAY ==
--- NOTE | ~2024-09-18 | XR_ITS ---
EXAMINATION: XR TIBIA FIBULA 2 VIEWS LEFT HISTORY: fall COMPARISON: There are no prior studies available for comparison. FINDINGS: AP and lateral views of the left tibia and fibula are submitted. Osseous mineralization is normal. There is no fracture or dislocation. The visualized knee and ankle joint spaces are preserved. There is mild pretibial soft tissue swelling. XR/XR tibia fibula LT 2V IMPRESSION: Mild pretibial soft tissue swelling. No osseous abnormality is identified. Electronically signed by: Zach Mendiola MD 09/18/2024 09:39 AM EDT
== END 2024-09-18 09:10 | disposition home or self-care (01) ==
LOC: HO.HHCX 09:09
PROVIDERS: Visit Provider Nurse Practitioner
DX: M79.605 Pain in left leg (principal)
CPT/HCPCS: 73590

== ENCOUNTER → 2024-09-18 09:09 | Outpatient (BNV) | payer MEDICAID, SELFPAY | PROVIDERS: Visit Provider Radiology Diagnostic Radiology | DX: M79.662 Pain in left lower leg (principal); W19.XXXA Unspecified fall, initial encounter | CPT/HCPCS: 73590 ==

== ENCOUNTER 2024-09-19 09:10 | Outpatient (AMB) | payer MEDICAID, SELFPAY ==
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
[2024-09-19 09:38] VITALS: BP 118/70; PULSE 60; BMI 24.1
== END 2024-09-19 10:01 | disposition home or self-care (01) ==
LOC: HO.HCS 09:11
PROVIDERS: PCP Family Medicine; Visit Provider Internal Medicine Cardiovascular Disease
DX: I50.9 Heart failure, unspecified (principal); I48.0 Paroxysmal atrial fibrillation; Q21.3 Tetralogy of Fallot; Z95.810 Presence of automatic (implantable) cardiac defibrillator; Z95.2 Presence of prosthetic heart valve
CPT/HCPCS: 93010; 93284; 99215

== ENCOUNTER 2024-09-19 09:10 | Outpatient (REF) | payer MEDICAID, SELFPAY ==
--- NOTE | ~2024-09-19 | XR_ITS ---
CLINICAL HISTORY: I50.9 - Heart failure, unspecified 2 view chest x-ray. Comparison: 12/30/2023 Findings: The heart is enlarged. There is a prosthetic heart valve. ICD electrodes are unchanged in satisfactory position. Pulmonary vasculature is prominent and there is bilateral interstitial edema with alveolar pulmonary edema involving mostly the lower lung mark. No acute fracture. Impression: Cardiomegaly with interstitial and alveolar pulmonary edema. This document has been electronically signed by: Isaiah Reinoso MD on 09/20/2024 13:50:37
[2024-09-19 10:33] LABS: MANUAL DIFF FLAG NO
[2024-09-19 10:54] LABS: Hematocrit 41.7 % (37.0-47.0); Hemoglobin 13.5 g/dl (12.0-16.0); Imm Gran Abs Auto 0.02 X10*3/uL (0.00-0.03); Imm Gran Pct Auto 0.3 % (0.0-0.4); Lymphocytes Absolute Auto 1.4 X10*3/uL (1.2-4.9); Mean Corpuscular HGB Conc 32.4 g/dl (31.0-35.0); Mean Corpuscular Hemoglobin 32.2 pg (27.0-33.0); Mean Corpuscular Volume 99.5 fL (80.0-98.0); NRBC Abs Auto 0.000 X10*3/uL (0.0-0.012); NRBC Pct Auto 0.0 /100WBC (0.0-0.2); Platelet Count 197 X10*3/uL (160-400); Red Blood Count 4.19 X10*6/uL (4.20-5.50); White Blood Count 6.1 X10*3/uL (4.8-10.8)
[2024-09-19 11:22] LABS: B Type Natriuretic Peptide 363 pg/mL (<100)
[2024-09-19 11:27] LABS: Alanine Aminotransferase 17 U/L (0-31); Albumin Level 3.8 g/dL (3.5-5.0); Alkaline Phosphatase 78 U/L (39-117); Anion Gap 10 (12-20); Aspartate Amino Transferase 32 U/L (5-31); Blood Urea Nitrogen 14 mg/dL (9-16); Calcium 9.0 mg/dL (8.4-10.2); Carbon Dioxide 31 mmol/L (22-29); Chloride 104 mmol/L (96-108); Estimated Glomerular Filt Rate > 60; Potassium 3.5 mmol/L (3.3-5.1); Sodium 141 mmol/L (135-145); Total Protein 8.7 g/dL (6.5-8.0)
[2024-09-20 14:28] LABS: HIV RNA PCR Qn Copies <20 DETECTED copies/mL (NOT DETECTED); HIV RNA PCR Qn Log Copies <1.30 DETECTED (NOT DETECTED)
[2024-09-22 15:44] LABS: Absolute CD3 Count 1017 cells/uL (840-3060); Absolute CD8 Count 447 cells/uL (180-1170); Percent CD3 Cells 65 % (57-85); Percent CD8 Cells 29 % (12-42)
== END 2024-09-19 09:11 | disposition home or self-care (01) ==
LOC: HO.XRAY 09:10
PROVIDERS: Internal Medicine; PCP Family Medicine; Visit Provider Internal Medicine Cardiovascular Disease
DX: I48.0 Paroxysmal atrial fibrillation (principal); I50.9 Heart failure, unspecified; Q21.3 Tetralogy of Fallot; Z21 Asymptomatic human immunodeficiency virus [HIV] infection status; Z79.01 Long term (current) use of anticoagulants; Z79.899 Other long term (current) drug therapy; Z95.810 Presence of automatic (implantable) cardiac defibrillator; Z95.2 Presence of prosthetic heart valve
CPT/HCPCS: 36415; 71046; 80053; 82248; 83880; 84443; 85025; 86359; 86360; 87536; 93005; 99212

== ENCOUNTER → 2024-09-19 10:33 | Outpatient (BNV) | payer MEDICAID, SELFPAY | PROVIDERS: PCP Family Medicine; Visit Provider Radiology Diagnostic Radiology | DX: I51.7 Cardiomegaly (principal); J81.0 Acute pulmonary edema | CPT/HCPCS: 71046 ==

== ENCOUNTER → 2024-11-09 08:32 | Outpatient (REF) | payer MEDICAID, SELFPAY ==
--- NOTE | 2024-11-09 08:35 | CA_ITS ---
Transthoracic Echocardiogram Patient (Last, First, Middle): Jasmina Yi, Gender: Female Date of : 1965 Age: 59 Procedure Date: 11/09/2024 Procedure Type: Transthoracic Echocardiogram Location: OP Height: 152.4 cm Weight: 56.25 kg BSA: 1.52 m2 Heart Rate: bpm BP: 111 / 62 mmHg Lithograph Operator: ALEJANDRA Referring MD: Christoph Marin MD Symptoms: I50.9 - Heart failure, unspecified Study Quality: Fair/contrast Conclusions: - The left ventricular systolic function is mild to moderately decreased. The visually estimated ejection fraction is between 40-45%. - Evidence suggests grade II (moderate) diastolic dysfunction. - There is mild to moderately decreased right ventricular systolic function. - Prosthetic pulmonic valve with likely normal function. - There is mild to moderate tricuspid valve regurgitation. - Mild pulmonary hypertension is present. Findings Procedure Information Contrast agent, definity, is being given per protocol without apparent complications. Left Ventricle Normal left ventricular cavity size. There is normal left ventricular wall thickness. The left ventricular systolic function is mild to moderately decreased. The visually estimated ejection fraction is between 40-45%. There is paradoxical septal motion consistent with post-operative status. Evidence suggests grade II (moderate) diastolic dysfunction. Right Ventricle Mildly increased right ventricular cavity size. There is mild to moderately decreased right ventricular systolic function. Atria The left atrium is mildly dilated. The right atrium is moderately dilated. Aortic Valve The aortic valve was not well visualized. There is no aortic valve stenosis. There is no aortic valve regurgitation. Mitral Valve The mitral valve appears normal. There is trace mitral valve regurgitation. There is no mitral valve stenosis. Pulmonic Valve There is no pulmonic valve regurgitation. Peak PV gradient is calculated at 17 mmHg. History of prosthetic pulmonic valve but not well visualized. Based on gradients, suspect normal function. Tricuspid Valve There is mild to moderate tricuspid valve regurgitation. Mild pulmonary hypertension is present. Great Vessels The aorta was not well visualized. The aortic arch is normal in size. Venous The inferior vena cava is normal in size and collapses greater than 50% with inspiration. Pericardium/Pleural There is no evidence of pericardial effusion. Prior Study Comparison No significant change compared to prior study dated: 12/31/2023. Measurements 2D Linear Measurements IVSd: 1.03 0.6-0.9/0.6-1.0 cm LVIDd: 4.12 3.9-5.3/4.2-5.9 cm LVIDd Index: 2.71 2.4-3.2/2.2-3.1 cm/m2 LVIDs: 3.29 2.0-3.6 cm LVPWd: 0.92 0.7-1.1 cm LA Diam: 2.60 2.7-3.8/3.0-4.0 cm LAIDs Index: 1.71 1.5-2.3 cm/m2 LV Mass: 159.63 67-162/88-224 g LV Mass Index: 105.02 43-95/49-115 g/m2 LVOT Diam: 2.00 3.0+(-)1.3 cm 2D Systolic Function EF 4C: 47.70 >55% EF 2C: 46.50 >55% EF BiP: 46.90 >55% Mitral Valve MV Pk E: 0.86 MV PK A: 0.33 MV Decel Time: 175.00 E/A: 2.60 E'Lateral: 5.22 E'Medial: 3.37 E/E' Med: 25.40 E/E' Lat: 16.40 PHT: 51.00 MVA PHT: 4.31 Decel Storey: 4.89 Aortic Valve AoV Pk Darwin: 1.36 AoV Mn Darwin: 0.93 AoV VTI: 0.33 AoV Pk Grad: 7.00 Aov Mn Grad: 4.00 VALDO Cont.VTI: 1.84 LVOT LVOT Pk Darwin: 0.89 LVOT Mn Darwin: 0.56 LVOT VTI: 0.19 LVOT Pk Grad: 3.00 LVOT Mn Grad: 2.00 LVOT Diam: 2.00 LVOT Area: 3.14 Diastolic Function MV Pk E: 0.86 MV Pk A: 0.33 E/A: 2.60 E'Medial: 3.37 E/E' Med: 25.40 E' Laterial: 5.22 E/E' Lat: 16.40 Right Ventricle TAPSE (mm): 13.00 TVS' Darwin: 5.66 Tricuspid Valve TR Pk Darwin: 3.33 TR Pk Grad: 44.00 RA Press: 3.00 RVSP: 47.00 Great Vessels Aorta Ao Asc: 3.30 2.1-3.4 cm Ao Arch: 3.00 Pulmonary Valve PV Pk Darwin: 2.07 PV Min Darwin: 1.42 Peak PV Grad: 17.00 PV Mn Grad: 10.00 Shunting QP:QS: 2.20 Updated in Other Vendor System with Status of Final Georgi Turcios MD electronically signed on 11/12/2024 12:57:45 PM with status of Final
== END ==
LOC: HO.CARD 08:32
PROVIDERS: PCP Family Medicine; Visit Provider Internal Medicine Cardiovascular Disease
DX: I50.9 Heart failure, unspecified (principal); Q21.3 Tetralogy of Fallot
CPT/HCPCS: 93306; Q9957

== ENCOUNTER → 2024-11-09 08:35 | Outpatient (BNV) | payer MEDICAID, SELFPAY | PROVIDERS: PCP Family Medicine; Visit Provider Internal Medicine | DX: I27.20 Pulmonary hypertension, unspecified (principal); Z95.4 Presence of other heart-valve replacement; I36.1 Nonrheumatic tricuspid (valve) insufficiency; I51.7 Cardiomegaly | CPT/HCPCS: 93306 ==

== ENCOUNTER 2024-11-11 08:25 | Outpatient (REF) | payer MEDICAID, SELFPAY ==
--- NOTE | ~2024-11-11 | CT_ITS ---
CLINICAL HISTORY: I50.9 - Heart failure, unspecified CT chest without contrast Comparison: None provided Findings: Cardiomegaly, pacemaker, and pulmonary valve replacement. Enlarged pulmonary trunk and right main pulmonary artery measuring up to 38 mm in width. Query pulmonary arterial hypertension. The mediastinum is otherwise unremarkable. Hazy bilateral lower and right middle lobe opacities along with more diffuse bilateral small ground-glass nodular opacities primarily concerning for pneumonia/pneumonitis. Correlate clinically. Incompletely evaluated gallstone. Mild focal left renal scarring. Subtle hepatic surface nodularity due to questionable cirrhosis. Clinical/lab correlation recommended. No acute fractures. IMPRESSION: 1. Hazy bilateral lower and right middle lobe opacities along with more diffuse bilateral small ground-glass nodular opacities primarily concerning for pneumonia/pneumonitis. Correlate clinically. 2. Cardiomegaly. 3. Query pulmonary arterial hypertension. 4. Subtle hepatic surface nodularity due to questionable cirrhosis. Clinical/lab correlation recommended. This document has been electronically signed by: Melida Waters MD on 11/15/2024 08:59:03
== END 2024-11-11 08:26 | disposition home or self-care (01) ==
LOC: HO.CT 08:25
PROVIDERS: PCP Family Medicine; Visit Provider Internal Medicine Cardiovascular Disease
DX: I50.9 Heart failure, unspecified (principal); Q21.3 Tetralogy of Fallot
CPT/HCPCS: 71250

== ENCOUNTER → 2024-11-11 08:27 | Outpatient (BNV) | payer MEDICAID, SELFPAY | PROVIDERS: PCP Family Medicine; Visit Provider Radiology Diagnostic Radiology | DX: I51.7 Cardiomegaly (principal); R91.8 Other nonspecific abnormal finding of lung field | CPT/HCPCS: 71250 ==

== ENCOUNTER 2024-12-20 10:50 | Outpatient (REF) | payer MEDICAID, SELFPAY ==
--- NOTE | ~2024-12-20 | XR_ITS ---
EXAMINATION: XR KNEE 4 OR MORE VIEWS RIGHT HISTORY: fall onto knee with bruising and continued pain 12/10 COMPARISON: There are no prior studies available for comparison. FINDINGS: Four views of the right knee are submitted. Osseous mineralization is normal. There is no fracture or dislocation. The joint spaces are preserved. The soft tissues are unremarkable. There is no joint effusion. XR/XR knee RT 4V IMPRESSION: Unremarkable examination of the right knee. Electronically signed by: Zach Mendiola MD 12/20/2024 01:08 PM EDT
== END 2024-12-20 10:51 | disposition home or self-care (01) ==
LOC: HO.HHCX 10:50
PROVIDERS: Visit Provider Family Medicine
DX: M25.561 Pain in right knee (principal); S80.01XA Contusion of right knee, initial encounter
CPT/HCPCS: 73564

== ENCOUNTER → 2024-12-20 10:50 | Outpatient (BNV) | payer MEDICAID, SELFPAY | PROVIDERS: Visit Provider Radiology Diagnostic Radiology | DX: M25.561 Pain in right knee (principal) | CPT/HCPCS: 73564 ==

== ENCOUNTER 2025-01-16 10:38 | Outpatient (AMB) | payer MEDICAID, SELFPAY ==
[2025-01-16 10:40] VITALS: BMI 24.0
--- NOTE | 2025-01-16 10:40 | A.OFFVIS_ITS ---
Vital Signs 01/16/25 10:40 Height 5 ft Weight 123 lb BMI 24.0 Intake Visit Reasons: PRN follow up VV Intake Note: follow up Right LE thigh pain, pt questioning if she has VV there. Running Rigger Required: No Accompanied by: Self / Same As Patient Allergies Penicillins (PENICILLINS) Allergy (Unknown, Verified 01/16/25 10:44) RASH SEAFOOD Allergy (Unknown, Uncoded 01/16/25 10:44) RASH HPI HPI PRN follow up VV: Details: Very pleasant 59-year-old female presents to us for evaluation regarding venous disease. When seen her in the past and usually gets venous procedures on the right lower extremity on an annual basis. She has developed new cluster of varicosities which have been a source of pain and discomfort in particular the right calf. She now presents for follow-up [facility] Medical History Hypoxia CHF (congestive heart failure) Biventricular ICD (implantable cardioverter-defibrillator) in place CHF exacerbation Right bundle branch block (RBBB) on electrocardiogram (ECG) Right heart failure Complete heart block Acute on chronic right heart failure ICD (implantable cardioverter-defibrillator) in place Dysplasia of cervix, low grade (MIGUEL 1) Paroxysmal atrial fibrillation Fallot tetralogy Heart valve disorder Pacemaker HIV (human immunodeficiency virus infection) Asthma Surgical History H/O varicose vein stripping (04/04/21) Pulmonary valve replaced History of cardioversion H/O pulmonic valve replacement Hx of cardiac pacemaker History of open heart surgery Family History Father CVD (cardiovascular disease) Mother No problems noted. Social History Household Members: Significant Other Household Members Other:: female partner Housing: Apartment Do you presently have visiting nurse or other home services: No Alcohol intake: never Patient Tobacco Use Status: Never used Tobacco service: No Current occupational status: disabled Sexual orientation: Lesbian/Guerrier/Homosexual Gender identity: Female Female Reproductive History Menstrual Age of Menarche: 10 Review of Systems Const Reports as per HPI ENT Reports no additional complaints Card Denies chest pain, Denies chest pain at rest and Denies chest pain with activity Resp Denies chest congestion and Denies cough GI Reports no additional complaints Musc Details: pain over varicosities, aching of lower extremities, swelling, cramping, heaviness and tiredness, itching Denies abnormal gait Skin/Breast Reports pruritus and Denies wounds Neuro Reports no additional complaints and Denies abnormal gait Psych Denies no additional complaints Physical Exam Vital Signs: BMI result Body Mass Index 24.0 Const General: cooperative, healthy appearing and comfortable Orientation/consciousness: oriented to person, oriented to place and oriented to time Neck Carotids: no bruits Chest Chest palpation & inspection: normal inspection of the chest and normal palpation of entire chest wall Resp Effort & Inspection: normal respiratory effort and able to speak in complete sentences Cardio Rate: regular rate Heart sounds: S1 normal heart sound present and S2 normal heart sound present Peripheral pulses: Peripheral pulses 2+ throughout GI Inspection: Yes normal to inspection Skin Other: +2 edema, large rope-like varicosities greater than 4 mm right calf CEAP Classification C4 - skin color changes Ep - Etiology Primary As - superficial veins P - reflux General skin exam: dry skin Neuro General: oriented to person, oriented to place and oriented to time Extrem Right lower extremity: full ROM, normal capillary refill and edema Left lower extremity: full ROM, normal capillary refill and edema Psych Mental Status: mental status grossly normal Assessment & Plan Assessment & Plan (1) Varicose veins of right lower extremity with inflammation: Comment: 04/04/2021 - right leg microphlebectomy 01/30/2022 - right leg microphlebectomy 09/25/2022 - right leg microphlebectomy 01/21/2024 - right leg microphlebectomy Code(s): I83.11 - Varicose veins of right lower extremity with inflammation Category: Medical Plan: In short patient will require right lower extremity venous insufficiency testing. She does have recurrent venous disease. We did discuss routine conservative measures including compression elevation and exercise. She will follow up with us after testing. (2) Varicose veins of left lower extremity with inflammation: Comment: 03/01/2020 - left leg microphlebectomy Code(s): I83.12 - Varicose veins of left lower extremity with inflammation Category: Medical Plan: See above Orders: Orders US venous duplex LE RT Today I83.11 - Varicose veins of right lower extremity with inflammation Coding Level of Care Code Est Pt Level 4 (28572) Complex EM visit Add On G2211 Diagnoses Varicose veins of right lower extremity with inflammation I83.11 Varicose veins of left lower extremity with inflammation I83.12
== END 2025-01-16 11:07 | disposition home or self-care (01) ==
LOC: HO.HVS 10:38
PROVIDERS: Visit Provider Surgery Vascular Surgery
DX: I83.11 Varicose veins of right lower extremity with inflammation (principal); I83.12 Varicose veins of left lower extremity with inflammation
CPT/HCPCS: 99214

== ENCOUNTER → 2025-01-16 10:38 | Outpatient (BNVA) | payer MEDICAID, SELFPAY | PROVIDERS: Visit Provider Surgery Vascular Surgery | DX: I83.813 Varicose veins of bilateral lower extremities with pain (principal) | CPT/HCPCS: 99212 ==

== ENCOUNTER 2025-01-29 12:34 | Outpatient (AMB) | payer MEDICAID, SELFPAY ==
--- NOTE | 2025-01-29 13:00 | A.OFFVIS_ITS ---
Vital Signs 01/29/25 13:01 Weight 130 lb 1.164 oz BP 90/60 Blood Pressure Location Rt brachial Position Sitting Pulse 66 Pulse Source Pulse Oximeter Pulse Oximetry (%) 90 L Oxygen Delivery Method Room Air Intake Visit Reasons: Hypoxia Allergies Penicillins (PENICILLINS) Allergy (Unknown, Verified 01/29/25 13:06) RASH SEAFOOD Allergy (Unknown, Uncoded 01/29/25 13:06) RASH Medication List - Last Reconciled 01/29/25 by Mirtha Hanson LPN albuterol sulfate 90 mcg/actuation (Ventolin HFA) 2 puffs inhalation Q4-6H PRN albuterol sulfate 2.5 mg inhalation Q4H PRN amiodarone 100 mg PO DAILY 90 days baclofen 10 mg PO DAILY baclofen 10 mg PO BID PRN jpnxtncaf-[id number]-[id number] ala 50-200-25 mg (Biktarvy) 1 tab PO BEDTIME blood pressure monitor (Blood Pressure Kit) As directed diclofenac sodium 1% 2 grams topical BID ergocalciferol (vitamin D2) 1,250 mcg PO WE fluticasone furoate 100 mcg/actuation (Arnuity Ellipta) 1 inh inhalation DAILY furosemide 40 mg PO QAM lidocaine 5% 1 patch topical DAILY PRN metoprolol succinate ER 25 mg PO DAILY oxycodone-acetaminophen 5-325 mg 1 tab PO BEDTIME PRN rivaroxaban (Xarelto) 20 mg PO BEDTIME 90 days spironolactone 12.5 mg PO DAILY underpads (Goodnites Bed Mats) As directed HPI HPI Hypoxia: Details: 59-year-old lady, nonsmoker, with HIV, congenital heart disease/tetralogy of Fallot, status post repair, underlying bioprosthetic pulmonic valve, AFib on amiodarone, and biventricular ICD with recent admission for congestive heart failure discharged on supplemental oxygen, also asthma controlled on Arnuity and albuterol MDI. Patient states that her asthma symptoms are well controlled on her current regimen. She does not want to use supplemental oxygen and she had it removed. Patient had follow-up 6 minute walk test/supplemental oxygen evaluation that shows that she continues to require supplemental oxygen at 1 L continuous flow to maintain normal oximetry with exertion, however she consistently refuses supplemental oxygen. [facility] Medical History Hypoxia CHF (congestive heart failure) Biventricular ICD (implantable cardioverter-defibrillator) in place CHF exacerbation Right bundle branch block (RBBB) on electrocardiogram (ECG) Right heart failure Complete heart block Acute on chronic right heart failure ICD (implantable cardioverter-defibrillator) in place Dysplasia of cervix, low grade (MIGUEL 1) Paroxysmal atrial fibrillation Fallot tetralogy Heart valve disorder Pacemaker HIV (human immunodeficiency virus infection) Asthma Surgical History H/O varicose vein stripping (04/04/21) Pulmonary valve replaced History of cardioversion H/O pulmonic valve replacement Hx of cardiac pacemaker History of open heart surgery Family History Father CVD (cardiovascular disease) Mother No problems noted. Social History Household Members: Significant Other Household Members Other:: female partner Housing: Apartment Do you presently have visiting nurse or other home services: No Alcohol intake: never Patient Tobacco Use Status: Never used Tobacco service: No Current occupational status: disabled Sexual orientation: Lesbian/Guerrier/Homosexual Gender identity: Female Female Reproductive History Menstrual Age of Menarche: 10 Review of Systems Const Denies daytime sleepiness, Denies excessive sweating, Denies fatigue, Denies fever(s), Denies lethargy, Denies malaise, Denies night sweats, Denies snoring and Denies weight loss Eyes Denies blurry vision and Denies itchy eyes ENT Denies nasal congestion, Denies post nasal drip, Denies sinus pain, Denies sinus pressure and Denies other ( Thrush) Card Denies chest pain, Denies pedal edema, Denies dyspnea, Denies orthopnea and Denies paroxysmal nocturnal dyspnea Resp Denies cough, Denies hemoptysis, Denies excessive phlegm production, Denies dyspnea, Denies snoring and Denies wheezing GI Denies abdominal pain and Denies heartburn Musc Denies myalgias, Denies arthralgias and Denies joint swelling Skin/Breast Denies rash Neuro Denies memory loss and Denies seizure-like activity Psych Denies abnormal sleep pattern, Denies anxiety and Denies memory loss Endo Denies excessive sweating, Denies fatigue and Denies heat intolerance Ryley/Lymph Denies easy bruising Aller/Immun Denies itchy eyes, Denies seasonal rhinorrhea and Denies wheezing Physical Exam Vital Signs: Last Vital Signs Pulse 66 01/29/25 13:01 BP 90/60 01/29/25 13:01 Pulse Ox 90 L 01/29/25 13:01 Oxygen Delivery Method Room Air 01/29/25 13:01 Const General: no acute distress and alert Nutritional Appearance: not obese Orientation/consciousness: Other orientation findings ( oriented) HEENT Head: Yes atraumatic Eyes General: appearance normal, both eyes and all related structures Sclerae: sclerae normal EOM: EOMs intact bilaterally Neck Neck: Yes supple Lymphatic: no lymphadenopathy noted Resp Effort & Inspection: normal respiratory effort and no use of accessory muscles Auscultation: clear to auscultation bilaterally Cardio Rate: regular rate Rhythm: regular rhythm Heart sounds: no gallops, no murmurs and no rubs Skin General skin exam: other ( warm) Extrem General: No clubbing, No cyanosis and No edema Assessment & Plan Assessment & Plan (1) Asthma: Code(s): J45.909 - Unspecified asthma, uncomplicated Category: Medical Plan: Well controlled on current regimen of Arnuity and albuterol MDI/nebs. Continue current regimen. (2) Supplemental oxygen dependent: Code(s): Z99.81 - Dependence on supplemental oxygen Category: Medical Plan: Patient continues to require supplemental oxygen at 1 L continuous flow, however she continues to refuse supplemental oxygen. Coding Level of Care Code Est Pt Level 4 (34127) Diagnoses Asthma J45.909 Supplemental oxygen dependent Z99.81
[2025-01-29 13:01] VITALS: BP 90/60; PULSE 66; O2SAT 90
== END 2025-01-29 13:19 | disposition home or self-care (01) ==
LOC: HO.HPS 12:35
PROVIDERS: PCP Family Medicine; Visit Provider Internal Medicine Pulmonary Disease
DX: J45.909 Unspecified asthma, uncomplicated (principal); Z99.81 Dependence on supplemental oxygen
CPT/HCPCS: 99214

== ENCOUNTER → 2025-01-29 12:34 | Outpatient (BNVA) | payer MEDICAID, SELFPAY | PROVIDERS: PCP Family Medicine; Visit Provider Internal Medicine Pulmonary Disease | DX: J45.909 Unspecified asthma, uncomplicated (principal); B20 Human immunodeficiency virus [HIV] disease; Z99.81 Dependence on supplemental oxygen; Z95.810 Presence of automatic (implantable) cardiac defibrillator | CPT/HCPCS: 99212 ==

== ENCOUNTER 2025-02-05 12:35 | Outpatient (REF) | payer MEDICAID, SELFPAY ==
[2025-02-05 14:28] LABS: Anion Gap 10 (12-20); Blood Urea Nitrogen 13 mg/dL (9-16); Calcium 9.6 mg/dL (8.4-10.2); Carbon Dioxide 32 mmol/L (22-29); Chloride 101 mmol/L (96-108); Estimated Glomerular Filt Rate > 60; Potassium 4.0 mmol/L (3.3-5.1); Sodium 139 mmol/L (135-145)
== END 2025-02-05 12:36 | disposition home or self-care (01) ==
LOC: HO.LAB 12:35
PROVIDERS: PCP Family Medicine; Visit Provider Internal Medicine
DX: I51.89 Other ill-defined heart diseases (principal)
CPT/HCPCS: 36415; 80048

== ENCOUNTER 2025-03-02 12:29 | Outpatient (REF) | payer MEDICAID, SELFPAY ==
--- NOTE | ~2025-03-02 | US_ITS ---
EXAMINATION: US TRIPLEX LOWER EXTREMITY, RIGHT CLINICAL INFORMATION: Varicose veins of the right lower extremity with inflammation COMPARISON: 04/12/2019, history of right great saphenous vein stripping and microphlebectomy 04-05, 02-03, 10-04, and 02-05 TECHNIQUE: Color flow triplex imaging and compression Doppler was performed to evaluate both the deep and the superficial systems on the right. To evaluate the superficial system, the examination was performed in the upright position. Color-flow Doppler ultrasound and compression ultrasound were utilized. In addition, maneuvers were utilized to demonstrate reflux. FINDINGS: 1. DEEP VENOUS ULTRASOUND OF THE RIGHT LOWER EXTREMITY: Common Femoral Vein: Compressible, normal respiratory variation and augmented flow. Femoral Vein: Compressible, normal color flow and augmentation. Popliteal Vein: Compressible, normal augmentation. Deep Reflux: There is no evidence of reflux in the deep system in either the common femoral vein, superficial femoral or the popliteal vein. 2. SUPERFICIAL ULTRASOUND WITH DOPPLER OF RIGHT LOWER EXTREMITY: GREAT SAPHENOUS VEIN: Saphenofemoral Junction: Not seen Proximal Thigh: Not seen Mid Thigh: Not seen Distal Thigh: Not seen At Knee: Not seen Greater saphenous vein reconstituted by varicose vein at the proximal calf. Below Knee/Proximal Calf: 0.3 cm; Reflux: >3100 ms Mid Calf: 0.3 cm; Reflux: >3100 ms Ankle/Distal Calf: 0.3 cm; Reflux: >3250 ms Lateral / Medial accessory GREAT SAPHENOUS VEIN: Not demonstrated SMALL SAPHENOUS VEIN: Drainage: Thigh extension Saphenopopliteal Junction: 0.2 cm; Reflux: 0 ms Mid calf: 0.1 cm; Reflux: 0 ms Distal: 0.2 cm; Reflux: 0 ms VEIN OF GIACOMINI: Size: NA cm Reflux: NA ms PERFORATORS: Location: Greater saphenous vein, proximal calf Size: 0.4 cm Reflux: 0 ms Location: Greater saphenous vein, proximal calf Size: 0.4 cm Reflux: 0 ms PERFORATORS: Location: Small saphenous vein, mid calf Size: 0.1 cm Reflux: 0 ms Location: Greater saphenous vein area in the proximal thigh, femoral vein woven wood shade assembler via a varicose vein, 57 cm cephalad to calcaneus Size: 0.3 cm Reflux: 1300 ms PERFORATORS: Location: Greater saphenous vein area, distal thigh Size: 0.2 cm Reflux: 0 ms PERFORATORS: Location: Greater saphenous vein posterior tibial vein varicosity, proximal calf Size: 0.2 cm Reflux: 0 ms Location: Right mid lateral calf Size: 0.4 cm Reflux: 0 ms VARICOSITIES > 3mm: Location: Proximal thigh Size: 0.5 cm Reflux: >3250 ms Location: Greater saphenous vein area, mid thigh Size: 0.4 cm Reflux: >3000 ms Location: Greater saphenous vein, mid thigh, Size: 0.4 cm Reflux: >2972 ms Location: Greater saphenous vein, distal calf Size: 0.3 cm Reflux: >3088 ms US/US venous duplex LE RT IMPRESSION: Right: Complex anatomy related to prior greater saphenous vein stripping with reconstitution of the greater saphenous vein varicosity in the proximal calf. The reconstituted greater saphenous vein demonstrates incompetence with reflux from below the knee through the ankle. There is also a proximal femoral vein woven wood shade assembler the reflux is 57 cm from heel. There are also multiple incompetent varicose veins, as noted above. Electronically signed by: José Manuel Wiggins MD 03/05/2025 10:20 AM ANA CRISTINA
== END 2025-03-02 12:30 | disposition home or self-care (01) ==
LOC: HO.US 12:29
PROVIDERS: PCP Family Medicine; Visit Provider Surgery Vascular Surgery
DX: I83.11 Varicose veins of right lower extremity with inflammation (principal)
CPT/HCPCS: 93971

== ENCOUNTER → 2025-03-02 12:31 | Outpatient (BNV) | payer MEDICAID, SELFPAY | PROVIDERS: PCP Family Medicine; Visit Provider Radiology Diagnostic Radiology | DX: I83.11 Varicose veins of right lower extremity with inflammation (principal) | CPT/HCPCS: 93971 ==